=== PATIENT | female | born 1950 | race Caucasian/White ===

== ENCOUNTER 2018-12-22 15:19 | Inpatient (IN) | payer MEDICARE ==
[2018-12-22] MEDS ORDERED: MORPHINE SULFATE 4 MG/ML SYRINGE IVP STA (15:46)
[2018-12-22] MEDS ORDERED: ONDANSETRON 4 MG/2 ML VIAL IVP STA (15:46)
--- NOTE | 2018-12-22 15:52 | ED ---
Extremity Problem HPI - General Chief complaint: Extremity Problem,Nontraumatic Stated complaint: Knee Pain, fever Time Seen by Provider: 12/22/18 15:33 Source: patient, RN notes reviewed Mode of arrival: ambulatory Limitations: no limitations - History of Present Illness Initial comments: 68-year-old female presents emergency Department with chief complaint of right knee pain. Patient states that she has slight injury last week and which she follow-up with orthopedics Dr. Jurado on Friday and had a steroid injection. Patient states that pain worsened Friday night and throughout the week and which she can barely ambulate on her knee or have any pain 3 times. She states it throbs no matter if she is ambulatory are not she states it is extremely exacerbated with ambulation. Patient has developed a fever today. Patient did see Dr. Jurado this morning in which she had aspiration of her knee. This was sent for testing. Patient states that she just generally does not feel well she denies any URI symptoms and nausea vomiting. - Related Data Home Medications Medication Instructions Recorded Confirmed Carvedilol [Coreg] 12.5 mg PO BID 05/31/14 12/22/18 Levothyroxine Sodium [Synthroid] 112 mcg PO DAILY 05/31/14 12/22/18 Lisinopril [Prinivil] 40 mg PO DAILY 05/31/14 12/22/18 clonazePAM [KlonoPIN] 0.25 mg PO HS PRN 05/31/14 12/22/18 Cholecalciferol [Vitamin D3 (25 2,000 unit PO DAILY 06/01/14 12/22/18 Mcg = 1000 Iu)] Fluticasone Propionate [Flonase] 1 spray EA NOSTRIL DAILY PRN 06/01/14 12/22/18 Magnesium Oxide [Mag-Ox] 250 mg PO BID 06/01/14 12/22/18 Ibuprofen [Motrin] 800 mg PO TID PRN 12/22/18 12/22/18 Loratadine [Claritin] 10 mg PO DAILY PRN 12/22/18 12/22/18 Omeprazole [PriLOSEC] 20 mg PO DAILY PRN 12/22/18 12/22/18 amLODIPine [Norvasc] 5 mg PO BID 12/22/18 12/22/18 Previous Rx's Medication Instructions Recorded Aspirin EC [Ecotrin] 325 mg PO DAILY #30 tablet. 06/02/14 Allergies Allergy/AdvReac Type Severity Reaction Status Date / Time No Known Allergies Allergy Verified 12/22/18 16:06 Review of Systems ROS Statement: Those systems with pertinent positive or pertinent negative responses have been documented in the HPI. ROS Other: All systems not noted in ROS Statement are negative. Past Medical History Past Medical History: Hyperlipidemia, Hypertension, Thyroid Disorder History of Any Multi-Drug Resistant Organisms: None Reported Past Surgical History: Hysterectomy, Tonsillectomy, Tubal Ligation Additional Past Surgical History / Comment(s): thryoid Past Anesthesia/Blood Transfusion Reactions: No Reported Reaction Past Psychological History: Anxiety Smoking Status: Former smoker Past Alcohol Use History: Occasional Past Drug Use History: None Reported - Past Family History Father Additional Family Medical History / Comment(s): POCKETS IN THE LUNG, ULCERATIVE COLITIS Mother Family Medical History: AFIB General Exam Limitations: no limitations General appearance: alert, in no apparent distress Head exam: Present: atraumatic, normocephalic, normal inspection Eye exam: Present: normal appearance, PERRL, EOMI. Absent: scleral icterus, conjunctival injection, periorbital swelling ENT exam: Present: normal exam, normal oropharynx, mucous membranes moist Neck exam: Present: normal inspection, full ROM. Absent: tenderness, meningismus, lymphadenopathy Respiratory exam: Present: normal lung sounds bilaterally. Absent: respiratory distress, wheezes, rales, rhonchi, stridor Cardiovascular Exam: Present: regular rate, normal rhythm, normal heart sounds. Absent: systolic murmur, diastolic murmur, rubs, gallop, clicks Extremities exam: Present: other (Right knee very limited range of motion, increased warmth and swelling noted pulses are palpable and equal bilaterally) Skin exam: Present: warm, dry, intact, normal color. Absent: rash Course Vital Signs 12/22/18 12/22/18 12/22/18 15:22 17:47 18:27 Temperature 100.7 F H 100.8 F H Pulse Rate 100 98 Respiratory 18 16 Rate Blood Pressure 129/76 151/86 O2 Sat by Pulse 95 97 Oximetry Medical Decision Making - Medical Decision Making 68-year-old female presented for right knee pain, fever. Patient does have some leukocytosis, most likely evidence of septic joint. I discussed the case with [facility]. Physician Dr. Jurado who admitted the patient, consult to medicine and patient be kept nothing by mouth at midnight. Patient will be started on vancomycin in addition to the Rocephin given. - Lab Data Result diagrams: 12/22/18 16:10 12/22/18 16:10 Lab Results 12/22/18 12/22/18 12/22/18 Range/Units 16:10 16:10 16:10 WBC 24.0 H (3.8-10.6) k/uL RBC 4.86 (3.80-5.40) m/uL Hgb 14.1 (11.4-16.0) gm/dL Hct 41.2 (34.0-46.0) % MCV 84.8 (80.0-100.0) fL MCH 29.0 (25.0-35.0) pg MCHC 34.2 (31.0-37.0) g/dL RDW 13.4 (11.5-15.5) % Plt Count 229 (150-450) k/uL Neutrophils % 91 % Lymphocytes % 2 % Monocytes % 4 % Eosinophils % 1 % Basophils % 1 % Neutrophils # 21.8 H (1.3-7.7) k/uL Lymphocytes # 0.6 L (1.0-4.8) k/uL Monocytes # 1.0 (0-1.0) k/uL Eosinophils # 0.2 (0-0.7) k/uL Basophils # 0.2 (0-0.2) k/uL ESR QNS PT 12.5 H (9.0-12.0) sec INR 1.2 H (<1.2) APTT 25.6 (22.0-30.0) sec Sodium 127 L (137-145) mmol/L Potassium 4.1 (3.5-5.1) mmol/L Chloride 91 L (98-107) mmol/L Carbon Dioxide 25 (22-30) mmol/L Anion Gap 11 mmol/L BUN 13 (7-17) mg/dL Creatinine 0.69 (0.52-1.04) mg/dL Est GFR (CKD-EPI)AfAm >90 (>60 ml/min/1.73 sqM) Est GFR (CKD-EPI)NonAf 89 (>60 ml/min/1.73 sqM) Glucose 118 H (74-99) mg/dL Calcium 8.5 (8.4-10.2) mg/dL Total Bilirubin 3.5 H (0.2-1.3) mg/dL AST 20 (14-36) U/L ALT 31 (9-52) U/L Alkaline Phosphatase 60 (38-126) U/L Total Protein 6.5 (6.3-8.2) g/dL Albumin 4.0 (3.5-5.0) g/dL Disposition Clinical Impression: Septic joint of right knee joint Disposition: ADMITTED IP TO THIS HOSP Condition: Fair Referrals: Thea Lloyd MD [Primary Care Provider] - 1-2 days
[2018-12-22 16:55] LABS: Basophils # (A) 0.2 k/uL (0-0.2); Basophils % (A) 1 %; Eosinophils # (A) 0.2 k/uL (0-0.7); Eosinophils % (A) 1 %; HCT 41.2 % (34.0-46.0); HGB 14.1 gm/dL (11.4-16.0); Lymphocytes # (A) 0.6 k/uL (1.0-4.8); Lymphocytes % (A) 2 %; MCHC 34.2 g/dL (31.0-37.0); MCV 84.8 fL (80.0-100.0); Mean Platelet Volume 6.9; Monocytes % (A) 4 %; Neutrophils # (A) 21.8 k/uL (1.3-7.7); Neutrophils % (A) 91 %; Platelet Count 229 k/uL (150-450); RBC 4.86 m/uL (3.80-5.40); RDW 13.4 % (11.5-15.5)
[2018-12-22 17:06] LABS: INR 1.2 (<1.2); Partial Thromboplastin Time 25.6 sec (22.0-30.0); Prothrombin Time 12.5 sec (9.0-12.0)
--- NOTE | 2018-12-22 17:12 | XR ---
EXAMINATION TYPE: XR knee complete RT DATE OF EXAM: 12/22/2018 COMPARISON: NONE HISTORY: 68-year-old female with pain TECHNIQUE: 3 views FINDINGS: Tricompartmental degenerative spurring at the knee. Extensor mechanism is intact. Underlying small to moderate suprapatellar knee joint effusion. No acute fracture, subluxation, or dislocation seen. IMPRESSION: [id number] tricompartmental osteoarthrosis. [id number] knee joint effusion. If concern f or internal derangement, MRI can be performed. No acute osseous abnormality seen.
[2018-12-22 17:17] LABS: ALT 31 U/L (9-52); AST 20 U/L (14-36); African American GFR (CKD) >90 (>60 ml/min/1.73 sqM); Alkaline Phosphatase 60 U/L (38-126); Anion Gap 11 mmol/L; Blood Urea Nitrogen 13 mg/dL (7-17); Calcium 8.5 mg/dL (8.4-10.2); Carbon Dioxide 25 mmol/L (22-30); Chloride 91 mmol/L (98-107); Glucose 118 mg/dL (74-99); Potassium 4.1 mmol/L (3.5-5.1); Sodium 127 mmol/L (137-145); Total Bilirubin 3.5 mg/dL (0.2-1.3); Total Protein 6.5 g/dL (6.3-8.2)
[2018-12-22 17:25] LABS: Erythrocyte Sedimentation Rate QNS mm/hr (0-20)
[2018-12-22] MEDS ORDERED: HYDROmorphone 1 MG/ML 1 ML SYRINGE IVP STA (17:34)
[2018-12-22] MEDS ORDERED: VANCOMYCIN IV PER PHARMACY 1 EACH MISC MISCELLANE PRN (18:44)
[2018-12-22] MEDS ORDERED: NALOXONE 0.4 MG/ML 1 ML VIAL IV PRN (18:45)
[2018-12-22] MEDS ORDERED: HYDROmorphone 1 MG/ML 1 ML SYRINGE IVP PRN (18:45)
[2018-12-22] MEDS ORDERED: HYDROmorphone 0.5 MG/0.5 ML SYRINGE IVP PRN (18:45)
[2018-12-22] MEDS ORDERED: VANCOMYCIN 1,500 MG in SODIUM CHLORIDE 0.9% 250 ML IVPB STA (18:54)
[2018-12-22 19:26] LABS: C Reactive Protein 224.4 mg/L (<10.0)
[2018-12-22] MEDS ORDERED: PANTOPRAZOLE 40 MG TABLET PO PRN (19:30)
[2018-12-22] MEDS ORDERED: clonazePAM 0.5 MG TAB PO PRN (19:30)
[2018-12-22] MEDS ORDERED: ACETAMINOPHEN TAB 500 MG TAB PO STA (19:31)
--- NOTE | 2018-12-22 19:51 | XR ---
EXAMINATION: XR chest 2V DATE AND TIME: 12/22/2018 7:07 PM CLINICAL INDICATION: PHH; Pain TECHNIQUE: Departmental protocol COMPARISON: None FINDINGS: There are ill-defined upper, mid, and lower lung pulmonary consolidative opacities which si lhouette the pulmonary vasculature to a moderate-marked degree, correlate for multifocal pneumonia. The pleural spaces are negative on the frontal radiograph, but there is evidence of minimal pleural e ffusion posteriorly on the lateral radiograph.. The cardiac silhouette is moderately enlarged. The skeletal structures and soft tissues are negative for acute findings. IMPRESSION: Marked bilateral pulmonary infiltrative process, with scant pleural effusions posteriorly .
[2018-12-22] MEDS ORDERED: DILTIAZEM DRIP BOLUS FROM BAG 1 MG SOLN IV ONE (20:02)
[2018-12-22] MEDS ORDERED: ASPIRIN 81 MG PO STA (20:04)
--- NOTE | 2018-12-22 20:21 | ED ---
Medical Decision Making - Medical Decision Making 68-year-old female has been admitted for septic joint to Dr. Jurado in the meantime patient has developed A. fib with RVR with no history. Patient we started on Cardizem at this time. Patient's fever is treated with acetaminophen. Patient will be given aspirin B held at this time pending surgery in the morning. Patient otherwise is stable. - Lab Data Result diagrams: 12/22/18 16:10 12/22/18 16:10 Lab Results 12/22/18 12/22/18 12/22/18 Range/Units 16:10 16:10 16:10 WBC 24.0 H (3.8-10.6) k/uL RBC 4.86 (3.80-5.40) m/uL Hgb 14.1 (11.4-16.0) gm/dL Hct 41.2 (34.0-46.0) % MCV 84.8 (80.0-100.0) fL MCH 29.0 (25.0-35.0) pg MCHC 34.2 (31.0-37.0) g/dL RDW 13.4 (11.5-15.5) % Plt Count 229 (150-450) k/uL Neutrophils % 91 % Lymphocytes % 2 % Monocytes % 4 % Eosinophils % 1 % Basophils % 1 % Neutrophils # 21.8 H (1.3-7.7) k/uL Lymphocytes # 0.6 L (1.0-4.8) k/uL Monocytes # 1.0 (0-1.0) k/uL Eosinophils # 0.2 (0-0.7) k/uL Basophils # 0.2 (0-0.2) k/uL ESR QNS PT 12.5 H (9.0-12.0) sec INR 1.2 H (<1.2) APTT 25.6 (22.0-30.0) sec Sodium 127 L (137-145) mmol/L Potassium 4.1 (3.5-5.1) mmol/L Chloride 91 L (98-107) mmol/L Carbon Dioxide 25 (22-30) mmol/L Anion Gap 11 mmol/L BUN 13 (7-17) mg/dL Creatinine 0.69 (0.52-1.04) mg/dL Est GFR (CKD-EPI)AfAm >90 (>60 ml/min/1.73 sqM) Est GFR (CKD-EPI)NonAf 89 (>60 ml/min/1.73 sqM) Glucose 118 H (74-99) mg/dL Plasma Lactic Acid Rick (0.7-2.0) mmol/L Calcium 8.5 (8.4-10.2) mg/dL Total Bilirubin 3.5 H (0.2-1.3) mg/dL AST 20 (14-36) U/L ALT 31 (9-52) U/L Alkaline Phosphatase 60 (38-126) U/L C-Reactive Protein 224.4 H (<10.0) mg/L Total Protein 6.5 (6.3-8.2) g/dL Albumin 4.0 (3.5-5.0) g/dL 12/22/18 12/22/18 Range/Units 17:04 17:30 WBC (3.8-10.6) k/uL RBC (3.80-5.40) m/uL Hgb (11.4-16.0) gm/dL Hct (34.0-46.0) % MCV (80.0-100.0) fL MCH (25.0-35.0) pg MCHC (31.0-37.0) g/dL RDW (11.5-15.5) % Plt Count (150-450) k/uL Neutrophils % % Lymphocytes % % Monocytes % % Eosinophils % % Basophils % % Neutrophils # (1.3-7.7) k/uL Lymphocytes # (1.0-4.8) k/uL Monocytes # (0-1.0) k/uL Eosinophils # (0-0.7) k/uL Basophils # (0-0.2) k/uL ESR 2 PT (9.0-12.0) sec INR (<1.2) APTT (22.0-30.0) sec Sodium (137-145) mmol/L Potassium (3.5-5.1) mmol/L Chloride (98-107) mmol/L Carbon Dioxide (22-30) mmol/L Anion Gap mmol/L BUN (7-17) mg/dL Creatinine (0.52-1.04) mg/dL Est GFR (CKD-EPI)AfAm (>60 ml/min/1.73 sqM) Est GFR (CKD-EPI)NonAf (>60 ml/min/1.73 sqM) Glucose (74-99) mg/dL Plasma Lactic Acid Rick 1.4 (0.7-2.0) mmol/L Calcium (8.4-10.2) mg/dL Total Bilirubin (0.2-1.3) mg/dL AST (14-36) U/L ALT (9-52) U/L Alkaline Phosphatase (38-126) U/L C-Reactive Protein (<10.0) mg/L Total Protein (6.3-8.2) g/dL Albumin (3.5-5.0) g/dL Critical Care Time Critical Care Time: Yes Total Critical Care Time: 35 Critical Care Time: Total 35 minutes of critical care time were used to initially evaluated patient, reviewed past medical history, review vitals and order appropriate testing including CBC, CMP, CRP, lactic and blood culture, ESR. Patient is found to have leukocytosis, septic joint based on arthrocentesis performed earlier. Patient's case discussed with orthopedics in which patient starting antibiotics. Patient also has developed A. fib RVR while in emergency department. Patient was placed in Cardizem. Patient was given aspirin. Patient will not be placed on heparin as she is scheduled for foreign the morning. This was discussed case with Dr. Neal who agrees with this plan. Disposition Clinical Impression: Septic joint of right knee joint, Atrial fibrillation with RVR Disposition: ADMITTED IP TO THIS HOSP Condition: Fair
[2018-12-22] MEDS ORDERED: DILTIAZEM 125 MG in SODIUM CHLORIDE 0.9% 100 ML IV SCH (20:45)
[2018-12-22] MEDS: CARVEDILOL 12.5 MG TAB PO SCH (21:32)
[2018-12-22] MEDS: MAGNESIUM OXIDE 400 MG TAB PO SCH (21:32)
[2018-12-22] MEDS: amLODIPine 5 MG TAB PO SCH (21:32)
[2018-12-22 23:49] LABS: Amorphous Sediment,Urine Rare /hpf; Appearance,Urine Clear (Clear); Bacteria,Urine Rare /hpf; Bilirubin,Urine Negative (Negative); Blood,Urine Small (Negative); Calcium Oxalate Crystals,Urine Occasional /hpf; Color,Urine Yellow; Glucose,Urine (UA) Negative (Negative); Hyaline Casts,Urine 8 /lpf (0-2); Ketones,Urine 2+ (Negative); Leukocyte Esterase,Urine Small (Negative); Mucus,Urine Occasional /hpf; Nitrite,Urine Negative (Negative); Protein,Urine 2+ (Negative); RBC,Urine 5 /hpf (0-5); Specific Gravity,Urine 1.025 (1.001-1.035); Squamous Epithelial Cell,Urine 3 /hpf (0-4); Urobilinogen,Urine <2.0 mg/dL (<2.0)
[2018-12-23] MEDS: MORPHINE SULFATE 4 MG/ML SYRINGE IV PRN ×3 (06:22→19:56)
[2018-12-23] MEDS: LEVOTHYROXINE 112 MCG TAB PO SCH (06:22)
[2018-12-23] MEDS: CARVEDILOL 12.5 MG TAB PO SCH ×2 (06:22→17:01)
[2018-12-23 06:36] LABS: HCT 37.1 % (34.0-46.0); HGB 12.6 gm/dL (11.4-16.0); MCV 85.3 fL (80.0-100.0); Mean Platelet Volume 6.9; Platelet Count 195 k/uL (150-450); RBC 4.35 m/uL (3.80-5.40); RDW 13.6 % (11.5-15.5); WBC 19.1 k/uL (3.8-10.6)
[2018-12-23 06:57] LABS: Potassium 4.4 mmol/L (3.5-5.1)
[2018-12-23] MEDS: VANCOMYCIN 1,500 MG in SODIUM CHLORIDE 0.9% 250 ML IVPB SCH ×2 (07:04→19:02)
[2018-12-23] MEDS: ACETAMINOPHEN TAB 325 MG TAB PO PRN ×2 (08:07→22:24)
[2018-12-23] MEDS: MAGNESIUM OXIDE 400 MG TAB PO SCH ×2 (08:07→21:18)
[2018-12-23] MEDS ORDERED: LISINOPRIL 20 MG TAB PO SCH (09:00)
--- NOTE | 2018-12-23 09:34 | P.CRDCN ---
History of Present Illness Consult date: 12/23/18 Requesting physician: Trav Jurado Consult reason: atrial fibrillation Chief complaint: Right knee swelling History of present illness: This is a pleasant 68-year-old female with history of hypertension, hyperlipidemia, prior thyroid removal for which she takes Synthroid, nonsmoker, rare EtOH, who states that she was getting into bed few nights ago, and felt something pull in her right knee. Subsequent to that she developed pain in that knee, she went to see Dr. Jurado in his office, he gave her a steroid injection. The knee became quite swollen, and warm to the touch, and the pain continued to worsen, to the point where the patient states she could hardly walk. She went back to see Dr. Jurado who joseph some fluid from that knee, which was bloody according to the patient, she was then referred to come to the hospital for admission. EKG on presentation here showed atrial fibrillation, patient denies any prior history of atrial fibrillation, she denies having any palpitations, dizziness, shortness of breath. She does state that she had TIA in 2004. The knee x-ray on arrival here showed mild to moderate tricompartmental osteoarthritis. Small to moderate knee joint effusion. Chest x-ray shows marked bilateral pulmonary infiltrative process. Blood pressure 128/50, heart rate in the 90s, temperature 102.5 this morning. Blood cultures show gram- positive cocci in clusters. White blood cell count 24 on admission, 19 this morning, hemoglobin 12.6, platelet count 195. Sodium 126, potassium 4.4, BUN 16 and creatinine 0.9. C-reactive protein 224, total bilirubin 3.5, positive UTI. At the time of my examination this morning, patient feels well, she continues to have pain in her right knee, denies any dizziness or lightheadedness, no shortness of breath, no palpitations. She is currently on IV Cardizem, no heparin has been initiated. Past Medical History Past Medical History: Hyperlipidemia, Hypertension, Thyroid Disorder History of Any Multi-Drug Resistant Organisms: None Reported Past Surgical History: Hysterectomy, Tonsillectomy, Tubal Ligation Additional Past Surgical History / Comment(s): thryoid Past Anesthesia/Blood Transfusion Reactions: No Reported Reaction Past Psychological History: Anxiety Smoking Status: Former smoker Past Alcohol Use History: Occasional Past Drug Use History: None Reported - Past Family History Father Additional Family Medical History / Comment(s): POCKETS IN THE LUNG, ULCERATIVE COLITIS Mother Family Medical History: AFIB Medications and Allergies Home Medications Medication Instructions Recorded Confirmed Type Carvedilol [Coreg] 12.5 mg PO BID 05/31/14 12/22/18 History Levothyroxine Sodium [Synthroid] 112 mcg PO DAILY 05/31/14 12/22/18 History Lisinopril [Prinivil] 40 mg PO DAILY 05/31/14 12/22/18 History clonazePAM [KlonoPIN] 0.25 mg PO HS PRN 05/31/14 12/22/18 History Cholecalciferol [Vitamin D3 (25 2,000 unit PO DAILY 06/01/14 12/22/18 History Mcg = 1000 Iu)] Fluticasone Propionate [Flonase] 1 spray EA NOSTRIL DAILY PRN 06/01/14 12/22/18 History Magnesium Oxide [Mag-Ox] 250 mg PO BID 06/01/14 12/22/18 History Aspirin EC [Ecotrin] 325 mg PO DAILY #30 tablet. 06/02/14 12/22/18 Rx Ibuprofen [Motrin] 800 mg PO TID PRN 12/22/18 12/22/18 History Loratadine [Claritin] 10 mg PO DAILY PRN 12/22/18 12/22/18 History Omeprazole [PriLOSEC] 20 mg PO DAILY PRN 12/22/18 12/22/18 History amLODIPine [Norvasc] 5 mg PO BID 12/22/18 12/22/18 History Allergies Allergy/AdvReac Type Severity Reaction Status Date / Time No Known Allergies Allergy Verified 12/22/18 16:06 Physical Exam Vitals: Vital Signs Temp Pulse Pulse Resp BP BP Pulse Ox 12/23/18 08:00 102.5 F H 91 20 129/59 96 12/23/18 03:47 100.5 F H 76 16 125/79 95 12/23/18 03:13 75 12/22/18 23:29 98 F 83 16 145/72 94 L 12/22/18 21:20 100.0 F H 85 18 109/68 90 L 12/22/18 19:26 102 F H 130 H 18 161/85 92 L 12/22/18 18:27 100.8 F H 12/22/18 17:47 98 16 151/86 97 09/03/19 15:22 100.7 F H 100 18 129/76 95 Intake and Output 12/22/18 12/23/18 12/23/18 22:59 06:59 14:59 Intake Total 300 0 Output Total 300 Balance 0 0 Intake: Oral 300 0 Output: Urine 300 Other: Voiding Method Bedside Commode Weight 86.183 kg 85.8 kg PHYSICAL EXAMINATION: GENERAL: 68-year-old female in no acute distress at the time of my examination HEENT: Head is atraumatic, normocephalic. Pupils equal, round. Sclera anicteric. Conjunctiva are clear. Mucous membranes of the mouth are moist. Neck is supple. There is no elevated jugular venous pressure. No carotid bruit is heard. HEART EXAMINATION: S1 and S2 irregularly irregular CHEST EXAMINATION: Lungs are clear to auscultation and precussion. No chest wall tenderness is noted on palpation or with deep breathing. ABDOMEN: Soft, nontender. Bowel sounds are heard. No organomegaly noted. EXTREMITIES: 2+ peripheral pulses with no evidence of peripheral edema and no calf tenderness noted. There is swelling of the right knee noted as well as warmness of that knee NEUROLOGIC patient is awake, alert and oriented 3 . . Results 12/23/18 06:09 12/23/18 06:09 Cardiac Enzymes 12/22/18 Range/Units 16:10 AST 20 (14-36) U/L Coagulation 12/22/18 Range/Units 16:10 PT 12.5 H (9.0-12.0) sec APTT 25.6 (22.0-30.0) sec CBC 12/22/18 12/23/18 Range/Units 16:10 06:09 WBC 24.0 H 19.1 H (3.8-10.6) k/uL RBC 4.86 4.35 (3.80-5.40) m/uL Hgb 14.1 12.6 (11.4-16.0) gm/dL Hct 41.2 37.1 (34.0-46.0) % Plt Count 229 195 (150-450) k/uL Comprehensive Metabolic Panel 12/22/18 12/23/18 Range/Units 16:10 06:09 Sodium 127 L 126 L (137-145) mmol/L Potassium 4.1 4.4 (3.5-5.1) mmol/L Chloride 91 L 91 L (98-107) mmol/L Carbon Dioxide 25 28 (22-30) mmol/L BUN 13 16 (7-17) mg/dL Creatinine 0.69 0.94 (0.52-1.04) mg/dL Glucose 118 H 114 H (74-99) mg/dL Calcium 8.5 8.0 L (8.4-10.2) mg/dL AST 20 (14-36) U/L ALT 31 (9-52) U/L Alkaline Phosphatase 60 (38-126) U/L Total Protein 6.5 (6.3-8.2) g/dL Albumin 4.0 (3.5-5.0) g/dL Current Medications Generic Name Dose Route Start Last Admin Trade Name Freq PRN Reason Stop Dose Admin Acetaminophen 650 mg 12/22/18 18:45 12/23/18 08:07 Tylenol Tab PO 650 mg Q6HR PRN Administration Mild Pain or Fever > 100.5 Amlodipine Besylate 5 mg 12/22/18 21:00 12/22/18 21:32 Norvasc PO 5 mg BID MADINA Administration Carvedilol 12.5 mg 12/22/18 19:45 12/23/18 06:22 Coreg PO 12.5 mg BID-W/MEALS MADINA Administration Clonazepam 0.25 mg 12/22/18 19:30 Klonopin PO HS PRN sleep Hydromorphone HCl 0.5 mg 12/22/18 18:45 Dilaudid IVP Q3HR PRN Moderate Pain Hydromorphone HCl 1 mg 12/22/18 18:45 Dilaudid IVP Q3HR PRN Severe Pain Ceftriaxone Sodium 1 gm/ 50 mls @ 100 mls/hr 12/23/18 06:00 12/23/18 06:22 Sodium Chloride IVPB 100 mls/hr Q12H MADINA Administration Vancomycin HCl 1,500 mg/ 250 mls @ 125 mls/hr 12/23/18 06:00 12/23/18 07:04 Sodium Chloride IVPB 125 mls/hr Q12H MADINA Administration Diltiazem HCl 125 mg/ Sodium 125 mls @ 5 mls/hr 12/22/18 20:45 12/22/18 20:34 Chloride IV 5 mg/hr .Q24H MADINA 5 mls/hr Administration 5 MG/HR Levothyroxine Sodium 112 mcg 12/23/18 06:30 12/23/18 06:22 Synthroid PO 112 mcg DAILY@0630 MADINA Administration Lisinopril 40 mg 12/23/18 09:00 12/23/18 08:07 Zestril PO 40 mg DAILY MADINA Administration Magnesium Oxide 400 mg 12/22/18 21:00 12/23/18 08:07 Mag-Ox PO 400 mg BID MADINA Administration Morphine Sulfate 4 mg 12/22/18 18:45 12/23/18 06:22 Morphine Sulfate (Inj) IV 4 mg Q4HR PRN Administration Severe Pain Naloxone HCl 0.2 mg 12/22/18 18:45 Narcan IV Q2M PRN Opioid Reversal Pantoprazole Sodium 40 mg 12/22/18 19:30 Protonix PO DAILY PRN GI Upset Intake and Output 12/22/18 12/23/18 12/23/18 22:59 06:59 14:59 Intake Total 300 0 Output Total 300 Balance 0 0 Intake: Oral 300 0 Output: Urine 300 Other: Voiding Method Bedside Commode Weight 86.183 kg 85.8 kg 12/23/18 06:09 12/23/18 06:09 EKG Interpretations (text) EKG shows atrial fibrillation with moderately rapid ventricular response Assessment and Plan Plan: Assessment and plan #1 right knee pain and swelling with associated fever . Elevated white blood cell count, temperature this morning 102.5, blood cultures positive for gram- positive cocci in clusters #2 hypertension #3 atrial fibrillation, appears to be of new onset for the patient #4 hyperlipidemia #5 history of thyroidectomy, on Synthroid #6 TIA in 2015. Plan We will obtain an echocardiogram with Doppler study as well as a TSH level. Patient has been educated regarding the importance of anticoagulation for stroke prevention. She is currently not on IV heparin or any anticoagulation. The patient mentioned a plan for possible arthroscopy of the right knee, no orders have been initiated in that regard, we will speak with orthopedics regarding their plan. DNP note has been reviewed, I agree with a documented findings and plan of care. Patient was seen and examined.
--- NOTE | 2018-12-23 09:40 | P.HPOR ---
History of Present Illness H&P Date: 12/23/18 Chief Complaint: Right knee pain Patient was admitted through the ED yesterday 12/22/18 after having complaints of increased knee pain as well as was found to have new onset afib. Elda presented to our office for evaluation of her right knee pain yesterday 12/22/18. She was seen on 12/18/18, and on Friday she developed increased pain, swelling, catching and locking. She was unable to bear weight yesterday. She has had also complaints of fever. An aspiration was performed by Dr. Jurado and sent for analysis. Review of Systems All systems: negative Constitutional: Denies anorexia, Denies weight loss Eyes: denies blurred vision, denies pain Ears, nose, mouth and throat: Denies headache, Denies sore throat Cardiovascular: Denies chest pain, Denies shortness of breath Respiratory: Denies cough Gastrointestinal: Denies abdominal pain, Denies diarrhea, Denies nausea, Denies vomiting Genitourinary: Denies dysuria, Denies hematuria Musculoskeletal: Denies myalgias Integumentary: Denies pruritus, Denies rash Neurological: Denies numbness, Denies weakness Psychiatric: Denies anxiety, Denies depression Endocrine: Denies fatigue, Denies weight change Past Medical History Past Medical History: Hyperlipidemia, Hypertension, Thyroid Disorder History of Any Multi-Drug Resistant Organisms: None Reported Past Surgical History: Hysterectomy, Tonsillectomy, Tubal Ligation Additional Past Surgical History / Comment(s): thryoid Past Anesthesia/Blood Transfusion Reactions: No Reported Reaction Past Psychological History: Anxiety Smoking Status: Former smoker Past Alcohol Use History: Occasional Past Drug Use History: None Reported - Past Family History Father Additional Family Medical History / Comment(s): POCKETS IN THE LUNG, ULCERATIVE COLITIS Mother Family Medical History: AFIB Medications and Allergies Home Medications Medication Instructions Recorded Confirmed Type Carvedilol [Coreg] 12.5 mg PO BID 05/31/14 12/22/18 History Levothyroxine Sodium [Synthroid] 112 mcg PO DAILY 05/31/14 12/22/18 History Lisinopril [Prinivil] 40 mg PO DAILY 05/31/14 12/22/18 History clonazePAM [KlonoPIN] 0.25 mg PO HS PRN 05/31/14 12/22/18 History Cholecalciferol [Vitamin D3 (25 2,000 unit PO DAILY 06/01/14 12/22/18 History Mcg = 1000 Iu)] Fluticasone Propionate [Flonase] 1 spray EA NOSTRIL DAILY PRN 06/01/14 12/22/18 History Magnesium Oxide [Mag-Ox] 250 mg PO BID 06/01/14 12/22/18 History Aspirin EC [Ecotrin] 325 mg PO DAILY #30 tablet. 06/02/14 12/22/18 Rx Ibuprofen [Motrin] 800 mg PO TID PRN 12/22/18 12/22/18 History Loratadine [Claritin] 10 mg PO DAILY PRN 12/22/18 12/22/18 History Omeprazole [PriLOSEC] 20 mg PO DAILY PRN 12/22/18 12/22/18 History amLODIPine [Norvasc] 5 mg PO BID 12/22/18 12/22/18 History Allergies Allergy/AdvReac Type Severity Reaction Status Date / Time No Known Allergies Allergy Verified 12/22/18 16:06 Physical Examination Constitutional: Patient is adequately groomed with no evidence of malnutrition. Skin: There are no rashes, ulcerations or lesions in the regions examined. Mental Status: Patient is oriented to time, place and person. Mood and affect are appropriate. Respiratory: No labored effort. No accessory muscle use. HEENT: Normal cephalic atraumatic. Extraocular movements are intact. Patellar Tracking: Normal Effusion: Moderate Extension: Full Pain with Forced Extension: No Lucia: Stable with firm endpoint MCL: Stable LCL: Stable PCL: Stable with firm endpoint Joint Line Tenderness: Medial Flexion: 120 degrees Pain with Forced Flexion: yes Dilia Test: positive Neurovascular status: Intact sensation at the lateral, medial and plantar first dorsal web spaces. There is 2+ posterior tibial pulse with brisk capillary refill in all digits. Results - Labs Labs: Abnormal Lab Results - Last 24 Hours (Table) 12/22/18 12/22/18 12/22/18 Range/Units 16:10 16:10 16:10 WBC 24.0 H (3.8-10.6) k/uL Neutrophils # 21.8 H (1.3-7.7) k/uL Lymphocytes # 0.6 L (1.0-4.8) k/uL PT 12.5 H (9.0-12.0) sec INR 1.2 H (<1.2) Sodium 127 L (137-145) mmol/L Chloride 91 L (98-107) mmol/L Glucose 118 H (74-99) mg/dL Calcium (8.4-10.2) mg/dL Total Bilirubin 3.5 H (0.2-1.3) mg/dL C-Reactive Protein 224.4 H (<10.0) mg/L Urine Protein (Negative) Urine Ketones (Negative) Urine Blood (Negative) Ur Leukocyte Esterase (Negative) Urine WBC (0-5) /hpf Calcium Oxalate Crystal (None) /hpf Amorphous Sediment (None) /hpf Urine Bacteria (None) /hpf Hyaline Casts (0-2) /lpf Urine Mucus (None) /hpf 12/22/18 12/23/18 12/23/18 Range/Units 23:15 06:09 06:09 WBC 19.1 H (3.8-10.6) k/uL Neutrophils # (1.3-7.7) k/uL Lymphocytes # (1.0-4.8) k/uL PT (9.0-12.0) sec INR (<1.2) Sodium 126 L (137-145) mmol/L Chloride 91 L (98-107) mmol/L Glucose 114 H (74-99) mg/dL Calcium 8.0 L (8.4-10.2) mg/dL Total Bilirubin (0.2-1.3) mg/dL C-Reactive Protein (<10.0) mg/L Urine Protein 2+ H (Negative) Urine Ketones 2+ H (Negative) Urine Blood Small H (Negative) Ur Leukocyte Esterase Small H (Negative) Urine WBC 8 H (0-5) /hpf Calcium Oxalate Crystal Occasional H (None) /hpf Amorphous Sediment Rare H (None) /hpf Urine Bacteria Rare H (None) /hpf Hyaline Casts 8 H (0-2) /lpf Urine Mucus Occasional H (None) /hpf Microbiology - Last 24 Hours (Table) 12/22/18 16:10 Blood Culture - Final Blood H & H 12/22/18 12/23/18 Range/Units 16:10 06:09 Hgb 14.1 12.6 (11.4-16.0) gm/dL Hct 41.2 37.1 (34.0-46.0) % Coagulation 12/22/18 Range/Units 16:10 INR 1.2 H (<1.2) Result Diagrams: 12/23/18 06:09 12/23/18 06:09 - Diagnostic results Knee x-ray: report reviewed, image reviewed Assessment and Plan Assessment: Possible septic knee, meniscus tear, DJD right knee Plan: Dr. Jurado has recommended proceeding with arthroscopic I and D of the right knee and possible menisectomy if she is cleared by cardiology and internal medicine. She has been NPO. Procedure and consent has been ordered. Continue pain management and IV antibiotics. Time with Patient: Less than 30
[2018-12-23] MEDS ORDERED: HEPARIN SODIUM,PORCINE 5,000 UNIT/ML 1 ML VIAL IV PRN (09:59)
[2018-12-23] MEDS ORDERED: HEPARIN SODIUM,PORCINE 5,000 UNIT/ML 1 ML VIAL IV ONE (09:59)
[2018-12-23] MEDS: HEPARIN SOD,PORK IN 0.45% NACL 25,000 UNIT in 0.45% NACL 1 250ML.BAG IV SCH (10:44)
--- NOTE | 2018-12-23 11:00 | P.CONS ---
History of Present Illness - Reason for Consult Consult date: 12/23/18 Medical management Requesting physician: Trav Jurado - Chief Complaint Right knee pain - History of Present Illness This is a 68-year-old female patient of Dr. Lloyd. Patient presents with complaints of increased right knee pain and elevated temperature. Patient repo rts that on Friday she had a steroid injection to right knee with Dr. Jurado. Patient reports on Friday she started to develop increased pain and swelling to right knee along with having fevers. Patient presented back to Dr. Jurado's office and aspiration of knee was completed and sent for analysis. Patient then presented to ER with complaints of increased pain yesterday. Patient's white blood cell count on arrival found to be 24 lactic acid 1.4 elevated temperature. Patient started on vancomycin and Rocephin. Patient does have a past medical history of hyperlipidemia and hypertension hypothyroidism and anxiety. throughtout the night patient went into A. fib RVR. Leela drip started cardiology services consulted. Dr. Gaines has been consulted for infectious disease. Per patient plans for possible scope today. At this time patient denies any chest pain or shortness of breath. Patient denies nausea vomiting or diarrhea. Patient denies any urinary burning or frequency Review of Systems please refer to HPI otherwise unremarkable Past Medical History Past Medical History: Hyperlipidemia, Hypertension, Thyroid Disorder History of Any Multi-Drug Resistant Organisms: None Reported Past Surgical History: Hysterectomy, Tonsillectomy, Tubal Ligation Additional Past Surgical History / Comment(s): thryoid Past Anesthesia/Blood Transfusion Reactions: No Reported Reaction Past Psychological History: Anxiety Smoking Status: Former smoker Past Alcohol Use History: Occasional Past Drug Use History: None Reported - Past Family History Father Additional Family Medical History / Comment(s): POCKETS IN THE LUNG, ULCERATIVE COLITIS Mother Family Medical History: AFIB Medications and Allergies Home Medications Medication Instructions Recorded Confirmed Type Carvedilol [Coreg] 12.5 mg PO BID 05/31/14 12/22/18 History Levothyroxine Sodium [Synthroid] 112 mcg PO DAILY 05/31/14 12/22/18 History Lisinopril [Prinivil] 40 mg PO DAILY 05/31/14 12/22/18 History clonazePAM [KlonoPIN] 0.25 mg PO HS PRN 05/31/14 12/22/18 History Cholecalciferol [Vitamin D3 (25 2,000 unit PO DAILY 06/01/14 12/22/18 History Mcg = 1000 Iu)] Fluticasone Propionate [Flonase] 1 spray EA NOSTRIL DAILY PRN 06/01/14 12/22/18 History Magnesium Oxide [Mag-Ox] 250 mg PO BID 06/01/14 12/22/18 History Aspirin EC [Ecotrin] 325 mg PO DAILY #30 tablet. 06/02/14 12/22/18 Rx Ibuprofen [Motrin] 800 mg PO TID PRN 12/22/18 12/22/18 History Loratadine [Claritin] 10 mg PO DAILY PRN 12/22/18 12/22/18 History Omeprazole [PriLOSEC] 20 mg PO DAILY PRN 12/22/18 12/22/18 History amLODIPine [Norvasc] 5 mg PO BID 12/22/18 12/22/18 History Allergies Allergy/AdvReac Type Severity Reaction Status Date / Time No Known Allergies Allergy Verified 12/22/18 16:06 Physical Exam Vitals: Vital Signs Temp Pulse Pulse Resp BP BP Pulse Ox 12/23/18 08:00 102.5 F H 91 20 129/59 96 12/23/18 03:47 100.5 F H 76 16 125/79 95 12/23/18 03:13 75 12/22/18 23:29 98 F 83 16 145/72 94 L 12/22/18 21:20 100.0 F H 85 18 109/68 90 L 12/22/18 19:26 102 F H 130 H 18 161/85 92 L 12/22/18 18:27 100.8 F H 12/22/18 17:47 98 16 151/86 97 12/22/18 15:22 100.7 F H 100 18 129/76 95 Intake and Output 12/22/18 12/23/18 12/23/18 22:59 06:59 14:59 Intake Total 300 0 Output Total 300 250 Balance 0 -250 Intake: Oral 300 0 Output: Urine 300 250 Other: Voiding Method Bedside Commode Weight 86.183 kg 85.8 kg Head normocephalic Neck supple Lungs clear to auscultation bilaterally no wheezing or crackles Heart irregular heart rate Abdomen is soft nontender nondistended positive bowel sounds no hepatosplenomegaly Extremities no edema. Increased ringing edema Neuro alert and orientated to 3 Results CBC & Chem 7: 12/23/18 06:09 12/23/18 06:09 Labs: Abnormal Lab Results - Last 24 Hours (Table) 12/22/18 12/22/18 12/22/18 Range/Units 16:10 16:10 16:10 WBC 24.0 H (3.8-10.6) k/uL Neutrophils # 21.8 H (1.3-7.7) k/uL Lymphocytes # 0.6 L (1.0-4.8) k/uL PT 12.5 H (9.0-12.0) sec INR 1.2 H (<1.2) Sodium 127 L (137-145) mmol/L Chloride 91 L (98-107) mmol/L Glucose 118 H (74-99) mg/dL Calcium (8.4-10.2) mg/dL Total Bilirubin 3.5 H (0.2-1.3) mg/dL C-Reactive Protein 224.4 H (<10.0) mg/L Urine Protein (Negative) Urine Ketones (Negative) Urine Blood (Negative) Ur Leukocyte Esterase (Negative) Urine WBC (0-5) /hpf Calcium Oxalate Crystal (None) /hpf Amorphous Sediment (None) /hpf Urine Bacteria (None) /hpf Hyaline Casts (0-2) /lpf Urine Mucus (None) /hpf 12/22/18 12/23/18 12/23/18 Range/Units 23:15 06:09 06:09 WBC 19.1 H (3.8-10.6) k/uL Neutrophils # (1.3-7.7) k/uL Lymphocytes # (1.0-4.8) k/uL PT (9.0-12.0) sec INR (<1.2) Sodium 126 L (137-145) mmol/L Chloride 91 L (98-107) mmol/L Glucose 114 H (74-99) mg/dL Calcium 8.0 L (8.4-10.2) mg/dL Total Bilirubin (0.2-1.3) mg/dL C-Reactive Protein (<10.0) mg/L Urine Protein 2+ H (Negative) Urine Ketones 2+ H (Negative) Urine Blood Small H (Negative) Ur Leukocyte Esterase Small H (Negative) Urine WBC 8 H (0-5) /hpf Calcium Oxalate Crystal Occasional H (None) /hpf Amorphous Sediment Rare H (None) /hpf Urine Bacteria Rare H (None) /hpf Hyaline Casts 8 H (0-2) /lpf Urine Mucus Occasional H (None) /hpf Microbiology - Last 24 Hours (Table) 12/22/18 16:10 Blood Culture - Final Blood Assessment and Plan Assessment: 1. Fever and increased pain to right knee due to septic right knee joint. White blood cell count 24. Patient did have aspiration of fluid in the office and was sent for analysis. Infectious disease consulted. Patient maintained on vancomycin and Rocephin 2. New-onset atrial fibrillation with rapid ventricular response. Cardiology services following. 2-D echo has been ordered. Cardizem drip ordered for rate control. Heparin drip ordered per cardiology 3. Hyponatremia. Sodium 126. Normal saline at 50 has been ordered. We'll continue to monitor 4. History of essential hypertension 5. History of Hyperlipidemia 6. History of hypothyroidism. Synthroid resumed TSH level has been ordered 7. History of anxiety 8. Urinary tract infection. urine culture has been ordered. Infectious disease following maintained on Rocephin DVT prophylaxis heparin drip. GI prophylaxis Protonix Thank you for this consultation we will continue to follow patient closely throughout stay Time with Patient: Greater than 30 (I performed an examination of the patient and discussed their management with the Nurse Practitioner. I have reviewed the Nurse Practitioner's notes and agree with the documented findings and plan of care. Greater than 60% of the total time spent in counseling and coordination of care)
[2018-12-23] MEDS: amLODIPine 5 MG TAB PO SCH (11:57)
[2018-12-23] MEDS: SODIUM CHLORIDE 0.9% 1,000 ML IV SCH (11:58)
--- NOTE | 2018-12-23 16:11 | P.CONS ---
History of Present Illness - Reason for Consult Consult date: 12/23/18 right knee septic arthritis and bacteremia Requesting physician: Tala Huber - Chief Complaint right knee pain since 12/17/2018 - History of Present Illness patient is a 68-year-old female started having a problem with the right knee pain last patient did not recall any history of any trauma patient says she tried to bend her knee and subsequently he noticed having pain in her knee area slightly the pain to be throbbing a drop in nature with the nick n continued to get worse patient was seen by Dr. Jurado in the outpatient setting on 12/18/2018 the patient did have x-rays in the office with evidence of spur she did receive a steroid injection,no fluid analysis was done patient mentioning some improvement that day and the next day however started after which her having the pain in her knee area pain and becoming more severe as the day progresses and by Friday the patient still was unable to be of any weight on her right knee area with the pain to be throbbing sharp almost 10 out of 10 and no radiation the patient started having a fever of 102F patient subsequently was reevaluated by Dr. Jurado the outpatient setting on 12/22/2018 ,patient had did have right knee aspirate was slightly bloody fluid was advised to take the sample to the hospital for analysis as the patient was not feeling well she presented herself to the ER, on arrival to the area the patient was febrile with temperature 100.7 to 102F, patient did have elevated white count of 24,000 she was also noticed to be in A. fib with RVR did have elevated CRP the patient be started on Rocephin and vancomycin and infectious disease was consulted today for further determination regarding antibiotic therapy Review of Systems CONSTITUTIONAL: Positive for weakness. Fever EYES: No complaint. ENT:No complaint. RESPIRATORY: No complaint. CARDIOVASCULAR: No complaint. GENITOURINARY: No complaint. GASTROINTESTINAL: No complaint. MUSCULOSKELETAL: as per history of present illness INTEGUMENTARY: No complaint. PSYCHOLOGICAL: No complaint. ENDOCRINE: No complaint. NEUROLOGIC: No complaint. Past Medical History Past Medical History: Hyperlipidemia, Hypertension, Thyroid Disorder History of Any Multi-Drug Resistant Organisms: None Reported Past Surgical History: Hysterectomy, Tonsillectomy, Tubal Ligation Additional Past Surgical History / Comment(s): thryoid Past Anesthesia/Blood Transfusion Reactions: No Reported Reaction Past Psychological History: Anxiety Smoking Status: Former smoker Past Alcohol Use History: Occasional Past Drug Use History: None Reported - Past Family History Father Additional Family Medical History / Comment(s): POCKETS IN THE LUNG, ULCERATIVE COLITIS Mother Family Medical History: AFIB Medications and Allergies Home Medications Medication Instructions Recorded Confirmed Type Carvedilol [Coreg] 12.5 mg PO BID 05/31/14 12/22/18 History Levothyroxine Sodium [Synthroid] 112 mcg PO DAILY 05/31/14 12/22/18 History Lisinopril [Prinivil] 40 mg PO DAILY 05/31/14 12/22/18 History clonazePAM [KlonoPIN] 0.25 mg PO HS PRN 05/31/14 12/22/18 History Cholecalciferol [Vitamin D3 (25 2,000 unit PO DAILY 06/01/14 12/22/18 History Mcg = 1000 Iu)] Fluticasone Propionate [Flonase] 1 spray EA NOSTRIL DAILY PRN 06/01/14 12/22/18 History Magnesium Oxide [Mag-Ox] 250 mg PO BID 06/01/14 12/22/18 History Aspirin EC [Ecotrin] 325 mg PO DAILY #30 tablet. 06/02/14 12/22/18 Rx Ibuprofen [Motrin] 800 mg PO TID PRN 12/22/18 12/22/18 History Loratadine [Claritin] 10 mg PO DAILY PRN 12/22/18 12/22/18 History Omeprazole [PriLOSEC] 20 mg PO DAILY PRN 12/22/18 12/22/18 History amLODIPine [Norvasc] 5 mg PO BID 12/22/18 12/22/18 History Allergies Allergy/AdvReac Type Severity Reaction Status Date / Time No Known Allergies Allergy Verified 12/22/18 16:06 Physical Exam Vitals: Vital Signs Temp Pulse Pulse Resp BP BP Pulse Ox 12/23/18 11:13 99.4 F 84 20 92/55 98 12/23/18 08:00 102.5 F H 91 20 129/59 96 12/23/18 03:47 100.5 F H 76 16 125/79 95 12/23/18 03:13 75 12/22/18 23:29 98 F 83 16 145/72 94 L 12/22/18 21:20 100.0 F H 85 18 109/68 90 L 12/22/18 19:26 102 F H 130 H 18 161/85 92 L 12/22/18 18:27 100.8 F H 12/22/18 17:47 98 16 151/86 97 12/22/18 15:22 100.7 F H 100 18 129/76 95 Intake and Output 12/22/18 12/23/18 12/23/18 22:59 06:59 14:59 Intake Total 300 0 Output Total 300 250 Balance 0 -250 Intake: Oral 300 0 Output: Urine 300 250 Other: Voiding Method Bedside Commode Weight 86.183 kg 85.8 kg GENERAL DESCRIPTION: elderly female lying in bed, no distress. No tachypnea or accessory muscle of respiration use. HEENT: Shows Pallor , no scleral icterus. Oral mucous membrane is dry. No pharyngeal erythema or thrush NECK: Trachea central, no thyromegaly. LUNGS: Unlabored breathing. Clear to auscultation anteriorly. No wheeze or crackle. HEART: S1, S2, regular rate and rhythm. No loud murmur ABDOMEN: Soft, no tenderness , guarding or rigidity, no organomegaly EXTREMITIES:right knee is currently swollen and warm to touch and tender SKIN: No rash, no masses palpable. NEUROLOGICAL: The patient is awake, alert, oriented x3, mood and affect normal. Results CBC & Chem 7: 12/23/18 06:09 12/23/18 06:09 Labs: Abnormal Lab Results - Last 24 Hours (Table) 12/22/18 12/22/18 12/22/18 Range/Units 16:10 16:10 16:10 WBC 24.0 H (3.8-10.6) k/uL Neutrophils # 21.8 H (1.3-7.7) k/uL Lymphocytes # 0.6 L (1.0-4.8) k/uL PT 12.5 H (9.0-12.0) sec INR 1.2 H (<1.2) Sodium 127 L (137-145) mmol/L Chloride 91 L (98-107) mmol/L Glucose 118 H (74-99) mg/dL Calcium (8.4-10.2) mg/dL Total Bilirubin 3.5 H (0.2-1.3) mg/dL C-Reactive Protein 224.4 H (<10.0) mg/L TSH (0.465-4.680) mIU/L Urine Protein (Negative) Urine Ketones (Negative) Urine Blood (Negative) Ur Leukocyte Esterase (Negative) Urine WBC (0-5) /hpf Calcium Oxalate Crystal (None) /hpf Amorphous Sediment (None) /hpf Urine Bacteria (None) /hpf Hyaline Casts (0-2) /lpf Urine Mucus (None) /hpf 12/22/18 12/23/18 12/23/18 Range/Units 23:15 06:09 06:09 WBC 19.1 H (3.8-10.6) k/uL Neutrophils # (1.3-7.7) k/uL Lymphocytes # (1.0-4.8) k/uL PT (9.0-12.0) sec INR (<1.2) Sodium 126 L (137-145) mmol/L Chloride 91 L (98-107) mmol/L Glucose 114 H (74-99) mg/dL Calcium 8.0 L (8.4-10.2) mg/dL Total Bilirubin (0.2-1.3) mg/dL C-Reactive Protein (<10.0) mg/L TSH (0.465-4.680) mIU/L Urine Protein 2+ H (Negative) Urine Ketones 2+ H (Negative) Urine Blood Small H (Negative) Ur Leukocyte Esterase Small H (Negative) Urine WBC 8 H (0-5) /hpf Calcium Oxalate Crystal Occasional H (None) /hpf Amorphous Sediment Rare H (None) /hpf Urine Bacteria Rare H (None) /hpf Hyaline Casts 8 H (0-2) /lpf Urine Mucus Occasional H (None) /hpf 12/23/18 Range/Units 06:09 WBC (3.8-10.6) k/uL Neutrophils # (1.3-7.7) k/uL Lymphocytes # (1.0-4.8) k/uL PT (9.0-12.0) sec INR (<1.2) Sodium (137-145) mmol/L Chloride (98-107) mmol/L Glucose (74-99) mg/dL Calcium (8.4-10.2) mg/dL Total Bilirubin (0.2-1.3) mg/dL C-Reactive Protein (<10.0) mg/L TSH 0.188 L (0.465-4.680) mIU/L Urine Protein (Negative) Urine Ketones (Negative) Urine Blood (Negative) Ur Leukocyte Esterase (Negative) Urine WBC (0-5) /hpf Calcium Oxalate Crystal (None) /hpf Amorphous Sediment (None) /hpf Urine Bacteria (None) /hpf Hyaline Casts (0-2) /lpf Urine Mucus (None) /hpf Microbiology - Last 24 Hours (Table) 12/22/18 16:10 Blood Culture - Final Blood Assessment and Plan Assessment: 1-patient presented to hospital with sepsis this patient who did have a fever and elevated white count with significant pain to the right knee area likely concern for right septic arthritis now with evidence of Staphylococcus bacteremia 2-staphylococcus aureus bacteremia secondary to the right knee septic arthritis (1) Staphylococcus aureus bacteremia with sepsis Current Visit: Yes Status: Acute Code(s): A41.01 - SEPSIS DUE TO METHICILLIN SUSCEPTIBLE STAPHYLOCOCCUS AUREUS SNOMED Code(s): 696799173 (2) Sepsis Current Visit: Yes Status: Acute Code(s): A41.9 - SEPSIS, UNSPECIFIED ORGANISM SNOMED Code(s): 15812747 (3) Septic joint of right knee joint Current Visit: Yes Status: Acute Code(s): M00.9 - PYOGENIC ARTHRITIS, UNSPECIFIED SNOMED Code(s): 564992457 Plan: 1-blood cultures 1 stat to document clearance of bacteremia 2-Vancomycin pharmacy to dose target trough of 15 while watching his kidney function and Vanco trough closely 3-switch Rocephin to cefazolin 2 g every 8 hours 4-patient will benefit from knee washout in view of septic arthritis and staphylococcal bacteremia We will follow on clinical condition and cultures to further adjust medication if needed Thank you for this consultation will follow this patient with you Time with Patient: Greater than 30
[2018-12-23] MEDS: DOCUSATE 100 MG CAP PO SCH (21:18)
[2018-12-24 06:13] LABS: Basophils % (A) 0 %; Eosinophils # (A) 0.2 k/uL (0-0.7); Eosinophils % (A) 1 %; HGB 10.7 gm/dL (11.4-16.0); Lymphocytes # (A) 0.4 k/uL (1.0-4.8); Lymphocytes % (A) 3 %; MCHC 31.4 g/dL (31.0-37.0); MCV 86.1 fL (80.0-100.0); Monocytes # (A) 0.6 k/uL (0-1.0); Monocytes % (A) 4 %; Neutrophils # (A) 11.5 k/uL (1.3-7.7); Neutrophils % (A) 89 %; Platelet Count 177 k/uL (150-450); RBC 3.95 m/uL (3.80-5.40); RDW 13.7 % (11.5-15.5); WBC 12.9 k/uL (3.8-10.6)
[2018-12-24] MEDS: PANTOPRAZOLE 40 MG TABLET PO SCH (06:23)
[2018-12-24] MEDS: CARVEDILOL 12.5 MG TAB PO SCH ×2 (06:23→18:16)
[2018-12-24] MEDS: VANCOMYCIN 1,500 MG in SODIUM CHLORIDE 0.9% 250 ML IVPB SCH (06:23)
[2018-12-24] MEDS: LEVOTHYROXINE 112 MCG TAB PO SCH (06:23)
[2018-12-24] MEDS: SODIUM CHLORIDE 0.9% 1,000 ML IV SCH ×2 (06:28→19:56)
[2018-12-24 06:39] LABS: Albumin 2.7 g/dL (3.5-5.0); Calcium 7.1 mg/dL (8.4-10.2); Potassium 4.2 mmol/L (3.5-5.1); Total Bilirubin 0.8 mg/dL (0.2-1.3); Total Protein 4.8 g/dL (6.3-8.2)
[2018-12-24] MEDS: MORPHINE SULFATE 4 MG/ML SYRINGE IV PRN ×3 (08:33→19:59)
[2018-12-24] MEDS: DOCUSATE 100 MG CAP PO SCH (08:43)
[2018-12-24] MEDS: MAGNESIUM OXIDE 400 MG TAB PO SCH (08:44)
--- NOTE | 2018-12-24 11:48 | P.PN ---
Subjective Progress Note Date: 12/24/18 This is a 68-year-old female patient of Dr. Lloyd. Patient presents with complaints of increased right knee pain and elevated temperature. Patient reports that on Friday she had a steroid injection to right knee with Dr. Jurado. Patient reports on Friday she started to develop increased pain and swe lling to right knee along with having fevers. Patient presented back to Dr. Jurado's office and aspiration of knee was completed and sent for analysis. Patient then presented to ER with complaints of increased pain yesterday. Patient's white blood cell count on arrival found to be 24 lactic acid 1.4 elevated temperature. Patient started on vancomycin and Rocephin. Patient does have a past medical history of hyperlipidemia and hypertension hypothyroidism and anxiety. throughtout the night patient went into A. fib RVR. Cardizem drip started cardiology services consulted. Dr. Gaines has been consulted for infectious disease. Per patient plans for possible scope today. At this time patient denies any chest pain or shortness of breath. Patient denies nausea vomiting or diarrhea. Patient denies any urinary burning or frequency 12/24/2018 patient is alert and oriented 3. Blood culture currently growing presumptive staph aureus. Antibiotics adjusted per infectious disease. Cr eatinine increasing to 1.52 and bun 24. Lisinopril has been held. Patient maintained on normal saline at 50. The patient remains on heparin drip for anticoagulation per cardiology. Colace added for constipation. At this time patient denies chest pain or shortness breath. Patient denies nausea vomiting or diarrhea. Patient denies any urinary burning or frequency Objective - Vital Signs Vital signs: Vital Signs Temp 97.8 F 12/24/18 07:57 Pulse 72 12/24/18 09:28 Resp 16 12/24/18 07:57 BP 134/78 12/24/18 07:57 Pulse Ox 97 12/24/18 07:57 Intake & Output 12/23/18 12/24/18 12/24/18 18:59 06:59 18:59 Intake Total 1194.98 139.556 240 Output Total 250 250 450 Balance 944.98 -110.444 -210 Weight 89 kg Intake: Intake, IV Titration 474.98 139.556 Amount Diltiazem 125 mg In 40 Sodium Chloride 0.9% 100 ml @ 5 MG/HR 5 mls/hr IV .Q24H [facility] Rx#:[id number] Heparin Sod,Pork in 0.45% 34.98 139.556 NaCl 25,000 unit In 0.45 % NaCl 1 250ml.bag @ 11. 66 UNITS/KG/HR 10.004 mls /hr IV .Q24H [facility] Rx#: [id number] Sodium Chloride 0.9% 1, 400 000 ml @ 50 mls/hr IV . Q20H [facility] Rx#:[id number] Oral 720 240 Output: Urine 250 250 450 Other: Voiding Method Bedside Commode # Voids 1 1 - Exam Head normocephalic Neck supple Lungs clear to auscultation bilaterally no wheezing or crackles Heart irregular heart rate Abdomen is soft nontender nondistended positive bowel sounds no hepatosplenomegaly Extremities no edema. Increased ringing edema Neuro alert and orientated to 3 - Labs CBC & Chem 7: 12/24/18 05:46 12/24/18 05:46 Labs: Abnormal Lab Results - Last 24 Hours (Table) 12/23/18 12/23/18 12/23/18 Range/Units 06:09 16:47 16:47 WBC (3.8-10.6) k/uL Hgb (11.4-16.0) gm/dL Neutrophils # (1.3-7.7) k/uL Lymphocytes # (1.0-4.8) k/uL ESR 24 H (0-20) mm/hr APTT (22.0-30.0) sec Sodium (137-145) mmol/L Chloride (98-107) mmol/L BUN (7-17) mg/dL Creatinine (0.52-1.04) mg/dL Calcium (8.4-10.2) mg/dL C-Reactive Protein 497.6 H (<10.0) mg/L Total Protein (6.3-8.2) g/dL Albumin (3.5-5.0) g/dL TSH 0.188 L (0.465-4.680) mIU/L 12/24/18 12/24/18 12/24/18 Range/Units 05:46 05:46 05:46 WBC 12.9 H (3.8-10.6) k/uL Hgb 10.7 L (11.4-16.0) gm/dL Neutrophils # 11.5 H (1.3-7.7) k/uL Lymphocytes # 0.4 L (1.0-4.8) k/uL ESR (0-20) mm/hr APTT 57.0 H (22.0-30.0) sec Sodium 127 L (137-145) mmol/L Chloride 92 L (98-107) mmol/L BUN 24 H (7-17) mg/dL Creatinine 1.52 H (0.52-1.04) mg/dL Calcium 7.1 L (8.4-10.2) mg/dL C-Reactive Protein (<10.0) mg/L Total Protein 4.8 L (6.3-8.2) g/dL Albumin 2.7 L (3.5-5.0) g/dL TSH (0.465-4.680) mIU/L Microbiology - Last 24 Hours (Table) 12/23/18 16:47 Blood Culture Gram Stain - Preliminary Blood 12/23/18 16:47 Blood Culture - Final Blood 12/22/18 16:10 Blood Culture Gram Stain - Preliminary Blood Blood Culture - Preliminary Presumptive Staph aureus Assessment and Plan Assessment: 1. Fever and increased pain to right knee due to septic right knee joint. White blood cell count 24. Patient did have aspiration of fluid in the office and was sent for analysis. Infectious disease consulted. Blood culture growing presumptive staph aureus. Patient maintained on capsule and vancomycin per ID 2. New-onset atrial fibrillation with rapid ventricular response. Cardiology services following. 2-D echo has been ordered. Cardizem drip ordered for rate control. Heparin drip ordered per cardiology 3. Hyponatremia. Sodium 126. Normal saline at 50 has been ordered. We'll continue to monitor 4. History of essential hypertension 5. History of Hyperlipidemia 6. History of hypothyroidism. Synthroid resumed TSH level has been ordered 7. History of anxiety 8. Urinary tract infection. urine culture has been ordered. Infectious disease following maintained on Rocephin 9. Acute kidney injury. Creatinine creasing 1.52. Lisinopril held. Patient maintained on normal saline at 50 DVT prophylaxis heparin drip. GI prophylaxis Protonix Thank you for this consultation we will continue to follow patient closely throughout stay I performed an examination of the patient and discussed their management with the Nurse Practitioner. I have reviewed the Nurse Practitioner's notes and agree with the documented findings and plan of care
--- NOTE | 2018-12-24 14:51 | P.PN ---
Subjective Progress Note Date: 12/24/18 Principal diagnosis: Right knee septic arthritis, knee pain Patient is seen at bedside today. She is being followed and treated for possible septic arthritis of right knee. She also has new onset atrial fibrillation. She is being followed by cardiology and infectious disease and currently receiving Heparin and IV antibiotics. She has continued right knee pain today. No new comp laints. She denies numbness, tingling, calf pain, fever, chills, chest pain or shortness of breath. Objective - Vital Signs Vital signs: Vital Signs Temp 99.1 F 12/24/18 12:31 Pulse 87 12/24/18 12:31 Resp 20 12/24/18 12:31 BP 135/75 12/24/18 12:31 Pulse Ox 97 12/24/18 07:57 Intake & Output 12/23/18 12/24/18 12/24/18 18:59 06:59 18:59 Intake Total 1194.98 139.556 240 Output Total 250 250 450 Balance 944.98 -110.444 -210 Weight 89 kg Intake: Intake, IV Titration 474.98 139.556 Amount Diltiazem 125 mg In 40 Sodium Chloride 0.9% 100 ml @ 5 MG/HR 5 mls/hr IV .Q24H [facility] Rx#:[id number] Heparin Sod,Pork in 0.45% 34.98 139.556 NaCl 25,000 unit In 0.45 % NaCl 1 250ml.bag @ 11. 66 UNITS/KG/HR 10.004 mls /hr IV .Q24H [facility] Rx#: [id number] Sodium Chloride 0.9% 1, 400 000 ml @ 50 mls/hr IV . Q20H [facility] Rx#:[id number] Oral 720 240 Output: Urine 250 250 450 Other: Voiding Method Bedside Commode # Voids 1 1 - Exam Inspection of the right knee shows no erythema. There is mild effusion. It is not overly hot to touch. She pain with minimal range of motion of the right knee. The calf is soft and nontender. Neurovascular status is intact with motor and sensation grossly. 2+ DP pulse present and less than 2 sec cap refill. - Constitutional General appearance: Present: no acute distress - Labs CBC & Chem 7: 12/24/18 05:46 12/24/18 05:46 Labs: Abnormal Lab Results - Last 24 Hours (Table) 12/23/18 12/23/18 12/24/18 Range/Units 16:47 16:47 05:46 WBC 12.9 H (3.8-10.6) k/uL Hgb 10.7 L (11.4-16.0) gm/dL Neutrophils # 11.5 H (1.3-7.7) k/uL Lymphocytes # 0.4 L (1.0-4.8) k/uL ESR 24 H (0-20) mm/hr APTT (22.0-30.0) sec Sodium (137-145) mmol/L Chloride (98-107) mmol/L BUN (7-17) mg/dL Creatinine (0.52-1.04) mg/dL Calcium (8.4-10.2) mg/dL C-Reactive Protein 497.6 H (<10.0) mg/L Total Protein (6.3-8.2) g/dL Albumin (3.5-5.0) g/dL 12/24/18 12/24/18 Range/Units 05:46 05:46 WBC (3.8-10.6) k/uL Hgb (11.4-16.0) gm/dL Neutrophils # (1.3-7.7) k/uL Lymphocytes # (1.0-4.8) k/uL ESR (0-20) mm/hr APTT 57.0 H (22.0-30.0) sec Sodium 127 L (137-145) mmol/L Chloride 92 L (98-107) mmol/L BUN 24 H (7-17) mg/dL Creatinine 1.52 H (0.52-1.04) mg/dL Calcium 7.1 L (8.4-10.2) mg/dL C-Reactive Protein (<10.0) mg/L Total Protein 4.8 L (6.3-8.2) g/dL Albumin 2.7 L (3.5-5.0) g/dL Microbiology - Last 24 Hours (Table) 12/22/18 16:10 Blood Culture Gram Stain - Preliminary Blood Blood Culture - Preliminary Presumptive Staph aureus 12/23/18 10:26 Urine Culture - Final Urine,Clean Catch 12/23/18 16:47 Blood Culture Gram Stain - Preliminary Blood 12/23/18 16:47 Blood Culture - Final Blood Assessment and Plan Assessment: Possible septic knee, meniscus tear, DJD right knee Plan: Dr. Jurado has recommended proceeding with arthroscopic I and D of the right knee and possible menisectomy 12/25/18, morning. Would request Heparin be held 12 hours preop if possible. She is NPO after midnight. Procedure and consent has been ordered. Continue pain management and IV antibiotics. Time with Patient: Less than 30
--- NOTE | 2018-12-24 15:39 | P.PN ---
Subjective Progress Note Date: 12/24/18 This is a pleasant 68-year-old female with history of hypertension, hyperlipidemia, prior thyroid removal for which she takes Synthroid, nonsmoker, rare EtOH, who states that she was getting into bed few nights ago, and felt something pull in her right knee. Subsequent to that she developed pain in that knee, she went to see Dr. Jurado in his office, he gave her a steroid injection. The knee became quite swollen, and warm to the touch, and the pain continued to worsen, to the point where the patient states she could hardly walk. She went back to see Dr. Jurado who joseph some fluid from that knee, which was bloody according to the patient, she was then referred to come to the hospital for admission. EKG on presentation here showed atrial fibrillation, patient denies any prior history of atrial fibrillation, she denies having any palpitations, dizziness, shortness of breath. She does state that she had TIA in 2004. The knee x-ray on arrival here showed mild to moderate tricompartmental osteoarthritis. Small to moderate knee joint effusion. Chest x-ray shows marked bilateral pulmonary infiltrative process. Blood pressure 128/50, heart rate in the 90s, temperature 102.5 this morning. Blood cultures show gram- positive cocci in clusters. White blood cell count 24 on admission, 19 this morning, hemoglobin 12.6, platelet count 195. Sodium 126, potassium 4.4, BUN 16 and creatinine 0.9. C-reactive protein 224, total bilirubin 3.5, positive UTI. At the time of my examination this morning, patient feels well, she continues to have pain in her right knee, denies any dizziness or lightheadedness, no shortness of breath, no palpitations. She is currently on IV Cardizem, no heparin has been initiated. 12/24/2018 Patient seen and examined this morning, hemodynamically stable. Continues to be in atrial fibrillation this morning. Echocardiogram with Doppler study remains pending. From our perspective, patient may proceed with surgery tomorrow, we will recommend to discontinue the heparin 4 hours before. Objective - Vital Signs Vital signs: Vital Signs Temp 99.1 F 12/24/18 12:31 Pulse 87 12/24/18 12:31 Resp 20 12/24/18 12:31 BP 135/75 12/24/18 12:31 Pulse Ox 97 12/24/18 07:57 Intake & Output 12/23/18 12/24/18 12/24/18 18:59 06:59 18:59 Intake Total 1194.98 139.556 358 Output Total 250 250 450 Balance 944.98 -110.444 -92 Weight 89 kg Intake: Intake, IV Titration 474.98 139.556 Amount Diltiazem 125 mg In 40 Sodium Chloride 0.9% 100 ml @ 5 MG/HR 5 mls/hr IV .Q24H [facility] Rx#:[id number] Heparin Sod,Pork in 0.45% 34.98 139.556 NaCl 25,000 unit In 0.45 % NaCl 1 250ml.bag @ 11. 66 UNITS/KG/HR 10.004 mls /hr IV .Q24H [facility] Rx#: [id number] Sodium Chloride 0.9% 1, 400 000 ml @ 50 mls/hr IV . Q20H [facility] Rx#:[id number] Oral 720 358 Output: Urine 250 250 450 Other: Voiding Method Bedside Commode # Voids 1 1 - Exam PHYSICAL EXAMINATION: GENERAL: 68-year-old female in no acute distress at the time of my examination HEENT: Head is atraumatic, normocephalic. Pupils equal, round. Sclera anicteric. Conjunctiva are clear. Mucous membranes of the mouth are moist. Neck is supple. There is no elevated jugular venous pressure. No carotid bruit is heard. HEART EXAMINATION: S1 and S2 irregularly irregular CHEST EXAMINATION: Lungs are clear to auscultation and precussion. No chest wall tenderness is noted on palpation or with deep breathing. ABDOMEN: Soft, nontender. Bowel sounds are heard. No organomegaly noted. EXTREMITIES: 2+ peripheral pulses with no evidence of peripheral edema and no calf tenderness noted. There is swelling of the right knee noted as well as warmness of that knee NEUROLOGIC patient is awake, alert and oriented 3 . - Labs CBC & Chem 7: 12/24/18 05:46 12/24/18 05:46 Labs: Abnormal Lab Results - Last 24 Hours (Table) 12/23/18 12/23/18 12/24/18 Range/Units 16:47 16:47 05:46 WBC 12.9 H (3.8-10.6) k/uL Hgb 10.7 L (11.4-16.0) gm/dL Neutrophils # 11.5 H (1.3-7.7) k/uL Lymphocytes # 0.4 L (1.0-4.8) k/uL ESR 24 H (0-20) mm/hr APTT (22.0-30.0) sec Sodium (137-145) mmol/L Chloride (98-107) mmol/L BUN (7-17) mg/dL Creatinine (0.52-1.04) mg/dL Calcium (8.4-10.2) mg/dL C-Reactive Protein 497.6 H (<10.0) mg/L Total Protein (6.3-8.2) g/dL Albumin (3.5-5.0) g/dL 12/24/18 12/24/18 Range/Units 05:46 05:46 WBC (3.8-10.6) k/uL Hgb (11.4-16.0) gm/dL Neutrophils # (1.3-7.7) k/uL Lymphocytes # (1.0-4.8) k/uL ESR (0-20) mm/hr APTT 57.0 H (22.0-30.0) sec Sodium 127 L (137-145) mmol/L Chloride 92 L (98-107) mmol/L BUN 24 H (7-17) mg/dL Creatinine 1.52 H (0.52-1.04) mg/dL Calcium 7.1 L (8.4-10.2) mg/dL C-Reactive Protein (<10.0) mg/L Total Protein 4.8 L (6.3-8.2) g/dL Albumin 2.7 L (3.5-5.0) g/dL Microbiology - Last 24 Hours (Table) 12/23/18 16:47 Blood Culture Gram Stain - Preliminary Blood 12/22/18 16:10 Blood Culture Gram Stain - Final Blood Blood Culture - Final Staphylococcus aureus 12/23/18 10:26 Urine Culture - Final Urine,Clean Catch 12/23/18 16:47 Blood Culture - Final Blood Assessment and Plan Plan: Assessment and plan #1 right knee pain and swelling with associated fever . Elevated white blood cell count, temperature this morning 102.5, blood cultures positive for gram- positive cocci in clusters #2 hypertension #3 atrial fibrillation, appears to be of new onset for the patient #4 hyperlipidemia #5 history of thyroidectomy, on Synthroid #6 TIA in 2015. Plan We will review the echocardiogram with Doppler study. Patient may proceed with arthroscopic I&D of the right knee with possible meniscectomy tomorrow. Heparin may be held 4 hours before the procedure from our perspective. We will continue to follow. DNP note has been reviewed, I agree with a documented findings and plan of care. Patient was seen and examined.
[2018-12-24] MEDS: ACETAMINOPHEN TAB 325 MG TAB PO PRN (18:16)
[2018-12-24] MEDS: HEPARIN SOD,PORK IN 0.45% NACL 25,000 UNIT in 0.45% NACL 1 250ML.BAG IV SCH ×2 (18:20→19:53)
[2018-12-24 20:10] LABS: Albumin 2.9 g/dL (3.5-5.0); Calcium 7.3 mg/dL (8.4-10.2); Potassium 4.6 mmol/L (3.5-5.1); Total Bilirubin 0.9 mg/dL (0.2-1.3); Total Protein 5.2 g/dL (6.3-8.2)
--- NOTE | 2018-12-24 21:27 | PN ---
PROGRESS NOTE DATE OF SERVICE: 12/24/2018. REASON FOR FOLLOWUP: Sepsis with right knee septic arthritis. INTERVAL HISTORY: The patient is currently afebrile. The patient is breathing comfortably. The patient's pain to the right knee is currently controlled with pain medication. The patient denies having any chest pain. No shortness of breath or cough. No abdominal pain. No diarrhea. PHYSICAL EXAMINATION: Blood pressure is 135/75 with a pulse of 87, temperature 99.1. She is 97% on 2 L nasal cannula. General description is an elderly female lying in bed in no distress. Respiratory system: Unlabored breathing. Clear to auscultation anteriorly. Heart S1, S2. Regular rate and rhythm. Abdomen soft. No tenderness. Right knee with minimal swelling. No open wound or any drainage. LABS: Hemoglobin is 10.7, white count 12.9 with a BUN of 24, creatinine 1.52. Blood culture finalized with MSSA. DIAGNOSTIC IMPRESSION AND PLAN: Patient with MSSA bacteremia secondary to right knee septic arthritis. The patient at this time to continue cefazolin 2 g q.8 hours. Blood culture will be repeated to document clearance of bacteremia. Discontinue vancomycin. Patient will need a PICC line for outpatient IV antibiotic therapy and may benefit from any wash out. Will discuss further with surgery. Continue supportive care. MMODL / IJN: [id number] /
[2018-12-25] MEDS: ACETAMINOPHEN TAB 325 MG TAB PO PRN ×2 (03:33→20:37)
[2018-12-25] MEDS ORDERED: VANCOMYCIN TROUGH DUE 1 EACH MISC MISCELLANE ONE (05:00)
[2018-12-25] MEDS ORDERED: VANCOMYCIN 1,500 MG in SODIUM CHLORIDE 0.9% 250 ML IVPB SCH (06:00)
[2018-12-25 06:47] LABS: Basophils % (A) 0 %; Eosinophils # (A) 0.2 k/uL (0-0.7); Eosinophils % (A) 2 %; HCT 32.3 % (34.0-46.0); HGB 10.7 gm/dL (11.4-16.0); Lymphocytes # (A) 0.5 k/uL (1.0-4.8); Lymphocytes % (A) 4 %; MCH 28.3 pg (25.0-35.0); MCV 85.7 fL (80.0-100.0); Mean Platelet Volume 6.9; Monocytes # (A) 0.7 k/uL (0-1.0); Monocytes % (A) 5 %; Neutrophils # (A) 10.5 k/uL (1.3-7.7); Neutrophils % (A) 88 %; Platelet Count 190 k/uL (150-450); RBC 3.77 m/uL (3.80-5.40); RDW 13.7 % (11.5-15.5)
[2018-12-25 06:56] LABS: Albumin 2.5 g/dL (3.5-5.0); Potassium 4.1 mmol/L (3.5-5.1); Total Bilirubin 0.8 mg/dL (0.2-1.3); Total Protein 4.6 g/dL (6.3-8.2)
[2018-12-25] MEDS: DOCUSATE 100 MG CAP PO SCH ×3 (07:01→20:37)
[2018-12-25] MEDS: MAGNESIUM OXIDE 400 MG TAB PO SCH ×3 (07:02→20:37)
[2018-12-25] MEDS: POLYETHYLENE GLYCOL 3350 17 GM POWD.PACK PO SCH ×2 (07:02→20:37)
[2018-12-25] MEDS: CARVEDILOL 12.5 MG TAB PO SCH ×2 (07:05→16:17)
[2018-12-25] MEDS: PANTOPRAZOLE 40 MG TABLET PO SCH (07:05)
[2018-12-25] MEDS: LEVOTHYROXINE 100 MCG TAB PO SCH (07:05)
--- NOTE | 2018-12-25 10:40 | P.PN ---
Subjective Progress Note Date: 12/25/18 This is a 68-year-old female patient of Dr. Lloyd. Patient presents with complaints of increased right knee pain and elevated temperature. Patient reports that on Friday she had a steroid injection to right knee with Dr. Jurado. Patient reports on Friday she started to develop increased pain and swe lling to right knee along with having fevers. Patient presented back to Dr. Jurado's office and aspiration of knee was completed and sent for analysis. Patient then presented to ER with complaints of increased pain yesterday. Patient's white blood cell count on arrival found to be 24 lactic acid 1.4 elevated temperature. Patient started on vancomycin and Rocephin. Patient does have a past medical history of hyperlipidemia and hypertension hypothyroidism and anxiety. throughtout the night patient went into A. fib RVR. Cardidavid drip started cardiology services consulted. Dr. Gaines has been consulted for infectious disease. Per patient plans for possible scope today. At this time patient denies any chest pain or shortness of breath. Patient denies nausea vomiting or diarrhea. Patient denies any urinary burning or frequency 12/24/2018 patient is alert and oriented 3. Blood culture currently growing presumptive staph aureus. Antibiotics adjusted per infectious disease. Cr eatinine increasing to 1.52 and bun 24. Lisinopril has been held. Patient maintained on normal saline at 50. The patient remains on heparin drip for anticoagulation per cardiology. Colace added for constipation. At this time patient denies chest pain or shortness breath. Patient denies nausea vomiting or diarrhea. Patient denies any urinary burning or frequency On 12/25/2018 patient is alert and oriented 3. Patient undergoing scope with washout to right knee today per orthopedic services heparin currently per cardiology recommendation. Creatinine improving to 1.00. At this time patient denies any chest pain or shortness breath. Patient is complaining of some nausea Zofran has been ordered. Patient denies any urinary burning or frequency Objective - Vital Signs Vital signs: Vital Signs Temp 99.5 F 12/25/18 08:00 Pulse 102 H 12/25/18 08:00 Resp 16 12/25/18 08:00 BP 152/72 12/25/18 08:00 Pulse Ox 95 12/25/18 08:00 Intake & Output 12/24/18 12/25/18 12/25/18 18:59 06:59 18:59 Intake Total 468.444 279.417 0 Output Total 1050 500 Balance -581.556 279.417 -500 Weight 90.5 kg Intake: Intake, IV Titration 110.444 19.417 Amount Heparin Sod,Pork in 0.45% 110.444 19.417 NaCl 25,000 unit In 0.45 % NaCl 1 250ml.bag @ 11. 66 UNITS/KG/HR 10.004 mls /hr IV .Q24H [facility] Rx#: [id number] Oral 358 260 0 Output: Urine 1050 500 Other: Voiding Method Bedside Commode # Voids 1 1 # Bowel Movements 1 - Exam Head normocephalic Neck supple Lungs clear to auscultation bilaterally no wheezing or crackles Heart irregular heart rate Abdomen is soft nontender nondistended positive bowel sounds no hepatosplenomegaly Extremities no edema. Increased ringing edema Neuro alert and orientated to 3 - Labs CBC & Chem 7: 12/25/18 06:00 12/25/18 06:00 Labs: Abnormal Lab Results - Last 24 Hours (Table) 12/24/18 12/25/18 12/25/18 Range/Units 18:19 06:00 06:00 WBC 12.0 H (3.8-10.6) k/uL RBC 3.77 L (3.80-5.40) m/uL Hgb 10.7 L (11.4-16.0) gm/dL Hct 32.3 L (34.0-46.0) % Neutrophils # 10.5 H (1.3-7.7) k/uL Lymphocytes # 0.5 L (1.0-4.8) k/uL Sodium 125 L 126 L (137-145) mmol/L Chloride 92 L 95 L (98-107) mmol/L BUN 23 H 20 H (7-17) mg/dL Creatinine 1.19 H (0.52-1.04) mg/dL Glucose 103 H 107 H (74-99) mg/dL Calcium 7.3 L 7.0 L (8.4-10.2) mg/dL Total Protein 5.2 L 4.6 L (6.3-8.2) g/dL Albumin 2.9 L 2.5 L (3.5-5.0) g/dL Microbiology - Last 24 Hours (Table) 12/23/18 16:47 Blood Culture Gram Stain - Preliminary Blood Blood Culture - Preliminary Presumptive Staph aureus 12/22/18 16:10 Blood Culture Gram Stain - Final Blood Blood Culture - Final Staphylococcus aureus 12/23/18 10:26 Urine Culture - Final Urine,Clean Catch 12/23/18 16:47 Blood Culture - Final Blood Assessment and Plan Assessment: 1. Fever and increased pain to right knee due to septic right knee joint. Wh ite blood cell count 24. Patient did have aspiration of fluid in the office and was sent for analysis. Infectious disease consulted. Blood culture growing presumptive staph aureus. Patient maintained on kefzol. Per orthopedic services plans for scope and washout today of right knee. Patient will need PICC line with IV antibiotics on discharge 2. New-onset atrial fibrillation with rapid ventricular response. Cardiology services following. 2-D echo has been ordered. Heparin drip ordered per cardiology 3. Hyponatremia. Sodium 126. Normal saline at 100 has been ordered. We'll continue to monitor 4. History of essential hypertension 5. History of Hyperlipidemia 6. History of hypothyroidism. Synthroid resumed TSH level has been ordered 7. History of anxiety 8. Urinary tract infection. urine culture has been ordered. Infectious disease following maintained on Rocephin 9. Acute kidney injury. Creatinine creasing 1.52. Lisinopril held. Patient maintained on normal saline at 100. Creatinine improving to 1.00 and bun 20 DVT prophylaxis heparin drip. GI prophylaxis Protonix Thank you for this consultation we will continue to follow patient closely throughout stay I performed an examination of the patient and discussed their management with the Nurse Practitioner. I have reviewed the Nurse Practitioner's notes and agree with the documented findings and plan of care
[2018-12-25] MEDS: ONDANSETRON 4 MG/2 ML VIAL IVP PRN (11:00)
[2018-12-25] MEDS ORDERED: IV FLUID CONTINUATION 1,000 ML IV ONE (12:35)
[2018-12-25] MEDS ORDERED: MIDAZOLAM 2 MG/2 ML VIAL ONE (13:09)
[2018-12-25] MEDS ORDERED: PHENYLEPHRINE-0.9% NACL SYG 1 MG/10 ML SYRINGE ONE (13:09)
[2018-12-25] MEDS ORDERED: PROPOFOL 10 MG/ML 20 ML VIAL IV ONE (13:09)
[2018-12-25] MEDS ORDERED: LIDOCAINE 1% INJ 10MG/ML (20 ML MDV) ONE (13:09)
[2018-12-25] MEDS ORDERED: SUCCINYLCHOLINE CHLORIDE 100 MG/5 ML SYR IV ONE (13:09)
[2018-12-25] MEDS ORDERED: fentaNYL (PF) 50 MCG/ML 2 ML AMP ONE (13:09)
[2018-12-25] MEDS ORDERED: BUPIVACAIN-EPI 0.25%-1:200,000 30 ML VIAL SQ ONE ×2 (13:41)
[2018-12-25] MEDS ORDERED: LACTATED RINGERS 1,000 ML IV ONE (14:04)
[2018-12-25] MEDS ORDERED: HYDROcodone/APAP 7.5-325MG 1 EACH TAB PO PRN (15:01)
[2018-12-25] MEDS ORDERED: DIAZEPAM 5 MG TAB PO PRN (15:01)
[2018-12-25] MEDS: SODIUM CHLORIDE 0.9% 1,000 ML IV SCH (16:11)
--- NOTE | 2018-12-25 18:33 | PN ---
PROGRESS NOTE DATE OF SERVICE: 12/25/2018. REASON FOR FOLLOWUP: MSSA bacteremia secondary to right knee septic arthritis. INTERVAL HISTORY: The patient is currently afebrile. The patient is scheduled for a right knee washout by Orthopedics this afternoon. The patient denies having any chest pain, shortness of breath or cough. She did mention some improvement in the pain to the right knee area. No nausea, no vomiting. No abdominal pain. No diarrhea. PHYSICAL EXAMINATION: Blood pressure is 162/72 with a pulse of 100, temperature 98. She is 91% on 4 L nasal cannula. General description is an elderly female lying in bed in no distress. RESPIRATORY SYSTEM: Unlabored breathing. Clear to auscultation anteriorly. HEART: S1, S2. Irregular rhythm. ABDOMEN: Soft. No tenderness. Right knee with minimal swelling; no redness; slightly warm. LABS: Hemoglobin is 10.7, white count 12,000. BUN of 20, creatinine 1.0. Blood cultures from 12/24/2018 so far negative. DIAGNOSTIC IMPRESSION AND PLAN: Patient with methicillin-susceptible Staphylococcus aeruginosa bacteremia secondary to right knee septic arthritis. The patient is scheduled for knee washout today per Orthopedics. She will continue with cefazolin 2 grams q.8 hours. We will await for the blood cultures to be negative before placing a PICC line for outpatient IV antibiotic therapy. Continue with supportive care. MMODL / JORGEN: [id number] /
--- NOTE | 2018-12-26 02:27 | PN ---
PROGRESS NOTE This patient is admitted with a septic arthritis. Patient has evidence of atrial fibrillation. Patient underwent incision and drainage for the right knee infection. The patient remains stable. The patient remains in atrial fibrillation with a controlled rate. The patient heparin has been discontinued. We will recommend to start the patient on Eliquis 5 mg b.i.d. from tomorrow. KIRSTEN / JELENA: [id number] /
[2018-12-26] MEDS: SODIUM CHLORIDE 0.9% 1,000 ML IV SCH (03:13)
[2018-12-26] MEDS: LEVOTHYROXINE 100 MCG TAB PO SCH (06:26)
[2018-12-26] MEDS: CARVEDILOL 12.5 MG TAB PO SCH ×2 (06:26→16:32)
[2018-12-26] MEDS: PANTOPRAZOLE 40 MG TABLET PO SCH (06:26)
[2018-12-26 06:42] LABS: Basophils # (A) 0.1 k/uL (0-0.2); Basophils % (A) 1 %; Eosinophils % (A) 0 %; HCT 36.1 % (34.0-46.0); HGB 11.7 gm/dL (11.4-16.0); Lymphocytes # (A) 0.5 k/uL (1.0-4.8); Lymphocytes % (A) 4 %; MCH 28.7 pg (25.0-35.0); MCHC 32.4 g/dL (31.0-37.0); MCV 88.4 fL (80.0-100.0); Mean Platelet Volume 6.8; Monocytes # (A) 0.4 k/uL (0-1.0); Monocytes % (A) 2 %; Neutrophils # (A) 13.1 k/uL (1.3-7.7); Neutrophils % (A) 93 %; Platelet Count 227 k/uL (150-450); RBC 4.08 m/uL (3.80-5.40); RDW 15.3 % (11.5-15.5); WBC 14.2 k/uL (3.8-10.6)
[2018-12-26 06:50] LABS: Albumin 2.8 g/dL (3.5-5.0); Calcium 7.1 mg/dL (8.4-10.2); Magnesium 2.6 mg/dL (1.6-2.3); Potassium 4.7 mmol/L (3.5-5.1); Total Bilirubin 0.9 mg/dL (0.2-1.3); Total Protein 5.2 g/dL (6.3-8.2)
--- NOTE | 2018-12-26 08:14 | OP ---
OPERATIVE REPORT DATE OF PROCEDURE: 12/25/2018. PREOPERATIVE DIAGNOSIS: Right knee septic arthritis. POSTOPERATIVE DIAGNOSES: 1. Probable septic arthritis, right knee. 2. 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 3. Right knee posterior horn lateral meniscus tear. PROCEDURE PERFORMED: 1. Right knee arthroscopic irrigation, debridement. 2. Right knee partial synovectomy 3 compartment partial synovectomy. 3. Right knee arthroscopic partial lateral meniscectomy. SURGEON: Trav Jurado M.D. ANESTHESIA: General endotracheal. ESTIMATED BLOOD LOSS: Minimal. TOURNIQUET: None. DRAINS: None. COMPLICATIONS: None apparent. DISPOSITION: Postanesthesia care unit. INDICATIONS: Elda is a very pleasant 68-year-old female who presented to my office with right knee pain 3 days ago. I did do an aspiration in the office at that time. It was a bloody tap. It was sent for analysis. She did develop fevers and chills later. She was sent to the emergency department and she was planned to be admitted to my service. While in the emergency department, it was noted that she had developed new onset atrial fibrillation with changes on her EKG. She was then subsequently admitted to the cardiology service. They have been treating her new onset atrial fibrillation and she has been anticoagulated for the last 3 days. She has finally been cleared for surgery. She did have blood cultures which were drawn in the emergency department which were positive for Staph aureus. She has been treated with appropriate antibiotics per the Infectious Disease team. She has finally been cleared for procedure by Cardiology. Plan to proceed with irrigation and debridement of her right knee. The risks of the procedure were discussed with her in detail. These risks include, but are not limited to risk of infection, nerve damage, bleeding, pain, and a small risk of deep vein thrombosis which could lead to fatal pulmonary embolism. She understood the risks and wished to proceed with surgical procedure. Examination under anesthesia: Range of motion: Right mild, left full. Effusion: Right mild, left none. Lucia's: Right normal with good end point. Left normal with good end point. Pivot shift: Right grade 0, left grade 0. Posterior drawer: Right with good end point. Left normal with good end point. Varus laxity right none, left none. Valgus laxity: Right none, left none. External rotation: Right normal. Left normal. ARTHROSCOPIC FINDINGS: Suprapatellar pouch: She had significant synovitis in the suprapatellar pouch. Minimal purulence or exudate. Medial gutter, significant synovitis, lateral gutter, significant tenosynovitis. Patella: She had diffuse grade 2-3 changes of the chondral surface of the patella. Trochlea: She had areas of grade 4 change on the central aspect of the trochlea. Patellar tracking was normal. Medial femoral condyle: She had very minimal grade 1 change in the medial femoral condyle. Medial tibial plateau: She had grade 2 change of the medial tibial plateau. The medial meniscus was normal. Lateral femoral condyle: She had areas of grade 4 change on the weightbearing surface of the lateral femoral condyle. Lateral tibial plateau: She had areas of grade 3 and 4 change in the central aspect of the lateral tibial plateau. Lateral meniscus: She had a complex degenerative tear of the posterior horn of the middle body of the lateral meniscus. Anterior cruciate ligaments normal. Posterior cruciate ligament normal. Infrapatellar notch: She had significant synovitis in both the anterior medial and anterior lateral compartments of the knee. DESCRIPTION OF THE PROCEDURE: Patient identified in the preoperative holding area. Surgical sites marked by both the patient and myself. She was on preoperative antibiotics on the floor, so we did not give any specific preoperative antibiotic. Surgical site was marked by both the patient and myself. She was then transferred to the operative suite. She was placed supine on the operative table. General anesthetic was then administered and dosed per the anesthesia without apparent complication. Examination under anesthesia was then performed of the right knee. Findings noted above. Tourniquet was then placed high on the right upper thigh well-padded in preparation for surgery. The tourniquet was not inflated throughout the entire procedure. The patient's right lower extremity was then prepped and draped in usual sterile fashion. Standard surgical pause undertaken to ensure that we were operating on the correct site and that appropriate preoperative antibiotics were given. All staff in room were in agreement and we proceeded. I then proceeded to attempt to tap the right knee. I got very minimal amount of fluid from the right knee tapped. We did send 2 separate cultures. However, the fluid that I did get again it was a bloody tap. There was not a significant amount of purulence in the knee at all. I then proceeded to make an inferolateral portal. This was made with an 11 blade scalpel. The 30 degree arthroscope was then introduced into the suprapatellar pouch. The pump pressure was set to 60 mmHg and maintained at that level throughout the entire case. Next utilizing an 18-gauge spinal needle, topically localized placement, the inferomedial portal was made under direct visualization. A standard diagnostic arthroscopy of the knee was then performed. Findings noted as above. Of note, there was not significant purulence noted about the knee. Certainly there was not a large effusion with very minimal purulent material. There was significant synovitis noted about the knee, however. I did do a partial synovectomy of the suprapatellar area of the medial and lateral gutters and the anteromedial and anterolateral aspect of the knee with a synovial shaver. I then proceeded to the inferolateral compartment. She did have a degenerative tear of the posterior horn and middle body lateral meniscus. This was deemed irreparable. The meniscus tear was debrided with a combination of biters and a shaver back to stable tissue. Approximately 50% of the posterior horn and middle body lateral meniscus remained intact after debridement. The anterior and posterior root attachments were carefully inspected and found to be intact. Attention was drawn to the medial compartment. There was no evidence of a meniscus tear at all in the medial compartment of the knee. Again, there was very minimal, if any purulent material noted within the knee. A 3 compartment synovectomy was done and debridement of a mild amount of what may have been purulent material in the suprapatellar pouch was done with the synovial shaver. I, in total ran 9 L of saline solution with Ancef added to it through the knee during the irrigation part of the procedure. At this point in time no further work was deemed necessary. The knee was thoroughly irrigated and drained with an outflow cannula. The arthroscope equipment was removed from the knee. The arthroscopic portals were then closed with 3-0 nylon interrupted suture. Sterile compressive dressing was then applied. All sponge and needle counts were deemed correct prior to closure. The patient tolerated procedure without apparent complication. The tourniquet was not inflated throughout the entire procedure. She was transferred to recovery room in stable condition. MMODL / IJN: [id number] /
[2018-12-26] MEDS: HYDROcodone/APAP 7.5-325MG 1 EACH TAB PO PRN (08:52)
[2018-12-26] MEDS: MAGNESIUM OXIDE 400 MG TAB PO SCH ×2 (08:52→19:57)
[2018-12-26] MEDS: DOCUSATE 100 MG CAP PO SCH ×2 (08:52→19:57)
--- NOTE | 2018-12-26 08:59 | XR ---
EXAMINATION TYPE: XR chest 1V portable DATE OF EXAM: 12/26/2018 COMPARISON: 12/22/2018 INDICATION: CHF TECHNIQUE: Single frontal view of the chest is obtained. FINDINGS: The heart size is borderline in size. The pulmonary vasculature is normal. There is mild patchy increased lung markings bilaterally. IMPRESSION: 1. Patchy infiltrates greater at the lung bases could be some resolving pulmonary edema. Continued fo llow-up is recommended.
--- NOTE | 2018-12-26 09:47 | P.NPCON ---
History of Present Illness - Reason for Consult hyponatremia - History of Present Illness Reason for consultation: Hyponatremia and acute kidney injury History of present illness: Patient is a 68-year-old female seen in renal consultation for hyponatremia and acute kidney injury. Creatinine was 1.5-1 admission and is down to 0.94 today. Sodium level has also as low as 125 yesterday and is up to 131 today. Patient states oral intake is gradually improving. She denies any vomiting or diarrhea. She denies taking any diuretics. She was taking Motrin 800 about 3 times daily for pain in her knee. Patient states she had a cortisone shot in her right knee about a week ago. Subsequently she developed swelling and underwent aspiration. However due to worsening pain she came to the hospital. She underwent right knee arthroscopic irrigation and a bride meant with partial lateral meniscectomy and partial synovectomy on December 25. Hemodynamically she stable. Currently maintained on normal saline at 70 mL an hour. No edema. Good urine output. No hematuria or dysuria. No prior history of kidney disease. Blood pressure this morning was well controlled. Vital signs are stable. General: The patient appeared well nourished and normally developed. HEENT: Head exam is unremarkable. Neck is without jugular venous distension. LUNGS: Lungs are clear to auscultation and percussion. Breath sounds decreased. HEART: Rate and Rhythm are regular. First and second heart sounds normal. No murmurs, rubs or gallops. ABDOMEN: Abdominal exam reveals normal bowel sounds. Non-tender and non-diste nded. No evidence of peritonitis. EXTREMITITES: No clubbing, cyanosis, or edema. Past Medical History Past Medical History: Hyperlipidemia, Hypertension, Thyroid Disorder History of Any Multi-Drug Resistant Organisms: None Reported Past Surgical History: Hysterectomy, Tonsillectomy, Tubal Ligation Additional Past Surgical History / Comment(s): thryoid Past Anesthesia/Blood Transfusion Reactions: No Reported Reaction Past Psychological History: Anxiety Smoking Status: Former smoker Past Alcohol Use History: Occasional Past Drug Use History: None Reported - Past Family History Father Additional Family Medical History / Comment(s): POCKETS IN THE LUNG, ULCERATIVE COLITIS Mother Family Medical History: AFIB Medications and Allergies Home Medications Medication Instructions Recorded Confirmed Type Carvedilol [Coreg] 12.5 mg PO BID 05/31/14 12/22/18 History Levothyroxine Sodium [Synthroid] 112 mcg PO DAILY 05/31/14 12/22/18 History Lisinopril [Prinivil] 40 mg PO DAILY 05/31/14 12/22/18 History clonazePAM [KlonoPIN] 0.25 mg PO HS PRN 05/31/14 12/22/18 History Cholecalciferol [Vitamin D3 (25 2,000 unit PO DAILY 06/01/14 12/22/18 History Mcg = 1000 Iu)] Fluticasone Propionate [Flonase] 1 spray EA NOSTRIL DAILY PRN 06/01/14 12/22/18 History Magnesium Oxide [Mag-Ox] 250 mg PO BID 06/01/14 12/22/18 History Aspirin EC [Ecotrin] 325 mg PO DAILY #30 tablet. 06/02/14 12/22/18 Rx Ibuprofen [Motrin] 800 mg PO TID PRN 12/22/18 12/22/18 History Loratadine [Claritin] 10 mg PO DAILY PRN 12/22/18 12/22/18 History Omeprazole [PriLOSEC] 20 mg PO DAILY PRN 12/22/18 12/22/18 History amLODIPine [Norvasc] 5 mg PO BID 12/22/18 12/22/18 History Allergies Allergy/AdvReac Type Severity Reaction Status Date / Time No Known Allergies Allergy Verified 12/22/18 16:06 Physical Exam Vitals: Vital Signs Temp Pulse Pulse Resp BP Pulse Ox 12/26/18 08:00 98.3 F 98 17 130/76 92 L 12/26/18 04:00 98.8 F 79 18 184/78 92 L 12/26/18 00:00 85 15 171/93 93 L 12/25/18 20:30 95 16 134/73 93 L 12/25/18 18:11 115 H 156/79 93 L 12/25/18 16:00 106 H 166/78 12/25/18 15:55 91 168/79 12/25/18 15:25 96 162/72 91 L 12/25/18 15:10 100 162/72 88 L 12/25/18 14:46 96 16 163/72 93 L 12/25/18 14:30 79 16 165/76 93 L 12/25/18 14:19 97.7 F 89 14 136/69 93 L 12/25/18 12:36 98.4 F 18 147/63 92 L 12/25/18 10:55 98.8 F 85 20 134/71 92 L Intake and Output 12/25/18 12/26/18 12/26/18 22:59 06:59 14:59 Intake Total 170 200 240 Output Total 1500 Balance 170 -1300 240 Intake: Intake, IV Titration 50 Amount ceFAZolin 2 gm In Sodium 50 Chloride 0.9% 50 ml @ 100 mls/hr IVPB Q8HR [facility] Rx# :[id number] Oral 120 200 240 Output: Urine 1500 Other: Voiding Method Bedside Commode Bedside Commode # Voids 3 Weight 96 kg Results - Lab Results Most recent lab results Calcium 7.1 mg/dL (8.4-10.2) L 12/26/18 06:13 Magnesium 2.6 mg/dL (1.6-2.3) H 12/26/18 06:13 12/26/18 06:13 12/26/18 06:13 Assessment and Plan Plan: Assessment: 1. Acute kidney injury mostly prerenal secondary to nonsteroidals. Improved. Creatinine was 1.52 on admission and is 0.94 today. 2. Right septic knee arthritis status post irrigation and bright Mente on December 25. 3. Hypervolemic hyponatremia improved with IV hydration. 4. Metabolic acidosis secondary to acute kidney injury and IV fluids. 5. Benign hypertension. Plan: Hep-Lock IV fluids. 1200 mL fluid restriction. Encouraged oral intake, particularly solute. Resume amlodipine. Repeat electrolytes in the morning. Thank you for the consultation. I will continue to follow the patient with you during her hospital stay.
--- NOTE | 2018-12-26 10:32 | P.PN ---
Subjective Progress Note Date: 12/26/18 Principal diagnosis: Status post right knee arthroscopic I&D This is a 68 year-old female post right knee arthroscopic I&D. This is post-op day 1. The patient was evaluated at the bedside today. The patient denies nausea, vomiting, abdominal pain, shortness of breath, and chest pain this morning. She states her pain is controlled at this time. The patient has not been up with physical therapy yet this morning. Objective - Vital Signs Vital signs: Vital Signs Temp 98.3 F 12/26/18 08:00 Pulse 98 12/26/18 08:00 Resp 17 12/26/18 08:00 BP 130/76 12/26/18 08:00 Pulse Ox 92 L 12/26/18 08:00 Intake & Output 12/25/18 12/26/18 12/26/18 18:59 06:59 18:59 Intake Total 725 320 240 Output Total 505 1500 Balance 220 -1180 240 Weight 96 kg Intake: IV 675 Intake, IV Titration 50 Amount ceFAZolin 2 gm In Sodium 50 Chloride 0.9% 50 ml @ 100 mls/hr IVPB Q8HR [facility] Rx# :[id number] Oral 0 320 240 Output: Urine 500 1500 Estimated Blood Loss 5 Other: Voiding Method Bedside Commode # Voids 3 - Exam The patient does not appear in acute distress. Alert and orientated x3. Dressing is clean dry and intact. Incisions appear fine with no erythema or active drainage. Calf is soft and nontender. Good foot and ankle motion without difficulty. Sensation and circulatory status is intact. - Labs CBC & Chem 7: 12/26/18 06:13 12/26/18 06:13 Labs: Abnormal Lab Results - Last 24 Hours (Table) 12/26/18 12/26/18 Range/Units 06:13 06:13 WBC 14.2 H (3.8-10.6) k/uL Neutrophils # 13.1 H (1.3-7.7) k/uL Lymphocytes # 0.5 L (1.0-4.8) k/uL Sodium 131 L (137-145) mmol/L Carbon Dioxide 21 L (22-30) mmol/L BUN 20 H (7-17) mg/dL Glucose 139 H (74-99) mg/dL Calcium 7.1 L (8.4-10.2) mg/dL Magnesium 2.6 H (1.6-2.3) mg/dL Total Protein 5.2 L (6.3-8.2) g/dL Albumin 2.8 L (3.5-5.0) g/dL Microbiology - Last 24 Hours (Table) 12/25/18 14:02 Gram Stain - Preliminary Knee - Right Wound Culture - Preliminary 12/25/18 14:02 Gram Stain - Preliminary Knee - Right Wound Culture - Preliminary 12/23/18 16:47 Blood Culture Gram Stain - Final Blood Blood Culture - Final Staphylococcus aureus 12/25/18 14:02 Anaerobic Culture - Preliminary Knee - Right 12/25/18 14:02 Anaerobic Culture - Preliminary Knee - Right 12/24/18 11:53 Blood Culture - Preliminary Blood No Growth after 24 hours Assessment and Plan (1) Status post incision and drainage Current Visit: Yes Status: Acute Code(s): Z98.890 - OTHER SPECIFIED POSTPROCEDURAL STATES SNOMED Code(s): 581327462 (2) Atrial fibrillation with RVR Current Visit: Yes Status: Acute Code(s): I48.91 - UNSPECIFIED ATRIAL FIBRILLATION SNOMED Code(s): 867528328033639 (3) Septic joint of right knee joint Current Visit: Yes Status: Acute Code(s): M00.9 - PYOGENIC ARTHRITIS, UNSPECIFIED SNOMED Code(s): 648987610 Plan: 1. Continue pain control 2. Anticoagulation per cardiology 3. Start physical therapy and ambulation 4. Anticipate discharge home after antibiotic therapy has been determined.
[2018-12-26] MEDS: amLODIPine 5 MG TAB PO SCH ×2 (12:34→19:57)
[2018-12-26] MEDS: APIXABAN 5 MG TAB PO SCH ×2 (12:34→19:57)
[2018-12-26] MEDS: FUROSEMIDE 10 MG/ML 2 ML VIAL IV SCH ×2 (12:35→19:56)
--- NOTE | 2018-12-26 12:58 | P.PN ---
Subjective Progress Note Date: 12/26/18 This is a pleasant 68-year-old female with history of hypertension, hyperlipidemia, prior thyroid removal for which she takes Synthroid, nonsmoker, rare EtOH, who states that she was getting into bed few nights ago, and felt something pull in her right knee. Subsequent to that she developed pain in that knee, she went to see Dr. Jurado in his office, he gave her a steroid injection. The knee became quite swollen, and warm to the touch, and the pain continued to worsen, to the point where the patient states she could hardly walk. She went back to see Dr. Jurado who joseph some fluid from that knee, which was bloody according to the patient, she was then referred to come to the hospital for admission. EKG on presentation here showed atrial fibrillation, patient denies any prior history of atrial fibrillation, she denies having any palpitations, dizziness, shortness of breath. She does state that she had TIA in 2004. The knee x-ray on arrival here showed mild to moderate tricompartmental osteoarthritis. Small to moderate knee joint effusion. Chest x-ray shows marked bilateral pulmonary infiltrative process. Blood pressure 128/50, heart rate in the 90s, temperature 102.5 this morning. Blood cultures show gram- positive cocci in clusters. White blood cell count 24 on admission, 19 this morning, hemoglobin 12.6, platelet count 195. Sodium 126, potassium 4.4, BUN 16 and creatinine 0.9. C-reactive protein 224, total bilirubin 3.5, positive UTI. At the time of my examination this morning, patient feels well, she continues to have pain in her right knee, denies any dizziness or lightheadedness, no shortness of breath, no palpitations. She is currently on IV Cardizem, no heparin has been initiated. 12/24/2018 Patient seen and examined this morning, hemodynamically stable. Continues to be in atrial fibrillation this morning. Echocardiogram with Doppler study remains pending. From our perspective, patient may proceed with surgery tomorrow, we will recommend to discontinue the heparin 4 hours before. 12/26/2018 Patient seen and examined this morning, overall she feels well, she is experiencing much less pain in her knee today. She underwent arthroscopic irrigation and partial laterall meniscectomy yesterday. Repeat chest x-ray shows patchy infiltrates greater at the lung bases which could be some resolving pulmonary edema. According to the patient, she denies any shortness of breath but states that when she walks to the bathroom she does get mildly short of breath at that time. We will start her on a small dose of Lasix 20 mg IV twice a day and Cipro she responds to this within the next 24 hours. Hemodynamically she stable. Blood pressure 130/70 with a heart rate in the 70s this morning, 92% on room air. White blood cell count 14.2, hemoglobin 11.7, platelet count 227. Sodium 131, potassium 4.7, BUN 20 and creatinine 0.9. Objective - Vital Signs Vital signs: Vital Signs Temp 98.3 F 12/26/18 08:00 Pulse 98 12/26/18 08:00 Resp 17 12/26/18 08:00 BP 130/76 12/26/18 08:00 Pulse Ox 92 L 12/26/18 08:00 Intake & Output 12/25/18 12/26/18 12/26/18 18:59 06:59 18:59 Intake Total 725 320 240 Output Total 505 1500 Balance 220 -1180 240 Weight 96 kg Intake: IV 675 Intake, IV Titration 50 Amount ceFAZolin 2 gm In Sodium 50 Chloride 0.9% 50 ml @ 100 mls/hr IVPB Q8HR [facility] Rx# :[id number] Oral 0 320 240 Output: Urine 500 1500 Estimated Blood Loss 5 Other: Voiding Method Bedside Commode # Voids 3 1 - Exam PHYSICAL EXAMINATION: GENERAL: 68-year-old female in no acute distress at the time of my e xamination HEENT: Head is atraumatic, normocephalic. Pupils equal, round. Sclera anicteric. Conjunctiva are clear. Mucous membranes of the mouth are moist. Neck is supple. There is no elevated jugular venous pressure. No carotid bruit is heard. HEART EXAMINATION: S1 and S2 irregularly irregular CHEST EXAMINATION: Lungs are clear with mild diminished air entry to the bases . No chest wall tenderness is noted on palpation or with deep breathing. ABDOMEN: Soft, nontender. Bowel sounds are heard. No organomegaly noted. EXTREMITIES: 2+ peripheral pulses with trace evidence of peripheral edema and no calf tenderness noted. There is swelling of the right knee noted as well as warmness of that knee NEUROLOGIC patient is awake, alert and oriented 3 . - Labs CBC & Chem 7: 12/26/18 06:13 12/26/18 06:13 Labs: Abnormal Lab Results - Last 24 Hours (Table) 12/26/18 12/26/18 Range/Units 06:13 06:13 WBC 14.2 H (3.8-10.6) k/uL Neutrophils # 13.1 H (1.3-7.7) k/uL Lymphocytes # 0.5 L (1.0-4.8) k/uL Sodium 131 L (137-145) mmol/L Carbon Dioxide 21 L (22-30) mmol/L BUN 20 H (7-17) mg/dL Glucose 139 H (74-99) mg/dL Calcium 7.1 L (8.4-10.2) mg/dL Magnesium 2.6 H (1.6-2.3) mg/dL Total Protein 5.2 L (6.3-8.2) g/dL Albumin 2.8 L (3.5-5.0) g/dL Microbiology - Last 24 Hours (Table) 12/25/18 14:02 Gram Stain - Preliminary Knee - Right Wound Culture - Preliminary Presumptive Staph aureus 12/25/18 14:02 Gram Stain - Preliminary Knee - Right Wound Culture - Preliminary Presumptive Staph aureus 12/23/18 16:47 Blood Culture Gram Stain - Final Blood Blood Culture - Final Staphylococcus aureus 12/25/18 14:02 Anaerobic Culture - Preliminary Knee - Right 12/25/18 14:02 Anaerobic Culture - Preliminary Knee - Right 12/24/18 11:53 Blood Culture - Preliminary Blood No Growth after 24 hours Assessment and Plan Plan: Assessment and plan #1 right knee pain and swelling with associated fever . Elevated white blood cell count, temperature this morning 102.5, blood cultures positive for gram- positive cocci in clusters #2 hypertension #3 atrial fibrillation, appears to be of new onset for the patient #4 hyperlipidemia #5 history of thyroidectomy, on Synthroid #6 TIA in 2015. Plan Echocardiogram with Doppler study was reviewed which revealed a normal left ventricular systolic function. We will start the patient on a small dose of IV Lasix, 20 mg twice a day, weight to see how she responds to that. We will repeat a chest x-ray again on Friday. Patient will also be initiated on Eliquis 5 mg one tablet by mouth twice a day. DNP note has been reviewed, I agree with a documented findings and plan of care. Patient was seen and examined.
--- NOTE | 2018-12-26 13:13 | P.PN ---
Subjective Progress Note Date: 12/26/18 This is a 68-year-old female patient of Dr. Lloyd. Patient presents with complaints of increased right knee pain and elevated temperature. Patient reports that on Friday she had a steroid injection to right knee with Dr. Jurado. Patient reports on Friday she started to develop increased pain and swelling to right knee along with having fevers. Patient presented back to Dr. Jurado's office and aspiration of knee was completed and sent for analysis. Patient then presented to ER with complaints of increased pain yesterday. Patient's white blood cell count on arrival found to be 24 lactic acid 1.4 elevated temperature. Patient started on vancomycin and Rocephin. Patient does have a past medical history of hyperlipidemia and hypertension hypothyroidism and anxiety. throughtout the night patient went into A. fib RVR. Leela drip started cardiology services consulted. Dr. Gaines has been consulted for infectious disease. Per patient plans for possible scope today. At this time patient denies any chest pain or shortness of breath. Patient denies nausea vomiting or diarrhea. Patient denies any urinary burning or frequency 12/24/2018 patient is alert and oriented 3. Blood culture currently growing presumptive staph aureus. Antibiotics adjusted per infectious disease. Cre atinine increasing to 1.52 and bun 24. Lisinopril has been held. Patient maintained on normal saline at 50. The patient remains on heparin drip for anticoagulation per cardiology. Colace added for constipation. At this time patient denies chest pain or shortness breath. Patient denies nausea vomiting or diarrhea. Patient denies any urinary burning or frequency On 12/25/2018 patient is alert and oriented 3. Patient undergoing scope with washout to right knee today per orthopedic services heparin currently per cardiology recommendation. Creatinine improving to 1.00. At this time patient denies any chest pain or shortness breath. Patient is complaining of some nausea Zofran has been ordered. Patient denies any urinary burning or frequency On 12/26/2018 patient was seen and examined on the medical floor she is alert and oriented 3 in no apparent distress she is complaining of some pain in her knee otherwise she denies any complaints there is no fever or chills no headache or dizziness no chest pain no shortness of breath no cough no nausea or vomiting no abdominal pain no diarrhea and no urinary symptoms Objective - Vital Signs Vital signs: Vital Signs Temp 98.3 F 12/26/18 08:00 Pulse 98 12/26/18 08:00 Resp 17 12/26/18 08:00 BP 130/76 12/26/18 08:00 Pulse Ox 92 L 12/26/18 08:00 Intake & Output 12/25/18 12/26/18 12/26/18 18:59 06:59 18:59 Intake Total 725 320 240 Output Total 505 1500 Balance 220 -1180 240 Weight 96 kg Intake: IV 675 Intake, IV Titration 50 Amount ceFAZolin 2 gm In Sodium 50 Chloride 0.9% 50 ml @ 100 mls/hr IVPB Q8HR [facility] Rx# :[id number] Oral 0 320 240 Output: Urine 500 1500 Estimated Blood Loss 5 Other: Voiding Method Bedside Commode # Voids 3 1 - Exam In general patient is alert and oriented 3 in no apparent distress Head normocephalic and atraumatic Neck supple no JVD no goiter Lungs clear to auscultation bilaterally no wheezing or crackles Heart irregular heart rate Abdomen is soft nontender nondistended positive bowel sounds no hepatosplenomegaly Extremities no edema. Increased ringing edema Neuro alert and orientated to 3 - Labs CBC & Chem 7: 12/26/18 06:13 12/26/18 06:13 Labs: Abnormal Lab Results - Last 24 Hours (Table) 12/26/18 12/26/18 Range/Units 06:13 06:13 WBC 14.2 H (3.8-10.6) k/uL Neutrophils # 13.1 H (1.3-7.7) k/uL Lymphocytes # 0.5 L (1.0-4.8) k/uL Sodium 131 L (137-145) mmol/L Carbon Dioxide 21 L (22-30) mmol/L BUN 20 H (7-17) mg/dL Glucose 139 H (74-99) mg/dL Calcium 7.1 L (8.4-10.2) mg/dL Magnesium 2.6 H (1.6-2.3) mg/dL Total Protein 5.2 L (6.3-8.2) g/dL Albumin 2.8 L (3.5-5.0) g/dL Microbiology - Last 24 Hours (Table) 12/25/18 14:02 Gram Stain - Preliminary Knee - Right Wound Culture - Preliminary Presumptive Staph aureus 12/25/18 14:02 Gram Stain - Preliminary Knee - Right Wound Culture - Preliminary Presumptive Staph aureus 12/23/18 16:47 Blood Culture Gram Stain - Final Blood Blood Culture - Final Staphylococcus aureus 12/25/18 14:02 Anaerobic Culture - Preliminary Knee - Right 12/25/18 14:02 Anaerobic Culture - Preliminary Knee - Right 12/24/18 11:53 Blood Culture - Preliminary Blood No Growth after 24 hours Assessment and Plan Plan: 1. Fever and increased pain to right knee due to septic right knee joint. White blood cell count 24. Patient did have aspiration of fluid in the office and was sent for analysis. Infectious disease consulted. Blood culture growing presumptive staph aureus. Patient maintained on kefzol. Per orthopedic services plans for scope and washout today of right knee. Patient will need PICC line with IV antibiotics on discharge 2. New-onset atrial fibrillation with rapid ventricular response. Cardiology services following. 2-D echo has been ordered. Heparin drip ordered per cardiology 3. Hyponatremia. Sodium 126. Normal saline at 100 has been ordered. We'll continue to monitor 4. History of essential hypertension 5. History of Hyperlipidemia 6. History of hypothyroidism. Synthroid resumed TSH level has been ordered 7. History of anxiety 8. Urinary tract infection. urine culture has been ordered. Infectious disease following maintained on Rocephin 9. Acute kidney injury. Creatinine creasing 1.52. Lisinopril held. Patient maintained on normal saline at 100. Creatinine improving to 1.00 and bun 20 DVT prophylaxis heparin drip. GI prophylaxis Protonix Thank you for this consultation we will continue to follow patient closely throughout stay
[2018-12-26] MEDS: CALCIUM CARB-VIT D 500MG-200UN 1 EACH TAB PO SCH (16:32)
[2018-12-26] MEDS: ACETAMINOPHEN TAB 325 MG TAB PO PRN ×2 (16:46→23:54)
[2018-12-26] MEDS: POLYETHYLENE GLYCOL 3350 17 GM POWD.PACK PO SCH (19:56)
[2018-12-27] MEDS: PANTOPRAZOLE 40 MG TABLET PO SCH (06:19)
[2018-12-27] MEDS: CARVEDILOL 12.5 MG TAB PO SCH ×2 (06:20→17:00)
[2018-12-27] MEDS: CALCIUM CARB-VIT D 500MG-200UN 1 EACH TAB PO SCH ×2 (06:20→17:01)
[2018-12-27] MEDS: ACETAMINOPHEN TAB 325 MG TAB PO PRN ×3 (06:20→23:54)
[2018-12-27] MEDS: LEVOTHYROXINE 100 MCG TAB PO SCH (06:20)
[2018-12-27 06:35] LABS: Albumin 2.7 g/dL (3.5-5.0); Calcium 7.7 mg/dL (8.4-10.2); Magnesium 2.7 mg/dL (1.6-2.3); Potassium 4.2 mmol/L (3.5-5.1); Total Bilirubin 0.9 mg/dL (0.2-1.3)
[2018-12-27] MEDS: HYDROcodone/APAP 7.5-325MG 1 EACH TAB PO PRN (09:37)
[2018-12-27] MEDS: APIXABAN 5 MG TAB PO SCH ×2 (09:37→20:45)
[2018-12-27] MEDS: amLODIPine 5 MG TAB PO SCH ×2 (09:37→20:45)
[2018-12-27] MEDS: FUROSEMIDE 10 MG/ML 2 ML VIAL IV SCH ×2 (09:37→20:44)
[2018-12-27] MEDS: DOCUSATE 100 MG CAP PO SCH ×2 (09:40→20:44)
[2018-12-27] MEDS: MAGNESIUM OXIDE 400 MG TAB PO SCH ×2 (09:40→20:28)
--- NOTE | 2018-12-27 10:22 | P.PN ---
Subjective Progress Note Date: 12/27/18 Principal diagnosis: Status post right knee arthroscopic I&D This is a 68 year-old female post right knee arthroscopic I&D. This is post-op day 2. The patient was evaluated at the bedside today. The patient denies nausea, vomiting, abdominal pain, shortness of breath, and chest pain this morning. She states her pain is controlled at this time. The patient has been up with physical therapy. Objective - Vital Signs Vital signs: Vital Signs Temp 98.5 F 12/27/18 08:35 Pulse 87 12/27/18 08:35 Resp 18 12/27/18 08:35 BP 174/87 12/27/18 08:35 Pulse Ox 93 L 12/27/18 08:35 Intake & Output 12/26/18 12/27/18 12/27/18 18:59 06:59 18:59 Intake Total 360 300 Output Total 600 600 Balance -240 -300 Weight 94.5 kg Intake: Oral 360 300 Output: Urine 600 600 Other: Voiding Method Bedside Commode # Voids 1 # Bowel Movements 1 - Exam The patient does not appear in acute distress. Alert and orientated x3. Dressing is clean dry and intact. Incisions appear fine with no erythema or active drainage. Calf is soft and nontender. Good foot and ankle motion without difficulty. Sensation and circulatory status is intact. - Labs CBC & Chem 7: 12/26/18 06:13 12/27/18 05:57 Labs: Abnormal Lab Results - Last 24 Hours (Table) 12/27/18 Range/Units 05:57 Sodium 132 L (137-145) mmol/L Chloride 97 L (98-107) mmol/L BUN 23 H (7-17) mg/dL Glucose 127 H (74-99) mg/dL Calcium 7.7 L (8.4-10.2) mg/dL Magnesium 2.7 H (1.6-2.3) mg/dL Total Protein 5.0 L (6.3-8.2) g/dL Albumin 2.7 L (3.5-5.0) g/dL Microbiology - Last 24 Hours (Table) 12/26/18 06:13 Blood Culture - Preliminary Blood No Growth after 24 hours 12/24/18 11:53 Blood Culture - Preliminary Blood No Growth after 48 hours 12/25/18 14:02 Gram Stain - Preliminary Knee - Right Wound Culture - Preliminary Presumptive Staph aureus 12/25/18 14:02 Gram Stain - Preliminary Knee - Right Wound Culture - Preliminary Presumptive Staph aureus Assessment and Plan (1) Status post incision and drainage Current Visit: Yes Status: Acute Code(s): Z98.890 - OTHER SPECIFIED POSTPROCEDURAL STATES SNOMED Code(s): 436896409 (2) Atrial fibrillation with RVR Current Visit: Yes Status: Acute Code(s): I48.91 - UNSPECIFIED ATRIAL FIBRILLATION SNOMED Code(s): 430176289519634 (3) Septic joint of right knee joint Current Visit: Yes Status: Acute Code(s): M00.9 - PYOGENIC ARTHRITIS, UNSPECIFIED SNOMED Code(s): 469690317 Plan: 1. Continue pain control 2. Anticoagulation per cardiology 3. Continue physical therapy and ambulation 4. Anticipate discharge home after antibiotic therapy has been determined.
--- NOTE | 2018-12-27 10:30 | P.PN ---
Subjective Patient is seen in follow-up for hyponatremia. Sodium level continues to improve. 132 today. Oral intake is gradually improving. She is on fluid res triction. No vomiting or diarrhea. Lasix was also started yesterday. Vital signs are stable. General: The patient appeared well nourished and normally developed. HEENT: Head exam is unremarkable. Neck is without jugular venous distension. LUNGS: Lungs are clear to auscultation and percussion. Breath sounds decreased. HEART: Rate and Rhythm are regular. First and second heart sounds normal. No m urmurs, rubs or gallops. ABDOMEN: Abdominal exam reveals normal bowel sounds. Non-tender and non-di stended. No evidence of peritonitis. EXTREMITITES: Trace edema. Objective - Vital Signs Vital signs: Vital Signs Temp 98.5 F 12/27/18 08:35 Pulse 87 12/27/18 08:35 Resp 18 12/27/18 08:35 BP 174/87 12/27/18 08:35 Pulse Ox 93 L 12/27/18 08:35 Intake & Output 12/26/18 12/27/18 12/27/18 18:59 06:59 18:59 Intake Total 360 300 Output Total 600 600 Balance -240 -300 Weight 94.5 kg Intake: Oral 360 300 Output: Urine 600 600 Other: Voiding Method Bedside Commode # Voids 1 # Bowel Movements 1 - Labs CBC & Chem 7: 12/26/18 06:13 12/27/18 05:57 Labs: Abnormal Lab Results - Last 24 Hours (Table) 12/27/18 Range/Units 05:57 Sodium 132 L (137-145) mmol/L Chloride 97 L (98-107) mmol/L BUN 23 H (7-17) mg/dL Glucose 127 H (74-99) mg/dL Calcium 7.7 L (8.4-10.2) mg/dL Magnesium 2.7 H (1.6-2.3) mg/dL Total Protein 5.0 L (6.3-8.2) g/dL Albumin 2.7 L (3.5-5.0) g/dL Microbiology - Last 24 Hours (Table) 12/26/18 06:13 Blood Culture - Preliminary Blood No Growth after 24 hours 12/24/18 11:53 Blood Culture - Preliminary Blood No Growth after 48 hours 12/25/18 14:02 Gram Stain - Preliminary Knee - Right Wound Culture - Preliminary Presumptive Staph aureus 12/25/18 14:02 Gram Stain - Preliminary Knee - Right Wound Culture - Preliminary Presumptive Staph aureus Assessment and Plan Plan: Assessment: 1. Acute kidney injury mostly prerenal secondary to nonsteroidals. Improved. Creatinine was 1.52 on admission and is 1.0 today. 2. Right septic knee arthritis status post irrigation and debridement on December 25. 3. Hypovolemic hyponatremia initially improved with IV hydration. Now off IVFs. Appears euvolemic. 4. Metabolic acidosis secondary to acute kidney injury and IV fluids. Resolved. 5. Benign hypertension. BP on higher side. Plan: Remains off IVFs. 1200 mL fluid restriction. Encouraged oral intake, particularly solute. Add ensure. Follow up urine studies. Continue low dose lasix. Check TSH, uric acid. Resume lisinopril.
[2018-12-27 10:49] LABS: HCT 34.5 % (34.0-46.0); HGB 11.3 gm/dL (11.4-16.0); MCH 28.4 pg (25.0-35.0); MCHC 32.6 g/dL (31.0-37.0); MCV 86.9 fL (80.0-100.0); Mean Platelet Volume 7.8; Platelet Count 285 k/uL (150-450); RBC 3.97 m/uL (3.80-5.40); RDW 14.1 % (11.5-15.5); WBC 17.6 k/uL (3.8-10.6)
[2018-12-27] MEDS: LISINOPRIL 20 MG TAB PO SCH (11:29)
[2018-12-27 13:32] LABS: Band Neutrophils % 1 %; Lymphocytes # (M) 1.41 k/uL (1.0-4.8); Monocytes # (M) 1.06 k/uL (0-1.0); Myelocytes # (M) 0.35 k/uL (0); Myelocytes % 2 %; Neutrophils % (M) 85 %; Nucleated Red Blood Cells 0 /100 WBC (0-0); Total Cells Counted 200
--- NOTE | 2018-12-27 13:38 | P.PN ---
Subjective Progress Note Date: 12/27/18 This is a pleasant 68-year-old female with history of hypertension, hyperlipidemia, prior thyroid removal for which she takes Synthroid, nonsmoker, rare EtOH, who states that she was getting into bed few nights ago, and felt something pull in her right knee. Subsequent to that she developed pain in that knee, she went to see Dr. Jurado in his office, he gave her a steroid injection. The knee became quite swollen, and warm to the touch, and the pain continued to worsen, to the point where the patient states she could hardly walk. She went back to see Dr. Jurado who joseph some fluid from that knee, which was bloody according to the patient, she was then referred to come to the hospital for admission. EKG on presentation here showed atrial fibrillation, patient denies any prior history of atrial fibrillation, she denies having any palpitations, dizziness, shortness of breath. She does state that she had TIA in 2004. The knee x-ray on arrival here showed mild to moderate tricompartmental osteoarthritis. Small to moderate knee joint effusion. Chest x-ray shows marked bilateral pulmonary infiltrative process. Blood pressure 128/50, heart rate in the 90s, temperature 102.5 this morning. Blood cultures show gram- positive cocci in clusters. White blood cell count 24 on admission, 19 this morning, hemoglobin 12.6, platelet count 195. Sodium 126, potassium 4.4, BUN 16 and creatinine 0.9. C-reactive protein 224, total bilirubin 3.5, positive UTI. At the time of my examination this morning, patient feels well, she continues to have pain in her right knee, denies any dizziness or lightheadedness, no shortness of breath, no palpitations. She is currently on IV Cardizem, no heparin has been initiated. 12/24/2018 Patient seen and examined this morning, hemodynamically stable. Continues to be in atrial fibrillation this morning. Echocardiogram with Doppler study remains pending. From our perspective, patient may proceed with surgery tomorrow, we will recommend to discontinue the heparin 4 hours before. 12/26/2018 Patient seen and examined this morning, overall she feels well, she is experiencing much less pain in her knee today. She underwent arthroscopic irrigation and partial laterall meniscectomy yesterday. Repeat chest x-ray shows patchy infiltrates greater at the lung bases which could be some resolving pulmonary edema. According to the patient, she denies any shortness of breath but states that when she walks to the bathroom she does get mildly short of breath at that time. We will start her on a small dose of Lasix 20 mg IV twice a day and Cipro she responds to this within the next 24 hours. Hemodynamically she stable. Blood pressure 130/70 with a heart rate in the 70s this morning, 92% on room air. White blood cell count 14.2, hemoglobin 11.7, platelet count 227. Sodium 131, potassium 4.7, BUN 20 and creatinine 0.9. 12/27/2018 Patient was seen and examined today she does state that she has a hacking cough but feels that overall her breathing is starting to improve especially when she walks to the bathroom. She did not sleep well last night. Continues to be in atrial fibrillation with a controlled ventricular response. Blood pressure remains elevated, lisinopril dose was increased today. Objective - Vital Signs Vital signs: Vital Signs Temp 98.5 F 12/27/18 08:35 Pulse 87 12/27/18 08:35 Resp 18 12/27/18 08:35 BP 174/87 12/27/18 08:35 Pulse Ox 93 L 12/27/18 08:35 Intake & Output 12/26/18 12/27/18 12/27/18 18:59 06:59 18:59 Intake Total 360 300 240 Output Total 600 600 900 Balance -240 -300 -660 Weight 94.5 kg Intake: Oral 360 300 240 Output: Urine 600 600 900 Other: Voiding Method Bedside Commode # Voids 1 1 # Bowel Movements 1 - Exam PHYSICAL EXAMINATION: GENERAL: 68-year-old female in no acute distress at the time of my examination HEENT: Head is atraumatic, normocephalic. Pupils equal, round. Sclera anicte amador. Conjunctiva are clear. Mucous membranes of the mouth are moist. Neck is supple. There is no elevated jugular venous pressure. No carotid bruit is heard. HEART EXAMINATION: S1 and S2 irregularly irregular CHEST EXAMINATION: Lungs are clear with mild diminished air entry to the bases . No chest wall tenderness is noted on palpation or with deep breathing. ABDOMEN: Soft, nontender. Bowel sounds are heard. No organomegaly noted. EXTREMITIES: 2+ peripheral pulses with trace evidence of peripheral edema and no calf tenderness noted. There is swelling of the right knee noted as well as warmness of that knee NEUROLOGIC patient is awake, alert and oriented 3 . - Labs CBC & Chem 7: 12/27/18 05:57 12/27/18 05:57 Labs: Abnormal Lab Results - Last 24 Hours (Table) 12/27/18 12/27/18 Range/Units 05:57 05:57 WBC 17.6 H (3.8-10.6) k/uL Hgb 11.3 L (11.4-16.0) gm/dL Neutrophils # (Manual) 15.10 H (1.3-7.7) k/uL Monocytes # (Manual) 1.06 H (0-1.0) k/uL Myelocytes # (Manual) 0.35 H (0) k/uL Sodium 132 L (137-145) mmol/L Chloride 97 L (98-107) mmol/L BUN 23 H (7-17) mg/dL Glucose 127 H (74-99) mg/dL Calcium 7.7 L (8.4-10.2) mg/dL Magnesium 2.7 H (1.6-2.3) mg/dL Total Protein 5.0 L (6.3-8.2) g/dL Albumin 2.7 L (3.5-5.0) g/dL Microbiology - Last 24 Hours (Table) 12/26/18 06:13 Blood Culture - Preliminary Blood No Growth after 24 hours 12/24/18 11:53 Blood Culture - Preliminary Blood No Growth after 48 hours 12/25/18 14:02 Gram Stain - Preliminary Knee - Right Wound Culture - Preliminary Presumptive Staph aureus 12/25/18 14:02 Gram Stain - Preliminary Knee - Right Wound Culture - Preliminary Presumptive Staph aureus Assessment and Plan Plan: Assessment and plan #1 right knee pain and swelling with associated fever . Elevated white blood cell count, temperature this morning 102.5, blood cultures positive for gram- positive cocci in clusters #2 hypertension #3 atrial fibrillation, appears to be of new onset for the patient #4 hyperlipidemia #5 history of thyroidectomy, on Synthroid #6 TIA in 2015. Plan We will continue the current dose of IV Lasix, lisinopril has also been increased to assist with better blood pressure management. We'll repeat her chest x-ray in the morning. If the patient persists to be in atrial fibrillation, when she is cleared of this recurrent infection process, we may consider an outpatient cardioversion down the road. DNP note has been reviewed, I agree with a documented findings and plan of care. Patient was seen and examined.
--- NOTE | 2018-12-27 14:32 | P.PN ---
Subjective Progress Note Date: 12/27/18 This is a 68-year-old female patient of Dr. Lloyd. Patient presents with complaints of increased right knee pain and elevated temperature. Patient reports that on Friday she had a steroid injection to right knee with Dr. Jurado. Patient reports on Friday she started to develop increased pain and swelling to right knee along with having fevers. Patient presented back to Dr. Jurado's office and aspiration of knee was completed and sent for analysis. Patient then presented to ER with complaints of increased pain yesterday. Patient's white blood cell count on arrival found to be 24 lactic acid 1.4 elevated temperature. Patient started on vancomycin and Rocephin. Patient does have a past medical history of hyperlipidemia and hypertension hypothyroidism and anxiety. throughtout the night patient went into A. fib RVR. Leela drip started cardiology services consulted. Dr. Gaines has been consulted for infectious disease. Per patient plans for possible scope today. At this time patient denies any chest pain or shortness of breath. Patient denies nausea vomiting or diarrhea. Patient denies any urinary burning or frequency 12/24/2018 patient is alert and oriented 3. Blood culture currently growing presumptive staph aureus. Antibiotics adjusted per infectious disease. Cre atinine increasing to 1.52 and bun 24. Lisinopril has been held. Patient maintained on normal saline at 50. The patient remains on heparin drip for anticoagulation per cardiology. Colace added for constipation. At this time patient denies chest pain or shortness breath. Patient denies nausea vomiting or diarrhea. Patient denies any urinary burning or frequency On 12/25/2018 patient is alert and oriented 3. Patient undergoing scope with washout to right knee today per orthopedic services heparin currently per cardiology recommendation. Creatinine improving to 1.00. At this time patient denies any chest pain or shortness breath. Patient is complaining of some nausea Zofran has been ordered. Patient denies any urinary burning or frequency On 12/26/2018 patient was seen and examined on the medical floor she is alert and oriented 3 in no apparent distress she is complaining of some pain in her knee otherwise she denies any complaints there is no fever or chills no headache or dizziness no chest pain no shortness of breath no cough no nausea or vomiting no abdominal pain no diarrhea and no urinary symptoms. On 12/27/2018 patient was seen and examined on the medical floor she is alert and oriented 3 in no apparent distress she is complaining of pain in the right knee and swelling in the right lower extremity otherwise she denies any complaints there is no fever or chills no headache or dizziness no chest pain no shortness of breath no cough no nausea or vomiting no abdominal pain no diarrhea no burning with urination no frequency or urgency and no hematuria Objective - Vital Signs Vital signs: Vital Signs Temp 98.5 F 12/27/18 08:35 Pulse 87 12/27/18 08:35 Resp 18 12/27/18 08:35 BP 174/87 12/27/18 08:35 Pulse Ox 93 L 12/27/18 08:35 Intake & Output 12/26/18 12/27/18 12/27/18 18:59 06:59 18:59 Intake Total 360 300 240 Output Total 600 600 900 Balance -240 -300 -660 Weight 94.5 kg Intake: Oral 360 300 240 Output: Urine 600 600 900 Other: Voiding Method Bedside Commode # Voids 1 1 # Bowel Movements 1 - Exam In general patient is alert and oriented 3 in no apparent distress Head normocephalic and atraumatic Neck supple no JVD no goiter Lungs clear to auscultation bilaterally no wheezing or crackles Heart irregular heart rate Abdomen is soft nontender nondistended positive bowel sounds no hepatosplenomegaly Extremities no edema. Increased ringing edema Neuro alert and orientated to 3 - Labs CBC & Chem 7: 12/27/18 05:57 12/27/18 05:57 Labs: Abnormal Lab Results - Last 24 Hours (Table) 12/27/18 12/27/18 Range/Units 05:57 05:57 WBC 17.6 H (3.8-10.6) k/uL Hgb 11.3 L (11.4-16.0) gm/dL Neutrophils # (Manual) 15.10 H (1.3-7.7) k/uL Monocytes # (Manual) 1.06 H (0-1.0) k/uL Myelocytes # (Manual) 0.35 H (0) k/uL Sodium 132 L (137-145) mmol/L Chloride 97 L (98-107) mmol/L BUN 23 H (7-17) mg/dL Glucose 127 H (74-99) mg/dL Calcium 7.7 L (8.4-10.2) mg/dL Magnesium 2.7 H (1.6-2.3) mg/dL Total Protein 5.0 L (6.3-8.2) g/dL Albumin 2.7 L (3.5-5.0) g/dL Microbiology - Last 24 Hours (Table) 12/24/18 11:53 Blood Culture - Preliminary Blood No Growth after 72 hours 12/25/18 14:02 Gram Stain - Final Knee - Right Wound Culture - Final Staphylococcus aureus 12/25/18 14:02 Gram Stain - Final Knee - Right Wound Culture - Final Staphylococcus aureus 12/26/18 06:13 Blood Culture - Preliminary Blood No Growth after 24 hours Assessment and Plan Plan: 1. Fever and increased pain to right knee due to septic right knee joint. White blood cell count 24. Patient did have aspiration of fluid in the office and was sent for analysis. Infectious disease consulted. Blood culture growing presumptive staph aureus. Patient maintained on kefzol. Per orthopedic services plans for scope and washout today of right knee. Patient will need PICC line with IV antibiotics on discharge 2. New-onset atrial fibrillation with rapid ventricular response. Cardiology services following. 2-D echo has been ordered. 3. Hyponatremia. Sodium 126. Normal saline at 100 has been ordered. We'll continue to monitor 4. History of essential hypertension 5. History of Hyperlipidemia 6. History of hypothyroidism. Synthroid resumed TSH level has been ordered 7. History of anxiety 8. Urinary tract infection. urine culture has been ordered. Infectious disease following maintained on Rocephin 9. Acute kidney injury. Creatinine creasing 1.52. Lisinopril held. Patient maintained on normal saline at 100. Creatinine improving to 1.00 and bun 20 DVT prophylaxis heparin drip. GI prophylaxis Protonix Thank you for this consultation we will continue to follow patient closely throughout stay
[2018-12-27] MEDS: POLYETHYLENE GLYCOL 3350 17 GM POWD.PACK PO SCH (20:45)
[2018-12-27] MEDS ORDERED: METOPROLOL TARTRATE 25 MG TAB PO STA (22:11)
--- NOTE | 2018-12-28 01:27 | PN ---
PROGRESS NOTE DATE OF SERVICE: 12/27/2018. REASON FOR FOLLOWUP: Right knee septic arthritis with MSSA bacteremia. INTERVAL HISTORY: The patient is currently afebrile. Patient has been breathing comfortably. The right knee pain has improved. The patient denies having any chest pain, shortness of breath or cough. No abdominal pain. No diarrhea. PHYSICAL EXAMINATION: Blood pressure is 196/92 with a pulse of 87, temperature 98.9. She is 93% on room air. General description is an elderly female up in the chair in no distress. Respiratory system: Unlabored breathing. Clear to auscultation anteriorly. Heart S1, S2. Regular rate and rhythm. Abdomen soft. No tenderness. Right knee is currently dressed up. No obvious drainage on the dressing. LABS: BUN of 23, creatinine is 1.0. White count slightly elevated to 76,000 today. DIAGNOSTIC IMPRESSION AND PLAN: Patient with MSSA bacteremia secondary to right knee septic arthritis status post right knee washout. The patient at this time currently covered on cefazolin 2 g. She will be able to get a PICC line once blood culture negative for 72 hours, white count to monitor closely. Continue supportive care. MMODL / IJN: [id number] /
[2018-12-28] MEDS: CARVEDILOL 12.5 MG TAB PO SCH ×2 (06:10→16:32)
[2018-12-28] MEDS: LEVOTHYROXINE 100 MCG TAB PO SCH (06:10)
[2018-12-28] MEDS: PANTOPRAZOLE 40 MG TABLET PO SCH (06:11)
[2018-12-28] MEDS: CALCIUM CARB-VIT D 500MG-200UN 1 EACH TAB PO SCH ×2 (06:11→16:32)
[2018-12-28 06:42] LABS: HCT 33.2 % (34.0-46.0); HGB 11.4 gm/dL (11.4-16.0); MCH 29.1 pg (25.0-35.0); MCHC 34.3 g/dL (31.0-37.0); MCV 84.9 fL (80.0-100.0); Mean Platelet Volume 6.6; Platelet Count 329 k/uL (150-450); RBC 3.91 m/uL (3.80-5.40); WBC 18.5 k/uL (3.8-10.6)
[2018-12-28 07:14] LABS: Albumin 2.5 g/dL (3.5-5.0); Calcium 7.5 mg/dL (8.4-10.2); Potassium 3.8 mmol/L (3.5-5.1); Total Bilirubin 1.1 mg/dL (0.2-1.3); Total Protein 4.7 g/dL (6.3-8.2); Uric Acid 3.9 mg/dL (3.7-7.4)
[2018-12-28 07:49] LABS: Band Neutrophils % 2 %; Eosinophils # (M) 0.19 k/uL (0-0.7); Lymphocytes # (M) 1.85 k/uL (1.0-4.8); Metamyelocytes # (M) 0.37 k/uL (0); Metamyelocytes % 2 %; Monocytes # (M) 0.74 k/uL (0-1.0); Myelocytes % 7 %; Neutrophils % (M) 75 %; Nucleated Red Blood Cells 0 /100 WBC (0-0); Total Cells Counted 200
[2018-12-28] MEDS: LISINOPRIL 20 MG TAB PO SCH (09:24)
[2018-12-28] MEDS: METOPROLOL TARTRATE 25 MG TAB PO SCH ×2 (09:24→20:24)
[2018-12-28] MEDS: APIXABAN 5 MG TAB PO SCH ×2 (09:24→21:37)
[2018-12-28] MEDS: DOCUSATE 100 MG CAP PO SCH ×2 (09:24→20:23)
[2018-12-28] MEDS: amLODIPine 5 MG TAB PO SCH ×2 (09:24→20:23)
[2018-12-28] MEDS: FUROSEMIDE 10 MG/ML 2 ML VIAL IV SCH ×2 (09:24→20:24)
[2018-12-28] MEDS: MAGNESIUM OXIDE 400 MG TAB PO SCH ×2 (09:29→20:23)
--- NOTE | 2018-12-28 09:39 | XR ---
EXAMINATION TYPE: XR chest 2V DATE OF EXAM: 12/28/2018 COMPARISON: 12/26/2018 TECHNIQUE: PA and lateral views submitted. HISTORY: Shortness of breath FINDINGS: Bilateral consolidation and pleural effusion with patchy perihilar and interstitial infiltrates are s imilar to the prior exam. Heart size stable. Arthropathy of the shoulders. No pneumothorax. Hypertrop hic and degenerative change of the spine. Underlying COPD in the differential diagnosis. IMPRESSION: 1. Diffuse pleural-parenchymal changes correlate for CHF versus diffuse pneumonia.
--- NOTE | 2018-12-28 09:59 | P.PN ---
Subjective Progress Note Date: 12/28/18 Principal diagnosis: Right knee septic arthritis, knee pain Patient is seen at bedside today. She is POD #3 from I and D of right knee. Her knee pain is improved. She has been ambulating. She is being followed by cardiology and infectious disease and currently receiving Heparin and IV antibiotics.. No new complaints. She denies numbness, tingling, calf pain, fever, chills, chest pain or shortness of breath. Objective - Vital Signs Vital signs: Vital Signs Temp 98.8 F 12/28/18 00:23 Pulse 89 12/28/18 04:05 Resp 18 12/28/18 04:05 BP 166/57 12/28/18 00:23 Pulse Ox 94 L 12/28/18 00:23 Intake & Output 12/27/18 12/28/18 12/28/18 18:59 06:59 18:59 Intake Total 480 480 Output Total 900 1400 Balance -420 -920 Weight 90.9 kg Intake: Oral 480 480 Output: Urine 900 1400 Other: Voiding Method Bedside Commode # Voids 1 - Exam Inspection of the right knee shows no erythema. Surgical wounds are benign. There is trace/mild effusion. It is not overly hot to touch. She has mild pain with active flexion and extension/range of motion of the right knee. The calf is soft and nontender. Neurovascular status is intact with motor and sensation grossly. 2+ DP pulse present and less than 2 sec cap refill. - Constitutional General appearance: Present: no acute distress - Labs CBC & Chem 7: 12/28/18 06:02 12/28/18 05:59 Labs: Abnormal Lab Results - Last 24 Hours (Table) 12/27/18 12/28/18 12/28/18 Range/Units 05:57 05:59 06:02 WBC 17.6 H 18.5 H (3.8-10.6) k/uL Hgb 11.3 L (11.4-16.0) gm/dL Hct 33.2 L (34.0-46.0) % Neutrophils # (Manual) 15.10 H 14.20 H (1.3-7.7) k/uL Monocytes # (Manual) 1.06 H (0-1.0) k/uL Metamyelocytes # (Man) 0.37 H (0) k/uL Myelocytes # (Manual) 0.35 H 1.30 H (0) k/uL Sodium 133 L (137-145) mmol/L Chloride 95 L (98-107) mmol/L BUN 20 H (7-17) mg/dL Calcium 7.5 L (8.4-10.2) mg/dL Total Protein 4.7 L (6.3-8.2) g/dL Albumin 2.5 L (3.5-5.0) g/dL Microbiology - Last 24 Hours (Table) 12/26/18 06:13 Blood Culture - Preliminary Blood No Growth after 48 hours 12/25/18 14:02 Anaerobic Culture - Preliminary Knee - Right 12/25/18 14:02 Anaerobic Culture - Preliminary Knee - Right 12/24/18 11:53 Blood Culture - Preliminary Blood No Growth after 72 hours 12/25/18 14:02 Gram Stain - Final Knee - Right Wound Culture - Final Staphylococcus aureus 12/25/18 14:02 Gram Stain - Final Knee - Right Wound Culture - Final Staphylococcus aureus Assessment and Plan Assessment: Possible septic knee, meniscus tear, DJD right knee Plan: She is receiving IV ancef for MSSA. She is awaiting PICC line placement once blood cultures have been negative for 72 hours. She is to continue with pain management and PT. She may discharged to home when OK with infectious disease, cardiology and IM. Time with Patient: Less than 30
--- NOTE | 2018-12-28 10:16 | P.PN ---
Subjective Progress Note Date: 12/28/18 This is a 68-year-old female patient of Dr. Lloyd. Patient presents with complaints of increased right knee pain and elevated temperature. Patient reports that on Friday she had a steroid injection to right knee with Dr. Jurado. Patient reports on Friday she started to develop increased pain and swe lling to right knee along with having fevers. Patient presented back to Dr. Jurado's office and aspiration of knee was completed and sent for analysis. Patient then presented to ER with complaints of increased pain yesterday. Patient's white blood cell count on arrival found to be 24 lactic acid 1.4 elevated temperature. Patient started on vancomycin and Rocephin. Patient does have a past medical history of hyperlipidemia and hypertension hypothyroidism and anxiety. throughtout the night patient went into A. fib RVR. Cardimarkm drip started cardiology services consulted. Dr. Gaines has been consulted for infectious disease. Per patient plans for possible scope today. At this time patient denies any chest pain or shortness of breath. Patient denies nausea vomiting or diarrhea. Patient denies any urinary burning or frequency 12/24/2018 patient is alert and oriented 3. Blood culture currently growing presumptive staph aureus. Antibiotics adjusted per infectious disease. Cr eatinine increasing to 1.52 and bun 24. Lisinopril has been held. Patient maintained on normal saline at 50. The patient remains on heparin drip for anticoagulation per cardiology. Colace added for constipation. At this time patient denies chest pain or shortness breath. Patient denies nausea vomiting or diarrhea. Patient denies any urinary burning or frequency On 12/25/2018 patient is alert and oriented 3. Patient undergoing scope with washout to right knee today per orthopedic services heparin currently per cardiology recommendation. Creatinine improving to 1.00. At this time patient denies any chest pain or shortness breath. Patient is complaining of some nausea Zofran has been ordered. Patient denies any urinary burning or frequency On 12/26/2018 patient was seen and examined on the medical floor she is alert and oriented 3 in no apparent distress she is complaining of some pain in her knee otherwise she denies any complaints there is no fever or chills no headache or dizziness no chest pain no shortness of breath no cough no nausea or vomiting no abdominal pain no diarrhea and no urinary symptoms. On 12/27/2018 patient was seen and examined on the medical floor she is alert and oriented 3 in no apparent distress she is complaining of pain in the right knee and swelling in the right lower extremity otherwise she denies any complaints there is no fever or chills no headache or dizziness no chest pain no shortness of breath no cough no nausea or vomiting no abdominal pain no diarrhea no burning with urination no frequency or urgency and no hematuria 12/28/2018 patient is alert and going 3. Patient having increased cough chest x-ray have been ordered. She remains on IV Lasix. Patient denies any chest pain. Patient denies nausea vomiting or diarrhea. Patient denies any urinary burning or frequency. She remains on IV Ancef per infectious disease Objective - Vital Signs Vital signs: Vital Signs Temp 98.8 F 12/28/18 00:23 Pulse 89 12/28/18 04:05 Resp 18 12/28/18 04:05 BP 166/57 12/28/18 00:23 Pulse Ox 94 L 12/28/18 00:23 Intake & Output 12/27/18 12/28/18 12/28/18 18:59 06:59 18:59 Intake Total 480 480 Output Total 900 1400 Balance -420 -920 Weight 90.9 kg Intake: Oral 480 480 Output: Urine 900 1400 Other: Voiding Method Bedside Commode # Voids 1 - Exam Head normocephalic Neck supple Lungs clear to auscultation bilaterally no wheezing or crackles Heart irregular heart rate Abdomen is soft nontender nondistended positive bowel sounds no hepatosplenomegaly Extremities no edema. Increased ringing edema Neuro alert and orientated to 3 - Labs CBC & Chem 7: 12/28/18 06:02 12/28/18 05:59 Labs: Abnormal Lab Results - Last 24 Hours (Table) 12/27/18 12/28/18 12/28/18 Range/Units 05:57 05:59 06:02 WBC 17.6 H 18.5 H (3.8-10.6) k/uL Hgb 11.3 L (11.4-16.0) gm/dL Hct 33.2 L (34.0-46.0) % Neutrophils # (Manual) 15.10 H 14.20 H (1.3-7.7) k/uL Monocytes # (Manual) 1.06 H (0-1.0) k/uL Metamyelocytes # (Man) 0.37 H (0) k/uL Myelocytes # (Manual) 0.35 H 1.30 H (0) k/uL Sodium 133 L (137-145) mmol/L Chloride 95 L (98-107) mmol/L BUN 20 H (7-17) mg/dL Calcium 7.5 L (8.4-10.2) mg/dL Total Protein 4.7 L (6.3-8.2) g/dL Albumin 2.5 L (3.5-5.0) g/dL Microbiology - Last 24 Hours (Table) 12/26/18 06:13 Blood Culture - Preliminary Blood No Growth after 48 hours 12/25/18 14:02 Anaerobic Culture - Preliminary Knee - Right 12/25/18 14:02 Anaerobic Culture - Preliminary Knee - Right 12/24/18 11:53 Blood Culture - Preliminary Blood No Growth after 72 hours 12/25/18 14:02 Gram Stain - Final Knee - Right Wound Culture - Final Staphylococcus aureus 12/25/18 14:02 Gram Stain - Final Knee - Right Wound Culture - Final Staphylococcus aureus Assessment and Plan Assessment: 1. Fever and increased pain to right knee due to septic right knee joint. White blood cell count 24. Patient did have aspiration of fluid in the office and was sent for analysis. Infectious disease consulted. Blood culture growing presumptive staph aureus. Patient maintained on kefzol. Postop day 3 status post I&D of right knee. Patient will need PICC line with IV antibiotics on discharge 2. New-onset atrial fibrillation with rapid ventricular response. Patient maintained on eliquis for anticoagulation and Lopressor for rate control 3. Hyponatremia. Sodium 126. Neurology services are following. Sodium improving to 133. Okay to continue with low-dose Lasix remains on 1200 mL fluid restriction 4. History of essential hypertension. Lisinopril has been added. Norvasc added per cardiology 5. History of Hyperlipidemia 6. History of hypothyroidism. TSH level 0.188. Synthroid decreased to 100 7. History of anxiety 8. Urinary tract infection. urine culture has been ordered. Infectious disease following maintained on Rocephin 9. Acute kidney injury. Creatinine creasing 1.52. Lisinopril held. Patient maintained on normal saline at 100. Creatinine improving to 1.00 and bun 20 10. Increased shortness of breath. maintained on IV Lasix. Showing diffuse pleuroparenchymal changes correlate for CHF versus diffuse pneumonia DVT prophylaxis eliquis. GI prophylaxis Protonix I performed an examination of the patient and discussed their management with the Nurse Practitioner. I have reviewed the Nurse Practitioner's notes and agree with the documented findings and plan of care
[2018-12-28 12:28] VITALS: BMI 30.4
--- NOTE | 2018-12-28 13:23 | P.PN ---
Subjective Progress Note Date: 12/28/18 This is a pleasant 68-year-old female with history of hypertension, hyperlipidemia, prior thyroid removal for which she takes Synthroid, nonsmoker, rare EtOH, who states that she was getting into bed few nights ago, and felt something pull in her right knee. Subsequent to that she developed pain in that knee, she went to see Dr. Jurado in his office, he gave her a steroid injection. The knee became quite swollen, and warm to the touch, and the pain continued to worsen, to the point where the patient states she could hardly walk. She went back to see Dr. Jurado who joseph some fluid from that knee, which was bloody according to the patient, she was then referred to come to the hospital for admission. EKG on presentation here showed atrial fibrillation, patient denies any prior history of atrial fibrillation, she denies having any palpitations, dizziness, shortness of breath. She does state that she had TIA in 2004. The knee x-ray on arrival here showed mild to moderate tricompartmental osteoarthritis. Small to moderate knee joint effusion. Chest x-ray shows marked bilateral pulmonary infiltrative process. Blood pressure 128/50, heart rate in the 90s, temperature 102.5 this morning. Blood cultures show gram- positive cocci in clusters. White blood cell count 24 on admission, 19 this morning, hemoglobin 12.6, platelet count 195. Sodium 126, potassium 4.4, BUN 16 and creatinine 0.9. C-reactive protein 224, total bilirubin 3.5, positive UTI. At the time of my examination this morning, patient feels well, she continues to have pain in her right knee, denies any dizziness or lightheadedness, no shortness of breath, no palpitations. She is currently on IV Cardizem, no heparin has been initiated. 12/24/2018 Patient seen and examined this morning, hemodynamically stable. Continues to be in atrial fibrillation this morning. Echocardiogram with Doppler study remains pending. From our perspective, patient may proceed with surgery tomorrow, we will recommend to discontinue the heparin 4 hours before. 12/26/2018 Patient seen and examined this morning, overall she feels well, she is experiencing much less pain in her knee today. She underwent arthroscopic irrigation and partial laterall meniscectomy yesterday. Repeat chest x-ray shows patchy infiltrates greater at the lung bases which could be some resolving pulmonary edema. According to the patient, she denies any shortness of breath but states that when she walks to the bathroom she does get mildly short of breath at that time. We will start her on a small dose of Lasix 20 mg IV twice a day and Cipro she responds to this within the next 24 hours. Hemodynamically she stable. Blood pressure 130/70 with a heart rate in the 70s this morning, 92% on room air. White blood cell count 14.2, hemoglobin 11.7, platelet count 227. Sodium 131, potassium 4.7, BUN 20 and creatinine 0.9. 12/27/2018 Patient was seen and examined today she does state that she has a hacking cough but feels that overall her breathing is starting to improve especially when she walks to the bathroom. She did not sleep well last night. Continues to be in atrial fibrillation with a controlled ventricular response. Blood pressure remains elevated, lisinopril dose was increased today. 12/28/2018 Patient was seen and examined this morning, chest x-ray film was reviewed which did show some improvement, we will continue with current dose of Lasix. The patient also continues to be in atrial fibrillation, heart rate under adequate control. Blood pressure 134/60 with a heart rate in the 80s. Blood cell count 18.5, hemoglobin 11.4, platelet count 329. Sodium 133, potassium 3.8, BUN 20 and creatinine 0.9. Objective - Vital Signs Vital signs: Vital Signs Temp 98.6 F 12/28/18 08:00 Pulse 88 12/28/18 08:00 Resp 18 12/28/18 08:00 BP 134/65 12/28/18 08:00 Pulse Ox 92 L 12/28/18 08:00 Intake & Output 12/27/18 12/28/18 12/28/18 18:59 06:59 18:59 Intake Total 480 480 Output Total 900 1400 Balance -420 -920 Weight 90.9 kg 90.9 kg Intake: Oral 480 480 Output: Urine 900 1400 Other: Voiding Method Bedside Commode Bedside Commode # Voids 1 - Exam PHYSICAL EXAMINATION: GENERAL: 68-year-old female in no acute distress at the time of my examination HEENT: Head is atraumatic, normocephalic. Pupils equal, round. Sclera anicteric. Conjunctiva are clear. Mucous membranes of the mouth are moist. Neck is supple. There is no elevated jugular venous pressure. No carotid bruit is heard. HEART EXAMINATION: S1 and S2 irregularly irregular CHEST EXAMINATION: Lungs are clear with mild diminished air entry to the bases . No chest wall tenderness is noted on palpation or with deep breathing. ABDOMEN: Soft, nontender. Bowel sounds are heard. No organomegaly noted. EXTREMITIES: 2+ peripheral pulses with trace evidence of peripheral edema and no calf tenderness noted. There is swelling of the right knee noted as well as warmness of that knee NEUROLOGIC patient is awake, alert and oriented 3 . - Labs CBC & Chem 7: 12/28/18 06:02 12/28/18 05:59 Labs: Abnormal Lab Results - Last 24 Hours (Table) 12/27/18 12/28/18 12/28/18 Range/Units 05:57 05:59 06:02 WBC 18.5 H (3.8-10.6) k/uL Hct 33.2 L (34.0-46.0) % Neutrophils # (Manual) 15.10 H 14.20 H (1.3-7.7) k/uL Monocytes # (Manual) 1.06 H (0-1.0) k/uL Metamyelocytes # (Man) 0.37 H (0) k/uL Myelocytes # (Manual) 0.35 H 1.30 H (0) k/uL Sodium 133 L (137-145) mmol/L Chloride 95 L (98-107) mmol/L BUN 20 H (7-17) mg/dL Calcium 7.5 L (8.4-10.2) mg/dL Total Protein 4.7 L (6.3-8.2) g/dL Albumin 2.5 L (3.5-5.0) g/dL Microbiology - Last 24 Hours (Table) 12/26/18 06:13 Blood Culture - Preliminary Blood No Growth after 48 hours 12/25/18 14:02 Anaerobic Culture - Preliminary Knee - Right 12/25/18 14:02 Anaerobic Culture - Preliminary Knee - Right 12/24/18 11:53 Blood Culture - Preliminary Blood No Growth after 72 hours 12/25/18 14:02 Gram Stain - Final Knee - Right Wound Culture - Final Staphylococcus aureus 12/25/18 14:02 Gram Stain - Final Knee - Right Wound Culture - Final Staphylococcus aureus Assessment and Plan Plan: Assessment and plan #1 right knee pain and swelling with associated fever . Elevated white blood cell count, temperature this morning 102.5, blood cultures positive for gram- positive cocci in clusters #2 hypertension #3 atrial fibrillation, appears to be of new onset for the patient #4 hyperlipidemia #5 history of thyroidectomy, on Synthroid #6 TIA in 2015. Plan We will continue the current dose of IV Lasix, continue to monitor intake and o utput along with daily weights and daily lytes BUN and creatinine. DNP note has been reviewed, I agree with a documented findings and plan of care. Patient was seen and examined.
[2018-12-28] MEDS: HYDROcodone/APAP 7.5-325MG 1 EACH TAB PO PRN (16:32)
--- NOTE | 2018-12-28 16:33 | CDI ---
Documentation Clarification Form Date: 12/28/2018 4:02:25 PM From: Phoebe Esquivel RN, CCDS Admit Date: 12/22/2018 6:56:00 PM Patient Name: Elda You Visit Number: [id number] Discharge Date: ATTENTION: The Clinical Documentation Specialists (CDI) and [facility] Coding Staff appreciate your assistance in clarifying documentation. Please respond to the clarification below the line at the bottom and electronically sign. The CDI & [facility] Coding staff will review the response and follow-up if needed. Please note: Queries are made part of the Legal Health Record. If you have any questions, please contact the author of this message via ITS. Dr. Trav Jurado The patient presented with complaints of increased knee pain and elevated temperature. History/Risk Factors: Hypertension, Thyroid disorder, Hyperlipidemia Clinical Indicators: 68-year-old female with pain and swelling to right knee. She developed pain after a steroid injection WBC 24.0, 19.1 Lactic acid: 1.4 Blood cultures: Staphlococcus Aureus C-Reactive protein 224.4, 497.6 Right Knee Gram Stain culture: Staphlococcus aureus Vitals signs on admission: 129/76 100 18; Temp on admission: 100.7, 100.8 , 102.0 Treatment: ID Consult: (Dr. Gaines) 12/23/18 Patient presented to hospital with sepsis; Staphylococcus aureus bacteremia with sepsis secondary to right knee septic arthritis Antibiotics: Kefzol IV Vancomycin IV (PTD) now dc IV Fluid Pain control ([place] PO, Dilaudid IVP ) Monitor CBC, Vital signs In your professional opinion, please clarify if these findings signify one of the following conditions, Staphylococcus aureus bacteremia with sepsis secondary to right knee septic arthritis present on admission Septic joint of right knee joint without Sepsis Other, please specify Unable to determine SIRS Criteria (2 or more of the following may indicate SIRS): -Temperature < 96.8F (36C) or > 101.0F (38.3C) -Heart Rate > 90 bpm -Respiratory Rate > 20 breaths/min or PaCO2 < 32 mmHg -White Blood Cell Count > 12,000 or < 4,000 cells/mm3 or > 10% bands -Lactate >2.0 mmol/L (>4.0 is equivalent to septic shock) (Last Revision: July 2017) MTDD
--- NOTE | 2018-12-28 16:50 | CDI ---
Documentation Clarification Form Date: 12/28/2018 4:36:53 PM From: Phoebe Esquivel RN, CCDS Admit Date: 12/22/2018 6:56:00 PM Patient Name: Elda You Visit Number: [id number] Discharge Date: ATTENTION: The Clinical Documentation Specialists (CDI) and [facility] Coding Staff appreciate your assistance in clarifying documentation. Please respond to the clarification below the line at the bottom and electronically sign. The CDI & [facility] Coding staff will review the response and follow-up if needed. Please note: Queries are made part of the Legal Health Record. If you have any questions, please contact the author of this message via ITS. Dr. Hari Early Atrial Fibrillation is documented in the ED evaluation, H/P and your consult and subsequent progress notes and further clarification is needed. History/Risk Factors: Hypertension, Thyroid disorder, Hyperlipidemia Clinical Indicators: 68-year-old female who present with complaints of pain, swelling to her right. In ER she found to have an elevated heart rate. Her EKG showing atrial fibrillation with rapid ventricular response, rate of 130 bpm. She had no prior history of atrial fibrillation per progress notes. 12/28/18 Cardiology progress notes has patient continues to be in atrial fibrillation heart rate under adequate control. Blood pressure 134/60 with a heart rate in the 80's Treatment: Cardizem drip (now DC) ASA PO Eliquis PO Monitor PT/INR, PT In your professional opinion, can you please clarify the type of Atrial Fibrillation, if known? Chronic/Permanent Paroxysmal Persistent Other, please specify Unable to determine (Last Revision: July 2017) MTDD
--- NOTE | 2018-12-28 17:23 | P.CNPUL ---
History of Present Illness Consult date: 12/28/18 Requesting physician: Tala Huber Reason for consult: abnormal CXR/CT Chief complaint: Right knee swelling History of present illness: This is a 68-year-old female with history of hypertension, dyslipidemia, hypothyroidism, nonsmoker, patient was admitted on 01/18/2019 with right knee pain, and she was diagnosed as having a septic right knee joint. A few days prior to her presentation, patient received cortisone injection in the right knee for symptoms of osteoarthritis. Patient developed significant swelling and warm sensation in the right knee, and significant pain 2 days after her cor tisone injection. She went back to see Dr. Jurado and this time she underwent arthrocentesis. Fluid was noted to be bloody and she was advised to go to the hospital for admission. Upon admission the patient was noted to be in atrial fibrillation with RVR without any significant symptoms. And her chest x-ray showed bilateral interstitial infiltrates/edema. BNP level was elevated. Patient was treated for her septic knee joint with antibiotics, her blood cultures and joint fluid cultures came back positive for gram-positive cocci in clusters, it was mostly MSSA. Patient was seen by infectious disease on consultation, and she is receiving now ceftezole for her septic knee joint and for her gram-positive bacteremia. Chest x-ray on admission showed bilateral pulmonary infiltrates/interstitial edema, hence the patient was treated with diuretics, and over the last few days she has been noticing significant clinical improvement. Chest x-ray is also showing some improvement but not back to baseline. Considering her abnormal chest x-ray showing pulmonary congestion, I was asked to see the patient on consultation. Patient denies any cough, no wheezing, denies any hemoptysis, denies any chest pain. Presently he remains on Lasix at 40 mg IV push every 12 hours ordered by cardiology. No echocardiogram has been done since admission. Review of Systems CONSTITUTIONAL: Positive for weakness. Fever EYES: No complaint. ENT:No complaint. RESPIRATORY: No complaint. CARDIOVASCULAR: No complaint. GENITOURINARY: No complaint. GASTROINTESTINAL: No complaint. MUSCULOSKELETAL: as per history of present illness INTEGUMENTARY: No complaint. PSYCHOLOGICAL: No complaint. ENDOCRINE: No complaint. NEUROLOGIC: No complaint. Past Medical History Past Medical History: Hyperlipidemia, Hypertension, Thyroid Disorder History of Any Multi-Drug Resistant Organisms: None Reported Past Surgical History: Hysterectomy, Tonsillectomy, Tubal Ligation Additional Past Surgical History / Comment(s): thryoid Past Anesthesia/Blood Transfusion Reactions: No Reported Reaction Past Psychological History: Anxiety Smoking Status: Former smoker Past Alcohol Use History: Occasional Past Drug Use History: None Reported - Past Family History Father Additional Family Medical History / Comment(s): POCKETS IN THE LUNG, ULCERATIVE COLITIS Mother Family Medical History: AFIB Medications and Allergies Home Medications Medication Instructions Recorded Confirmed Type Carvedilol [Coreg] 12.5 mg PO BID 05/31/14 12/22/18 History Levothyroxine Sodium [Synthroid] 112 mcg PO DAILY 05/31/14 12/22/18 History Lisinopril [Prinivil] 40 mg PO DAILY 05/31/14 12/22/18 History clonazePAM [KlonoPIN] 0.25 mg PO HS PRN 05/31/14 12/22/18 History Cholecalciferol [Vitamin D3 (25 2,000 unit PO DAILY 06/01/14 12/22/18 History Mcg = 1000 Iu)] Fluticasone Propionate [Flonase] 1 spray EA NOSTRIL DAILY PRN 06/01/14 12/22/18 History Magnesium Oxide [Mag-Ox] 250 mg PO BID 06/01/14 12/22/18 History Aspirin EC [Ecotrin] 325 mg PO DAILY #30 tablet. 06/02/14 12/22/18 Rx Ibuprofen [Motrin] 800 mg PO TID PRN 12/22/18 12/22/18 History Loratadine [Claritin] 10 mg PO DAILY PRN 12/22/18 12/22/18 History Omeprazole [PriLOSEC] 20 mg PO DAILY PRN 12/22/18 12/22/18 History amLODIPine [Norvasc] 5 mg PO BID 12/22/18 12/22/18 History Allergies Allergy/AdvReac Type Severity Reaction Status Date / Time No Known Allergies Allergy Verified 12/22/18 16:06 Physical Exam Vitals: Vital Signs Temp Pulse Resp BP Pulse Ox 12/28/18 12:00 98.0 F 102 H 16 163/79 95 12/28/18 08:00 98.6 F 88 16 134/65 92 L 12/28/18 04:05 89 18 12/28/18 00:23 98.8 F 89 16 166/57 94 L 12/27/18 20:35 98.9 F 87 17 196/92 93 L Intake and Output 12/28/18 12/28/18 12/28/18 06:59 14:59 22:59 Intake Total 240 600 Output Total 1400 800 Balance -1160 -200 Intake: Oral 240 600 Output: Urine 1400 800 Other: Voiding Method Bedside Commode Bedside Commode # Voids 0 2 # Bowel Movements 1 Weight 90.9 kg 90.9 kg Physical Exam: Revealed 68-year-old female in no distress, very pleasant, on room air. Head: Atraumatic, normocephalic. HEENT:[Neck is supple.] [No neck masses.] [No thyromegaly.] [No JVD.] Chest: [Clear throughout, minimal crackles at the bases, no rhonchi and no wheezes. Symmetrical chest expansion noted chest wall tenderness. Cardiac Exam: Irregular irregular rhythm. [Normal S1 and S2, no S3 gallop, no murmur.] Abdomen: [Soft, nontender, no megaly, no rebound, no guarding, normal bowel so unds.] Extremities: [No clubbing, trace of bipedal edema, no cyanosis.] Right knee joint is wrapped with Gurdeep wrap in sterile dressing. Seems to be tender on palpation. And swollen Neurological Exam: [No focal neurologic deficit.] Alert and oriented 3. Psychiatric: Normal mood affect and normal mental status examination. Skin: No rashes. Lymphatics: No lymphadenopathy. Results - Laboratory Findings CBC and BMP: 12/28/18 06:02 12/28/18 05:59 PT/INR, D-dimer PT 12.5 sec (9.0-12.0) H 12/22/18 16:10 INR 1.2 (<1.2) H 12/22/18 16:10 Abnormal lab findings: Abnormal Labs 12/22/18 12/22/18 12/22/18 16:10 16:10 16:10 WBC 24.0 H RBC Hgb Hct Neutrophils # 21.8 H Neutrophils # (Manual) Lymphocytes # 0.6 L Monocytes # (Manual) Metamyelocytes # (Man) Myelocytes # (Manual) ESR PT 12.5 H INR 1.2 H APTT Sodium 127 L Chloride 91 L Carbon Dioxide BUN Creatinine Glucose 118 H Calcium Magnesium Total Bilirubin 3.5 H C-Reactive Protein 224.4 H Total Protein Albumin TSH Urine Protein Urine Ketones Urine Blood Ur Leukocyte Esterase Urine WBC Calcium Oxalate Crystal Amorphous Sediment Urine Bacteria Hyaline Casts Urine Mucus 12/22/18 12/23/18 12/23/18 23:15 06:09 06:09 WBC 19.1 H RBC Hgb Hct Neutrophils # Neutrophils # (Manual) Lymphocytes # Monocytes # (Manual) Metamyelocytes # (Man) Myelocytes # (Manual) ESR PT INR APTT Sodium 126 L Chloride 91 L Carbon Dioxide BUN Creatinine Glucose 114 H Calcium 8.0 L Magnesium Total Bilirubin C-Reactive Protein Total Protein Albumin TSH Urine Protein 2+ H Urine Ketones 2+ H Urine Blood Small H Ur Leukocyte Esterase Small H Urine WBC 8 H Calcium Oxalate Crystal Occasional H Amorphous Sediment Rare H Urine Bacteria Rare H Hyaline Casts 8 H Urine Mucus Occasional H 12/23/18 12/23/18 12/23/18 06:09 16:47 16:47 WBC RBC Hgb Hct Neutrophils # Neutrophils # (Manual) Lymphocytes # Monocytes # (Manual) Metamyelocytes # (Man) Myelocytes # (Manual) ESR 24 H PT INR APTT Sodium Chloride Carbon Dioxide BUN Creatinine Glucose Calcium Magnesium Total Bilirubin C-Reactive Protein 497.6 H Total Protein Albumin TSH 0.188 L Urine Protein Urine Ketones Urine Blood Ur Leukocyte Esterase Urine WBC Calcium Oxalate Crystal Amorphous Sediment Urine Bacteria Hyaline Casts Urine Mucus 12/24/18 12/24/18 12/24/18 05:46 05:46 05:46 WBC 12.9 H RBC Hgb 10.7 L Hct Neutrophils # 11.5 H Neutrophils # (Manual) Lymphocytes # 0.4 L Monocytes # (Manual) Metamyelocytes # (Man) Myelocytes # (Manual) ESR PT INR APTT 57.0 H Sodium 127 L Chloride 92 L Carbon Dioxide BUN 24 H Creatinine 1.52 H Glucose Calcium 7.1 L Magnesium Total Bilirubin C-Reactive Protein Total Protein 4.8 L Albumin 2.7 L TSH Urine Protein Urine Ketones Urine Blood Ur Leukocyte Esterase Urine WBC Calcium Oxalate Crystal Amorphous Sediment Urine Bacteria Hyaline Casts Urine Mucus 12/24/18 12/25/18 12/25/18 18:19 06:00 06:00 WBC 12.0 H RBC 3.77 L Hgb 10.7 L Hct 32.3 L Neutrophils # 10.5 H Neutrophils # (Manual) Lymphocytes # 0.5 L Monocytes # (Manual) Metamyelocytes # (Man) Myelocytes # (Manual) ESR PT INR APTT Sodium 125 L 126 L Chloride 92 L 95 L Carbon Dioxide BUN 23 H 20 H Creatinine 1.19 H Glucose 103 H 107 H Calcium 7.3 L 7.0 L Magnesium Total Bilirubin C-Reactive Protein Total Protein 5.2 L 4.6 L Albumin 2.9 L 2.5 L TSH Urine Protein Urine Ketones Urine Blood Ur Leukocyte Esterase Urine WBC Calcium Oxalate Crystal Amorphous Sediment Urine Bacteria Hyaline Casts Urine Mucus 12/26/18 12/26/18 12/27/18 06:13 06:13 05:57 WBC 14.2 H RBC Hgb Hct Neutrophils # 13.1 H Neutrophils # (Manual) Lymphocytes # 0.5 L Monocytes # (Manual) Metamyelocytes # (Man) Myelocytes # (Manual) ESR PT INR APTT Sodium 131 L 132 L Chloride 97 L Carbon Dioxide 21 L BUN 20 H 23 H Creatinine Glucose 139 H 127 H Calcium 7.1 L 7.7 L Magnesium 2.6 H 2.7 H Total Bilirubin C-Reactive Protein Total Protein 5.2 L 5.0 L Albumin 2.8 L 2.7 L TSH Urine Protein Urine Ketones Urine Blood Ur Leukocyte Esterase Urine WBC Calcium Oxalate Crystal Amorphous Sediment Urine Bacteria Hyaline Casts Urine Mucus 12/27/18 12/28/18 12/28/18 05:57 05:59 06:02 WBC 17.6 H 18.5 H RBC Hgb 11.3 L Hct 33.2 L Neutrophils # Neutrophils # (Manual) 15.10 H 14.20 H Lymphocytes # Monocytes # (Manual) 1.06 H Metamyelocytes # (Man) 0.37 H Myelocytes # (Manual) 0.35 H 1.30 H ESR PT INR APTT Sodium 133 L Chloride 95 L Carbon Dioxide BUN 20 H Creatinine Glucose Calcium 7.5 L Magnesium Total Bilirubin C-Reactive Protein Total Protein 4.7 L Albumin 2.5 L TSH Urine Protein Urine Ketones Urine Blood Ur Leukocyte Esterase Urine WBC Calcium Oxalate Crystal Amorphous Sediment Urine Bacteria Hyaline Casts Urine Mucus - Diagnostic Findings Chest x-ray: image reviewed (As noted in HPI, strongly suspicious for cardiogenic versus noncardiogenic pulmonary edema.) Assessment and Plan Assessment: Impression: 1 septic right knee joint with gram-positive bacteremia secondary to MSSA. And sepsis 2 atrial fibrillation with RVR, it is not clear whether this is acute paroxysmal or chronic. Patient was noted to be in atrial fibrillation with RVR upon presentation to the ER, and she remains in atrial fibrillation but rate seems to be well-controlled. Cardiology is addressing the issue of her atrial fibrillation again it is not clear whether this is an acute chronic or paroxysmal. Most likely new onset. 3 hypertension 4 MSSA bacteremia , from infected right knee joint. 5 acute cardiogenic versus noncardiogenic pulmonary edema, this is yet to be determined based on response to Lasix, it is most likely related to the ongoing atrial fibrillation with RVR. Although the possibility of noncardiogenic pulmonary edema is in the differential considering the patient presented with infected knee joint and gram-positive bacteremia. Recommendation: I fully agree with the present treatment plan including her present course of antibiotics, diuretics, antiarrhythmic medications for her atrial fibrillation with RVR, patient will likely require anticoagulation therapy however that will be decided upon by cardiology on the case. Will repeat the chest x-ray in a.m., and we'll continue to follow. Time with Patient: Greater than 30
[2018-12-28] MEDS: POLYETHYLENE GLYCOL 3350 17 GM POWD.PACK PO SCH (20:25)
--- NOTE | 2018-12-28 23:16 | PN ---
PROGRESS NOTE DATE OF SERVICE: 12/28/2018. REASON FOR FOLLOWUP: Right knee septic arthritis with MSSA bacteremia. INTERVAL HISTORY: The patient is currently afebrile. The patient has been breathing comfortably. Denies having any chest pain, shortness of breath or cough. No nausea, no vomiting. No abdominal pain or any worsening pain to the right knee area. PHYSICAL EXAMINATION: Blood pressure 135/63, pulse of 84, temperature 98.8. She is 95% on room air. General description is an elderly female, lying in bed in no distress. Respiratory system: Unlabored breathing. Clear to auscultation anteriorly. Heart S1, S2. Regular rate and rhythm. Abdomen soft, no tenderness. Right knee currently dressed up. No obvious drainage on the dressing. LABS: Hemoglobin 11.4, white count 8.5. BUN of 20, creatinine 0.93. DIAGNOSTIC IMPRESSION AND PLAN: Patient with right knee septic arthritis with MSSA with secondary MSSA bacteremia. Blood cultures has been negative. Patient should be able to get a PICC line for outpatient IV antibiotic therapy as the patient has to . Antibiotic was switched over to daptomycin 6 mg/kg for a total of 6 weeks. Continue supportive care. MMODL / IJN: [id number] /
[2018-12-29] MEDS: CALCIUM CARB-VIT D 500MG-200UN 1 EACH TAB PO SCH ×2 (06:12→17:41)
[2018-12-29] MEDS: LEVOTHYROXINE 100 MCG TAB PO SCH (06:12)
[2018-12-29] MEDS: PANTOPRAZOLE 40 MG TABLET PO SCH (06:12)
[2018-12-29] MEDS: CARVEDILOL 12.5 MG TAB PO SCH ×2 (06:12→17:41)
[2018-12-29 06:40] LABS: MCH 28.3 pg (25.0-35.0); MCHC 33.3 g/dL (31.0-37.0); MCV 85.2 fL (80.0-100.0); Mean Platelet Volume 6.9; Platelet Count 385 k/uL (150-450); RBC 3.88 m/uL (3.80-5.40); RDW 14.9 % (11.5-15.5); WBC 21.2 k/uL (3.8-10.6)
[2018-12-29 06:41] LABS: Albumin 2.5 g/dL (3.5-5.0); Calcium 7.5 mg/dL (8.4-10.2); Potassium 3.6 mmol/L (3.5-5.1); Total Protein 4.7 g/dL (6.3-8.2)
[2018-12-29 06:53] LABS: C Reactive Protein 190.9 mg/L (<10.0)
[2018-12-29] MEDS: LISINOPRIL 20 MG TAB PO SCH (07:56)
[2018-12-29] MEDS: METOPROLOL TARTRATE 25 MG TAB PO SCH ×2 (07:56→20:29)
[2018-12-29] MEDS: amLODIPine 5 MG TAB PO SCH ×2 (07:57→20:29)
[2018-12-29] MEDS: DOCUSATE 100 MG CAP PO SCH ×2 (07:57→20:29)
[2018-12-29] MEDS: FUROSEMIDE 10 MG/ML 2 ML VIAL IV SCH ×2 (07:57→20:29)
[2018-12-29] MEDS: MAGNESIUM OXIDE 400 MG TAB PO SCH ×2 (08:05→20:29)
[2018-12-29 08:33] LABS: Erythrocyte Sedimentation Rate 33 mm/hr (0-20)
[2018-12-29 10:34] LABS: Band Neutrophils % 3 %; Eosinophils # (M) 0.21 k/uL (0-0.7); Lymphocytes # (M) 2.54 k/uL (1.0-4.8); Metamyelocytes # (M) 0.85 k/uL (0); Metamyelocytes % 4 %; Monocytes # (M) 0.64 k/uL (0-1.0); Myelocytes # (M) 0.64 k/uL (0); Myelocytes % 3 %; Neutrophils % (M) 75 %; Nucleated Red Blood Cells 0 /100 WBC (0-0); Total Cells Counted 200
--- NOTE | 2018-12-29 10:45 | P.PN ---
Subjective Progress Note Date: 12/29/18 Principal diagnosis: Right knee septic arthritis, knee pain Patient is seen at bedside today. She is POD #4 from I and D of right knee. Her knee pain is improved. She has been ambulating. She is being followed by cardiology and infectious disease and currently receiving Heparin and IV antibiotics. She is pending PICC placement. No new complaints. She denies numbness, tingling, calf pain, fever, chills, chest pain or shortness of breath. Objective - Vital Signs Vital signs: Vital Signs Temp 98.7 F 12/29/18 08:06 Pulse 88 12/29/18 08:06 Resp 18 12/29/18 08:06 BP 135/58 12/29/18 08:06 Pulse Ox 95 12/29/18 08:06 Intake & Output 12/28/18 12/29/18 12/29/18 18:59 06:59 18:59 Intake Total 840 240 Output Total 800 1750 Balance 40 -1750 240 Weight 90.9 kg 89.4 kg Intake: Oral 840 240 Output: Urine 800 1750 Other: Voiding Method Bedside Commode Bedside Commode Bedside Commode # Voids 2 1 # Bowel Movements 1 1 - Exam Inspection of the right knee shows no erythema. Surgical wounds are benign. Sutures in place. There is trace mild effusion and peripheral edema bilaterally.. It is not overly hot to touch. She has mild pain with active flexion and extension/range of motion of the right knee. The calf is soft and nontender. Neurovascular status is intact with motor and sensation grossly. 2+ DP pulse present and less than 2 sec cap refill. - Constitutional General appearance: Present: no acute distress - Labs CBC & Chem 7: 12/29/18 05:36 12/29/18 05:36 Labs: Abnormal Lab Results - Last 24 Hours (Table) 12/29/18 12/29/18 Range/Units 05:36 05:36 WBC 21.2 H (3.8-10.6) k/uL Hgb 11.0 L (11.4-16.0) gm/dL Hct 33.0 L (34.0-46.0) % Neutrophils # (Manual) 16.50 H (1.3-7.7) k/uL Metamyelocytes # (Man) 0.85 H (0) k/uL Myelocytes # (Manual) 0.64 H (0) k/uL ESR 33 H (0-20) mm/hr Sodium 130 L (137-145) mmol/L Chloride 91 L (98-107) mmol/L Carbon Dioxide 33 H (22-30) mmol/L BUN 18 H (7-17) mg/dL Glucose 101 H (74-99) mg/dL Calcium 7.5 L (8.4-10.2) mg/dL C-Reactive Protein 190.9 H (<10.0) mg/L Total Protein 4.7 L (6.3-8.2) g/dL Albumin 2.5 L (3.5-5.0) g/dL Microbiology - Last 24 Hours (Table) 12/26/18 06:13 Blood Culture - Preliminary Blood No Growth after 72 hours 12/24/18 11:53 Blood Culture - Preliminary Blood No Growth after 96 hours Assessment and Plan Assessment: Possible septic knee, meniscus tear, DJD right knee Plan: She is receiving IV ancef for MSSA. She is awaiting PICC line placement. She is to continue with pain management and PT. Will request ECF placement and may transfer after PICC and when ok with infectious disease, cardiology and IM. Time with Patient: Less than 30
--- NOTE | 2018-12-29 11:10 | P.PN ---
Subjective Progress Note Date: 12/29/18 This is a 68-year-old female patient of Dr. Lloyd. Patient presents with complaints of increased right knee pain and elevated temperature. Patient reports that on Friday she had a steroid injection to right knee with Dr. Jurado. Patient reports on Friday she started to develop increased pain and swe lling to right knee along with having fevers. Patient presented back to Dr. Jurado's office and aspiration of knee was completed and sent for analysis. Patient then presented to ER with complaints of increased pain yesterday. Patient's white blood cell count on arrival found to be 24 lactic acid 1.4 elevated temperature. Patient started on vancomycin and Rocephin. Patient does have a past medical history of hyperlipidemia and hypertension hypothyroidism and anxiety. throughtout the night patient went into A. fib RVR. Cardimarkm drip started cardiology services consulted. Dr. Gaines has been consulted for infectious disease. Per patient plans for possible scope today. At this time patient denies any chest pain or shortness of breath. Patient denies nausea vomiting or diarrhea. Patient denies any urinary burning or frequency 12/24/2018 patient is alert and oriented 3. Blood culture currently growing presumptive staph aureus. Antibiotics adjusted per infectious disease. Cr eatinine increasing to 1.52 and bun 24. Lisinopril has been held. Patient maintained on normal saline at 50. The patient remains on heparin drip for anticoagulation per cardiology. Colace added for constipation. At this time patient denies chest pain or shortness breath. Patient denies nausea vomiting or diarrhea. Patient denies any urinary burning or frequency On 12/25/2018 patient is alert and oriented 3. Patient undergoing scope with washout to right knee today per orthopedic services heparin currently per cardiology recommendation. Creatinine improving to 1.00. At this time patient denies any chest pain or shortness breath. Patient is complaining of some nausea Zofran has been ordered. Patient denies any urinary burning or frequency On 12/26/2018 patient was seen and examined on the medical floor she is alert and oriented 3 in no apparent distress she is complaining of some pain in her knee otherwise she denies any complaints there is no fever or chills no headache or dizziness no chest pain no shortness of breath no cough no nausea or vomiting no abdominal pain no diarrhea and no urinary symptoms. On 12/27/2018 patient was seen and examined on the medical floor she is alert and oriented 3 in no apparent distress she is complaining of pain in the right knee and swelling in the right lower extremity otherwise she denies any complaints there is no fever or chills no headache or dizziness no chest pain no shortness of breath no cough no nausea or vomiting no abdominal pain no diarrhea no burning with urination no frequency or urgency and no hematuria 12/28/2018 patient is alert and going 3. Patient having increased cough chest x-ray have been ordered. She remains on IV Lasix. Patient denies any chest pain. Patient denies nausea vomiting or diarrhea. Patient denies any urinary burning or frequency. She remains on IV Ancef per infectious disease On 12/29/2018 patient's alert and oriented 3. Patient was evaluated by pulmonary services remains on IV Lasix. Patient feels slightly improved from yesterday. At that time patient reports shortness of breath and cough have improved. Patient remains on room air. Patient denies chest pain or shortness breath. Patient denies nausea vomiting or diarrhea. Patient denies any urinary burning or frequency Objective - Vital Signs Vital signs: Vital Signs Temp 98.7 F 12/29/18 08:06 Pulse 88 12/29/18 08:06 Resp 18 12/29/18 08:06 BP 135/58 12/29/18 08:06 Pulse Ox 95 12/29/18 08:06 Intake & Output 12/28/18 12/29/18 12/29/18 18:59 06:59 18:59 Intake Total 840 240 Output Total 800 1750 Balance 40 -1750 240 Weight 90.9 kg 89.4 kg Intake: Oral 840 240 Output: Urine 800 1750 Other: Voiding Method Bedside Commode Bedside Commode Bedside Commode # Voids 2 1 # Bowel Movements 1 1 - Exam Head normocephalic Neck supple Lungs clear to auscultation bilaterally no wheezing or crackles Heart irregular heart rate Abdomen is soft nontender nondistended positive bowel sounds no hepatosplenomegaly Extremities no edema. Increased ringing edema Neuro alert and orientated to 3 - Labs CBC & Chem 7: 12/29/18 05:36 12/29/18 05:36 Labs: Abnormal Lab Results - Last 24 Hours (Table) 12/29/18 12/29/18 Range/Units 05:36 05:36 WBC 21.2 H (3.8-10.6) k/uL Hgb 11.0 L (11.4-16.0) gm/dL Hct 33.0 L (34.0-46.0) % Neutrophils # (Manual) 16.50 H (1.3-7.7) k/uL Metamyelocytes # (Man) 0.85 H (0) k/uL Myelocytes # (Manual) 0.64 H (0) k/uL ESR 33 H (0-20) mm/hr Sodium 130 L (137-145) mmol/L Chloride 91 L (98-107) mmol/L Carbon Dioxide 33 H (22-30) mmol/L BUN 18 H (7-17) mg/dL Glucose 101 H (74-99) mg/dL Calcium 7.5 L (8.4-10.2) mg/dL C-Reactive Protein 190.9 H (<10.0) mg/L Total Protein 4.7 L (6.3-8.2) g/dL Albumin 2.5 L (3.5-5.0) g/dL Microbiology - Last 24 Hours (Table) 12/26/18 06:13 Blood Culture - Preliminary Blood No Growth after 72 hours 12/24/18 11:53 Blood Culture - Preliminary Blood No Growth after 96 hours Assessment and Plan Assessment: 1. Fever and increased pain to right knee due to septic right knee joint. White blood cell count 24. Patient did have aspiration of fluid in the office and was sent for analysis. Infectious disease consulted. Blood culture growing presumptive staph aureus. Patient maintained on kefzol. Postop day 3 status post I&D of right knee. Patient will need PICC line with IV antibiotics on discharge. Per ID recommending daptomycin upon discharge 2. New-onset atrial fibrillation with rapid ventricular response. Patient maintained on eliquis for anticoagulation and Lopressor for rate control. Eliquis currently on hold for PICC line placement 3. Hyponatremia. Sodium 126. Neurology services are following. Sodium improving to 133. Okay to continue with low-dose Lasix remains on 1200 mL fluid restriction 4. History of essential hypertension. Lisinopril has been added. Norvasc added per cardiology 5. History of Hyperlipidemia 6. History of hypothyroidism. TSH level 0.188. Synthroid decreased to 100 7. History of anxiety 8. Urinary tract infection. urine culture has been ordered. Infectious disease following maintained on Rocephin 9. Acute kidney injury. Creatinine creasing 1.52. Lisinopril held. Patient maintained on normal saline at 100. Creatinine improving to 1.00 and bun 20 10. Increased shortness of breath possibly related to acute cardiogenic versus noncardiogenic pulmonary edema. maintained on IV Lasix. Showing diffuse pleuroparenchymal changes correlate for CHF versus diffuse pneumonia. Pulmonary services are following. Patient remains on IV Lasix discussed case with pulmonary team no signs of pneumonia this time. DVT prophylaxis eliquis. GI prophylaxis Protonix I performed an examination of the patient and discussed their management with the Nurse Practitioner. I have reviewed the Nurse Practitioner's notes and agree with the documented findings and plan of care
--- NOTE | 2018-12-29 12:56 | P.PN ---
Subjective Progress Note Date: 12/29/18 Principal diagnosis: Septic right knee secondary to MSSA, A. fib with RVR, acute pulmonary edema This is a 68-year-old female with history of hypertension, dyslipidemia, hypothyroidism, nonsmoker, patient was admitted on 01/18/2019 with right knee pain, and she was diagnosed as having a septic right knee joint. A few days prior to her presentation, patient received cortisone injection in the right knee for symptoms of osteoarthritis. Patient developed significant swelling and warm sensation in the right knee, and significant pain 2 days after her cortisone injection. She went back to see Dr. Jurado and this time she underwent arthrocentesis. Fluid was noted to be bloody and she was advised to go to the hospital for admission. Upon admission the patient was noted to be in atrial fibrillation with RVR without any significant symptoms. And her chest x- ray showed bilateral interstitial infiltrates/edema. BNP level was elevated. Patient was treated for her septic knee joint with antibiotics, her blood cultures and joint fluid cultures came back positive for gram-positive cocci in clusters, it was mostly MSSA. Patient was seen by infectious disease on consultation, and she is receiving now ceftezole for her septic knee joint and for her gram-positive bacteremia. Chest x-ray on admission showed bilateral pulmonary infiltrates/interstitial edema, hence the patient was treated with diuretics, and over the last few days she has been noticing significant clinical improvement. Chest x-ray is also showing some improvement but not back to baseline. Considering her abnormal chest x-ray showing pulmonary congestion, I was asked to see the patient on consultation. Patient denies any cough, no wheezing, denies any hemoptysis, denies any chest pain. Presently he remains on Lasix at 40 mg IV push every 12 hours ordered by cardiology. No echocardiogram has been done since admission. On 12/29/2018 patient seen in follow-up on selective care unit, she states she is breathing easier, room air pulse ox is 96%, patient is afebrile, hemodynamically stable, no complaints of chest pain, no cough or congestion, patient is on IV diuretics, at 20 mg every 12 hours and she is in -1710 mL fluid balance. Lung sounds are diminished, she still has some lower extremity edema right greater than left. She is on daptomycin, ID service is following, right knee aspirate showed MSSA. No fever or chills. His lab work has been reviewed, and there has been slight uptrend of her white blood cell count up to 21.2 from 18.5 on yesterday's labs, hemoglobin is 11.0, Pedro is 1:30, potassium is 3.6, chloride is 91, CO2 is 33, B1 is 18 and creatinine is 0.79. 2-D echocardiogram has been ordered and is pending at this time. Patient is on fluid restriction of 1200 mL of fluid. Nephrology following. Objective - Vital Signs Vital signs: Vital Signs Temp 98.3 F 12/29/18 11:43 Pulse 95 12/29/18 11:43 Resp 18 12/29/18 11:43 BP 132/72 12/29/18 11:43 Pulse Ox 96 12/29/18 11:43 Intake & Output 12/28/18 12/29/18 12/29/18 18:59 06:59 18:59 Intake Total 840 240 Output Total 800 1750 Balance 40 -1750 240 Weight 90.9 kg 89.4 kg Intake: Oral 840 240 Output: Urine 800 1750 Other: Voiding Method Bedside Commode Bedside Commode Bedside Commode # Voids 2 1 # Bowel Movements 1 1 - Exam GENERAL EXAM: Alert, pleasant, 68-year-old white female, on room air, with a pulse ox of 96%, comfortable in no apparent distress. HEAD: Normocephalic/atraumatic. EYES: Normal reaction of pupils, equal size. Conjunctiva pink, sclera white. NOSE: Clear with pink turbinates. THROAT: No erythema or exudates. NECK: No masses, no JVD, no thyroid enlargement, no adenopathy. CHEST: No chest wall deformity. Symmetrical expansion. LUNGS: Equal air entry with no crackles, wheeze, rhonchi or dullness. CVS: Regular rate and rhythm, normal S1 and S2, no gallops, no murmurs, no rubs ABDOMEN: Soft, nontender. No hepatosplenomegaly, normal bowel sounds, no guarding or rigidity. EXTREMITIES: No clubbing, 1+ lower extremity edema, right greater than left edema, no cyanosis, 2+ pulses and upper and lower extremities. MUSCULOSKELETAL: Muscle strength and tone normal. SPINE: No scoliosis or deformity SKIN: No rashes CENTRAL NERVOUS SYSTEM: Alert and oriented -3. No focal deficits, tone is normal in all 4 extremities. PSYCHIATRIC: Alert and oriented -3. Appropriate affect. Intact judgment and insight. - Labs CBC & Chem 7: 12/29/18 05:36 12/29/18 05:36 Labs: Abnormal Lab Results - Last 24 Hours (Table) 12/29/18 12/29/18 Range/Units 05:36 05:36 WBC 21.2 H (3.8-10.6) k/uL Hgb 11.0 L (11.4-16.0) gm/dL Hct 33.0 L (34.0-46.0) % Neutrophils # (Manual) 16.50 H (1.3-7.7) k/uL Metamyelocytes # (Man) 0.85 H (0) k/uL Myelocytes # (Manual) 0.64 H (0) k/uL ESR 33 H (0-20) mm/hr Sodium 130 L (137-145) mmol/L Chloride 91 L (98-107) mmol/L Carbon Dioxide 33 H (22-30) mmol/L BUN 18 H (7-17) mg/dL Glucose 101 H (74-99) mg/dL Calcium 7.5 L (8.4-10.2) mg/dL C-Reactive Protein 190.9 H (<10.0) mg/L Total Protein 4.7 L (6.3-8.2) g/dL Albumin 2.5 L (3.5-5.0) g/dL Microbiology - Last 24 Hours (Table) 12/26/18 06:13 Blood Culture - Preliminary Blood No Growth after 72 hours 12/24/18 11:53 Blood Culture - Preliminary Blood No Growth after 96 hours Assessment and Plan Plan: Assessment: 1 septic right knee joint with gram-positive bacteremia secondary to MSSA. And sepsis 2 atrial fibrillation with RVR, it is not clear whether this is acute paroxysmal or chronic. Patient was noted to be in atrial fibrillation with RVR upon presentation to the ER, and she remains in atrial fibrillation but rate seems to be well-controlled. Cardiology is addressing the issue of her atrial fibrillation again it is not clear whether this is an acute chronic or paroxysmal. Most likely new onset. 3 hypertension 4 MSSA bacteremia , from infected right knee joint. 5 acute cardiogenic versus noncardiogenic pulmonary edema, this is yet to be determined based on response to Lasix, it is most likely related to the ongoing atrial fibrillation with RVR. Although the possibility of noncardiogenic pulmonary edema is in the differential considering the patient presented with infected knee joint and gram-positive bacteremia. Plan: Continue with IV diuretics, fluid restriction. No acute distress, she states her breathing is improving, we'll obtain follow-up chest x-ray today, she is maintaining negative fluid balance. Remains in A. fib with a controlled rate, will defer to cardiology for anticoagulation orders. I performed a history & physical examination of the patient and discussed their management with my nurse practitioner, Kiesha Vasquez. I reviewed the nurse practitioner's note and agree with the documented findings and plan of care. Lung sounds are positive for diminished breath sounds with bibasilar crackles. The findings and the impression was discussed with the patient. I attest to the documentation by the nurse practitioner. Time with Patient: Less than 30
--- NOTE | 2018-12-29 14:07 | XR ---
EXAMINATION TYPE: XR chest 2V DATE OF EXAM: 12/29/2018 COMPARISON: Chest x-ray 12/28/2018 HISTORY: Shortness of breath TECHNIQUE: Frontal and lateral views of the chest are obtained. FINDINGS: There is blunting the posterior costophrenic angles. Bilateral pleural parenchymal changes show similar appearance. Heart remains enlarged. No evident pneumothorax. IMPRESSION: Findings could be related to congestive heart failure. Additional follow-up recommended. Difficult to exclude underlying lung nodularity. Bilateral pleural effusions.
[2018-12-29] MEDS: DAPTOmycin 500 MG in SODIUM CHLORIDE 0.9% 50 ML IVPB SCH (14:46)
[2018-12-29] MEDS: HYDROcodone/APAP 7.5-325MG 1 EACH TAB PO PRN (14:47)
--- NOTE | 2018-12-29 16:34 | PN ---
PROGRESS NOTE Patient is seen for followup for hyponatremia which is hypervolemic. She is maintained on Lasix, serum sodium staying at about 130 to 133. Patient is maintained on fluid restriction at 1200 mL over 24 hours. Overall she states she is feeling better. Her breathing has improved. On examination, blood pressure this morning 135/58, heart rate 88 per minute. She is afebrile. EXAMINATION OF THE HEART: S1 and S2. EXAMINATION OF LUNGS: Bilateral breath sounds are heard. ABDOMEN: Soft, obese. Examination of lower extremities shows edema 1+ bilaterally. [employer] HEAD exam is grossly intact. Labs show hemoglobin 11.0, sodium 130, potassium 3.6, chloride 91. CO2 is 33, BUN 18, serum creatinine 0.79. ASSESSMENT: 1. Hyponatremia, hypervolemic, maintained on IV Lasix, which we can continue. 2. Acute kidney injury secondary to nonsteroidal anti-inflammatory agents, currently significantly improved. 3. Right septic knee arthritis, status post incision and drainage on December 25. 4. Hypovolemia initially on admission, now resolved. PLAN: Continue gentle diuresis. Maintain fluid restriction. Increase oral protein intake. MMODL / IJN: [id number] /
[2018-12-29] MEDS: HEPARIN SODIUM,PORCINE 5,000 UNIT/ML 1 ML VIAL SQ SCH ×2 (17:41→22:53)
[2018-12-29] MEDS: POLYETHYLENE GLYCOL 3350 17 GM POWD.PACK PO SCH (20:29)
--- NOTE | 2018-12-29 22:40 | PN ---
PROGRESS NOTE This patient is admitted with septic arthritis. Patient's chest x-ray showed evidence of bilateral lung infiltrates. She still has the swelling in the right knee. The patient is afebrile today. Blood pressure is 160/73 mmHg. First and second heart sounds are normal. Lungs are fairly clear to auscultation and percussion except diminished air entry. Patient's chest x-ray still shows probably bilateral pleural effusion. We will recheck the BNP level and continue the IV Lasix at present. MMODL / IJN: [id number] /
--- NOTE | 2018-12-29 23:46 | PN ---
PROGRESS NOTE DATE OF SERVICE: 12/29/2018 REASON FOR FOLLOWUP: MSSA bacteremia and right knee septic arthritis. INTERVAL HISTORY: The patient is currently afebrile. The patient's pain to the right knee area is currently controlled. The patient denies having any chest pain or shortness of breath or cough. No abdominal pain or any diarrhea. PHYSICAL EXAMINATION: Blood pressure 120/69 with a pulse of 87, temperature 99.2. She is 95% on room air. General description is an elderly female up in the chair in no distress. RESPIRATORY SYSTEM: Unlabored breathing with decreased breath sounds at the base. HEART: S1, S2. Regular rate and rhythm. ABDOMEN: Soft. No tenderness. Right leg did have significant swelling. Right knee currently with some swelling. Minimal no redness or any drainage. LABS: Hemoglobin is 11 with white count of 21.2, BUN of 18, creatinine 0.79. Blood culture repeat on 12/26 has been negative. DIAGNOSTIC IMPRESSION AND PLAN: 1. Patient with right knee septic arthritis in this patient did have methicillin- susceptible Staphylococcus aeruginosa bacteremia, likely source the right knee septic arthritis. The patient is currently on cefazolin. However, white count has shown a persistent upward trend with a question of possible right knee hematoma. Patient currently has no other clinical focus of infection, with no diarrhea. No difficulty swallowing or any evidence of pneumonia. We will go ahead and check a UA, switch antibiotic the patient daptomycin. Repeat tomorrow. 2. The patient did have significant swelling of the right lower extremity compared to the left leg. Will obtain lower extremity Doppler. Monitor clinical course closely. Continue with supportive care. MMODL / IJN: [id number] /
[2018-12-30 01:04] LABS: Appearance,Urine Clear (Clear); Bilirubin,Urine Negative (Negative); Blood,Urine Trace (Negative); Color,Urine Light Yellow; Glucose,Urine (UA) Negative (Negative); Ketones,Urine Trace (Negative); Leukocyte Esterase,Urine Trace (Negative); Nitrite,Urine Negative (Negative); PH, Urine 6.5 (5.0-8.0); Protein,Urine Negative (Negative); RBC,Urine 2 /hpf (0-5); Specific Gravity,Urine 1.007 (1.001-1.035); Squamous Epithelial Cell,Urine 2 /hpf (0-4); Urobilinogen,Urine <2.0 mg/dL (<2.0)
[2018-12-30] MEDS: ACETAMINOPHEN TAB 325 MG TAB PO PRN ×2 (04:22→23:13)
[2018-12-30 06:09] LABS: HCT 32.3 % (34.0-46.0); HGB 10.8 gm/dL (11.4-16.0); MCH 28.6 pg (25.0-35.0); MCHC 33.3 g/dL (31.0-37.0); MCV 85.8 fL (80.0-100.0); Mean Platelet Volume 6.8; Platelet Count 420 k/uL (150-450); RBC 3.76 m/uL (3.80-5.40); RDW 15.4 % (11.5-15.5); WBC 18.2 k/uL (3.8-10.6)
[2018-12-30 06:25] LABS: ALT 23 U/L (9-52); AST 35 U/L (14-36); African American GFR (CKD) >90 (>60 ml/min/1.73 sqM); Albumin 2.5 g/dL (3.5-5.0); Alkaline Phosphatase 67 U/L (38-126); Anion Gap 7 mmol/L; Blood Urea Nitrogen 17 mg/dL (7-17); Calcium 7.5 mg/dL (8.4-10.2); Carbon Dioxide 34 mmol/L (22-30); Chloride 90 mmol/L (98-107); Glucose 111 mg/dL (74-99); Potassium 3.4 mmol/L (3.5-5.1); Sodium 131 mmol/L (137-145); Total Bilirubin 1.1 mg/dL (0.2-1.3); Total Protein 4.7 g/dL (6.3-8.2)
[2018-12-30] MEDS: PANTOPRAZOLE 40 MG TABLET PO SCH (06:32)
[2018-12-30] MEDS: CALCIUM CARB-VIT D 500MG-200UN 1 EACH TAB PO SCH ×2 (06:32→17:58)
[2018-12-30] MEDS: CARVEDILOL 12.5 MG TAB PO SCH (06:32)
[2018-12-30] MEDS: LEVOTHYROXINE 100 MCG TAB PO SCH (06:32)
[2018-12-30 06:37] LABS: C Reactive Protein 183.2 mg/L (<10.0)
[2018-12-30 06:38] LABS: Band Neutrophils % 2 %; Eosinophils # (M) 0.18 k/uL (0-0.7); Lymphocytes # (M) 3.09 k/uL (1.0-4.8); Monocytes # (M) 0.55 k/uL (0-1.0); Myelocytes # (M) 0.73 k/uL (0); Myelocytes % 4 %; Neutrophils % (M) 74 %; Nucleated Red Blood Cells 0 /100 WBC (0-0); Total Cells Counted 200
[2018-12-30 07:00] LABS: Erythrocyte Sedimentation Rate 38 mm/hr (0-20)
[2018-12-30] MEDS ORDERED: Potassium Replacement Protocol 1 EACH MISC MISCELLANE PRN (08:32)
--- NOTE | 2018-12-30 08:32 | US ---
EXAMINATION TYPE: US venous doppler duplex LE RT DATE OF EXAM: 12/30/2018 8:15 AM COMPARISON: NONE CLINICAL HISTORY: swelling r/o DVT. Right leg swelling, patient on blood thinners, exam done portable . SIDE PERFORMED: Right TECHNIQUE: The lower extremity deep venous system is examined utilizing real time linear array sonog stefani with graded compression, doppler sonography and color-flow sonography. VESSELS IMAGED: External Iliac Vein (EIV) Common Femoral Vein Deep Femoral Vein Greater Saphenous Vein * Femoral Vein Popliteal Vein Small Saphenous Vein * Proximal Calf Veins (* superficial vessels) Grayscale, color doppler, spectral doppler imaging performed of the deep veins of the right lower ext remity. There is normal flow, compressibility, vascular waveforms. Right Leg: Appears negative for DVT IMPRESSION: No sonographic evidence of deep venous thrombosis within the right lower extremity.
[2018-12-30] MEDS: amLODIPine 5 MG TAB PO SCH ×2 (09:39→20:56)
[2018-12-30] MEDS: LISINOPRIL 20 MG TAB PO SCH (09:39)
[2018-12-30] MEDS: MAGNESIUM OXIDE 400 MG TAB PO SCH ×2 (09:39→20:59)
[2018-12-30] MEDS: DOCUSATE 100 MG CAP PO SCH ×2 (09:39→20:55)
[2018-12-30] MEDS: METOPROLOL TARTRATE 25 MG TAB PO SCH ×2 (09:39→20:56)
[2018-12-30] MEDS: POTASSIUM CHLORIDE ER 20 MEQ TAB.ER PO SCH ×2 (09:39→10:44)
[2018-12-30] MEDS: FUROSEMIDE 10 MG/ML 2 ML VIAL IV SCH ×2 (09:40→20:57)
[2018-12-30] MEDS: HEPARIN SODIUM,PORCINE 5,000 UNIT/ML 1 ML VIAL SQ SCH ×2 (09:40→16:28)
--- NOTE | 2018-12-30 10:54 | P.PN ---
Subjective Progress Note Date: 12/30/18 This is a 68-year-old female patient of Dr. Lloyd. Patient presents with complaints of increased right knee pain and elevated temperature. Patient reports that on Friday she had a steroid injection to right knee with Dr. Jurado. Patient reports on Friday she started to develop increased pain and swe lling to right knee along with having fevers. Patient presented back to Dr. Jurado's office and aspiration of knee was completed and sent for analysis. Patient then presented to ER with complaints of increased pain yesterday. Patient's white blood cell count on arrival found to be 24 lactic acid 1.4 elevated temperature. Patient started on vancomycin and Rocephin. Patient does have a past medical history of hyperlipidemia and hypertension hypothyroidism and anxiety. throughtout the night patient went into A. fib RVR. Cardimarkm drip started cardiology services consulted. Dr. Gaines has been consulted for infectious disease. Per patient plans for possible scope today. At this time patient denies any chest pain or shortness of breath. Patient denies nausea vomiting or diarrhea. Patient denies any urinary burning or frequency 12/24/2018 patient is alert and oriented 3. Blood culture currently growing presumptive staph aureus. Antibiotics adjusted per infectious disease. Cr eatinine increasing to 1.52 and bun 24. Lisinopril has been held. Patient maintained on normal saline at 50. The patient remains on heparin drip for anticoagulation per cardiology. Colace added for constipation. At this time patient denies chest pain or shortness breath. Patient denies nausea vomiting or diarrhea. Patient denies any urinary burning or frequency On 12/25/2018 patient is alert and oriented 3. Patient undergoing scope with washout to right knee today per orthopedic services heparin currently per cardiology recommendation. Creatinine improving to 1.00. At this time patient denies any chest pain or shortness breath. Patient is complaining of some nausea Zofran has been ordered. Patient denies any urinary burning or frequency On 12/26/2018 patient was seen and examined on the medical floor she is alert and oriented 3 in no apparent distress she is complaining of some pain in her knee otherwise she denies any complaints there is no fever or chills no headache or dizziness no chest pain no shortness of breath no cough no nausea or vomiting no abdominal pain no diarrhea and no urinary symptoms. On 12/27/2018 patient was seen and examined on the medical floor she is alert and oriented 3 in no apparent distress she is complaining of pain in the right knee and swelling in the right lower extremity otherwise she denies any complaints there is no fever or chills no headache or dizziness no chest pain no shortness of breath no cough no nausea or vomiting no abdominal pain no diarrhea no burning with urination no frequency or urgency and no hematuria 12/28/2018 patient is alert and going 3. Patient having increased cough chest x-ray have been ordered. She remains on IV Lasix. Patient denies any chest pain. Patient denies nausea vomiting or diarrhea. Patient denies any urinary burning or frequency. She remains on IV Ancef per infectious disease On 12/29/2018 patient's alert and oriented 3. Patient was evaluated by pulmonary services remains on IV Lasix. Patient feels slightly improved from yesterday. At that time patient reports shortness of breath and cough have improved. Patient remains on room air. Patient denies chest pain or shortness breath. Patient denies nausea vomiting or diarrhea. Patient denies any urinary burning or frequency 12/30/2017 patient is alert and oriented 3. Venous Doppler completed showing no evidence for DVT in right lower extremity. Per patient plans for I & D with drain placement today per orthopedic services. At this time patient reports improvement with shortness of breath. Patient maintained on IV Lasix. The blood cell did improve today to 18.2. Patient denies chest pain or shortness of breath. Patient denies nausea vomiting or diarrhea. Patient denies any urinary burning or frequency Objective - Vital Signs Vital signs: Vital Signs Temp 98.9 F 12/30/18 08:00 Pulse 85 12/30/18 08:00 Resp 20 12/30/18 08:00 BP 127/66 12/30/18 08:00 Pulse Ox 93 L 12/30/18 08:00 Intake & Output 12/29/18 12/30/18 12/30/18 18:59 06:59 18:59 Intake Total 810 Output Total 600 2600 Balance 210 -2600 Weight 88 kg Intake: Oral 810 Output: Urine 600 2600 Other: Voiding Method Bedside Commode Bedside Commode # Voids 1 # Bowel Movements 1 - Exam Head normocephalic Neck supple Lungs clear to auscultation bilaterally no wheezing or crackles Heart irregular heart rate Abdomen is soft nontender nondistended positive bowel sounds no hepatosplenomegaly Extremities no edema. +1 right lower extremity edema Neuro alert and orientated to 3 - Labs CBC & Chem 7: 12/30/18 05:34 12/30/18 05:34 Labs: Abnormal Lab Results - Last 24 Hours (Table) 12/30/18 12/30/18 12/30/18 Range/Units 00:43 05:34 05:34 WBC 18.2 H (3.8-10.6) k/uL RBC 3.76 L (3.80-5.40) m/uL Hgb 10.8 L (11.4-16.0) gm/dL Hct 32.3 L (34.0-46.0) % Neutrophils # (Manual) 13.80 H (1.3-7.7) k/uL Myelocytes # (Manual) 0.73 H (0) k/uL ESR 38 H (0-20) mm/hr Sodium 131 L (137-145) mmol/L Potassium 3.4 L (3.5-5.1) mmol/L Chloride 90 L (98-107) mmol/L Carbon Dioxide 34 H (22-30) mmol/L Glucose 111 H (74-99) mg/dL Calcium 7.5 L (8.4-10.2) mg/dL C-Reactive Protein 183.2 H (<10.0) mg/L Total Protein 4.7 L (6.3-8.2) g/dL Albumin 2.5 L (3.5-5.0) g/dL Urine Ketones Trace H (Negative) Urine Blood Trace H (Negative) Ur Leukocyte Esterase Trace H (Negative) Urine WBC 6 H (0-5) /hpf Microbiology - Last 24 Hours (Table) 12/26/18 06:13 Blood Culture - Preliminary Blood No Growth after 96 hours 12/24/18 11:53 Blood Culture - Preliminary Blood No Growth after 120 hours 12/25/18 14:02 Anaerobic Culture - Final Knee - Right 12/25/18 14:02 Anaerobic Culture - Final Knee - Right Assessment and Plan Assessment: 1. Fever and increased pain to right knee due to septic right knee joint. White blood cell count 24. Patient did have aspiration of fluid in the office and was sent for analysis. Infectious disease consulted. Blood culture growing presumptive staph aureus. Patient maintained on kefzol. Postop day 3 status post I&D of right knee. Patient will need PICC line with IV antibiotics on discharge. Per ID recommending daptomycin upon discharge. Plans for IND with drain placement today per orthopedic services 2. New-onset atrial fibrillation with rapid ventricular response. Patient maintained on eliquis for anticoagulation and Lopressor for rate control. Eliquis currently on hold for PICC line placement 3. Hyponatremia. Sodium 126. Nephrology services are following. Sodium improving to 133. Okay to continue with low-dose Lasix remains on 1200 mL fluid restriction 4. History of essential hypertension. Lisinopril has been added. Norvasc added per cardiology 5. History of Hyperlipidemia 6. History of hypothyroidism. TSH level 0.188. Synthroid decreased to 100 7. History of anxiety 8. Urinary tract infection. urine culture has been ordered. Infectious disease following 9. Acute kidney injury. Creatinine creasing 1.52. Lisinopril held. Patient maintained on normal saline at 100. Creatinine improving to 1.00 and bun 20. Resolved fluids DC'd 10. Increased shortness of breath possibly related to acute cardiogenic versus noncardiogenic pulmonary edema. maintained on IV Lasix. Showing diffuse pleuroparenchymal changes correlate for CHF versus diffuse pneumonia. Pulmonary services are following. Patient remains on IV Lasix discussed case with pulmonary team no signs of pneumonia this time. improved. Repeat chest x-ray ordered for a.m. DVT prophylaxis eliquis. GI prophylaxis Protonix I performed an examination of the patient and discussed their management with david montalvo Nurse Practitioner. I have reviewed the Nurse Practitioner's notes and agree with the documented findings and plan of care
--- NOTE | 2018-12-30 11:51 | P.PN ---
Subjective Progress Note Date: 12/30/18 Principal diagnosis: Septic right knee secondary to MSSA, A. fib with RVR, acute pulmonary edema This is a 68-year-old female with history of hypertension, dyslipidemia, hypothyroidism, nonsmoker, patient was admitted on 01/18/2019 with right knee pain, and she was diagnosed as having a septic right knee joint. A few days prior to her presentation, patient received cortisone injection in the right knee for symptoms of osteoarthritis. Patient developed significant swelling and warm sensation in the right knee, and significant pain 2 days after her cortisone injection. She went back to see Dr. Jurado and this time she underwent arthrocentesis. Fluid was noted to be bloody and she was advised to go to the hospital for admission. Upon admission the patient was noted to be in atrial fibrillation with RVR without any significant symptoms. And her chest x- ray showed bilateral interstitial infiltrates/edema. BNP level was elevated. Patient was treated for her septic knee joint with antibiotics, her blood cultures and joint fluid cultures came back positive for gram-positive cocci in clusters, it was mostly MSSA. Patient was seen by infectious disease on consultation, and she is receiving now ceftezole for her septic knee joint and for her gram-positive bacteremia. Chest x-ray on admission showed bilateral pulmonary infiltrates/interstitial edema, hence the patient was treated with diuretics, and over the last few days she has been noticing significant clinical improvement. Chest x-ray is also showing some improvement but not back to baseline. Considering her abnormal chest x-ray showing pulmonary congestion, I was asked to see the patient on consultation. Patient denies any cough, no wheezing, denies any hemoptysis, denies any chest pain. Presently he remains on Lasix at 40 mg IV push every 12 hours ordered by cardiology. No echocardiogram has been done since admission. On 12/29/2018 patient seen in follow-up on selective care unit, she states she is breathing easier, room air pulse ox is 96%, patient is afebrile, hemodynamically stable, no complaints of chest pain, no cough or congestion, patient is on IV diuretics, at 20 mg every 12 hours and she is in -1710 mL fluid balance. Lung sounds are diminished, she still has some lower extremity edema right greater than left. She is on daptomycin, ID service is following, right knee aspirate showed MSSA. No fever or chills. His lab work has been reviewed, and there has been slight uptrend of her white blood cell count up to 21.2 from 18.5 on yesterday's labs, hemoglobin is 11.0, Pedro is 1:30, potassium is 3.6, chloride is 91, CO2 is 33, B1 is 18 and creatinine is 0.79. 2-D echocardiogram has been ordered and is pending at this time. Patient is on fluid restriction of 1200 mL of fluid. Nephrology following. On 12/30/2018 patient seen in follow-up on selective care unit, she is up in the recliner, she states she is feeling fatigued today but she denies any acute distress, room air pulse ox is 93%, she denies any dyspnea, lung sounds are diminished at the bases, her ISS effort is 750-1000 ML. She continues to diurese, currently on Lasix 20 mg every 12 hours, she is in -2390 mL fluid balance over the last 24 hours, venous Doppler of right lower extremity showed n o evidence of DVT. No fever or chills. Vital signs are stable. Orthopedic surgery is planning for IND with drain placement today. She continues on antibiotics. Right knee wound cultures were positive for Staphylococcus aureus. Patient is on daptomycin, ID service is following. Objective - Vital Signs Vital signs: Vital Signs Temp 98.9 F 12/30/18 08:00 Pulse 85 12/30/18 08:00 Resp 20 12/30/18 08:00 BP 127/66 12/30/18 08:00 Pulse Ox 93 L 12/30/18 08:00 Intake & Output 12/29/18 12/30/18 12/30/18 18:59 06:59 18:59 Intake Total 810 Output Total 600 2600 Balance 210 -2600 Weight 88 kg Intake: Oral 810 Output: Urine 600 2600 Other: Voiding Method Bedside Commode Bedside Commode # Voids 1 # Bowel Movements 1 - Exam GENERAL EXAM: Alert, pleasant, 68-year-old white female, on room air, with a pulse ox of 93%, comfortable in no apparent distress. HEAD: Normocephalic/atraumatic. EYES: Normal reaction of pupils, equal size. Conjunctiva pink, sclera white. NOSE: Clear with pink turbinates. THROAT: No erythema or exudates. NECK: No masses, no JVD, no thyroid enlargement, no adenopathy. CHEST: No chest wall deformity. Symmetrical expansion. LUNGS: Equal air entry with no crackles, wheeze, rhonchi or dullness. Diminished breath sounds at the bases CVS: Regular rate and rhythm, normal S1 and S2, no gallops, no murmurs, no rubs ABDOMEN: Soft, nontender. No hepatosplenomegaly, normal bowel sounds, no guarding or rigidity. EXTREMITIES: No clubbing, 1+ lower extremity edema, right greater than left edema, no cyanosis, 2+ pulses and upper and lower extremities. MUSCULOSKELETAL: Muscle strength and tone normal. SPINE: No scoliosis or deformity SKIN: No rashes CENTRAL NERVOUS SYSTEM: Alert and oriented -3. No focal deficits, tone is normal in all 4 extremities. PSYCHIATRIC: Alert and oriented -3. Appropriate affect. Intact judgment and insight. - Labs CBC & Chem 7: 12/30/18 05:34 12/30/18 05:34 Labs: Abnormal Lab Results - Last 24 Hours (Table) 12/30/18 12/30/18 12/30/18 Range/Units 00:43 05:34 05:34 WBC 18.2 H (3.8-10.6) k/uL RBC 3.76 L (3.80-5.40) m/uL Hgb 10.8 L (11.4-16.0) gm/dL Hct 32.3 L (34.0-46.0) % Neutrophils # (Manual) 13.80 H (1.3-7.7) k/uL Myelocytes # (Manual) 0.73 H (0) k/uL ESR 38 H (0-20) mm/hr Sodium 131 L (137-145) mmol/L Potassium 3.4 L (3.5-5.1) mmol/L Chloride 90 L (98-107) mmol/L Carbon Dioxide 34 H (22-30) mmol/L Glucose 111 H (74-99) mg/dL Calcium 7.5 L (8.4-10.2) mg/dL C-Reactive Protein 183.2 H (<10.0) mg/L Total Protein 4.7 L (6.3-8.2) g/dL Albumin 2.5 L (3.5-5.0) g/dL Urine Ketones Trace H (Negative) Urine Blood Trace H (Negative) Ur Leukocyte Esterase Trace H (Negative) Urine WBC 6 H (0-5) /hpf Microbiology - Last 24 Hours (Table) 12/26/18 06:13 Blood Culture - Preliminary Blood No Growth after 96 hours 12/24/18 11:53 Blood Culture - Preliminary Blood No Growth after 120 hours 12/25/18 14:02 Anaerobic Culture - Final Knee - Right 12/25/18 14:02 Anaerobic Culture - Final Knee - Right Assessment and Plan Plan: Assessment: 1 septic right knee joint with gram-positive bacteremia secondary to MSSA. And sepsis 2 atrial fibrillation with RVR, it is not clear whether this is acute paroxysmal or chronic. Patient was noted to be in atrial fibrillation with RVR upon presentation to the ER, and she remains in atrial fibrillation but rate seems to be well-controlled. Cardiology is addressing the issue of her atrial fibrillation again it is not clear whether this is an acute chronic or paroxysmal. Most likely new onset. 3 hypertension 4 MSSA bacteremia , from infected right knee joint. 5 acute cardiogenic versus noncardiogenic pulmonary edema, this is yet to be determined based on response to Lasix, it is most likely related to the ongoing atrial fibrillation with RVR. Although the possibility of noncardiogenic pulmonary edema is in the differential considering the patient presented with infected knee joint and gram-positive bacteremia. Plan: We'll continue with IV Lasix, patient denies any dyspnea, he is maintaining stable oxygenation on room air, no complaints of chest pain, she is in -2400 mL over the last 24 hours, lower extremity edema is improving. ProBNP is trending down. No plans for thoracentesis. Continue medical management. I performed a history & physical examination of the patient and discussed their management with my nurse practitioner, Kiesha Vasquez. I reviewed the nurse practitioner's note and agree with the documented findings and plan of care. Lung sounds are positive for diminished breath sounds with bibasilar crackles. The findings and the impression was discussed with the patient. I attest to the documentation by the nurse practitioner. Time with Patient: Less than 30
--- NOTE | 2018-12-30 12:00 | CDI ---
Documentation Clarification Form Date: 12/28/2018 4:53:00 PM From: Phoebe Esquivel Phone: Admit Date: 12/22/2018 6:56:00 PM Patient Name: Elda You Visit Number: [id number] Discharge Date: ATTENTION: The Clinical Documentation Specialists (CDI) and [facility] Coding Staff appreciate your assistance in clarifying documentation. Please respond to the clarification below the line at the bottom and electronically sign. The CDI & [facility] Coding staff will review the response and follow-up if needed. Please note: Queries are made part of the Legal Health Record. If you have any questions, please contact the author of this message via ITS. Dr. Hari Early CHF is noted for indication of a chest-ray ordered on 12/26/18 with impression: Patchy infiltrates greater at the lung based could be some resolving pulmonary edema History/Risk Factors: hypertension Thyroid disorder, Hyperlipedemia, Septic arthritis Clinical Indicators: 68-year-old female who present with right knee pain swelling. She underwent arthroscopic irrigation and partial lateral meniscectomy. Repeat chest x-ray shows patchy infiltrates greater at the lung bases that could be some resolving pulmonary edema she states that when she walks to the bathroom she does get mildly short of breath at that time. VS/Pulse OX: 130/30 70 17 92 % on room air. BNP: 5140 Echocardiogram Results: Pending Chest X Ray 12/22/18 Marked bilateral pulmonary infiltrative process, with scant pleural effusions posteriorly. Per pulmonary on admission: pulmonary infiltrates/interstitial edema Treatment: Lasix IV 20 mg BID Monitor I/O In your professional opinion, can you please clarify the acuity and type of CHF if known? Systolic Heart Failure: Acute Chronic Acute on Chronic Diastolic Heart Failure: Acute Chronic Acute on Chronic Systolic & Diastolic Heart Failure: Acute Chronic Acute on Chronic Heart Failure Unable to Determine Other, please specify (Last Revision: July 2017) MTDD
[2018-12-30] MEDS: DAPTOmycin 500 MG in SODIUM CHLORIDE 0.9% 50 ML IVPB SCH (13:16)
[2018-12-30] MEDS ORDERED: IV FLUID CONTINUATION 1,000 ML IV ONE (15:41)
[2018-12-30] MEDS ORDERED: fentaNYL (PF) 50 MCG/ML 2 ML AMP ONE (16:35)
[2018-12-30] MEDS ORDERED: MIDAZOLAM 2 MG/2 ML VIAL ONE (16:35)
[2018-12-30] MEDS ORDERED: LIDOCAINE 1% INJ 10MG/ML (20 ML MDV) ONE (16:35)
[2018-12-30] MEDS ORDERED: PROPOFOL 10 MG/ML 20 ML VIAL IV ONE (16:35)
[2018-12-30] MEDS ORDERED: SUCCINYLCHOLINE CHLORIDE 100 MG/5 ML SYR IV ONE (16:35)
[2018-12-30] MEDS ORDERED: BUPIVACAIN-EPI 0.25%-1:200,000 30 ML VIAL INTRAARTIC ONE (16:40)
--- NOTE | 2018-12-30 16:43 | PN ---
PROGRESS NOTE Patient is seen for followup for hyponatremia. Her sodium is staying at about 130 to 133 now. She also had acute kidney injury which has now resolved. On examination today, blood pressure was 144/71, heart rate 85 per minute. Patient is afebrile. EXAMINATION OF THE HEART: S1 and S2. EXAMINATION OF LUNGS: Bilateral breath sounds are heard. ABDOMEN: Soft, non-tender. Examination of lower extremities shows edema 2+ bilaterally. WELDER 2ND SHIFT exam is grossly intact. Labs show sodium of 131, potassium 3.4, BUN 17, serum creatinine 0.77. ASSESSMENT: 1. Acute kidney injury, currently resolved. 2. Hyponatremia. Currently patient is hypervolemic. We will resume loop diuretics. 3. Right septic knee, status post incision and drainage. 4. Volume overload. PLAN: Resume loop diuretics. Repeat labs periodically. MMODL / IJN: [id number] /
[2018-12-30] MEDS ORDERED: ceFAZolin 3,000 MG in SODIUM CHLORIDE 0.9% IRRIGATIO 3,000 ML IRRIGATION ONE (17:14)
[2018-12-30] MEDS ORDERED: LACTATED RINGERS 1,000 ML IV ONE (17:26)
[2018-12-30] MEDS: HYDROmorphone 1 MG/ML 1 ML SYRINGE IVP ONE ×4 (17:44→18:15)
[2018-12-30] MEDS: ONDANSETRON 4 MG/2 ML VIAL IVP PRN (17:54)
--- NOTE | 2018-12-30 18:28 | PN ---
PROGRESS NOTE DATE OF SERVICE: 12/30/2018 REASON FOR FOLLOWUP: Right knee septic arthritis with MSSA with bacteremia. INTERVAL HISTORY: The patient is currently afebrile. The patient has been breathing comfortably. Pain to the right knee is currently controlled. The patient is scheduled for another I&D today. No chest pain, shortness of breath or cough. No abdominal pain or any diarrhea. PHYSICAL EXAMINATION: Blood pressure 144/71 with a pulse of 85, temperature 98.6. She is 93% on room air. General description is a middle-aged female up in the chair in no distress. RESPIRATORY SYSTEM: Unlabored breathing. Clear to auscultation anteriorly. HEART: S1, S2. Regular rate and rhythm. ABDOMEN: Soft. No tenderness. Right knee did have some swelling but no redness. LABS: White count is down to 18.2 today. UA has been negative. Lower extremity Doppler negative for DVT. DIAGNOSTIC IMPRESSION AND PLAN: Patient with right knee septic arthritis with methicillin-susceptible Staphylococcus aeruginosa bacteremia, status post washout. The patient subsequently did have persistent elevated white count. Antibiotic was adjusted yesterday to daptomycin, and she has shown overall improvement in white count, down to 18.2. Will wait for the washout today. If patient does have evidence of significant bloody washout, that may explain some of this elevated white count. Repeat culture will be ordered. Family at the bedside; questions were answered. MMODL / IJN: [id number] /
--- NOTE | 2018-12-30 20:19 | PN ---
PROGRESS NOTE This patient is admitted with septic arthritis. She is feeling better. The patient still has some fluid in the joint and she may undergo drainage of the joint today. Blood pressure is 127/66 mmHg. First and second heart sounds are normal. Lungs are clinically clear to auscultation and percussion. Chest x-ray done yesterday still shows evidence of bilateral pleural effusion. No significant failure was noted. Patient's proBNP level is down to . We will continue the patient on IV Lasix and follow the chest x-ray. MMODL / IJN: [id number] /
[2018-12-30] MEDS: POLYETHYLENE GLYCOL 3350 17 GM POWD.PACK PO SCH (20:57)
[2018-12-31] MEDS: HEPARIN SODIUM,PORCINE 5,000 UNIT/ML 1 ML VIAL SQ SCH ×2 (01:27→10:03)
[2018-12-31] MEDS: PANTOPRAZOLE 40 MG TABLET PO SCH (06:22)
[2018-12-31] MEDS: LEVOTHYROXINE 100 MCG TAB PO SCH (06:22)
[2018-12-31] MEDS: CALCIUM CARB-VIT D 500MG-200UN 1 EACH TAB PO SCH ×2 (06:22→17:58)
[2018-12-31] MEDS: ACETAMINOPHEN TAB 325 MG TAB PO PRN (06:22)
--- NOTE | 2018-12-31 08:12 | XR ---
EXAMINATION TYPE: XR chest 2V DATE OF EXAM: 12/31/2018 COMPARISON: Prior chest x-ray 12/29/2018 HISTORY: Congestive heart failure TECHNIQUE: Frontal and lateral views of the chest are obtained. FINDINGS: Findings are similar to prior exam. Patchy bilateral increased areas of attenuation presen t within the lungs as on prior. Heart is enlarged. There is blunting of the costophrenic angles. No p neumothorax. IMPRESSION: Findings could represent congestive heart failure with areas of edema, correlate to excl ude multifocal pneumonia. Pleural effusions.
[2018-12-31 08:30] LABS: Albumin 2.5 g/dL (3.5-5.0); Calcium 7.4 mg/dL (8.4-10.2); Total Bilirubin 1.2 mg/dL (0.2-1.3); Total Protein 5.1 g/dL (6.3-8.2)
[2018-12-31 08:38] LABS: HCT 33.5 % (34.0-46.0); HGB 10.9 gm/dL (11.4-16.0); MCH 28.2 pg (25.0-35.0); MCHC 32.6 g/dL (31.0-37.0); MCV 86.6 fL (80.0-100.0); Platelet Count 480 k/uL (150-450); RBC 3.87 m/uL (3.80-5.40); RDW 14.8 % (11.5-15.5); WBC 16.6 k/uL (3.8-10.6)
[2018-12-31] MEDS ORDERED: POTASSIUM CHLORIDE ER 20 MEQ TAB.ER PO SCH (09:00)
--- NOTE | 2018-12-31 09:39 | P.PN ---
Subjective Progress Note Date: 12/31/18 Principal diagnosis: Right knee septic arthritis, knee pain Patient is seen at bedside today. She is POD #1 from repeat I and D of right knee. Her knee pain is improved. She is also being followed by cardiology and infectious disease. She is pending PICC placement. She has no new complaints. She denies numbness, tingling, calf pain, fever, chills, chest pain or shortness of breath. Objective - Vital Signs Vital signs: Vital Signs Temp 98.5 F 12/31/18 08:46 Pulse 88 12/31/18 08:46 Resp 18 12/31/18 08:46 BP 135/68 12/31/18 08:46 Pulse Ox 95 12/31/18 08:46 Intake & Output 12/30/18 12/31/18 12/31/18 18:59 06:59 18:59 Intake Total 1351 Output Total 1410 1000 Balance -59 -1000 Intake: IV 1101 Intake, IV Titration 50 Amount DAPTOmycin 500 mg In 50 Sodium Chloride 0.9% 50 ml @ 100 mls/hr IVPB Q24H MADINA Rx#:[id number] Oral 200 Output: Urine 1400 1000 Estimated Blood Loss 10 Other: Voiding Method Bedside Commode Bedside Commode # Voids 5 1 # Bowel Movements 1 - Exam Inspection of the right knee shows no erythema. Surgical wounds are benign. Sutures in place. There is trace effusion and peripheral edema bilaterally. It is not overly hot to touch. She has mild pain with active flexion and extension/range of motion of the right knee. The calf is soft and nontender. Neurovascular status is intact with motor and sensation grossly. 2+ DP pulse present and less than 2 sec cap refill. Drain is removed without complication - Constitutional General appearance: Present: no acute distress - Labs CBC & Chem 7: 12/31/18 06:32 12/31/18 06:32 Labs: Abnormal Lab Results - Last 24 Hours (Table) 12/31/18 12/31/18 Range/Units 06:32 06:32 WBC 16.6 H (3.8-10.6) k/uL Hgb 10.9 L (11.4-16.0) gm/dL Hct 33.5 L (34.0-46.0) % Plt Count 480 H (150-450) k/uL Sodium 133 L (137-145) mmol/L Chloride 93 L (98-107) mmol/L Carbon Dioxide 34 H (22-30) mmol/L Calcium 7.4 L (8.4-10.2) mg/dL AST 43 H (14-36) U/L Total Protein 5.1 L (6.3-8.2) g/dL Albumin 2.5 L (3.5-5.0) g/dL Microbiology - Last 24 Hours (Table) 12/26/18 06:13 Blood Culture - Preliminary Blood No Growth after 120 hours 12/30/18 17:02 Gram Stain - Preliminary Knee - Right Wound Culture - Preliminary 12/30/18 17:02 Anaerobic Culture - Preliminary Knee - Right 12/24/18 11:53 Blood Culture - Final Blood No Growth after 144 hours Assessment and Plan Assessment: Possible septic knee, DJD right knee Plan: Drain was removed. She appears to be trending towards improvement clinically. She is awaiting PICC line placement. She is to continue with pain management and PT. Will request ECF placement and may transfer after PICC and when ok with infectious disease, cardiology and IM. Time with Patient: Less than 30
--- NOTE | 2018-12-31 09:54 | ECHOF ---
Referral Reason:afib MEASUREMENTS -------- HEIGHT: 172.7 cm WEIGHT: 85.7 kg BP: 109/59 RVIDd: 3.3 cm (< 3.3) IVSd: 1.1 cm (0.6 - 1.1) LVIDd: 4.1 cm (3.9 - 5.3) LVPWd: 1.2 cm (0.6 - 1.1) IVSs: 1.3 cm LVIDs: 2.8 cm LVPWs: 1.5 cm LAESV Index (A-L): 32.52 ml/m EPSS: 0.3 cm Ao Diam: 2.4 cm (2.0 - 3.7) LA Diam: 1.7 cm (2.7 - 3.8) RVIDd: 4.5 cm (< 3.3) RAP: 5.00 mmHg RVSP: 24.00 mmHg MV EF SLOPE: 118.56 mm/s (70 - 150) MV EXCURSION: 1.53 cm (> 18.000) FINDINGS -------- Atrial fibrillation. This was a technically adequate study. The left ventricular size is normal. There is mild concentric left ventricular hypertrophy. Overa ll left ventricular systolic function is normal with, an EF between 55 - 60 %. The right ventricle is normal in size. Left atrium is mildly dilated by volume. RA appears enlarged Interatrial and interventricular septum intact. The aortic valve is trileaflet and appears structurally normal. There is no evidence of aortic regu rgitation. There is no evidence of aortic stenosis. [id number] mitral regurgitation is present. Mild tricuspid regurgitation present. There is no evidence of pulmonary hypertension. The right v entricular systolic pressure, as measured by Doppler, is 24.00mmHg. There is no pulmonic regurgitation present. The aortic root size is normal. IVC not well visualized There is no pericardial effusion. CONCLUSIONS -------- 1. Atrial fibrillation. 2. This was a technically adequate study. 3. The left ventricular size is normal. 4. There is mild concentric left ventricular hypertrophy. 5. Overall left ventricular systolic function is normal with, an EF between 55 - 60 %. 6. The right ventricle is normal in size. 7. Left atrium is mildly dilated by volume. 8. RA appears enlarged 9. Interatrial and interventricular septum intact. 10. The aortic valve is trileaflet and appears structurally normal. 11. There is no evidence of aortic regurgitation. 12. There is no evidence of aortic stenosis. 13. [id number] mitral regurgitation is present. 14. Mild tricuspid regurgitation present. 15. There is no evidence of pulmonary hypertension. 16. The right ventricular systolic pressure, as measured by Doppler, is 24.00mmHg. 17. There is no pulmonic regurgitation present. 18. The aortic root size is normal. 19. IVC not well visualized 20. There is no pericardial effusion. SUPPOSITORY MOLDING MACHINE OPERATOR: Nicole Mc RDCS
--- NOTE | 2018-12-31 09:55 | P.PN ---
Subjective Progress Note Date: 12/31/18 This is a 68-year-old female who initially presented to [facility] on December 22 through the emergency center due to right knee pain. She had previously seen Dr. Jurado in the outpatient setting and received cortisone injection in the office. Patient does not recall any specific injury to her right knee. She had increasing pain, decreased range of motion and difficulty ambulating with dragging her right leg and chose to come into the hospital for further evaluation and treatment. She was admitted under the care of Dr. Jurado. After arrival she was found to be in atrial fibrillation new onset and cardiology has been following. Patient is also been seen and followed by Dr. Melendez for acute kidney injury resolved and hyponatremia and patient is currently on fluid restriction. Chest x-ray reveals congestive heart failure with areas of edema correlate to exclude multifocal pneumonia. Pleural effusions. Patient has had lower extremity edema present complaints of shortness of breath. She has occasional cough from sinus drainage. She is on Lasix 40 mg IV every 12 hours. The patient has been followed by Dr. Gaines and treated for MSSA bacteremia with most recent blood cultures on December 24 and December 26 showing no growth. She is scheduled for PICC line placement. Right lower extremity has been negative for DVT. Patient has requested transfer of care to our service. She has undergone 2 I&D[address] Dr[address] Jurado, one on December 25 and 1 on December 30. Cultures obtained during 96 procedure is also positive for MSSA. Regarding antibiotics, patient has been on Kefzol and as of yesterday was transitioned to daptomycin. Patient's discharge plan is to go to [facility]. . Objective - Vital Signs Vital signs: Vital Signs Temp 98.5 F 12/31/18 08:46 Pulse 88 12/31/18 08:46 Resp 18 12/31/18 08:46 BP 135/68 12/31/18 08:46 Pulse Ox 95 12/31/18 08:46 Intake & Output 12/30/18 12/31/18 12/31/18 18:59 06:59 18:59 Intake Total 1351 Output Total 1410 1000 Balance -59 -1000 Intake: IV 1101 Intake, IV Titration 50 Amount DAPTOmycin 500 mg In 50 Sodium Chloride 0.9% 50 ml @ 100 mls/hr IVPB Q24H [facility] Rx#:[id number] Oral 200 Output: Urine 1400 1000 Estimated Blood Loss 10 Other: Voiding Method Bedside Commode Bedside Commode # Voids 5 1 # Bowel Movements 1 - Exam Gen: This is a 68-year-old obese female. She has any new recliner appears to be comfortable and in no acute distress. HEENT: Head is atraumatic, normocephalic. Pupils equal, round. Sclerae is anicteric. Conjunctiva pink. Mucous members of the mouth are moist. Dentition is in good order. NECK: Supple. No JVD. No lymphadenopathy. No thyromegaly. LUNGS: Diminished in the bases but otherwise clear to auscultation. No intercostal retractions. No accessory muscle usage. HEART: Irregular rate and rhythm. No murmur. ABDOMEN: Soft. Bowel sounds are present. No masses. No tenderness. EXTREMITIES: 1+ right pedal edema. Trace edema to the left lower extremity. Large dressing in place to the right knee. A BEATRIZ drain with sanguinous fluid. NEUROLOGICAL: Patient is awake, alert and oriented x3. Cranial nerves 2 through 12 are grossly intact. Social history: The patient lives at home with her . 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 Patient is from [place] originally. The patient was a smoker for 15-20 years and quit in the 1980s. She denies any marijuana use, illicit drug use, alcohol use. There is a new puppy in the home. - Labs CBC & Chem 7: 12/31/18 06:32 12/31/18 06:32 Labs: Abnormal Lab Results - Last 24 Hours (Table) 12/31/18 12/31/18 Range/Units 06:32 06:32 WBC 16.6 H (3.8-10.6) k/uL Hgb 10.9 L (11.4-16.0) gm/dL Hct 33.5 L (34.0-46.0) % Plt Count 480 H (150-450) k/uL Sodium 133 L (137-145) mmol/L Chloride 93 L (98-107) mmol/L Carbon Dioxide 34 H (22-30) mmol/L Calcium 7.4 L (8.4-10.2) mg/dL AST 43 H (14-36) U/L Total Protein 5.1 L (6.3-8.2) g/dL Albumin 2.5 L (3.5-5.0) g/dL Microbiology - Last 24 Hours (Table) 12/26/18 06:13 Blood Culture - Preliminary Blood No Growth after 120 hours 12/30/18 17:02 Gram Stain - Preliminary Knee - Right Wound Culture - Preliminary 12/30/18 17:02 Anaerobic Culture - Preliminary Knee - Right 12/24/18 11:53 Blood Culture - Final Blood No Growth after 144 hours Assessment and Plan Plan: This is a 68-year-old female who presents to the hospital with septic [place] right knee arthroplasty and MSSA bacteremia. She has been on Kefzol and most recently changed to daptomycin. She has had ongoing leukocytosis which was of concern. She shows improvement today down to 16.6. Her course has been complicated by new onset of atrial fibrillation RVR, acute kidney injury, acute kidney injury, hyponatremia, acute pulmonary edema. Bacteremia is now clearing and PICC line has been ordered. At the time of discharge, patient is planning to go to [facility]. Antibiotics will need to be transitioned for the detention. Continue supportive care. Further conditions as patient progre sses. The above dictated assessment and findings were discussed with Dr. Hollis. The impression and plan of care have been directed as dictated. Amanda Meeks nurse practitioner acting as scribe for Dr. Hollis.
[2018-12-31] MEDS: DOCUSATE 100 MG CAP PO SCH ×2 (10:00→20:31)
[2018-12-31] MEDS: MAGNESIUM OXIDE 400 MG TAB PO SCH ×2 (10:00→20:33)
[2018-12-31] MEDS: amLODIPine 5 MG TAB PO SCH ×2 (10:01→20:32)
[2018-12-31] MEDS: FUROSEMIDE 10 MG/ML 2 ML VIAL IV SCH ×2 (10:02→20:31)
[2018-12-31] MEDS: LISINOPRIL 20 MG TAB PO SCH ×2 (10:11→12:41)
[2018-12-31 10:38] LABS: Band Neutrophils % 1 %; Eosinophils # (M) 0.17 k/uL (0-0.7); Lymphocytes # (M) 2.49 k/uL (1.0-4.8); Metamyelocytes # (M) 0.17 k/uL (0); Metamyelocytes % 1 %; Monocytes # (M) 0.66 k/uL (0-1.0); Myelocytes # (M) 0.33 k/uL (0); Myelocytes % 2 %; Neutrophils % (M) 77 %; Nucleated Red Blood Cells 0 /100 WBC (0-0); Total Cells Counted 200
--- NOTE | 2018-12-31 10:43 | P.PN ---
Subjective Progress Note Date: 12/31/18 This is a 68-year-old female patient of Dr. Lloyd. Patient presents with complaints of increased right knee pain and elevated temperature. Patient reports that on Friday she had a steroid injection to right knee with Dr. Jurado. Patient reports on Friday she started to develop increased pain and swe lling to right knee along with having fevers. Patient presented back to Dr. Jurado's office and aspiration of knee was completed and sent for analysis. Patient then presented to ER with complaints of increased pain yesterday. Patient's white blood cell count on arrival found to be 24 lactic acid 1.4 elevated temperature. Patient started on vancomycin and Rocephin. Patient does have a past medical history of hyperlipidemia and hypertension hypothyroidism and anxiety. throughtout the night patient went into A. fib RVR. Cardimarkm drip started cardiology services consulted. Dr. Gaines has been consulted for infectious disease. Per patient plans for possible scope today. At this time patient denies any chest pain or shortness of breath. Patient denies nausea vomiting or diarrhea. Patient denies any urinary burning or frequency 12/24/2018 patient is alert and oriented 3. Blood culture currently growing presumptive staph aureus. Antibiotics adjusted per infectious disease. Cr eatinine increasing to 1.52 and bun 24. Lisinopril has been held. Patient maintained on normal saline at 50. The patient remains on heparin drip for anticoagulation per cardiology. Colace added for constipation. At this time patient denies chest pain or shortness breath. Patient denies nausea vomiting or diarrhea. Patient denies any urinary burning or frequency On 12/25/2018 patient is alert and oriented 3. Patient undergoing scope with washout to right knee today per orthopedic services heparin currently per cardiology recommendation. Creatinine improving to 1.00. At this time patient denies any chest pain or shortness breath. Patient is complaining of some nausea Zofran has been ordered. Patient denies any urinary burning or frequency On 12/26/2018 patient was seen and examined on the medical floor she is alert and oriented 3 in no apparent distress she is complaining of some pain in her knee otherwise she denies any complaints there is no fever or chills no headache or dizziness no chest pain no shortness of breath no cough no nausea or vomiting no abdominal pain no diarrhea and no urinary symptoms. On 12/27/2018 patient was seen and examined on the medical floor she is alert and oriented 3 in no apparent distress she is complaining of pain in the right knee and swelling in the right lower extremity otherwise she denies any complaints there is no fever or chills no headache or dizziness no chest pain no shortness of breath no cough no nausea or vomiting no abdominal pain no diarrhea no burning with urination no frequency or urgency and no hematuria 12/28/2018 patient is alert and going 3. Patient having increased cough chest x-ray have been ordered. She remains on IV Lasix. Patient denies any chest pain. Patient denies nausea vomiting or diarrhea. Patient denies any urinary burning or frequency. She remains on IV Ancef per infectious disease On 12/29/2018 patient's alert and oriented 3. Patient was evaluated by pulmonary services remains on IV Lasix. Patient feels slightly improved from yesterday. At that time patient reports shortness of breath and cough have improved. Patient remains on room air. Patient denies chest pain or shortness breath. Patient denies nausea vomiting or diarrhea. Patient denies any urinary burning or frequency 12/30/2017 patient is alert and oriented 3. Venous Doppler completed showing no evidence for DVT in right lower extremity. Per patient plans for I & D with drain placement today per orthopedic services. At this time patient reports improvement with shortness of breath. Patient maintained on IV Lasix. The blood cell did improve today to 18.2. Patient denies chest pain or shortness of breath. Patient denies nausea vomiting or diarrhea. Patient denies any urinary burning or frequency 12/31/2018 patient's alert and oriented 3. Patient is status post I&D of right knee with accordion drain placement. She is currently postop day 1. Discussed case with cardiology services patient did have episode of V. tach last night he symptomatic. Per cardiology magnesium will be checked beta edgardo increased. White blood cell improving is 16.6. Discussed case with infectious disease plans for PICC line today. Discussed with cardiology that intake regulation has been on hold for procedure PICC line patient will need anticoagulation resumed post PICC line. Discussed with nursing staff is aware that intake relation will need to be addressed with cardiology. At this time patient denies chest pain or shortness of breath. Patient denies nausea vomiting or diarrhea. Patient denies any urinary burning and frequency. Incentive spirometer encouraged Objective - Vital Signs Vital signs: Vital Signs Temp 98.5 F 12/31/18 08:46 Pulse 88 12/31/18 08:46 Resp 18 12/31/18 08:46 BP 135/68 12/31/18 08:46 Pulse Ox 95 12/31/18 08:46 Intake & Output 12/30/18 12/31/18 12/31/18 18:59 06:59 18:59 Intake Total 1351 Output Total 1410 1000 Balance -59 -1000 Weight 88.6 kg Intake: IV 1101 Intake, IV Titration 50 Amount DAPTOmycin 500 mg In 50 Sodium Chloride 0.9% 50 ml @ 100 mls/hr IVPB Q24H [facility] Rx#:[id number] Oral 200 Output: Urine 1400 1000 Estimated Blood Loss 10 Other: Voiding Method Bedside Commode Bedside Commode # Voids 5 1 # Bowel Movements 1 - Exam Head normocephalic Neck supple Lungs clear to auscultation bilaterally no wheezing or crackles Heart irregular heart rate Abdomen is soft nontender nondistended positive bowel sounds no hepatosplenomegaly Extremities no edema. Right leg dressing is clean dry and intact accordion drain in place serosangius drainage noted Neuro alert and orientated to 3 - Labs CBC & Chem 7: 12/31/18 06:32 12/31/18 06:32 Labs: Abnormal Lab Results - Last 24 Hours (Table) 12/31/18 12/31/18 Range/Units 06:32 06:32 WBC 16.6 H (3.8-10.6) k/uL Hgb 10.9 L (11.4-16.0) gm/dL Hct 33.5 L (34.0-46.0) % Plt Count 480 H (150-450) k/uL Sodium 133 L (137-145) mmol/L Chloride 93 L (98-107) mmol/L Carbon Dioxide 34 H (22-30) mmol/L Calcium 7.4 L (8.4-10.2) mg/dL AST 43 H (14-36) U/L Total Protein 5.1 L (6.3-8.2) g/dL Albumin 2.5 L (3.5-5.0) g/dL Microbiology - Last 24 Hours (Table) 12/26/18 06:13 Blood Culture - Preliminary Blood No Growth after 120 hours 12/30/18 17:02 Gram Stain - Preliminary Knee - Right Wound Culture - Preliminary 12/30/18 17:02 Anaerobic Culture - Preliminary Knee - Right 12/24/18 11:53 Blood Culture - Final Blood No Growth after 144 hours Assessment and Plan Assessment: 1. Fever and increased pain to right knee due to septic right knee joint. White blood cell count 24. Patient did have aspiration of fluid in the office an d was sent for analysis. Infectious disease consulted. Blood culture growing presumptive staph aureus. Patient maintained on kefzol. Postop day 3 status post I&D of right knee. Patient will need PICC line with IV antibiotics on discharge. Per ID recommending daptomycin upon discharge. I and D with drain placement postop day 1. 2. New-onset atrial fibrillation with rapid ventricular response. Patient maintained on eliquis for anticoagulation and Lopressor for rate control. Eliquis currently on hold for PICC line placement. Discussed with cardiology and infectious disease plans for PICC line today and then anticoagulation will need to be resumed per cardiology discussed with nursing staff to address this with cardiology upon PICC line placement 3. Hyponatremia. Sodium 126. Nephrology services are following. Sodium improving to 133. Okay to continue with low-dose Lasix remains on 1200 mL fluid restriction 4. History of essential hypertension. Lisinopril has been added. Norvasc added per cardiology 5. History of Hyperlipidemia 6. History of hypothyroidism. TSH level 0.188. Synthroid decreased to 100 7. History of anxiety 8. Urinary tract infection. urine culture has been ordered. Infectious disease following 9. Acute kidney injury. Creatinine creasing 1.52. Lisinopril held. Patient maintained on normal saline at 100. Creatinine improving to 1.00 and bun 20. Resolved fluids DC'd 10. Increased shortness of breath possibly related to acute cardiogenic versus noncardiogenic pulmonary edema. maintained on IV Lasix. Showing diffuse pleuro parenchymal changes correlate for CHF versus diffuse pneumonia. Pulmonary services are following. Patient remains on IV Lasix discussed case with pulmonary team no signs of pneumonia this time. improved. Repeat chest x-ray completed showing findings could represent a CPAP failure with areas edema correlate services following 11. Episode of V. tach. Discussed with cardiology services patient asymptomatic. Magnesium level ordered. metoprolol to be increased per cardiology DVT prophylaxis heparin until PICC line placement and patient will be placed back on anticougalution per cardiology for atrial fibrillation. GI prophylaxis Protonix I performed an examination of the patient and discussed their management with the Nurse Practitioner. I have reviewed the Nurse Practitioner's notes and agree with the documented findings and plan of care
[2018-12-31] MEDS ORDERED: LIDOCAINE 1% INJ 10MG/ML (20 ML MDV) SQ ONE (11:42)
[2018-12-31] MEDS: DAPTOmycin 500 MG in SODIUM CHLORIDE 0.9% 50 ML IVPB SCH (13:01)
--- NOTE | 2018-12-31 15:31 | IR ---
EXAMINATION TYPE: IR cvc insert >=5 years DATE OF EXAM: 12/31/2018 COMPARISON: NONE CLINICAL HISTORY: Infection Needs long-term intravenous access for antibiotics. PROCEDURE: After informed consent, the skin overlying the left basilic vein was localized with ultrasound and no vikki to be compressible and patent. An ultrasound image was obtained and submitted on the patient's c scott. The overlying skin was prepped and draped and Lidocaine was used for local anesthesia. A skin pratik was made with a scalpel. Access was gained to the vein under ultrasound guidance with a 21 gau ge needle and a 0.018 inch wire was advanced. Access site was dilated with Peel-Away sheath and cath eter tailored to the appropriate length and advanced such that the distal tip is at the cavoatrial ju nction. Spot image was obtained verifying placement. Catheter was fixed to the skin and a sterile d ressing was placed following hemostasis. Catheter was aspirated and flushed with saline. Patient wa s discharged in stable condition without complication.Maximal barrier technique is utilized. Ultraso und image is documented on the chart. Ultrasound used with sterile technique. Fluoro time and fluoroscopic images submitted to document procedure: 0.1 minutes fluoroscopy time. 7 intraoperative C-arm images. IMPRESSION: STATUS POST ULTRASOUND AND FLUOROSCOPIC GUIDED PICC LINE PLACEMENT, READY FOR USE. THIS PROCEDURE WAS PERFORMED BY THE UNDERSIGNED.
--- NOTE | 2018-12-31 15:32 | P.PN ---
Subjective Progress Note Date: 12/31/18 Principal diagnosis: Septic right knee secondary to MSSA, A. fib with RVR, acute pulmonary edema This is a 68-year-old female with history of hypertension, dyslipidemia, hypothyroidism, nonsmoker, patient was admitted on 01/18/2019 with right knee pain, and she was diagnosed as having a septic right knee joint. A few days prior to her presentation, patient received cortisone injection in the right knee for symptoms of osteoarthritis. Patient developed significant swelling and warm sensation in the right knee, and significant pain 2 days after her cortisone injection. She went back to see Dr. Jurado and this time she underwent arthrocentesis. Fluid was noted to be bloody and she was advised to go to the hospital for admission. Upon admission the patient was noted to be in atrial fibrillation with RVR without any significant symptoms. And her chest x- ray showed bilateral interstitial infiltrates/edema. BNP level was elevated. Patient was treated for her septic knee joint with antibiotics, her blood cultures and joint fluid cultures came back positive for gram-positive cocci in clusters, it was mostly MSSA. Patient was seen by infectious disease on consultation, and she is receiving now ceftezole for her septic knee joint and for her gram-positive bacteremia. Chest x-ray on admission showed bilateral pulmonary infiltrates/interstitial edema, hence the patient was treated with diuretics, and over the last few days she has been noticing significant clinical improvement. Chest x-ray is also showing some improvement but not back to baseline. Considering her abnormal chest x-ray showing pulmonary congestion, I was asked to see the patient on consultation. Patient denies any cough, no wheezing, denies any hemoptysis, denies any chest pain. Presently he remains on Lasix at 40 mg IV push every 12 hours ordered by cardiology. No echocardiogram has been done since admission. On 12/29/2018 patient seen in follow-up on selective care unit, she states she is breathing easier, room air pulse ox is 96%, patient is afebrile, hemodynamically stable, no complaints of chest pain, no cough or congestion, patient is on IV diuretics, at 20 mg every 12 hours and she is in -1710 mL fluid balance. Lung sounds are diminished, she still has some lower extremity edema right greater than left. She is on daptomycin, ID service is following, right knee aspirate showed MSSA. No fever or chills. His lab work has been reviewed, and there has been slight uptrend of her white blood cell count up to 21.2 from 18.5 on yesterday's labs, hemoglobin is 11.0, Pedro is 1:30, potassium is 3.6, chloride is 91, CO2 is 33, B1 is 18 and creatinine is 0.79. 2-D echocardiogram has been ordered and is pending at this time. Patient is on fluid restriction of 1200 mL of fluid. Nephrology following. On 12/30/2018 patient seen in follow-up on selective care unit, she is up in the recliner, she states she is feeling fatigued today but she denies any acute distress, room air pulse ox is 93%, she denies any dyspnea, lung sounds are diminished at the bases, her IS effort is 750-1000 ML. She continues to diurese, currently on Lasix 20 mg every 12 hours, she is in -2390 mL fluid balance over the last 24 hours, venous Doppler of right lower extremity showed no evidence of DVT. No fever or chills. Vital signs are stable. Orthopedic surgery is planning for IND with drain placement today. She continues on antibiotics. Right knee wound cultures were positive for Staphylococcus aureus. Patient is on daptomycin, ID service is following. On 12/31/2018 patient seen in follow-up on selective care unit, she is calm and comfortable, without any acute complaints, she sits up in the recliner, yesterday she underwent repeat I&D of her right knee. No fever or chills, no complaints of dyspnea, lung sounds reveal diminished breath sounds at the bases, no rales, no rhonchi, incentive spirometry effort is 700-1000 mL today. She is in -1000 mL fluid balance over the last 24 hours, she is maintained on 1200 mL fluid restriction and her serum sodium is improving up to 133 on today's labs. Objective - Vital Signs Vital signs: Vital Signs Temp 98.7 F 12/31/18 12:09 Pulse 88 12/31/18 08:46 Resp 18 12/31/18 12:09 BP 164/88 12/31/18 12:09 Pulse Ox 95 12/31/18 08:46 Intake & Output 12/30/18 12/31/18 12/31/18 18:59 06:59 18:59 Intake Total 1351 Output Total 1410 1700 Balance -59 -1700 Weight 88.6 kg Intake: IV 1101 Intake, IV Titration 50 Amount DAPTOmycin 500 mg In 50 Sodium Chloride 0.9% 50 ml @ 100 mls/hr IVPB Q24H [facility], [facility] Rx#:[id number] Oral 200 Output: Urine 1400 1700 Estimated Blood Loss 10 Other: Voiding Method Bedside Commode Bedside Commode Bedside Commode # Voids 5 1 # Bowel Movements 1 - Exam GENERAL EXAM: Alert, pleasant, 68-year-old white female, on room air, with a pulse ox of 93%, comfortable in no apparent distress. HEAD: Normocephalic/atraumatic. EYES: Normal reaction of pupils, equal size. Conjunctiva pink, sclera white. NOSE: Clear with pink turbinates. THROAT: No erythema or exudates. NECK: No masses, no JVD, no thyroid enlargement, no adenopathy. CHEST: No chest wall deformity. Symmetrical expansion. LUNGS: Equal air entry with no crackles, wheeze, rhonchi or dullness. Diminis hed breath sounds at the bases CVS: Regular rate and rhythm, normal S1 and S2, no gallops, no murmurs, no rubs ABDOMEN: Soft, nontender. No hepatosplenomegaly, normal bowel sounds, no guarding or rigidity. EXTREMITIES: No clubbing, 1+ lower extremity edema, right greater than left edema, no cyanosis, 2+ pulses and upper and lower extremities. MUSCULOSKELETAL: Muscle strength and tone normal. SPINE: No scoliosis or deformity SKIN: No rashes CENTRAL NERVOUS SYSTEM: Alert and oriented -3. No focal deficits, tone is normal in all 4 extremities. PSYCHIATRIC: Alert and oriented -3. Appropriate affect. Intact judgment and insight. - Labs CBC & Chem 7: 12/31/18 06:32 12/31/18 06:32 Labs: Abnormal Lab Results - Last 24 Hours (Table) 12/31/18 12/31/18 Range/Units 06:32 06:32 WBC 16.6 H (3.8-10.6) k/uL Hgb 10.9 L (11.4-16.0) gm/dL Hct 33.5 L (34.0-46.0) % Plt Count 480 H (150-450) k/uL Neutrophils # (Manual) 12.90 H (1.3-7.7) k/uL Metamyelocytes # (Man) 0.17 H (0) k/uL Myelocytes # (Manual) 0.33 H (0) k/uL Sodium 133 L (137-145) mmol/L Chloride 93 L (98-107) mmol/L Carbon Dioxide 34 H (22-30) mmol/L Calcium 7.4 L (8.4-10.2) mg/dL AST 43 H (14-36) U/L Total Protein 5.1 L (6.3-8.2) g/dL Albumin 2.5 L (3.5-5.0) g/dL Microbiology - Last 24 Hours (Table) 12/26/18 06:13 Blood Culture - Preliminary Blood No Growth after 120 hours 12/30/18 17:02 Gram Stain - Preliminary Knee - Right Wound Culture - Preliminary 12/30/18 17:02 Anaerobic Culture - Preliminary Knee - Right 12/24/18 11:53 Blood Culture - Final Blood No Growth after 144 hours Assessment and Plan Plan: Assessment: 1 septic right knee joint with gram-positive bacteremia secondary to MSSA. And sepsis 2 atrial fibrillation with RVR, it is not clear whether this is acute paroxysmal or chronic. Patient was noted to be in atrial fibrillation with RVR upon p resentation to the ER, and she remains in atrial fibrillation but rate seems to be well-controlled. Cardiology is addressing the issue of her atrial fibrillation again it is not clear whether this is an acute chronic or paroxysmal. Most likely new onset. 3 hypertension 4 MSSA bacteremia , from infected right knee joint. 5 acute cardiogenic versus noncardiogenic pulmonary edema, this is yet to be determined based on response to Lasix, it is most likely related to the ongoing atrial fibrillation with RVR. Although the possibility of noncardiogenic pulmonary edema is in the differential considering the patient presented with infected knee joint and gram-positive bacteremia. Plan: Patient's breathing is stable, oxygenation stable on room air. Continue encouraging deep breathing and coughing. She's had no fever or chills, leukocytosis is down trending. Today's repeat chest x-ray shows some nodular appearing infiltrates bilaterally, clinically patient is improving she will need to be seen in the outpatient setting by Dr. Mendoza in 2 weeks for a repeat chest x-ray or for a possible CT chest. But from pulmonary perspective patient is stable for discharge to subacute rehab today on oral diuretics. I performed a history & physical examination of the patient and discussed their management with my nurse practitioner, Kiesha Vasquez. I reviewed the nurse practitioner's note and agree with the documented findings and plan of care. Lung sounds are positive for diminished breath sounds with bibasilar crackles. The findings and the impression was discussed with the patient. I attest to the documentation by the nurse practitioner. Time with Patient: Less than 30
[2018-12-31] MEDS: METOPROLOL TARTRATE 25 MG TAB PO SCH ×3 (16:35→20:32)
[2018-12-31] MEDS: HYDROcodone/APAP 7.5-325MG 1 EACH TAB PO PRN (16:36)
[2018-12-31] MEDS: APIXABAN 5 MG TAB PO SCH (18:20)
[2018-12-31] MEDS: POLYETHYLENE GLYCOL 3350 17 GM POWD.PACK PO SCH (20:30)
--- NOTE | 2018-12-31 20:55 | PN ---
PROGRESS NOTE This patient is admitted with a history suggestive of persistent atrial fibrillation, new onset; exact duration is unclear. The patient has septic arthritis. She also has a history of hypertension. The patient is feeling fairly well. She had drainage from the right knee joint yesterday. The patient remains afebrile. Her blood pressure is 164/88 mmHg. HEART: S1 and S2 normal. Lungs are clear to auscultation and percussion. Patient's chest x-ray still shows a small amount of bilateral pleural effusion and questionable patchy bilateral area of attenuation in the lungs as on prior. The patient's congestive heart failure is improved. Amlodipine 5 mg b.i.d. is added. The patient's Lopressor is increased to control the rate. We will recommend to follow the patient with an outpatient chest x-ray. MMODL / IJN: [id number] /
--- NOTE | 2018-12-31 22:21 | P.PN ---
Progress Note - Text Progress Note Date: 12/31/18 Please see the progress note is dictated by nurse practitioner Maida Amanda Meeks. This pleasant [facility] for many days. She's had difficulty of the septic arthritis of her [place] knee and is now had her second surgical debridement. This is allowing significant improvement of her pain and swelling. Cultures show evidence of MSSA. We'll work with the discharge team so that Ancef 2 g IVPB every 8 hours can be utilized over the next at least 3 weeks for the septic arthritis to the knee and treatment of the bacteremia. Depending on how she is progressing in the outpatient setting may require more protracted course of therapy and this is discussed with the patient and the . IV access is being arranged with evidence of negative blood cultures. Her leukocytosis persists but is somewhat improved.
[2019-01-01] MEDS: CALCIUM CARB-VIT D 500MG-200UN 1 EACH TAB PO SCH (06:17)
[2019-01-01] MEDS: PANTOPRAZOLE 40 MG TABLET PO SCH (06:19)
[2019-01-01] MEDS: LEVOTHYROXINE 100 MCG TAB PO SCH (06:19)
[2019-01-01] MEDS: ACETAMINOPHEN TAB 325 MG TAB PO PRN (06:21)
[2019-01-01 06:29] LABS: ALT 39 U/L (9-52); AST 59 U/L (14-36); African American GFR (CKD) >90 (>60 ml/min/1.73 sqM); Albumin 2.7 g/dL (3.5-5.0); Alkaline Phosphatase 70 U/L (38-126); Anion Gap 8 mmol/L; Blood Urea Nitrogen 12 mg/dL (7-17); Calcium 7.5 mg/dL (8.4-10.2); Carbon Dioxide 32 mmol/L (22-30); Chloride 90 mmol/L (98-107); Glucose 104 mg/dL (74-99); Magnesium 1.8 mg/dL (1.6-2.3); Potassium 3.6 mmol/L (3.5-5.1); Sodium 130 mmol/L (137-145); Total Protein 5.4 g/dL (6.3-8.2)
[2019-01-01] MEDS ORDERED: POTASSIUM CHLORIDE ER 20 MEQ TAB.ER PO SCH (08:00)
[2019-01-01] MEDS: FUROSEMIDE 10 MG/ML 2 ML VIAL IV SCH (08:18)
[2019-01-01] MEDS: MAGNESIUM OXIDE 400 MG TAB PO SCH (08:27)
[2019-01-01] MEDS: LISINOPRIL 20 MG TAB PO SCH (08:27)
[2019-01-01] MEDS: METOPROLOL TARTRATE 25 MG TAB PO SCH (08:27)
[2019-01-01] MEDS: APIXABAN 5 MG TAB PO SCH (08:28)
[2019-01-01] MEDS: amLODIPine 5 MG TAB PO SCH (08:28)
[2019-01-01] MEDS: DOCUSATE 100 MG CAP PO SCH (08:30)
[2019-01-01 09:44] LABS: Basophils # (A) 0.2 k/uL (0-0.2); Basophils % (A) 1 %; Eosinophils # (A) 0.2 k/uL (0-0.7); Eosinophils % (A) 1 %; HCT 34.8 % (34.0-46.0); Lymphocytes # (A) 1.4 k/uL (1.0-4.8); Lymphocytes % (A) 10 %; MCH 27.5 pg (25.0-35.0); MCHC 31.7 g/dL (31.0-37.0); MCV 86.8 fL (80.0-100.0); Mean Platelet Volume 7.3; Monocytes # (A) 0.6 k/uL (0-1.0); Monocytes % (A) 4 %; Neutrophils # (A) 12.4 k/uL (1.3-7.7); Neutrophils % (A) 83 %; Platelet Count 442 k/uL (150-450); RDW 13.9 % (11.5-15.5)
--- NOTE | 2019-01-01 10:08 | P.PN ---
Subjective Progress Note Date: 01/01/19 Principal diagnosis: Right knee septic arthritis, knee pain Patient is seen at bedside today. She is POD #2 from repeat I and D of right knee. Her knee pain continues to improve. She is also being followed by cardiology and infectious disease. She has PICC in place. She has no new complaints. She denies numbness, tingling, calf pain, fever, chills, chest pain or shortness of breath. Objective - Vital Signs Vital signs: Vital Signs Temp 98.6 F 01/01/19 09:58 Pulse 90 01/01/19 09:58 Resp 18 01/01/19 09:58 BP 117/59 01/01/19 09:58 Pulse Ox 98 01/01/19 09:58 Intake & Output 12/31/18 01/01/19 01/01/19 18:59 06:59 18:59 Intake Total 222 480 Output Total 2100 1350 1200 Balance -1878 -1350 -720 Weight 88.6 kg 86.3 kg Intake: Oral 222 480 Output: Urine 2100 1350 1200 Other: Voiding Method Bedside Commode Bedside Commode Bedside Commode - Exam Inspection of the right knee shows no erythema. Surgical wounds are benign. Sutures in place. There is trace effusion and peripheral edema bilaterally which is improved. It is not hot to touch. She has mild pain with active flexion and extension/range of motion of the right knee. The calf is soft and nontender. Neurovascular status is intact with motor and sensation grossly. 2+ DP pulse present and less than 2 sec cap refill. - Constitutional General appearance: Present: no acute distress - Labs CBC & Chem 7: 01/01/19 05:52 01/01/19 05:52 Labs: Abnormal Lab Results - Last 24 Hours (Table) 12/31/18 01/01/19 01/01/19 Range/Units 06:32 05:52 05:52 WBC 16.6 H 15.0 H (3.8-10.6) k/uL Hgb 10.9 L 11.0 L (11.4-16.0) gm/dL Hct 33.5 L (34.0-46.0) % Plt Count 480 H (150-450) k/uL Neutrophils # 12.4 H (1.3-7.7) k/uL Neutrophils # (Manual) 12.90 H (1.3-7.7) k/uL Metamyelocytes # (Man) 0.17 H (0) k/uL Myelocytes # (Manual) 0.33 H (0) k/uL Sodium 130 L (137-145) mmol/L Chloride 90 L (98-107) mmol/L Carbon Dioxide 32 H (22-30) mmol/L Glucose 104 H (74-99) mg/dL Calcium 7.5 L (8.4-10.2) mg/dL AST 59 H (14-36) U/L Total Protein 5.4 L (6.3-8.2) g/dL Albumin 2.7 L (3.5-5.0) g/dL Microbiology - Last 24 Hours (Table) 12/26/18 06:13 Blood Culture - Final Blood No Growth after 144 hours 12/30/18 17:02 Gram Stain - Preliminary Knee - Right Wound Culture - Preliminary Assessment and Plan Assessment: Possible septic knee, DJD right knee, afib Plan: She continues to be trending towards improvement clinically. Her WBC is improved to 15 today. She is to continue with pain management and PT. PICC is in place. She may transfer to ECF when ok with infectious disease, cardiology and IM. Time with Patient: Less than 30
[2019-01-01] MEDS ORDERED: IOPAMIDOL-300 CONTRAST 30 ML VIAL (ORAL USE) PO PRN (11:36)
[2019-01-01 11:45] VITALS: BP 125/65; PULSE 85; RESP 20; TEMP 98.9
--- NOTE | 2019-01-01 11:53 | P.DS ---
Providers Date of admission: 12/22/18 18:56 Expected date of discharge: 01/01/19 Attending physician: Trav Jurado Consults: 12/22/18 18:45 Consult Physician Stat Consulting Provider: Tala Huber Consult Reason/Comments: septic joint, medical management Do you want consulting provider notified?: Yes 12/23/18 05:36 Consult Physician Stat Consulting Provider: Nima Osuna Consult Reason/Comments: new onset afib RVR Do you want consulting provider notified?: Yes 12/25/18 13:34 Consult Physician Routine Consulting Provider: Aura Liu Consult Reason/Comments: Hyponatremia Do you want consulting provider notified?: Yes 12/28/18 10:23 Consult Physician Routine Consulting Provider: Avery Ordaz Consult Reason/Comments: Chest x-ray possible pneumonia Do you want consulting provider notified?: Yes 12/30/18 16:32 Consult Physician Routine Consulting Provider: Ramiro Hollis Consult Reason/Comments: septic right knee joint- pt requested switching service from Dr. Gaines Do you want consulting provider notified?: Yes Primary care physician: Thea Lloyd - Discharge Diagnosis(es) (1) Septic joint of right knee joint Patient was admitted through the ED after having increased knee pain and found to have new onset afib. Patient was taken to the OR on 12/25/2018 to undergo an I and D of right knee for suspected septic arthritis. She had failed conservative measures an outpatient and desired to proceed with elective surgery after given informed consent.. She underwent the above procedure which she tolerated well without complication. She initially improved however her WBC had increased and pain in knee as well over the next few days. She was again taken to OR on 12/30/18 for repeat I and D which she tolerated well without complication. Postoperative hospital course has remained without complication and has continued to improve symptomatically and clinically. PICC line is in place and she is on IV antibiotics. She is on anticoagulation per cardiology. On day of discharge she is afebrile, vital signs stable, labs within acceptable ranges, tolerating by mouth meds and diet, voiding without difficulty, positive flatus, denies abdominal pain or calf pain, pain is controlled on oral pain medication and has no new complaints. Wound is benign, neurovascular status is intact, calf is soft and nontender, abdomen soft and nontender. Review of systems is negative for numbness, tingling, fever, chills, chest pain, shortness of breath, nausea, vomiting, dizziness, headaches, slurred speech or other. Current Visit: Yes Status: Acute Priority: Medium (2) Atrial fibrillation with RVR Current Visit: Yes Status: Acute Priority: Medium Health Concerns: BMP IN [address] LIU, CONTINUE 1200CC/24 HR FLUID RESTRICTION FOR LOW SODIUM Procedures: I and D of right knee x 2 Patient Condition at Discharge: Fair Plan - Discharge Summary Discharge Rx Participant: No New Discharge Prescriptions: New ceFAZolin [Kefzol] 2 gm IVP Q8HR #90 ml No Action clonazePAM [KlonoPIN] 0.25 mg PO HS PRN PRN Reason: sleep Carvedilol [Coreg] 12.5 mg PO BID Lisinopril [Prinivil] 40 mg PO DAILY Levothyroxine Sodium [Synthroid] 112 mcg PO DAILY Fluticasone Propionate [Flonase] 1 spray EA NOSTRIL DAILY PRN PRN Reason: Nasal Congestion Cholecalciferol [Vitamin D3 (25 Mcg = 1000 Iu)] 2,000 unit PO DAILY Magnesium Oxide [Mag-Ox] 250 mg PO BID Aspirin EC [Ecotrin] 325 mg PO DAILY #30 tablet. Loratadine [Claritin] 10 mg PO DAILY PRN PRN Reason: Allergy Symptoms Omeprazole [PriLOSEC] 20 mg PO DAILY PRN PRN Reason: Gi Upset amLODIPine [Norvasc] 5 mg PO BID Ibuprofen [Motrin] 800 mg PO TID PRN PRN Reason: Pain Discharge Medication List Carvedilol [Coreg] 12.5 mg PO BID 05/31/14 [History] Levothyroxine Sodium [Synthroid] 112 mcg PO DAILY 05/31/14 [History] Lisinopril [Prinivil] 40 mg PO DAILY 05/31/14 [History] clonazePAM [KlonoPIN] 0.25 mg PO HS PRN 05/31/14 [History] Cholecalciferol [Vitamin D3 (25 Mcg = 1000 Iu)] 2,000 unit PO DAILY 06/01/14 [History] Fluticasone Propionate [Flonase] 1 spray EA NOSTRIL DAILY PRN 06/01/14 [History] Magnesium Oxide [Mag-Ox] 250 mg PO BID 02/11/15 [History] Aspirin EC [Ecotrin] 325 mg PO DAILY #30 tablet. 06/02/14 [Rx] Ibuprofen [Motrin] 800 mg PO TID PRN 12/22/18 [History] Loratadine [Claritin] 10 mg PO DAILY PRN 12/22/18 [History] Omeprazole [PriLOSEC] 20 mg PO DAILY PRN 12/22/18 [History] amLODIPine [Norvasc] 5 mg PO BID 12/22/18 [History] ceFAZolin [Kefzol] 2 gm IVP Q8HR #90 ml 12/31/18 [Rx] Follow up Appointment(s)/Referral(s): Thea Lloyd MD [Primary Care Provider] - 1-2 days [facility], [NON-STAFF] - [facility], [NON-STAFF] - 1 Week Trav Jurado MD [Family Provider] - 1 Week Ambulatory/Diagnostic Orders: Complete Blood Count w/diff [LAB.AMB] Time Frame: 2 Days, Location: None Selected Comprehensive Metabolic Panel [LAB.AMB] Time Frame: 2 Days, Location: None Selected Patient Instructions/Handouts: A-fib (Atrial Fibrillation) (DC), Sepsis (GEN), Safe Use of Anticoagulants (DC), Complications of Infection (GEN) Activity/Diet/Wound Care/Special Instructions: *Eliquis is not covered by pt insurance. Xarelto is $442.02/month until deductible is met* Keep wounds clean and dry Take meds as directed F/U with Dr. Jurado in office May shower after 24 hrs if no bleeding. Weightbear as tolerated Sutures out at post op day #10 [facility] with IV ABX Activity as tolerated Diet heart healthy 1200 fluid restriction. Ensure shakes with meals Discharge Disposition: TRANSFER TO SNF/ECF
--- NOTE | 2019-01-01 12:23 | P.PN ---
Subjective Progress Note Date: 01/01/19 This is a 68-year-old female patient of Dr. Lloyd. Patient presents with complaints of increased right knee pain and elevated temperature. Patient reports that on Friday she had a steroid injection to right knee with Dr. Jurado. Patient reports on Friday she started to develop increased pain and swe lling to right knee along with having fevers. Patient presented back to Dr. Jurado's office and aspiration of knee was completed and sent for analysis. Patient then presented to ER with complaints of increased pain yesterday. Patient's white blood cell count on arrival found to be 24 lactic acid 1.4 elevated temperature. Patient started on vancomycin and Rocephin. Patient does have a past medical history of hyperlipidemia and hypertension hypothyroidism and anxiety. throughtout the night patient went into A. fib RVR. Cardimarkm drip started cardiology services consulted. Dr. Gaines has been consulted for infectious disease. Per patient plans for possible scope today. At this time patient denies any chest pain or shortness of breath. Patient denies nausea vomiting or diarrhea. Patient denies any urinary burning or frequency 12/24/2018 patient is alert and oriented 3. Blood culture currently growing presumptive staph aureus. Antibiotics adjusted per infectious disease. Cr eatinine increasing to 1.52 and bun 24. Lisinopril has been held. Patient maintained on normal saline at 50. The patient remains on heparin drip for anticoagulation per cardiology. Colace added for constipation. At this time patient denies chest pain or shortness breath. Patient denies nausea vomiting or diarrhea. Patient denies any urinary burning or frequency On 12/25/2018 patient is alert and oriented 3. Patient undergoing scope with washout to right knee today per orthopedic services heparin currently per cardiology recommendation. Creatinine improving to 1.00. At this time patient denies any chest pain or shortness breath. Patient is complaining of some nausea Zofran has been ordered. Patient denies any urinary burning or frequency On 12/26/2018 patient was seen and examined on the medical floor she is alert and oriented 3 in no apparent distress she is complaining of some pain in her knee otherwise she denies any complaints there is no fever or chills no headache or dizziness no chest pain no shortness of breath no cough no nausea or vomiting no abdominal pain no diarrhea and no urinary symptoms. On 12/27/2018 patient was seen and examined on the medical floor she is alert and oriented 3 in no apparent distress she is complaining of pain in the right knee and swelling in the right lower extremity otherwise she denies any complaints there is no fever or chills no headache or dizziness no chest pain no shortness of breath no cough no nausea or vomiting no abdominal pain no diarrhea no burning with urination no frequency or urgency and no hematuria 12/28/2018 patient is alert and going 3. Patient having increased cough chest x-ray have been ordered. She remains on IV Lasix. Patient denies any chest pain. Patient denies nausea vomiting or diarrhea. Patient denies any urinary burning or frequency. She remains on IV Ancef per infectious disease On 12/29/2018 patient's alert and oriented 3. Patient was evaluated by pulmonary services remains on IV Lasix. Patient feels slightly improved from yesterday. At that time patient reports shortness of breath and cough have improved. Patient remains on room air. Patient denies chest pain or shortness breath. Patient denies nausea vomiting or diarrhea. Patient denies any urinary burning or frequency 12/30/2017 patient is alert and oriented 3. Venous Doppler completed showing no evidence for DVT in right lower extremity. Per patient plans for I & D with drain placement today per orthopedic services. At this time patient reports improvement with shortness of breath. Patient maintained on IV Lasix. The blood cell did improve today to 18.2. Patient denies chest pain or shortness of breath. Patient denies nausea vomiting or diarrhea. Patient denies any urinary burning or frequency 12/31/2018 patient's alert and oriented 3. Patient is status post I&D of right knee with accordion drain placement. She is currently postop day 1. Discussed case with cardiology services patient did have episode of V. tach last night he symptomatic. Per cardiology magnesium will be checked beta edgardo increased. White blood cell improving is 16.6. Discussed case with infectious disease plans for PICC line today. Discussed with cardiology that intake regulation has been on hold for procedure PICC line patient will need anticoagulation resumed post PICC line. Discussed with nursing staff is aware that intake relation will need to be addressed with cardiology. At this time patient denies chest pain or shortness of breath. Patient denies nausea vomiting or diarrhea. Patient denies any urinary burning and frequency. Incentive spirometer encouraged On 01/01/2019 patient's alert and oriented 3. White blood cell improving to 15. Discussed case with infectious disease. Patient has been cleared for discharge. Antibiotics arranged patient will be DC'd on Kefzol. Discussed case with cardiology anticoagulation switched to xarelto due to insurance coverage. Also discussed case with pulmonary team okay to transition patient to oral Lasix and discharge. [facility]. At this time patient denies chest pain or shortness of breath. Patient denies nausea vomiting or diarrhea. Patient denies any urinary burning or frequency. Objective - Vital Signs Vital signs: Vital Signs Temp 98.9 F 01/01/19 11:44 Pulse 85 01/01/19 11:44 Resp 20 01/01/19 11:44 BP 125/65 01/01/19 11:44 Pulse Ox 94 L 01/01/19 11:44 Intake & Output 12/31/18 01/01/19 01/01/19 18:59 06:59 18:59 Intake Total 222 480 Output Total 2100 1350 1200 Balance -1878 -1350 -720 Weight 88.6 kg 86.3 kg Intake: Oral 222 480 Output: Urine 2100 1350 1200 Other: Voiding Method Bedside Commode Bedside Commode Bedside Commode # Voids 2 - Exam Head normocephalic Neck supple Lungs clear to auscultation bilaterally no wheezing or crackles Heart irregular heart rate Abdomen is soft nontender nondistended positive bowel sounds no hepatosplenomegaly Extremities no edema. Right leg dressing is clean dry and intact - Labs CBC & Chem 7: 01/01/19 05:52 01/01/19 05:52 Labs: Abnormal Lab Results - Last 24 Hours (Table) 01/01/19 01/01/19 Range/Units 05:52 05:52 WBC 15.0 H (3.8-10.6) k/uL Hgb 11.0 L (11.4-16.0) gm/dL Neutrophils # 12.4 H (1.3-7.7) k/uL Sodium 130 L (137-145) mmol/L Chloride 90 L (98-107) mmol/L Carbon Dioxide 32 H (22-30) mmol/L Glucose 104 H (74-99) mg/dL Calcium 7.5 L (8.4-10.2) mg/dL AST 59 H (14-36) U/L Total Protein 5.4 L (6.3-8.2) g/dL Albumin 2.7 L (3.5-5.0) g/dL Microbiology - Last 24 Hours (Table) 12/26/18 06:13 Blood Culture - Final Blood No Growth after 144 hours 12/30/18 17:02 Gram Stain - Preliminary Knee - Right Wound Culture - Preliminary Assessment and Plan Assessment: 1. Fever and increased pain to right knee due to septic right knee joint. White blood cell count 24. Patient did have aspiration of fluid in the office an d was sent for analysis. Infectious disease consulted. Blood culture growing presumptive staph aureus. Patient maintained on kefzol. Postop day 3 status post I&D of right knee. Patient will need PICC line with IV antibiotics on discharge. Per ID recommending daptomycin upon discharge. I and D with drain placement postop day 2. Discussed case with infectious disease. White blood cell improving to 15. Patient has been cleared for discharge. IV antibiotics arranged per ID 2. New-onset atrial fibrillation with rapid ventricular response. Patient maintained on eliquis for anticoagulation and Lopressor for rate control. Eliquis currently on hold for PICC line placement. Discussed with cardiology and infectious disease plans for PICC line today and then anticoagulation will need to be resumed per cardiology discussed with nursing staff to address this with cardiology upon PICC line placement. Anticoagulation switched to xarelto per cardiology due to insurance coverage 3. Hyponatremia. Sodium 126. Nephrology services are following. Sodium improving to 133. Okay to continue with low-dose Lasix remains on 1200 mL fluid restriction. Repeat CMP ordered in 2 days. Recommend close follow-up upon discharge per PCP. Maintain on fluid restriction diet 4. History of essential hypertension. Lisinopril has been added. Norvasc added per cardiology 5. History of Hyperlipidemia 6. History of hypothyroidism. TSH level 0.188. Synthroid decreased to 100. Recommend follow-up in 6 weeks 7. History of anxiety 8. Urinary tract infection. urine culture has been ordered. Infectious disease following 9. Acute kidney injury. Creatinine creasing 1.52. Lisinopril held. Patient maintained on normal saline at 100. Creatinine improving to 1.00 and bun 20. Resolved fluids DC'd 10. Increased shortness of breath possibly related to acute cardiogenic versus noncardiogenic pulmonary edema. maintained on IV Lasix. Showing diffuse pleuroparenchymal changes correlate for CHF versus diffuse pneumonia. Pulmonary services are following. Patient remains on IV Lasix discussed case with pulmonary team no signs of pneumonia this time. improved. Repeat chest x-ray completed showing findings could represent a CPAP failure with areas edema correlate services following. discussed case with pulmonary team okay for discharge patient has been transitioned to oral Lasix. 11. Episode of V. tach. Discussed with cardiology services patient asymptomatic. Magnesium level ordered. metoprolol to be increased per cardiology. Magnesium 2.0 12. Severe protein malnutrition. Ensures ordered and encouraged DVT prophylaxis xaeralto GI prophylaxis Protonix patient to [facility] I performed an examination of the patient and discussed their management with the Nurse Practitioner. I have reviewed the Nurse Practitioner's notes and agree with the documented findings and plan of care
[2019-01-01] MEDS: HYDROcodone/APAP 7.5-325MG 1 EACH TAB PO PRN (13:07)
--- NOTE | 2019-01-01 13:26 | P.PN ---
Subjective Progress Note Date: 01/01/19 Principal diagnosis: Septic right knee secondary to MSSA, A. fib with RVR, acute pulmonary edema This is a 68-year-old female with history of hypertension, dyslipidemia, hypothyroidism, nonsmoker, patient was admitted on 01/18/2019 with right knee pain, and she was diagnosed as having a septic right knee joint. A few days prior to her presentation, patient received cortisone injection in the right knee for symptoms of osteoarthritis. Patient developed significant swelling and warm sensation in the right knee, and significant pain 2 days after her cortisone injection. She went back to see Dr. Jurado and this time she underwent arthrocentesis. Fluid was noted to be bloody and she was advised to go to the hospital for admission. Upon admission the patient was noted to be in atrial fibrillation with RVR without any significant symptoms. And her chest x- ray showed bilateral interstitial infiltrates/edema. BNP level was elevated. Patient was treated for her septic knee joint with antibiotics, her blood cultures and joint fluid cultures came back positive for gram-positive cocci in clusters, it was mostly MSSA. Patient was seen by infectious disease on consultation, and she is receiving now ceftezole for her septic knee joint and for her gram-positive bacteremia. Chest x-ray on admission showed bilateral pulmonary infiltrates/interstitial edema, hence the patient was treated with diuretics, and over the last few days she has been noticing significant clinical improvement. Chest x-ray is also showing some improvement but not back to baseline. Considering her abnormal chest x-ray showing pulmonary congestion, I was asked to see the patient on consultation. Patient denies any cough, no wheezing, denies any hemoptysis, denies any chest pain. Presently he remains on Lasix at 40 mg IV push every 12 hours ordered by cardiology. No echocardiogram has been done since admission. On 12/29/2018 patient seen in follow-up on selective care unit, she states she is breathing easier, room air pulse ox is 96%, patient is afebrile, hemodynamically stable, no complaints of chest pain, no cough or congestion, patient is on IV diuretics, at 20 mg every 12 hours and she is in -1710 mL fluid balance. Lung sounds are diminished, she still has some lower extremity edema right greater than left. She is on daptomycin, ID service is following, right knee aspirate showed MSSA. No fever or chills. His lab work has been reviewed, and there has been slight uptrend of her white blood cell count up to 21.2 from 18.5 on yesterday's labs, hemoglobin is 11.0, Pedro is 1:30, potassium is 3.6, chloride is 91, CO2 is 33, B1 is 18 and creatinine is 0.79. 2-D echocardiogram has been ordered and is pending at this time. Patient is on fluid restriction of 1200 mL of fluid. Nephrology following. On 12/30/2018 patient seen in follow-up on selective care unit, she is up in the recliner, she states she is feeling fatigued today but she denies any acute distress, room air pulse ox is 93%, she denies any dyspnea, lung sounds are diminished at the bases, her IS effort is 750-1000 ML. She continues to diurese, currently on Lasix 20 mg every 12 hours, she is in -2390 mL fluid balance over the last 24 hours, venous Doppler of right lower extremity showed no evidence of DVT. No fever or chills. Vital signs are stable. Orthopedic surgery is planning for IND with drain placement today. She continues on antibiotics. Right knee wound cultures were positive for Staphylococcus aureus. Patient is on daptomycin, ID service is following. On 12/31/2018 patient seen in follow-up on selective care unit, she is calm and comfortable, without any acute complaints, she sits up in the recliner, yesterday she underwent repeat I&D of her right knee. No fever or chills, no complaints of dyspnea, lung sounds reveal diminished breath sounds at the bases, no rales, no rhonchi, incentive spirometry effort is 700-1000 mL today. She is in -1000 mL fluid balance over the last 24 hours, she is maintained on 1200 mL fluid restriction and her serum sodium is improving up to 133 on today's labs. On 01/01/2019 patient seen in follow-up on selective care unit. She is calm and comfortable, in no acute distress, she is on room air the pulse ox of 94-98%, afebrile, hemodynamically stable, patient has been transitioned to oral Lasix, fluid volume status is improving, she is maintaining negative fluid balance, she is -1.7 kg in the last 24 hours. No acute events overnight, no specific complaints, today's labs have been reviewed, white blood cell count continues to down trend, 15 today, serum sodium is 130, potassium 3.6, chloride is 90, CO2 32, patient remains on water restriction, nephrology is following. Objective - Vital Signs Vital signs: Vital Signs Temp 98.9 F 01/01/19 11:44 Pulse 85 01/01/19 11:44 Resp 20 01/01/19 11:44 BP 125/65 01/01/19 11:44 Pulse Ox 94 L 01/01/19 11:44 Intake & Output 12/31/18 01/01/19 01/01/19 18:59 06:59 18:59 Intake Total 222 480 Output Total 2100 1350 1200 Balance -1878 -1350 -720 Weight 88.6 kg 86.3 kg Intake: Oral 222 480 Output: Urine 2100 1350 1200 Other: Voiding Method Bedside Commode Bedside Commode Bedside Commode # Voids 2 - Exam GENERAL EXAM: Alert, pleasant, 68-year-old white female, on room air, with a pulse ox of 94%, comfortable in no apparent distress. HEAD: Normocephalic/atraumatic. EYES: Normal reaction of pupils, equal size. Conjunctiva pink, sclera white. NOSE: Clear with pink turbinates. THROAT: No erythema or exudates. NECK: No masses, no JVD, no thyroid enlargement, no adenopathy. CHEST: No chest wall deformity. Symmetrical expansion. LUNGS: Equal air entry with no crackles, wheeze, rhonchi or dullness. Diminished breath sounds at the bases CVS: Regular rate and rhythm, normal S1 and S2, no gallops, no murmurs, no rubs ABDOMEN: Soft, nontender. No hepatosplenomegaly, normal bowel sounds, no guarding or rigidity. EXTREMITIES: No clubbing, 1+ lower extremity edema, right greater than left edema, no cyanosis, 2+ pulses and upper and lower extremities. MUSCULOSKELETAL: Muscle strength and tone normal. SPINE: No scoliosis or deformity SKIN: No rashes CENTRAL NERVOUS SYSTEM: Alert and oriented -3. No focal deficits, tone is normal in all 4 extremities. PSYCHIATRIC: Alert and oriented -3. Appropriate affect. Intact judgment and insight. - Labs CBC & Chem 7: 01/01/19 05:52 01/01/19 12:41 Labs: Abnormal Lab Results - Last 24 Hours (Table) 01/01/19 01/01/19 Range/Units 05:52 05:52 WBC 15.0 H (3.8-10.6) k/uL Hgb 11.0 L (11.4-16.0) gm/dL Neutrophils # 12.4 H (1.3-7.7) k/uL Sodium 130 L (137-145) mmol/L Chloride 90 L (98-107) mmol/L Carbon Dioxide 32 H (22-30) mmol/L Glucose 104 H (74-99) mg/dL Calcium 7.5 L (8.4-10.2) mg/dL AST 59 H (14-36) U/L Total Protein 5.4 L (6.3-8.2) g/dL Albumin 2.7 L (3.5-5.0) g/dL Microbiology - Last 24 Hours (Table) 12/26/18 06:13 Blood Culture - Final Blood No Growth after 144 hours 12/30/18 17:02 Gram Stain - Preliminary Knee - Right Wound Culture - Preliminary Assessment and Plan Plan: Assessment: 1 septic right knee joint with gram-positive bacteremia secondary to MSSA. And sepsis 2 atrial fibrillation with RVR, it is not clear whether this is acute paroxysmal or chronic. Patient was noted to be in atrial fibrillation with RVR upon presentation to the ER, and she remains in atrial fibrillation but rate seems to be well-controlled. Cardiology is addressing the issue of her atrial fibrillation again it is not clear whether this is an acute chronic or paroxysmal. Most likely new onset. 3 hypertension 4 MSSA bacteremia , from infected right knee joint. 5 acute cardiogenic versus noncardiogenic pulmonary edema, this is yet to be determined based on response to Lasix, it is most likely related to the ongoing atrial fibrillation with RVR. Although the possibility of noncardiogenic pulmonary edema is in the differential considering the patient presented with infected knee joint and gram-positive bacteremia. Plan: Breathing is stable, no specific complaints, vital signs are stable, fluid volum e status is improving, maintaining negative fluid balance, oxygenation stable on room air, hemodynamics are stable. IV Lasix has been transitioned to oral Lasix, patient is stable for discharge to [facility] today from pulmonary perspective. Follow-up with Dr. Mendoza in the office in 2 weeks I performed a history & physical examination of the patient and discussed their management with my nurse practitioner, Kiesha Vasquez. I reviewed the nurse practitioner's note and agree with the documented findings and plan of care. Lung sounds are positive for diminished breath sounds with bibasilar crackles. The findings and the impression was discussed with the patient. I attest to the documentation by the nurse practitioner. Time with Patient: Less than 30
--- NOTE | 2019-01-01 14:45 | P.PN ---
Subjective Progress Note Date: 01/01/19 This is a pleasant 68-year-old female with history of hypertension, hyperlipidemia, prior thyroid removal for which she takes Synthroid, nonsmoker, rare EtOH, who states that she was getting into bed few nights ago, and felt something pull in her right knee. Subsequent to that she developed pain in that knee, she went to see Dr. Jurado in his office, he gave her a steroid injection. The knee became quite swollen, and warm to the touch, and the pain continued to worsen, to the point where the patient states she could hardly walk. She went back to see Dr. Jurado who joseph some fluid from that knee, which was bloody according to the patient, she was then referred to come to the hospital for admission. EKG on presentation here showed atrial fibrillation, patient denies any prior history of atrial fibrillation, she denies having any palpitations, dizziness, shortness of breath. She does state that she had TIA in 2004. The knee x-ray on arrival here showed mild to moderate tricompartmental osteoarthritis. Small to moderate knee joint effusion. Chest x-ray shows marked bilateral pulmonary infiltrative process. Blood pressure 128/50, heart rate in the 90s, temperature 102.5 this morning. Blood cultures show gram- positive cocci in clusters. White blood cell count 24 on admission, 19 this morning, hemoglobin 12.6, platelet count 195. Sodium 126, potassium 4.4, BUN 16 and creatinine 0.9. C-reactive protein 224, total bilirubin 3.5, positive UTI. At the time of my examination this morning, patient feels well, she continues to have pain in her right knee, denies any dizziness or lightheadedness, no shortness of breath, no palpitations. She is currently on IV Cardizem, no heparin has been initiated. 12/24/2018 Patient seen and examined this morning, hemodynamically stable. Continues to be in atrial fibrillation this morning. Echocardiogram with Doppler study remains pending. From our perspective, patient may proceed with surgery tomorrow, we will recommend to discontinue the heparin 4 hours before. 12/26/2018 Patient seen and examined this morning, overall she feels well, she is experiencing much less pain in her knee today. She underwent arthroscopic irrigation and partial laterall meniscectomy yesterday. Repeat chest x-ray shows patchy infiltrates greater at the lung bases which could be some resolving pulmonary edema. According to the patient, she denies any shortness of breath but states that when she walks to the bathroom she does get mildly short of breath at that time. We will start her on a small dose of Lasix 20 mg IV twice a day and Cipro she responds to this within the next 24 hours. Hemodynamically she stable. Blood pressure 130/70 with a heart rate in the 70s this morning, 92% on room air. White blood cell count 14.2, hemoglobin 11.7, platelet count 227. Sodium 131, potassium 4.7, BUN 20 and creatinine 0.9. 12/27/2018 Patient was seen and examined today she does state that she has a hacking cough but feels that overall her breathing is starting to improve especially when she walks to the bathroom. She did not sleep well last night. Continues to be in atrial fibrillation with a controlled ventricular response. Blood pressure remains elevated, lisinopril dose was increased today. 12/28/2018 Patient was seen and examined this morning, chest x-ray film was reviewed which did show some improvement, we will continue with current dose of Lasix. The patient also continues to be in atrial fibrillation, heart rate under adequate control. Blood pressure 134/60 with a heart rate in the 80s. Blood cell count 18.5, hemoglobin 11.4, platelet count 329. Sodium 133, potassium 3.8, BUN 20 and creatinine 0.9. 01/01/2019 Patient was seen and examined this morning, other than feeling tired she feels overall very well, her IV Lasix has been discontinued and she's been placed on oral diuretics, she is anticipating transferred to rehab today. Objective - Vital Signs Vital signs: Vital Signs Temp 98.9 F 01/01/19 11:44 Pulse 85 01/01/19 11:44 Resp 20 01/01/19 11:44 BP 125/65 01/01/19 11:44 Pulse Ox 94 L 01/01/19 11:44 Intake & Output 12/31/18 01/01/19 01/01/19 18:59 06:59 18:59 Intake Total 222 480 Output Total 2100 1350 1200 Balance -8489 -7254 -720 Weight 88.6 kg 86.3 kg Intake: Oral 222 480 Output: Urine 2100 1350 1200 Other: Voiding Method Bedside Commode Bedside Commode Bedside Commode # Voids 2 - Exam PHYSICAL EXAMINATION: GENERAL: 68-year-old female in no acute distress at the time of my examination HEENT: Head is atraumatic, normocephalic. Pupils equal, round. Sclera anicteric. Conjunctiva are clear. Mucous membranes of the mouth are moist. Neck is supple. There is no elevated jugular venous pressure. No carotid bruit is heard. HEART EXAMINATION: S1 and S2 irregularly irregular CHEST EXAMINATION: Lungs are clear with mild diminished air entry to the bases . No chest wall tenderness is noted on palpation or with deep breathing. ABDOMEN: Soft, nontender. Bowel sounds are heard. No organomegaly noted. EXTREMITIES: 2+ peripheral pulses with trace evidence of peripheral edema and no calf tenderness noted. There is swelling of the right knee noted as well as warmness of that knee NEUROLOGIC patient is awake, alert and oriented 3 . - Labs CBC & Chem 7: 01/01/19 05:52 01/01/19 12:41 Labs: Abnormal Lab Results - Last 24 Hours (Table) 01/01/19 01/01/19 Range/Units 05:52 05:52 WBC 15.0 H (3.8-10.6) k/uL Hgb 11.0 L (11.4-16.0) gm/dL Neutrophils # 12.4 H (1.3-7.7) k/uL Sodium 130 L (137-145) mmol/L Chloride 90 L (98-107) mmol/L Carbon Dioxide 32 H (22-30) mmol/L Glucose 104 H (74-99) mg/dL Calcium 7.5 L (8.4-10.2) mg/dL AST 59 H (14-36) U/L Total Protein 5.4 L (6.3-8.2) g/dL Albumin 2.7 L (3.5-5.0) g/dL Microbiology - Last 24 Hours (Table) 12/26/18 06:13 Blood Culture - Final Blood No Growth after 144 hours 12/30/18 17:02 Gram Stain - Preliminary Knee - Right Wound Culture - Preliminary Assessment and Plan Plan: Assessment and plan #1 right knee pain and swelling with associated fever . Elevated white blood cell count, temperature this morning 102.5, blood cultures positive for gram- positive cocci in clusters #2 hypertension #3 atrial fibrillation, appears to be of new onset for the patient #4 hyperlipidemia #5 history of thyroidectomy, on Synthroid #6 TIA in 2015. Plan IV Lasix has been discontinued and patient has been initiated on oral diuretics. From our perspective she may be able to be transferred to rehab today and we will make her a follow-up appointment in the office post discharge. DNP note has been reviewed, I agree with a documented findings and plan of care. Patient was seen and examined.
[2019-01-01] MEDS ORDERED: FUROSEMIDE 40 MG TAB PO SCH (16:00)
[2019-01-01] MEDS ORDERED: RIVAROXABAN 20 MG TAB PO SCH (17:30)
--- NOTE | 2019-01-02 10:13 | OP ---
OPERATIVE REPORT DATE OF PROCEDURE: 12/30/2018 PREOPERATIVE DIAGNOSIS: Right knee septic arthritis. POSTOPERATIVE DIAGNOSIS: Right knee septic arthritis. PROCEDURE PERFORMED: Right knee arthroscopic irrigation and debridement. SURGEON: Trav Jurado MD. ANESTHESIA: General endotracheal. ESTIMATED BLOOD LOSS: Minimal. TOURNIQUET: None. DRAINS: None. COMPLICATIONS: None apparent. DISPOSITION: Postanesthesia care unit. INDICATIONS: Elda is a very pleasant 68-year-old female well known to me. She previously underwent an arthroscopic irrigation debridement of a septic right knee approximately a week ago. She did quite well for a while on the floor. She had a white count that spiked a couple of days ago. Recommendation per Infectious Disease was for repeat irrigation, debridement. This seemed reasonable given her spike in white count as well as the fact that there was no other identified source of infection other than positive blood cultures noted. I had a long discussion with her with regard to treatment options. At this point, she does wish to proceed operative intervention. Risks were explained to the patient which include, but are not limited to risk of infection, nerve damage, bleeding, pain, and a small risk of deep vein thrombosis which could lead to fatal pulmonary emboli. The patient understands the risks, wished to proceed with surgical procedure. DETAILS OF THE PROCEDURE: Patient identified in preoperative holding area. Surgical site was marked by both the patient and myself. She was then transferred to the operative suite. She was placed supine on the operating room table. General anesthetic was then administered, dosed per the anesthesia without apparent complication. Tourniquet was then placed high on the right upper thigh well-padded in preparation for surgery. The tourniquet was not inflated throughout the entire procedure. The patient's right lower extremity was than prepped draped in usual sterile fashion. Standard surgical pause undertaken to ensure that we were operating on the correct site and that appropriate preoperative antibiotics had been given. All staff in the room were in agreement and we proceeded. The previous inferolateral portal was then utilized. The 30 degree arthroscope was introduced in the suprapatellar pouch. The arthroscopic pump pressure was set to 60 mmHg and maintained at that level throughout the entire case. I also used the previous inferomedial portal as well. Fluid was expressed from the knee, was not purulent. It was serosanguineous. It was more normal appearing joint fluid and there was very minimal effusion at the time that I inserted the arthroscopic instruments. I then proceeded with irrigation. We utilized in total 9 L of sterile saline solution to with Ancef added. I utilized the synovial shaver to debride any hematoma, which was very minimal in the knee. There was not any necrotic tissue noted. There was very little to no fibrinous tissue. Mostly just debridement and evacuation of the hematoma with a synovial shaver. The arthroscope was moved around to the suprapatellar pouch, the medial gutter, the lateral gutter and both the medial and lateral compartments of the knee. In total, I ran 9 L of fluid with Ancef added. The arthroscopic equipment was removed from the knee. I did place a drain through the inferomedial portal. This was hooked up to suction. The portals were then closed with 3-0 nylon interrupted suture. Sterile compressive dressing was then applied. All sponge and needle counts were deemed correct prior to closure. The patient tolerated procedure without apparent complication. The tourniquet was not inflated throughout the entire procedure. She was transferred to the recovery room in stable condition. MMODL / IJN: [id number] /
== END 2019-01-01 14:03 | DRG 485 ==
LOC: EC 15:19 → 4SSUR 18:56 → 3SCARD 20:46
PROVIDERS: ADMIT Orthopaedic Surgery Sports Medicine; ATTEND Orthopaedic Surgery Sports Medicine
PROC: 0SBC4ZZ Excision of Right Knee Joint, Percutaneous Endoscopic Approach (ICD-10-PCS; principal; 2018-12-25 07:30)
PROC: 02HV33Z Insertion of Infusion Device into Superior Vena Cava, Percutaneous Approach (ICD-10-PCS; 2018-12-31)
PROC: 0SBC4ZZ Excision of Right Knee Joint, Percutaneous Endoscopic Approach (ICD-10-PCS; 2019-01-01)
DX: M00.061 Staphylococcal arthritis, right knee (principal); E43 Unspecified severe protein-calorie malnutrition; I50.33 Acute on chronic diastolic (congestive) heart failure; E87.1 Hypo-osmolality and hyponatremia; E87.2 Acidosis; I47.2 Ventricular tachycardia; N17.9 Acute kidney failure, unspecified; N39.0 Urinary tract infection, site not specified; E66.9 Obesity, unspecified; E78.5 Hyperlipidemia, unspecified; Z68.28 Body mass index [BMI] 28.0-28.9, adult; E86.1 Hypovolemia; E89.0 Postprocedural hypothyroidism; F41.9 Anxiety disorder, unspecified; I11.0 Hypertensive heart disease with heart failure; K59.00 Constipation, unspecified; M22.41 Chondromalacia patellae, right knee; M17.11 Unilateral primary osteoarthritis, right knee; M65.9 Synovitis and tenosynovitis, unspecified; S83.281A Other tear of lateral meniscus, current injury, right knee, initial encounter; T39.395A Adverse effect of other nonsteroidal anti-inflammatory drugs [NSAID], initial encounter; Z79.01 Long term (current) use of anticoagulants; Z79.82 Long term (current) use of aspirin; Z79.890 Hormone replacement therapy; Z79.899 Other long term (current) drug therapy; Z86.73 Personal history of transient ischemic attack (TIA), and cerebral infarction without residual deficits; Z87.891 Personal history of nicotine dependence; Z90.710 Acquired absence of both cervix and uterus; I48.0 Paroxysmal atrial fibrillation; B95.61 Methicillin susceptible Staphylococcus aureus infection as the cause of diseases classified elsewhere
CPT/HCPCS: 36415; 36573; 71045; 71046; 80048; 80053; 81001; 83605; 83735; 83880; 83930; 83935; 84132; 84300; 84443; 84550; 85025; 85027; 85610; 85652; 85730; 86140; 87040; 87070; 87075; 87077; 87086; 87186; 87205; 93005; 93306; 96365; 96375; 96376; 99285

== ENCOUNTER → 2019-08-25 | Outpatient (CLI) | payer MEDICARE ==
[2019-08-25 15:38] LABS: African American GFR (CKD) 86.6 (60.0-200.0); BUN/Creat Ratio 16.25 Ratio (12.00-20.00); Calcium 9.1 mg/dL (8.7-10.3); Carbon Dioxide 31.8 mmol/L (21.6-31.8); Chloride 99 mmol/L (96-109); Chol/HDL Ratio 1.92; Cholesterol 150 mg/dL (0-200); Glucose 88 mg/dL (70-110); Non-African American GFR(CKD) 74.7 (60.0-200.0); Potassium 4.8 mmol/L (3.5-5.5); Sodium 139 mmol/L (135-145); Triglycerides <50.0 mg/dL (0.0-149.0)
== END | disposition home or self-care (01) ==
LOC: LABWHC1 08:34
PROVIDERS: ATTEND Physician Assistant
DX: E78.5 Hyperlipidemia, unspecified (principal); I10 Essential (primary) hypertension
CPT/HCPCS: 36415; 80048; 80061

== ENCOUNTER → 2019-10-13 | Outpatient (CLI) | payer MEDICARE ==
--- NOTE | 2019-10-14 11:53 | MM ---
Reason for exam: screening (asymptomatic). Last mammogram was performed 5 years and 5 months ago. Physical Findings: A clinical breast exam by your physician is recommended on an annual basis and results should be correlated with mammographic findings. MG 3D Screening Mammo W/Cad Bilateral CC and MLO view(s) were taken. Prior study comparison: May 06, 2014, mammogram, performed at [facility]. The breast tissue is heterogeneously dense. This may lower the sensitivity of mammography. There are benign appearing vascular calcifications bilaterally. There is chronic nodularity in the left breast, decreased in size. There is no discrete abnormality. ASSESSMENT: Benign, BI-RAD 2 RECOMMENDATION: Routine screening mammogram of both breasts in 1 year.
== END | disposition home or self-care (01) ==
LOC: RADMAMWWP 14:42
PROVIDERS: ATTEND Internal Medicine
DX: Z12.31 Encounter for screening mammogram for malignant neoplasm of breast (principal)
CPT/HCPCS: 77063; 77067

== ENCOUNTER → 2019-12-29 | Outpatient (CLI) | payer MEDICARE ==
[2019-12-29 12:55] LABS: Basophils % (A) 1 %; Eosinophils # (A) 0.1 k/uL (0-0.7); Eosinophils % (A) 2 %; HGB 12.9 gm/dL (11.4-16.0); Lymphocytes # (A) 1.7 k/uL (1.0-4.8); Lymphocytes % (A) 26 %; MCH 28.4 pg (25.0-35.0); MCHC 32.3 g/dL (31.0-37.0); Mean Platelet Volume 6.8; Monocytes # (A) 0.4 k/uL (0-1.0); Monocytes % (A) 5 %; Neutrophils # (A) 4.2 k/uL (1.3-7.7); Neutrophils % (A) 64 %; Platelet Count 262 k/uL (150-450); RBC 4.55 m/uL (3.80-5.40); RDW 13.5 % (11.5-15.5); WBC 6.5 k/uL (3.8-10.6)
[2019-12-29 20:29] LABS: Erythrocyte Sedimentation Rate 6 mm/Hr (0-30)
== END | disposition home or self-care (01) ==
LOC: LABWHC1 11:07
PROVIDERS: ATTEND Orthopaedic Surgery
DX: M25.50 Pain in unspecified joint (principal)
CPT/HCPCS: 36415; 85025; 85652; 86140

== ENCOUNTER → 2020-05-03 | Outpatient (CLI) | payer MEDICARE ==
--- NOTE | 2020-05-04 10:24 | XR ---
EXAMINATION TYPE: XR chest 2V DATE OF EXAM: 05/03/2020 COMPARISON: NONE TECHNIQUE: PA and lateral views submitted. HISTORY: Cough FINDINGS: The lungs are clear and there is no pneumothorax, pleural effusion, or focal pneumonia. 12/31/2018 h eart size normal. No overt failure. Arthropathy shoulders. Hypertrophic and degenerative changes spin e. Hyperinflation suggests COPD. IMPRESSION: 1. No acute process.
== END | disposition home or self-care (01) ==
LOC: RADXRMAIN 15:53
PROVIDERS: ATTEND Internal Medicine
DX: R05 Cough (principal)
CPT/HCPCS: 71046

== ENCOUNTER → 2020-11-09 | Outpatient (CLI) | payer MEDICARE | END | disposition home or self-care (01) | LOC: LABPAT 12:40 | PROVIDERS: ATTEND Orthopaedic Surgery | DX: Z01.812 Encounter for preprocedural laboratory examination (principal) | CPT/HCPCS: 87070 ==

== ENCOUNTER 2020-12-26 10:57 | Day surgery (SDC) | payer MEDICARE ==
[2020-12-18 11:06] VITALS: BMI 27.6
--- NOTE | 2020-12-23 11:39 | HP ---
HISTORY AND PHYSICAL CHIEF COMPLAINT: Right knee pain. HISTORY OF PRESENT ILLNESS: The patient is a 69-year-old female who presents with progressive right knee pain for the past several years, worsening recently. She had a previous injection in 2019, followed by infected right knee for which she underwent irrigation and debridement. She underwent extensive treatment for this. Currently, she is having pain with weightbearing activities in addition to use of stairs and getting up from a seated position. She has been taking medications with only partial temporary relief. PAST MEDICAL HISTORY: Significant for atrial fibrillation, hypertension, hypothyroidism, hyperlipidemia, and arthritis. PAST SURGICAL HISTORY: Significant for arthroscopic irrigation and debridement of the right knee. CURRENT MEDICATIONS: Amlodipine, atorvastatin, flecainide, Lasix, levothyroxine, lisinopril, Xarelto. She denies drug allergies. FAMILY HISTORY: Significant for heart disease, Alzheimer's. SOCIAL HISTORY: Negative for current tobacco or alcohol use. REVIEW OF SYSTEMS: Sixteen-point review of systems otherwise reviewed and is noncontributory. PHYSICAL EXAMINATION: On examination, the patient is approximately 5 foot 7, 185 pounds of endomorphic habitus. HEENT exam is nonfocal. NECK is supple. Passive motion of the right hip with pain motion minus 10 to 100 degrees of flexion. She has a moderate effusion. She is tender about the lateral joint line. Collaterals are stable, Lucia is negative, Dilia's is equivocal. She has genu valgum alignment. Her distal neurovascular exam appears intact in the right lower extremity. Weightbearing notch, lateral and Merchant views of the right hip obtained in the office show severe lateral and patellofemoral narrowing. IMPRESSION: 1. Right knee severe lateral and patellofemoral compartment arthritic osteoarthrosis. 2. History of previous septic right knee. 3. Atrial fibrillation on anticoagulation. RECOMMENDATIONS: I talked to the patient at length regarding her condition along with treatment options. At this point, she is quite symptomatic and limited because of pain despite previous conservative measures. She previously underwent clearance by her infectious disease specialist regarding the right knee. We will plan to proceed with right total knee arthroplasty. Risks and benefits discussed at length in layman's terms. We will reinstitute anticoagulation postoperatively. MMODL / IJN: [id number] /
[~2020-12-26 10:57] MED LIST: ACETAMINOPHEN TAB 500 MG TAB PO PRN; HYDROmorphone 0.5 MG/0.5 ML SYRINGE IVP PRN; MELOXICAM 7.5 MG TAB PO PRN; ONDANSETRON 4 MG/2 ML VIAL IVP ONE; TRANEXAMIC ACID 1,000 MG in SODIUM CHLORIDE 0.9% 100 ML IVPB PRN
[2020-12-26 11:51] LABS: Glucose,Whole Blood 92 mg/dL (75-99)
[2020-12-26] MEDS: LACTATED RINGERS 1,000 ML IV SCH (11:55)
[2020-12-26] MEDS ORDERED: DEXAMETHASONE SOD PHOSPHATE 4 MG/ML 1 ML VIAL IVP ONE (12:01)
[2020-12-26] MEDS ORDERED: MIDAZOLAM 2 MG/2 ML VIAL IVP ONE (12:10)
[2020-12-26] MEDS ORDERED: fentaNYL (PF) 50 MCG/ML 2 ML AMP IVP ONE (12:10)
--- NOTE | 2020-12-26 13:32 | P.ANPRN ---
Procedure Note - Anesthesia - Nerve Block Performed Right Adductor Canal Infusion Time Out Performed: Yes (1208) Date of Procedure: 12/26/20 Procedure Start Time: 12:10 Procedure Stop Time: 12:15 Location of Patient: PreOp Indication: Acute Post-Operative Pain, Requested by Surgeon Specifically requested for management of pain by DrMaida: Killian Agudelo Sedation Type: Sedate with meaningful contact maintained Preparation: Sterile Prep, Sterile Dressing Position: Supine Catheter Depth at Skin (cm): 8 Catheter: Indwelling Needle Types: Pajunk Needle Gauge: 21 Ultrasound used to visualize needle placement: Yes Ultrasound used to observe medication spread: Yes Injectate: 0.5% Ropivacaine (see comment for volume) (15CC + 5CC NACL PF) Blood Aspirated: No Pain Paresthesia on Injection Noted: No Resistance on Injection: Normal Image Stored and Saved: Yes Events: Uneventful and Well Tolerated Right iPack Single Time Out Performed: Yes (1208) Date of Procedure: 12/26/20 Procedure Start Time: 12:11 Procedure Stop Time: 12:16 Location of Patient: PreOp Indication: Acute Post-Operative Pain, Requested by Surgeon Specifically requested for management of pain by DrMaida: Killian Agudelo Sedation Type: Sedate with meaningful contact maintained Preparation: Sterile Prep Position: Supine Catheter: None Needle Types: Pajunk Needle Gauge: 21 Ultrasound used to visualize needle placement: Yes Ultrasound used to observe medication spread: Yes Injectate: 0.5% Ropivacaine (see comment for volume) (15CC + 5CC NACL PF) Blood Aspirated: No Pain Paresthesia on Injection Noted: No Resistance on Injection: Normal Image Stored and Saved: Yes Events: Uneventful and Well Tolerated
[2020-12-26] MEDS ORDERED: ROPIVACAINE 5 MG/ML 30 ML VIAL ONE (14:27)
[2020-12-26] MEDS ORDERED: SODIUM CHLORIDE 0.9% 100 ML BAG ONE (14:27)
[2020-12-26] MEDS ORDERED: MIDAZOLAM 2 MG/2 ML VIAL ONE (14:27)
[2020-12-26] MEDS ORDERED: TRANEXAMIC ACID 1,000 MG/10 ML VIAL ONE (14:27)
[2020-12-26] MEDS ORDERED: PROPOFOL 10 MG/ML 20 ML VIAL IV ONE (14:27)
[2020-12-26] MEDS ORDERED: fentaNYL (PF) 50 MCG/ML 2 ML AMP ONE (14:27)
[2020-12-26] MEDS ORDERED: SODIUM CHLORIDE 0.9% (PF) 10 ML VIAL ONE (14:27)
[2020-12-26] MEDS ORDERED: ceFAZolin 1,000 MG in SODIUM CHLORIDE 0.9% 1,000 ML IRRIGATION ONE (14:56)
[2020-12-26] MEDS ORDERED: ACETAMINOPHEN TAB 325 MG TAB PO PRN ×2 (16:06→17:12)
[2020-12-26] MEDS ORDERED: NALOXONE 0.4 MG/ML 1 ML VIAL IV PRN (16:06)
[2020-12-26] MEDS ORDERED: MAGNESIUM HYDROXIDE 2,400 MG/10 ML CUP PO PRN (16:06)
[2020-12-26] MEDS ORDERED: HYDROmorphone 0.5 MG/0.5 ML SYRINGE IVP PRN (16:06)
[2020-12-26] MEDS ORDERED: HYDROcodone/APAP 5-325MG 1 EACH TAB PO PRN (16:08)
--- NOTE | 2020-12-26 16:28 | P.OP ---
Date of Procedure: 12/26/20 Preoperative Diagnosis: Right knee severe tricompartmental osteoarthrosis Postoperative Diagnosis: Same Procedure(s) Performed: Right total knee arthroplastycementedcruciate retaining Implants: Depuy Attune size 6 neural cemented femoral component, size 5 cemented tibial component, 10 mm articular surface, 35 mm cemented patellar component. This is a cruciate retaining implant. Anesthesia: GETA Surgeon: Killian Agudelo Fisher Crab #1: Uli Mcgovern Estimated Blood Loss (ml): 50 Pathology: other (Bone fragments) Condition: stable Disposition: PACU Indications for Procedure: The patient's 70-year-old female who presents with persistent/progressive right knee pain secondary to osteoporosis despite conservative measures. A discussion of the risks and benefits of operative intervention versus continued conservative measures was made with patient. She opted to proceed with surgery. Operative risks to include infection, neurovascular injury, development of blood clots, possible component loosening/failure need for subsequent procedures was discussed. Informed consent was obtained. Operative Findings: As below Description of Procedure: The patient was brought to the operating room, and after induction of spinal anesthesia the right lower extremity was prepped and draped in a normal fashion. The tourniquet was inflated to 270 mmHg. A longitudinal incision extending 3 finger breaths above the superior pole of the patella extending to the medial aspect the tibial tubercle was then made. The skin and subcutaneous tissues were divided sharply. Electrocautery was used for hemostasis. A medial parapatellar arthrotomy was then performed. The medial soft tissues to include the superficial and deep portions of the medial collateral ligament as well as the medial hamstring tendons were elevated subperiosteally. The proximal medial tibia osteophytes were carefully removed. The patella was everted. The knee was flexed. A portion of the retropatellar fat pad was excised sharply. The anterior cruciate ligament was sacrificed. A starting hole was made in the distal femur 1 cm anterior to the posterior cruciate origin. An intramedullary femoral guide was gently inserted planning on 5 valgus distal cut with 9 mm distal resection. The cutting block was pinned in place. The distal cut was then made. The posterior referencing sizing guide was utilized. 3 of external rotation was built into the system and verified off the trans- epicondylar axis and the posterior condyles. I felt size 6 narrow was most appropriate. The cutting block was pinned in place. The anterior, posterior, and chamfer cuts were then made. The bone fragments were removed. A sulcus cut was then made with the appropriate guide. The trial size 6 femoral component was then placed and was fully seated. There was good anterior to posterior and medial to lateral fit. The distal peg holes were then drilled. The trial component was then removed. Attention was then paid towards preparing the proximal tibia. An extra medullary guide was utilized in line with the tibial shaft and second metatarsal distally. A 7 posterior slope was planned. I planned on 6 mm resection from the medial compartment. The cutting block was pinned in place. The proximal tibial cut was then made. The bone was removed in one fragment. The remnants of the medial and lateral menisci were excised the capsule junction with electrocautery. The tibia sized most appropriately at size 5. The posterior osteophytes off the distal femur were carefully removed with a curved osteotome. The trial tibial and femoral components were placed along with a 10 millimeters articular surface. I was able to obtain full flexion and extension with good stability with varus and valgus stress. After several flexion and extension cycles, the tibial rotation was marked with electrocautery in line with the medial one third of the tibial tubercle. Attention was then paid towards preparing the patella. A patella reamer was utilized taking this down to 14 mm of bone stock. A good flush cut was made. The patella sized most appropriately at 35 millimeters. The peg holes were then drilled. The trial component was placed. The knee was taken through a range of motion. I had good patellofemoral tracking with no hands technique. The trial components were then removed. The tibia was prepared in the appropriate rotation with appropriate drill and keel punch. The flexion and extension gaps were checked and felt to be symmetric. The posterior soft tissues were injected with ropivacaine. The bony surfaces were prepared with pulsatile lavage and dried. The deep tibial component was then cemented in place and was fully seated. Excess cement was removed. The femoral component was cemented in place and was fully seated. Again excess cement was removed. The trial 10 millimeters surface was then inserted in the knee was put in full extension. The patella component was cemented in place. After the cement had sufficiently hardened, the knee was again taken through a range of motion. Again there was good stability in flexion and extension with varus and valgus stress. The trial articular surface was then removed. The final articular surface was placed and was impacted. Care was taken to avoid any soft tissue interposition. Pulsatile lavage was again utilized. The tourniquet was deflated with approximately 60 minutes total tourniquet time. There was minimal drainage therefore a deep drain was not placed. The medial parapatellar arthrotomy was then closed with #2 Ethibond suture. The subcutaneous tissues were reapproximated interrupted 2- 0 Vicryl sutures. The skin was reapproximated with 3-0 subarticular strata fix suture. Skin tape and adhesive was applied. A sterile dressing was applied. The patient was then awoken from sedation and transferred to recovery room in good condition. Blood loss was estimated at 50 milliliters. No complications were incurred. Sponge and needle counts were correct at the end the case. Conrado DUTTA assisted during the major components this case to include exposure, bone resection, and implantation.
[2020-12-26] MEDS: ROPIVACAINE 0.2%-NS ON-Q PUMP 1,090 MG, EMPTY PAIN BALL 1 EACH MISCELLANE PRN ×2 (16:47→17:00)
[2020-12-26] MEDS ORDERED: MEPERIDINE 50 MG/ML SYRINGE IVP ONE (17:00)
--- NOTE | 2020-12-26 17:09 | XR ---
EXAMINATION TYPE: XR knee limited RT DATE OF EXAM: 12/26/2020 CLINICAL HISTORY: Postoperative knee. TECHNIQUE: 2 views of the right knee. COMPARISON: None. FINDINGS: There is demonstration of right knee arthroplasty with patellar resurfacing. There are pos toperative soft tissue emphysema. Alignment is anatomic. No acute fracture or dislocation. No evidenc e of immediate hardware complication. IMPRESSION: Status post right knee arthroplasty.
[2020-12-26] MEDS ORDERED: FUROSEMIDE 20 MG TAB PO PRN (17:12)
[2020-12-26] MEDS ORDERED: FLUTICASONE 50MCG/SPRAY NASAL 16GM EA NOSTRIL PRN (17:12)
[2020-12-26] MEDS ORDERED: PANTOPRAZOLE 40 MG TABLET PO PRN (17:12)
[2020-12-26] MEDS ORDERED: MAG HYDROX/AL HYDROX/SIMETH 30 ML CUP PO PRN (17:12)
[2020-12-26] MEDS ORDERED: clonazePAM 0.5 MG TAB PO PRN (17:12)
[2020-12-26] MEDS: LORATADINE 10 MG TAB PO SCH (18:54)
[2020-12-26] MEDS: ATORVASTATIN 20 MG TAB PO SCH (18:54)
--- NOTE | 2020-12-26 19:24 | P.CONS ---
History of Present Illness - Reason for Consult Consult date: 12/26/20 - History of Present Illness Elda You, is a 70-year-old female well known to my practice who was admitted to [facility] by Dr. Agudelo, and underwent right total knee arthroplasty on 12/26/2020 due to advanced osteoarthritis resulting in severe pain and gait disturbance that was not amenable to conservative management. Patient was admitted to medical floor post surgery, consultation was requested for medical management while hospitalized. Past medical history significant for history of hypertension, history of hyperlipidemia, history of atrial fibrillation history of hypothyroidism, and history of ALLERGIC rhinitis. On review of systems patient is complaining of mild pain in her right lower extremity otherwise she denies any complaints, there is no fever or chills no headache or dizziness no chest pain no shortness of breath no palpitation no cough no nausea or vomiting no abdominal pain no diarrhea no blood in the stools no burning with urination no frequency or urgency and no hematuria, there is no weakness or numbness in any of the extremities no change in vision speech or gait. Past Medical History Past Medical History: Atrial Fibrillation, GERD/Reflux, Hyperlipidemia, Hypertension, Osteoarthritis (OA), Thyroid Disorder Additional Past Medical History / Comment(s): sinus problems/post nasal drip,ocass constipation,,hx sepsis after injection in knee 2018,states "hx of showing hyperinflation of lungs on prior xrays" History of Any Multi-Drug Resistant Organisms: None Reported Past Surgical History: Hysterectomy, Tonsillectomy, Tubal Ligation Additional Past Surgical History / Comment(s): thryoid,steroid injection Nov 2020,rt knee I&D x2 Past Anesthesia/Blood Transfusion Reactions: No Reported Reaction Past Psychological History: Anxiety Smoking Status: Former smoker Past Alcohol Use History: Occasional Additional Past Alcohol Use History / Comment(s): quit smoking 1984,started smoking 1968 Past Drug Use History: None Reported - Past Family History Father Additional Family Medical History / Comment(s): POCKETS IN THE LUNG, ULCERATIVE COLITIS Mother Family Medical History: AFIB Medications and Allergies Home Medications Medication Instructions Recorded Confirmed Type Cholecalciferol [Vitamin D3 (25 2,000 unit PO DAILY 06/01/14 12/18/20 History Mcg = 1000 Iu)] Magnesium Oxide [Mag-Ox] 500 mg PO BID 06/01/14 12/18/20 History Omeprazole [PriLOSEC] 20 mg PO DAILY PRN 12/22/18 12/18/20 History amLODIPine [Norvasc] 5 mg PO BID 12/22/18 12/18/20 History Acetaminophen Tab [Tylenol] 650 mg PO Q6HR PRN tab 01/01/19 12/18/20 Rx Levothyroxine Sodium [Synthroid] 100 mcg PO DAILY@0630 tab 01/01/19 12/18/20 Rx Rivaroxaban [Xarelto] 20 mg PO W/SUPPER tab 01/01/19 12/18/20 Rx Atorvastatin [Lipitor] 20 mg PO DAILY 12/18/20 12/18/20 History Cetirizine HCl [Zyrtec] 10 mg PO DAILY 12/18/20 12/18/20 History Flecainide [Tambocor] 50 mg PO Q12HR 12/18/20 12/18/20 History Fluticasone Propionate [Flonase 1 spray EA NOSTRIL DAILY PRN 12/18/20 12/18/20 History Allergy Relief] Furosemide [Lasix] 20 mg PO DAILY PRN 12/18/20 12/18/20 History L.acidoph,Paracasei, B.lactis 1 each PO DAILY 12/18/20 12/18/20 History [Probiotic] Mag/Aluminum/Sod Bicarb/Alginc 1 tab PO DAILY PRN 12/18/20 12/18/20 History [Gaviscon 80-14.2 mg Tab Chew] Milk Of Magnesia Tablets 1 - 2 tab PO HS PRN 12/18/20 12/18/20 History Montelukast Sodium [Singulair] 10 mg PO HS 12/18/20 12/18/20 History clonazePAM 0.5 mg PO HS PRN 12/18/20 12/18/20 History lisinopriL [Zestril] 40 mg PO QAM 12/18/20 12/18/20 History Allergies Allergy/AdvReac Type Severity Reaction Status Date / Time No Known Allergies Allergy Verified 12/26/20 11:28 Physical Exam Vitals: Vital Signs Temp Pulse Pulse Resp BP Pulse Ox 12/26/20 18:30 66 167/89 98 12/26/20 18:15 68 163/72 97 12/26/20 18:00 64 168/80 97 12/26/20 17:45 98.2 F 61 17 136/80 98 12/26/20 17:19 70 16 148/67 97 12/26/20 17:03 65 16 173/76 97 12/26/20 16:48 53 L 16 160/73 98 12/26/20 16:30 69 16 145/64 96 12/26/20 16:23 97.0 F L 63 16 150/70 97 12/26/20 12:35 60 16 170/74 99 12/26/20 11:26 98.2 F 82 16 174/74 98 Intake and Output 12/26/20 12/26/20 12/26/20 06:59 14:59 22:59 Intake Total 801 50 Output Total 50 Balance 801 0 Intake: IV 801 50 Output: Estimated Blood Loss 50 Other: Weight 84.6 kg 84.6 kg In general patient is alert and oriented x 3 in no distress HEENT head normocephalic and atraumatic Neck is supple no JVD no goiter no lymphadenopathy no carotid bruit Chest examination is clear to auscultation no crackles no wheezing Cardiac exam reveals regular heart sounds S1 and S2 no gallops no murmurs Abdomen is soft nontender no organomegaly with normal bowel sounds Extremity exam reveals no edema no cyanosis or clubbing Neurological examination reveals no gross focal deficits Assessment and Plan Plan: Status post right total knee arthroplasty done today by Dr. Concepcion Underlying history of atrial fibrillation, patient was maintained on Xarelto, will resume when okay with orthopedic surgery Underlying history of hypertension home medications reviewed and reordered Underlying history of hyperlipidemia Underlying history of osteoarthritis Underlying history of hypothyroidism Underlying history of ALLERGIC rhinitis At this time patient was seen and examined on the medical floor she is alert and oriented 3 She denies any complaints at this time Home medications reviewed and reordered Will check labs in a.m. Will follow closely
[2020-12-26 20:01] VITALS: RESP 16
[2020-12-26] MEDS: FLECAINIDE 50 MG TAB PO SCH (20:42)
[2020-12-26] MEDS: MAGNESIUM OXIDE 400 MG TAB PO SCH (20:42)
[2020-12-26] MEDS: amLODIPine 5 MG TAB PO SCH (20:42)
[2020-12-26] MEDS ORDERED: SENNOSIDES-DOCUSATE SODIUM 1 EACH TAB PO SCH (21:00)
[2020-12-26] MEDS ORDERED: MONTELUKAST 10 MG TAB PO SCH (21:00)
[2020-12-26] MEDS: HYDROcodone/APAP 7.5-325MG 1 EACH TAB PO PRN (22:02)
[2020-12-27] MEDS: HYDROcodone/APAP 7.5-325MG 1 EACH TAB PO PRN ×2 (03:03→09:10)
[2020-12-27] MEDS: LACTATED RINGERS 1,000 ML IV SCH (03:04)
[2020-12-27] MEDS ORDERED: LEVOTHYROXINE 100 MCG TAB PO SCH (06:30)
[2020-12-27] MEDS ORDERED: LACTOBACILLUS ACIDOPH & BULGAR 1 EACH PACKET PO SCH (09:00)
[2020-12-27] MEDS ORDERED: CHOLECALCIFEROL 25 MCG (1000 IU) TABLET PO SCH (09:00)
[2020-12-27] MEDS ORDERED: lisinopriL 20 MG TAB PO SCH (09:00)
[2020-12-27] MEDS: amLODIPine 5 MG TAB PO SCH (09:01)
[2020-12-27] MEDS: ATORVASTATIN 20 MG TAB PO SCH (09:02)
[2020-12-27] MEDS: FLECAINIDE 50 MG TAB PO SCH (09:02)
[2020-12-27] MEDS: MAGNESIUM OXIDE 400 MG TAB PO SCH (09:03)
[2020-12-27] MEDS: LORATADINE 10 MG TAB PO SCH (09:03)
[2020-12-27 09:22] LABS: Basophils # (A) 0.01 X 10*3/uL (0.00-0.10); Basophils % (A) 0.1 %; Eosinophils # (A) 0 X 10*3/uL (0.04-0.35); Eosinophils % (A) 0 %; HCT 34.7 % (37.2-46.3); HGB 11.5 g/dL (12.0-15.0); Lymphocytes # (A) 1.02 X 10*3/uL (0.90-5.00); Lymphocytes % (A) 8.5 %; MCH 29.3 pg (27.0-32.0); MCHC 33.1 g/dL (32.0-37.0); MCV 88.5 fL (80.0-97.0); Mean Platelet Volume 9.6 fL (9.5-12.2); Monocytes # (A) 0.69 X 10*3/uL (0.20-1.00); Monocytes % (A) 5.8 %; Neutrophils # (A) 10.17 X 10*3/uL (1.80-7.70); Neutrophils % (A) 85.2 %; Platelet Count 243 X 10*3/uL (140-440); RBC 3.92 X 10*6/uL (4.10-5.20); RDW 13.3 % (11.5-14.5); WBC 11.94 X 10*3/uL (4.50-10.00)
--- NOTE | 2020-12-27 09:33 | P.PN ---
Progress Note - Text Progress Note Date: 12/27/20 (750) Anesthesiology Postop day 1 status post total knee arthroplasty with adductor canal catheter. Patient doing well. VAS 4 out of 10. [Gross strength intact in lower extremity]. [Afebrile]. [Denies alterations in sensorium]. catheter site leaking. Utilizing sterile technique removed dressings tightened hub. redressed the site sterilely with Tegaderms Heart [regular rate] Lungs [nonlabored] Abdomen [nondistended] Assessment: Postop day [1] status post total knee arthroplasty with adductor canal catheter Plan: All questions answered. Maintain catheter [2] more days with patient removal at home. Instructions were given at discharge.[]
--- NOTE | 2020-12-27 10:00 | P.DS ---
Providers Date of admission: 12/26/2020 Expected date of discharge: 12/27/20 Attending physician: Killian Agudelo Consults: 12/26/20 16:06 Consult Physician Routine Consulting Provider: Tala Huber Consult Reason/Comments: medical management Do you want consulting provider notified?: Yes Primary care physician: Tala Huber [facility] Course: Date of admission: 12/26/2020 Date of discharge: 12/27/2020 Admission diagnosis: Right knee osteoarthritis Discharge diagnosis: Same Attending physician: Dr. Agudelo Surgical procedures: Right total knee arthroplasty Brief history: Patient is a 70-year-old female with a history of progressive primary right knee osteoarthritis. At this point patient has failed conservative treatment measures and has opted to proceed with a elective right total knee arthroplasty. Hospital course: Details of patient's surgery can be found in operative report. Patient tolerated the procedure well and was subsequently transported to orthop edic floor. Patient's orthopeidc and medical care was provided daily. Patient had daily laboratory tests performed for evaluation of overall blood counts. Patient had daily physical therapy to include strengthening range of motion as well as education with walker ambulation. Patient was treated with Xarelto for their postoperative DVT prophylaxis during their inpatient stay. Patient was noted to have a relatively uneventful postoperative course. Patient reported satisfactory pain control with oral pain medications by postoperative day 1. Patient showed satisfactory progress with physical therapy. Patient moved steadily through the program and had no difficulty meeting the goals by postoperative day 1. Given patient's otherwise satisfactory course and having met physical therapy goals, plan is to discharge patient home on postoperative day 1. Discharge condition/disposition: Patient will be discharged home in stable condition. Discharge medications: Instructions are given on resumption of patient's normal daily medications per primary care recommendation, in addition patient will be prescribed Carl[place] 7.5 mg/325 mg; to resume Xarelto at home; has stool softener at home when necessary. Discharge instructions: 1. Wound care and infection precautions, keep incision dry and covered while showering, no lotions, creams, moisturizers. No soaking, tubs, pools, hottubs. Do not scrub over the incision. 2. Weight-bear as tolerated with walker / cane until follow-up. 3. Ice and elevate when necessary. Do not exceed 20 minutes per hour with ice pack. 4. Utilize compression sleeve until seen at first follow up appointment. 5. Visiting nursing care. 6. Home physical therapy including home CPM. 7. Pain meds and anticoagulants per prescription. 8. Pain medication has potential to cause constipation. Increase oral fluid and fiber intake. Contact primary care provider if you have not had a bowel movement within 48 hours after discharge 9. No anti-inflammatory medication until discussed at first post operative visit, this including Motrin, Aleve, Mobic, Diclofenac. 10. Follow up in office at 2 weeks postop with Conrado Mcgovern PA-C / Sean Hayes PA-C 11. Follow up with your primary care doctor 7-10 days after discharge. 12. Contact [facility] with any questions, . Assessment: Right knee osteoarthritis Procedures: Right total knee arthroplasty Patient Condition at Discharge: Good Plan - Discharge Summary Discharge Rx Participant: No New Discharge Prescriptions: New HYDROcodone/APAP 7.5-325MG [Carlton 7.5] 1 each PO Q6HR PRN #32 tab PRN Reason: Pain No Action Cholecalciferol [Vitamin D3 (25 Mcg = 1000 Iu)] 2,000 unit PO DAILY Magnesium Oxide [Mag-Ox] 500 mg PO BID Omeprazole [PriLOSEC] 20 mg PO DAILY PRN PRN Reason: Gi Upset amLODIPine [Norvasc] 5 mg PO BID Levothyroxine Sodium [Synthroid] 100 mcg PO DAILY@0630 tab Acetaminophen Tab [Tylenol] 650 mg PO Q6HR PRN tab PRN Reason: Mild Pain Or Fever > 100.5 Rivaroxaban [Xarelto] 20 mg PO W/SUPPER tab Furosemide [Lasix] 20 mg PO DAILY PRN PRN Reason: swelling-prescribed daily Atorvastatin [Lipitor] 20 mg PO DAILY Montelukast Sodium [Singulair] 10 mg PO HS L.acidoph,Paracasei, B.lactis [Probiotic] 1 each PO DAILY Flecainide [Tambocor] 50 mg PO Q12HR Mag/Aluminum/Sod Bicarb/Alginc [Gaviscon 80-14.2 mg Tab Chew] 1 tab PO DAILY PRN PRN Reason: reflux lisinopriL [Zestril] 40 mg PO QAM clonazePAM 0.5 mg PO HS PRN PRN Reason: sleep Cetirizine HCl [Zyrtec] 10 mg PO DAILY Milk Of Magnesia Tablets 1 - 2 tab PO HS PRN PRN Reason: Constipation Fluticasone Propionate [Flonase Allergy Relief] 1 spray EA NOSTRIL DAILY PRN PRN Reason: Congestion Discharge Medication List Cholecalciferol [Vitamin D3 (25 Mcg = 1000 Iu)] 2,000 unit PO DAILY 06/01/14 [History] Magnesium Oxide [Mag-Ox] 500 mg PO BID 06/01/14 [History] Omeprazole [PriLOSEC] 20 mg PO DAILY PRN 12/22/18 [History] amLODIPine [Norvasc] 5 mg PO BID 12/22/18 [History] Acetaminophen Tab [Tylenol] 650 mg PO Q6HR PRN tab 01/01/19 [Rx] Levothyroxine Sodium [Synthroid] 100 mcg PO DAILY@0630 tab 01/01/19 [Rx] Rivaroxaban [Xarelto] 20 mg PO W/SUPPER tab 01/01/19 [Rx] Atorvastatin [Lipitor] 20 mg PO DAILY 12/18/20 [History] Cetirizine HCl [Zyrtec] 10 mg PO DAILY 12/18/20 [History] Flecainide [Tambocor] 50 mg PO Q12HR 12/18/20 [History] Fluticasone Propionate [Flonase Allergy Relief] 1 spray EA NOSTRIL DAILY PRN 12/18/20 [History] Furosemide [Lasix] 20 mg PO DAILY PRN 12/18/20 [History] L.acidoph,Paracasei, B.lactis [Probiotic] 1 each PO DAILY 12/18/20 [History] Mag/Aluminum/Sod Bicarb/Alginc [Gaviscon 80-14.2 mg Tab Chew] 1 tab PO DAILY PRN 12/18/20 [History] Milk Of Magnesia Tablets 1 - 2 tab PO HS PRN 12/18/20 [History] Montelukast Sodium [Singulair] 10 mg PO HS 12/18/20 [History] clonazePAM 0.5 mg PO HS PRN 12/18/20 [History] lisinopriL [Zestril] 40 mg PO QAM 12/18/20 [History] HYDROcodone/APAP 7.5-325MG [Carlton 7.5] 1 each PO Q6HR PRN #32 tab 12/27/20 [Rx] Follow up Appointment(s)/Referral(s): Sean Hayes PAC [PHYSICIAN SOCIAL SCIENCES RESEARCH SCIENTIST] - 01/11/21 9:20 am Tala Huber MD [Primary Care Provider] - 01/05/21 11:00 am Activity/Diet/Wound Care/Special Instructions: Orthopedic Discharge Instructions: 1. Wound care and infection precautions, keep incision dry and covered while showering, no lotions, creams, moisturizers. No soaking, pools, hot tubs. Do not scrub over incision. 2. Weight-bear as tolerated with walker / cane until follow-up. 3. Ice and elevate when necessary. Do not exceed 20 minutes per hour with ice pack. 4. Utilize compression sleeve until seen at first follow up appointment. 5. Pain meds and anticoagulants per prescription. 6. Pain medication has potential to cause constipation. Increase oral fluid and fiber intake. Contact primary care provider if you have not had a bowel movement within 48 hours after discharge. 7. No anti-inflammatory medication until discussed at first post operative visit, this including Motrin, Aleve, Mobic, Diclofenac 8. Follow up in office at 2 weeks postop with Conrado Mcgovern PA-C/Sean Hayes PA-C 9. Follow up with your primary care doctor 7-10 days after discharge. 10. Contact [facility] with any questions, . Keep mesh tape on for next 5 days. While showering, cover mesh tape with Saran wrap. Mesh tape may be removed in 5 days. Discharge Disposition: HOME WITH HOME HEALTH SERVICES
--- NOTE | 2020-12-27 10:29 | P.PN ---
Subjective Progress Note Date: 12/27/20 Principal diagnosis: Right knee osteoarthritis Patient was seen at bedside this morning. Patient was seen resting in chair with legs elevated. Patient says most the pain is located all around the knee. She says there is some numbness and tingling down her knee. Patient says p hysical therapy went well this morning. Patient says she walked into the hallway and up-and-down a couple steps. Patient says she does have a walker and cane at home. patient says she has not had bowel movement yet, however, patient says she has passed gas. patient says she has been using incentive spirometer. patient denies chest pain, fever, shortness breath, nausea, vomiting, change in vision, loss of bowel/bladder control. Objective - Vital Signs Vital signs: Vital Signs Temp 98.3 F 12/27/20 07:32 Pulse 61 12/27/20 07:32 Resp 16 12/27/20 07:32 BP 130/67 12/27/20 07:32 Pulse Ox 94 L 12/27/20 07:32 Intake & Output 12/26/20 12/27/20 12/27/20 18:59 06:59 18:59 Intake Total 851 Output Total 50 Balance 801 Weight 84.6 kg Intake: IV 851 Output: Estimated Blood Loss 50 Other: Voiding Method Toilet # Voids 1 - Exam Right knee: Incision is clean, dry, and intact. The exofin fusion tape is in good condition. There is minimal soft tissue swelling and ecchymosis surrounding the medial and lateral aspects of the incision. Calf is soft, no tenderness with palpation. Plantar flexion, dorsiflexion, EHL, FHL are intact. Sensory exam to light touch throughout the extremity is intact, dorsal pedis pulses 2+. - Labs CBC & Chem 7: 12/27/20 05:35 Labs: Abnormal Lab Results - Last 24 Hours (Table) 12/27/20 Range/Units 05:35 WBC 11.94 H (4.50-10.00) X 10*3/uL RBC 3.92 L (4.10-5.20) X 10*6/uL Hgb 11.5 L (12.0-15.0) g/dL Hct 34.7 L (37.2-46.3) % Immature Gran # 0.05 H (0.00-0.04) X 10*3/uL Neutrophils # 10.17 H (1.80-7.70) X 10*3/uL Eosinophils # 0 L (0.04-0.35) X 10*3/uL Assessment and Plan Assessment: Right knee osteoarthritis Plan: 1. Right knee osteoarthritis - right total knee arthroplasty performed yesterday, 12/26/2020. Patient stable this morning plan for discharge home today. 2. Appreciate medical management 3. Pain management - [place] 7.5 mg/325 mg in hospital. Going home with [place] 7.5 mg/325 mg 4. DVT prophylaxis/GI prophylaxis - Xarelto in hospital. Senna. Resume Xarelto at home. Stool softener as needed at home 5. Encourage incentive spirometer use 6. PT/OT - weightbearing as tolerated with walker for assistance 7. Discharge planning - plan discharge home today Time with Patient: Less than 30
[2020-12-27 11:48] VITALS: BP 143/69; PULSE 66; TEMP 97.5
[2020-12-27] MEDS ORDERED: RIVAROXABAN 20 MG TAB PO SCH (17:30)
== END 2020-12-27 13:32 | disposition home health service (06) ==
LOC: OR 10:57 → 4SSUR 16:25 → OR 12-27 13:32
PROVIDERS: ATTEND Orthopaedic Surgery
DX: M17.11 Unilateral primary osteoarthritis, right knee (principal); I48.91 Unspecified atrial fibrillation; E03.9 Hypothyroidism, unspecified; E78.5 Hyperlipidemia, unspecified; I10 Essential (primary) hypertension; Z79.01 Long term (current) use of anticoagulants; Z79.899 Other long term (current) drug therapy; K21.9 Gastro-esophageal reflux disease without esophagitis; F41.9 Anxiety disorder, unspecified
CPT/HCPCS: 97161; 64999; 64448; 76942; 85025; 73560; 27447; C1713 ×2; C1776; J2250; J1100; J2175; J0690 ×3; J2405; J3010; J2795 ×2; J2704; 88300

== ENCOUNTER 2021-05-01 09:31 | Day surgery (SDC) | payer MEDICARE ==
[2021-04-23 10:24] VITALS: BMI 27.9
[~2021-05-01 09:31] MED LIST changes: -ACETAMINOPHEN TAB 500 MG TAB PO PRN; -HYDROmorphone 0.5 MG/0.5 ML SYRINGE IVP PRN; +LACTATED RINGERS 1,000 ML IV SCH; +LIDOCAINE 1% (10MG/ML) FOR IV START INTRADERMA PRN; -MELOXICAM 7.5 MG TAB PO PRN; -ONDANSETRON 4 MG/2 ML VIAL IVP ONE; -TRANEXAMIC ACID 1,000 MG in SODIUM CHLORIDE 0.9% 100 ML IVPB PRN
[2021-05-01 10:05] VITALS: TEMP 97
[2021-05-01] MEDS ORDERED: LACTATED RINGERS 1,000 ML IV ONE (10:05)
[2021-05-01] MEDS ORDERED: ENALAPRILAT 1.25 MG/ML 1 ML VIAL IVP STA (10:07)
[2021-05-01] MEDS ORDERED: PROPOFOL 10 MG/ML 20 ML VIAL IV ONE (10:56)
--- NOTE | 2021-05-01 11:03 | P.GSHP ---
History of Present Illness H&P Date: 05/01/21 Chief Complaint: Abnormal stool test 70-year-old female here today for colonoscopy. Last colonoscopy 30-40 years ago. No new bowel changes. She does have occasional blood when wiping. Recent abnormal stool test. No family history of colon cancer. Some chronic constipat ion. Past Medical History Past Medical History: Atrial Fibrillation, CVA/TIA, GERD/Reflux, Hyperlipidemia, Hypertension, Thyroid Disorder Additional Past Medical History / Comment(s): seasonal allergies. positive cologuard. 2015 TIA. 2019 sepsis r/t cortisone injection. hemorrhoid History of Any Multi-Drug Resistant Organisms: None Reported Past Surgical History: Hysterectomy, Joint Replacement, Tonsillectomy, Tubal Ligation Additional Past Surgical History / Comment(s): thryoidectomy. rt knee replacement Past Anesthesia/Blood Transfusion Reactions: No Reported Reaction, Motion Sickness Smoking Status: Former smoker - Past Family History Father Additional Family Medical History / Comment(s): POCKETS IN THE LUNG, ULCERATIVE COLITIS Mother Family Medical History: AFIB Medications and Allergies Home Medications Medication Instructions Recorded Confirmed Type Cholecalciferol [Vitamin D3 (25 1,000 unit PO DAILY 06/01/14 04/23/21 History Mcg = 1000 Iu)] Magnesium Oxide [Mag-Ox] 500 mg PO DAILY 06/01/14 04/23/21 History Omeprazole [PriLOSEC] 20 mg PO DAILY PRN 12/22/18 04/23/21 History amLODIPine [Norvasc] 5 mg PO BID 12/22/18 04/23/21 History Acetaminophen Tab [Tylenol] 650 mg PO Q6HR PRN tab 01/01/19 04/23/21 Rx Levothyroxine Sodium [Synthroid] 100 mcg PO DAILY@0630 tab 01/01/19 04/23/21 Rx Rivaroxaban [Xarelto] 20 mg PO W/SUPPER tab 01/01/19 04/23/21 Rx Atorvastatin [Lipitor] 20 mg PO DAILY 12/18/20 04/23/21 History Flecainide [Tambocor] 50 mg PO Q12HR 12/18/20 04/23/21 History Fluticasone Propionate [Flonase 1 spray EA NOSTRIL DAILY PRN 12/18/20 04/23/21 History Allergy Relief] Furosemide [Lasix] 20 mg PO DAILY PRN 12/18/20 04/23/21 History Mag/Aluminum/Sod Bicarb/Alginc 1 tab PO DAILY PRN 12/18/20 04/23/21 History [Gaviscon 80-14.2 mg Tab Chew] Milk Of Magnesia Tablets 1 - 2 tab PO HS PRN 12/18/20 04/23/21 History Montelukast Sodium [Singulair] 10 mg PO HS PRN 12/18/20 04/23/21 History clonazePAM 0.5 mg PO HS PRN 12/18/20 04/23/21 History lisinopriL [Zestril] 40 mg PO QAM 12/18/20 04/23/21 History Loratadine [Claritin] 10 mg PO DAILY 04/23/21 04/23/21 History Allergies Allergy/AdvReac Type Severity Reaction Status Date / Time No Known Allergies Allergy Verified 04/23/21 10:11 Surgical - Exam Vital Signs Temp Pulse Resp BP Pulse Ox 97 F L 79 18 206/91 97 05/01/21 10:04 05/01/21 10:04 05/01/21 10:04 05/01/21 10:04 05/01/21 10:04 Physical exam: General: Well-developed, well-nourished HEENT: Normocephalic, sclerae nonicteric Abdomen: Nontender, nondistended Extremities: No edema Neuro: Alert and oriented Assessment and Plan (1) Abnormal stool test Narrative/Plan: Will proceed with colonoscopy Current Visit: Yes Status: Acute Code(s): R19.5 - OTHER FECAL ABNORMALITIES SNOMED Code(s): 124814474
--- NOTE | 2021-05-01 11:30 | P.PCN ---
Date of Procedure: 05/01/21 Procedure(s) Performed: PREOPERATIVE DIAGNOSIS: Abnormal stool test POSTOPERATIVE DIAGNOSIS: Left-sided diverticulosis with significant tortuosity PROCEDURE: Colonoscopy ANESTHESIA: MAC SURGEON: Wilfred Ojeda M.D. SPECIMENS: None ENDOSCOPIC PROCEDURE: The patient was placed on the endoscopy table in the left decubitus position. The Olympus colonoscope was inserted into the anus and passed under direct visualization to the base of the cecum. The appendiceal orifice was visualized. From that point the scope was slowly withdrawn inspecting all surfaces carefully. There were no neoplastic inflammatory or polypoid lesions throughout the cecum, ascending, transverse, descending, sigmoid and rectum. There was extensive left-sided diverticulosis noted with tortuosity. Digital rectal examination was normal. The patient was taken to the recovery room in stable condition per anesthesia guidelines. RECOMMENDATIONS: Resume diet. Follow colonoscopy in 10 years.
[2021-05-01 11:35] VITALS: PULSE 55
[2021-05-01 12:27] VITALS: BP 116/72; RESP 16
== END 2021-05-01 12:14 | disposition home or self-care (01) ==
LOC: ORWHC2ENDO 09:31
PROVIDERS: ATTEND Surgery
DX: K57.30 Diverticulosis of large intestine without perforation or abscess without bleeding (principal); Q43.8 Other specified congenital malformations of intestine; R19.5 Other fecal abnormalities; I48.91 Unspecified atrial fibrillation; Z86.73 Personal history of transient ischemic attack (TIA), and cerebral infarction without residual deficits; K21.9 Gastro-esophageal reflux disease without esophagitis; E78.5 Hyperlipidemia, unspecified; I10 Essential (primary) hypertension; E89.0 Postprocedural hypothyroidism; J30.2 Other seasonal allergic rhinitis; Z90.710 Acquired absence of both cervix and uterus; F41.9 Anxiety disorder, unspecified; Z98.51 Tubal ligation status; Z96.651 Presence of right artificial knee joint; Z87.891 Personal history of nicotine dependence; Z83.79 Family history of other diseases of the digestive system; Z86.19 Personal history of other infectious and parasitic diseases; Z82.49 Family history of ischemic heart disease and other diseases of the circulatory system; Z79.01 Long term (current) use of anticoagulants; Z79.890 Hormone replacement therapy; Z79.899 Other long term (current) drug therapy
CPT/HCPCS: 45378; J2704

== ENCOUNTER → 2022-10-08 | Outpatient (CLI) | payer MEDICARE ==
--- NOTE | 2022-10-09 20:01 | MM ---
Reason for Exam: Screening (asymptomatic). Last mammogram was performed 3 year(s) and 0 month(s) ago. Patient History: Menarche at age 12. First Full-Term at age 18. Left ovary removed at age 35. Hysterectomy at age 35. Postmenopausal. Patient has history of breast feeding. Risk Values: Linda 5 year model risk: 1.4%. NCI Lifetime model risk: 3.6%. Prior Study Comparison: 05/06/2014 Screening Mammogram, [facility]. 10/13/2019 Bilateral Screening Mammogram, [facility]. Tissue Density: There are scattered fibroglandular densities. Findings: Analyzed By CAD. Benign vascular calcifications on both sides. There is no suspicious group of microcalcifications or new suspicious mass in either breast. Overall Assessment: Benign, BI-RAD 2 Management: Screening Mammogram of both breasts in 1 year. . Patient should continue monthly self-breast exams. A clinical breast exam by your physician is recommended on an annual basis. This exam should not preclude additional follow-up of suspicious palpable abnormalities. Note on Linda scores and lifetime risk: 1. A Linda score greater than 3% is considered moderate risk. If this is the case, consider specialist referral to assess eligibility for a risk reducing agent. 2. If overall lifetime risk for the development of breast cancer is 20% or higher, the patient may qualify for future screening with alternating mammogram and breast MRI. Electronically signed and approved by: Don Cantu M.D. Radiologist
== END | disposition home or self-care (01) ==
LOC: RADMAMWWP 09:44
PROVIDERS: ATTEND Internal Medicine
DX: Z12.31 Encounter for screening mammogram for malignant neoplasm of breast (principal); Z78.0 Asymptomatic menopausal state
CPT/HCPCS: 77063; 77067

== ENCOUNTER → 2022-11-28 | Outpatient (CLI) | payer MEDICARE ==
--- NOTE | 2022-12-05 15:41 | MR ---
EXAMINATION TYPE: MR shoulder LT wo con DATE OF EXAM: 11/28/2022 COMPARISON: Radiograph 11/14/2022 HISTORY: 72-year-old female Left shoulder pain, limited range of motion TECHNIQUE: Multiplanar, multisequence imaging of the left shoulder is performed without contrast. FINDINGS: Nonvisualization of the intracapsular portion of the long head biceps tendon. It may be torn and scar red down in the lower bicipital groove. Heterogeneous signal of the subscapularis tendon. The tendon appears intact. Severe degenerative change AC joint with joint space narrowing, capsular hypertrophy, degenerative leach bchondral marrow signal change, and prominent spurring. Inferior spurring may contribute to subacromi al impingement. There is a full-thickness tear involving the entire supraspinatus tendon and infraspinatus tendon brianna suring 3.5 cm AP. Only the posterior half centimeter of the infraspinatus tendon remains intact and t hat is also thickened with extensive intrasubstance change. Variable. Retraction by up to 4 cm to the level of the AC joint. There is a mild to moderate joint effusion contiguous with the subacromial/subdeltoid bursa. Scattered synovial debris or tiny loose bodies are present within the joint. Mild irregular cartilage loss diffusely throughout the glenohumeral joint. The superior and posterior glenoid labrum are degenerative and blunted. No sizable periapical cyst is seen. There is mild fatty atrophy of the supraspinatus muscle and mild fatty infiltration of the infraspina tus muscle. No Hill-Sachs deformity or os acromiale. Mild patchy red marrow hyperplasia may be seen in the setting of anemia, obesity, smoking, and chroni c disease. IMPRESSION: 1. Large full-thickness tear involving the entire supraspinatus tendon and half of the infraspinatus tendon. The tear measures 3.5 cm AP sparing only the posterior 1/2 cm of the infraspinatus insertion. The remaining posterior fibers of the infraspinatus tendon are severely tendinotic. There is variabl e stump retraction by up to 4.0 cm to the level of the AC joint. 2. Mild atrophy of the supraspinatus muscle and mild fatty infiltration of the infraspinatus muscle. 3. Suspect the long head biceps tendon to be torn and scarred down in the lower bicipital groove. 4. Severe AC joint OA with inferior spurring likely contributing to subacromial impingement. 5. Mild glenohumeral joint OA. Degenerative and blunted posterior and superior labrum.
== END | disposition home or self-care (01) ==
LOC: RADMRIMAIN 15:18
PROVIDERS: ATTEND Orthopaedic Surgery
DX: M19.012 Primary osteoarthritis, left shoulder (principal); M75.122 Complete rotator cuff tear or rupture of left shoulder, not specified as traumatic; M62.512 Muscle wasting and atrophy, not elsewhere classified, left shoulder

== ENCOUNTER 2022-12-04 10:18 | Emergency (ER) | payer MEDICARE ==
[2022-12-04] MEDS ORDERED: MORPHINE SULFATE 4 MG/ML SYRINGE IVP STA (10:39)
[2022-12-04] MEDS ORDERED: SODIUM CHLORIDE 0.9% 500 ML 500 ML IV ONE (10:39)
--- NOTE | 2022-12-04 10:41 | ED ---
General Adult HPI - General Chief complaint: Arrhythmia/Palpitations Stated complaint: Afib-lightheaded Time Seen by Provider: 12/04/22 10:27 Source: patient, RN notes reviewed, old records reviewed Mode of arrival: ambulatory Limitations: no limitations - History of Present Illness Initial comments: 72-year-old female with history of atrial fibrillation presenting for evaluation of palpitations. Patient states his symptoms began this morning. She states that she has been dealing with a left shoulder pain which was worsening over the past several days. She had an outpatient MRI performed and is following with orthopedics. She denies fever. Denies central chest pain. Denies vomiting or diarrhea. She is on flecainide and Xarelto for her atrial fibrillation. - Related Data Home Medications Medication Instructions Recorded Confirmed Cholecalciferol [Vitamin D3 (25 1,000 unit PO DAILY 06/01/14 04/23/21 Mcg = 1000 Iu)] Magnesium Oxide [Mag-Ox] 500 mg PO DAILY 06/01/14 04/23/21 amLODIPine [Norvasc] 5 mg PO BID 12/22/18 04/23/21 Atorvastatin [Lipitor] 20 mg PO DAILY 12/18/20 04/23/21 Flecainide [Tambocor] 50 mg PO Q12HR 12/18/20 04/23/21 clonazePAM 0.5 mg PO HS PRN 12/18/20 04/23/21 Levothyroxine Sodium [Synthroid] 75 mcg PO HS 12/04/22 12/04/22 Rivaroxaban [Xarelto] 20 mg PO HS 12/04/22 12/04/22 lisinopriL 40 mg PO DAILY 12/04/22 12/04/22 Previous Rx's Medication Instructions Recorded HYDROcodone/APAP 5-325MG [[place] 1 tab PO Q6HR PRN #12 tab 12/04/22 5-325] Allergies Allergy/AdvReac Type Severity Reaction Status Date / Time No Known Allergies Allergy Verified 12/04/22 12:05 Review of Systems ROS Statement: Those systems with pertinent positive or pertinent negative responses have been documented in the HPI. ROS Other: All systems not noted in ROS Statement are negative. Past Medical History Past Medical History: Atrial Fibrillation, CVA/TIA, GERD/Reflux, Hyperlipidemia, Hypertension, Thyroid Disorder Additional Past Medical History / Comment(s): seasonal allergies. positive cologuard. 2015 TIA. 2019 sepsis r/t cortisone injection. hemorrhoid History of Any Multi-Drug Resistant Organisms: None Reported Past Surgical History: Hysterectomy, Joint Replacement, Tonsillectomy, Tubal Ligation Additional Past Surgical History / Comment(s): thryoidectomy. rt knee replacement Past Anesthesia/Blood Transfusion Reactions: No Reported Reaction, Motion Sic kness Past Psychological History: Anxiety Smoking Status: Former smoker Past Alcohol Use History: None Reported Past Drug Use History: None Reported - Past Family History Father Additional Family Medical History / Comment(s): POCKETS IN THE LUNG, ULCERATIVE COLITIS Mother Family Medical History: AFIB General Exam Limitations: no limitations General appearance: alert, in no apparent distress Head exam: Present: atraumatic, normocephalic Eye exam: Present: normal appearance, PERRL ENT exam: Present: normal exam Neck exam: Present: normal inspection. Absent: tenderness Respiratory exam: Present: normal lung sounds bilaterally. Absent: respiratory distress Cardiovascular Exam: Present: regular rate, irregular rhythm GI/Abdominal exam: Present: soft. Absent: distended, tenderness Neurological exam: Present: alert, oriented X3, CN II-XII intact. Absent: motor sensory deficit Psychiatric exam: Present: normal affect, normal mood Skin exam: Present: warm, dry, intact. Absent: cyanosis, diaphoretic Course Vital Signs 12/04/22 10:22 Temperature 98.2 F Pulse Rate 103 H Respiratory 20 Rate Blood Pressure 132/79 O2 Sat by Pulse 99 Oximetry Medical Decision Making - Medical Decision Making Was pt. sent in by a medical professional or institution (, PA, INDUSTRIAL NURSE, urgent care, hospital, or longterm...) When possible be specific @ -No Did you speak to anyone other than the patient for history (EMS, parent, family, police, friend...)? What history was obtained from this source @ -No Did you review nursing and triage notes (agree or disagree)? Why? @ -I reviewed and agree with nursing and triage notes Were old charts reviewed (outside hosp., previous admission, EMS record, old EKG, old radiological studies, urgent care reports/EKG's, longterm records)? Report findings @ -No old charts were reviewed Differential Diagnosis (chest pain, altered mental status, abdominal pain women, abdominal pain men, vaginal bleeding, weakness, fever, dyspnea, syncope, headache, dizziness, GI bleed, back pain, seizure, CVA, palpatations, mental health, musculoskeletal)? @ -not applicable EKG interpreted by me (3pts min.). @Atrial fibrillation rate of 97, QRS duration 104, QTC [address] segment elevation X-rays interpreted by me (1pt min.). @ -None done CT interpreted by me (1pt min.). @ -None done U/S interpreted by me (1pt. min.). @ -None done What testing was considered but not performed or refused? (CT, X-rays, U/S, labs)? Why? @ -None What meds were considered but not given or refused? Why? @ -None Did you discuss the management of the patient with other professionals (professionals i.e. , PA, INDUSTRIAL NURSE, lab, RT, psych nurse, web content & social media manager, leisure studies professor, teacher, commanding officer traffic division, patient case coordinator)? Give summary @ -No Was smoking cessation discussed for >3mins.? @ -No Was critical care preformed (if so, how long)? @ -No Were there social determinants of health that impacted care today? How? (Homelessness, low income, unemployed, alcoholism, drug addiction, transportation, low edu. Level, literacy, decrease access to med. care, fdc, rehab)? @ -No Was there de-escalation of care discussed even if they declined (Discuss DNR or withdrawal of care, Hospice)? DNR status @ -No What co-morbidities impacted this encounter? (DM, HTN, Smoking, COPD, CAD, Cancer, CVA, ARF, Chemo, Hep., AIDS, mental health diagnosis, sleep apnea, morbid obesity)? @ A. fib Was patient admitted / discharged? Hospital course, mention meds given and route, prescriptions, significant lab abnormalities, going to OR and other pertinent info. @ 72-year-old female in rate controlled A. fib. No central chest pain. Normal CBC, normal CMP, negative troponin. Patient will be treated for chronic should er pain with [place] awaiting orthopedic recommendations and MRI results. Undiagnosed new problem with uncertain prognosis? @ -No Drug Therapy requiring intensive monitoring for toxicity (Heparin, Nitro, Insulin, Cardizem)? @ -No Were any procedures done? @ -No Diagnosis/symptom? @ A fibrillation, rate controlled Acute, or Chronic, or Acute on Chronic? @ Chronic Uncomplicated (without systemic symptoms) or Complicated (systemic symptoms)? @ -default Side effects of treatment? @ -No Exacerbation, Progression, or Severe Exacerbation? @ -No Poses a threat to life or bodily function? How? (Chest pain, [place], [place], pneumonia, PE, COPD, DKA, ARF, appy, cholecystitis, CVA, Diverticulitis, Homicidal, Suicidal, threat to staff... and all critical care pts) @ -[Risks of arrhythmia - Lab Data Result diagrams: 12/04/22 10:39 12/04/22 10:39 Lab Results 12/04/22 12/04/22 12/04/22 Range/Units 10:39 10:39 10:39 WBC 8.0 (3.8-10.6) k/uL RBC 5.29 (3.80-5.40) m/uL Hgb 15.6 (11.4-16.0) gm/dL Hct 47.0 H (34.0-46.0) % MCV 88.9 (80.0-100.0) fL MCH 29.5 (25.0-35.0) pg MCHC 33.2 (31.0-37.0) g/dL RDW 13.3 (11.5-15.5) % Plt Count 240 (150-450) k/uL MPV 7.2 Neutrophils % 74 % Lymphocytes % 19 % Monocytes % 4 % Eosinophils % 2 % Basophils % 0 % Neutrophils # 5.9 (1.3-7.7) k/uL Lymphocytes # 1.5 (1.0-4.8) k/uL Monocytes # 0.3 (0-1.0) k/uL Eosinophils # 0.1 (0-0.7) k/uL Basophils # 0.0 (0-0.2) k/uL PT 11.7 (9.0-12.0) sec INR 1.1 (<1.2) APTT 25.8 (22.0-30.0) sec Sodium 132 L (137-145) mmol/L Potassium 4.8 (3.5-5.1) mmol/L Chloride 96 L (98-107) mmol/L Carbon Dioxide 27 (22-30) mmol/L Anion Gap 9 mmol/L BUN 9 (7-17) mg/dL Creatinine 0.74 (0.52-1.04) mg/dL Est GFR (CKD-EPI)AfAm >90 (>60 ml/min/1.73 sqM) Est GFR (CKD-EPI)NonAf 81 (>60 ml/min/1.73 sqM) Glucose 125 H (74-99) mg/dL Calcium 9.0 (8.4-10.2) mg/dL Magnesium 2.0 (1.6-2.3) mg/dL Total Bilirubin 1.3 (0.2-1.3) mg/dL AST 32 (14-36) U/L ALT 42 H (4-34) U/L Alkaline Phosphatase 59 (38-126) U/L Troponin I (0.000-0.034) ng/mL Total Protein 6.9 (6.3-8.2) g/dL Albumin 4.5 (3.5-5.0) g/dL 12/04/22 Range/Units 10:39 WBC (3.8-10.6) k/uL RBC (3.80-5.40) m/uL Hgb (11.4-16.0) gm/dL Hct (34.0-46.0) % MCV (80.0-100.0) fL MCH (25.0-35.0) pg MCHC (31.0-37.0) g/dL RDW (11.5-15.5) % Plt Count (150-450) k/uL MPV Neutrophils % % Lymphocytes % % Monocytes % % Eosinophils % % Basophils % % Neutrophils # (1.3-7.7) k/uL Lymphocytes # (1.0-4.8) k/uL Monocytes # (0-1.0) k/uL Eosinophils # (0-0.7) k/uL Basophils # (0-0.2) k/uL PT (9.0-12.0) sec INR (<1.2) APTT (22.0-30.0) sec Sodium (137-145) mmol/L Potassium (3.5-5.1) mmol/L Chloride (98-107) mmol/L Carbon Dioxide (22-30) mmol/L Anion Gap mmol/L BUN (7-17) mg/dL Creatinine (0.52-1.04) mg/dL Est GFR (CKD-EPI)AfAm (>60 ml/min/1.73 sqM) Est GFR (CKD-EPI)NonAf (>60 ml/min/1.73 sqM) Glucose (74-99) mg/dL Calcium (8.4-10.2) mg/dL Magnesium (1.6-2.3) mg/dL Total Bilirubin (0.2-1.3) mg/dL AST (14-36) U/L ALT (4-34) U/L Alkaline Phosphatase (38-126) U/L Troponin I <0.012 (0.000-0.034) ng/mL Total Protein (6.3-8.2) g/dL Albumin (3.5-5.0) g/dL Disposition Clinical Impression: Atrial fibrillation Disposition: HOME SELF-CARE Condition: Good Instructions (If sedation given, give patient instructions): A-fib (Atrial Fibrillation) (ED) Prescriptions: HYDROcodone/APAP 5-325MG [[place] 5-325] 1 tab PO Q6HR PRN #12 tab PRN Reason: Pain Is patient prescribed a controlled substance at d/c from ED?: No Referrals: Tala Huber MD [Primary Care Provider] - 1-2 days Time of Disposition: 12:07
[2022-12-04 11:12] LABS: Basophils % (A) 0 %; Eosinophils # (A) 0.1 k/uL (0-0.7); Eosinophils % (A) 2 %; HGB 15.6 gm/dL (11.4-16.0); Lymphocytes # (A) 1.5 k/uL (1.0-4.8); Lymphocytes % (A) 19 %; MCH 29.5 pg (25.0-35.0); MCHC 33.2 g/dL (31.0-37.0); MCV 88.9 fL (80.0-100.0); Mean Platelet Volume 7.2; Monocytes # (A) 0.3 k/uL (0-1.0); Monocytes % (A) 4 %; Neutrophils # (A) 5.9 k/uL (1.3-7.7); Neutrophils % (A) 74 %; Platelet Count 240 k/uL (150-450); RBC 5.29 m/uL (3.80-5.40); RDW 13.3 % (11.5-15.5)
[2022-12-04 11:19] LABS: INR 1.1 (<1.2); Partial Thromboplastin Time 25.8 sec (22.0-30.0); Prothrombin Time 11.7 sec (9.0-12.0)
[2022-12-04 11:32] LABS: ALT 42 U/L (4-34); AST 32 U/L (14-36); African American GFR (CKD) >90 (>60 ml/min/1.73 sqM); Albumin 4.5 g/dL (3.5-5.0); Alkaline Phosphatase 59 U/L (38-126); Anion Gap 9 mmol/L; Blood Urea Nitrogen 9 mg/dL (7-17); Carbon Dioxide 27 mmol/L (22-30); Chloride 96 mmol/L (98-107); Glucose 125 mg/dL (74-99); Non-African American GFR(CKD) 81 (>60 ml/min/1.73 sqM); Potassium 4.8 mmol/L (3.5-5.1); Sodium 132 mmol/L (137-145); Total Bilirubin 1.3 mg/dL (0.2-1.3); Total Protein 6.9 g/dL (6.3-8.2)
[2022-12-04 14:15] VITALS: BP 124/82; PULSE 66; RESP 16; TEMP 98.4
== END 2022-12-04 12:30 | disposition home or self-care (01) ==
LOC: EC 10:18
DX: I48.91 Unspecified atrial fibrillation (principal); E78.5 Hyperlipidemia, unspecified; I10 Essential (primary) hypertension; K21.9 Gastro-esophageal reflux disease without esophagitis; Z86.73 Personal history of transient ischemic attack (TIA), and cerebral infarction without residual deficits; E07.9 Disorder of thyroid, unspecified; F41.9 Anxiety disorder, unspecified; Z87.891 Personal history of nicotine dependence; Z79.890 Hormone replacement therapy; Z79.899 Other long term (current) drug therapy; Z79.01 Long term (current) use of anticoagulants
CPT/HCPCS: 99285; 96374; 36415; 93005; 80053; 83735; 84484; 85025; 85610; 85730; J2270

== ENCOUNTER 2022-12-04 13:41 | Inpatient (IN) | payer MEDICARE ==
[2022-12-04] MEDS ORDERED: SODIUM CHLORIDE 0.9% 500 ML 500 ML IV ONE (13:57)
[2022-12-04] MEDS: SODIUM CHLORIDE 0.9% 1,000 ML IV SCH (14:08)
[2022-12-04 14:32] LABS: Basophils % (A) 0 %; Eosinophils # (A) 0.1 k/uL (0-0.7); Eosinophils % (A) 2 %; HCT 44.5 % (34.0-46.0); Lymphocytes # (A) 1.4 k/uL (1.0-4.8); Lymphocytes % (A) 14 %; MCH 29.9 pg (25.0-35.0); MCHC 33.7 g/dL (31.0-37.0); MCV 88.8 fL (80.0-100.0); Monocytes # (A) 0.4 k/uL (0-1.0); Monocytes % (A) 4 %; Neutrophils # (A) 7.5 k/uL (1.3-7.7); Neutrophils % (A) 78 %; Platelet Count 217 k/uL (150-450); RBC 5.02 m/uL (3.80-5.40); RDW 13.4 % (11.5-15.5); WBC 9.6 k/uL (3.8-10.6)
--- NOTE | 2022-12-04 14:35 | ED ---
General Adult HPI - General Chief complaint: Weakness Stated complaint: Fall,On Thinner Syncope Time Seen by Provider: 12/04/22 13:51 Source: patient, RN notes reviewed, old records reviewed Mode of arrival: wheelchair Limitations: no limitations - History of Present Illness Initial comments: 72-year-old female returns to the emergency department with near syncopal episode, generalized weakness. Patient had been seen in the emergency department with palpitations was found to be in atrial fibrillation which she does have history of and is currently being treated for. She had left the emergency department and gone to lunch prior to eating lunch she felt quite lightheaded and had a minor fall without injury. . Patient continues to have generalized weakness and fatigue. No chest pain. No fever. No vomiting. - Related Data Home Medications Medication Instructions Recorded Confirmed Cholecalciferol [Vitamin D3 (25 50 mcg PO DAILY 06/01/14 12/04/22 Mcg = 1000 Iu)] Magnesium Oxide [Mag-Ox] 500 mg PO HS 06/01/14 12/04/22 amLODIPine [Norvasc] 5 mg PO BID 12/22/18 12/04/22 Atorvastatin [Lipitor] 20 mg PO HS 12/18/20 12/04/22 Flecainide [Tambocor] 50 mg PO Q12HR 12/18/20 12/04/22 clonazePAM 0.5 mg PO HS 12/18/20 12/04/22 Levothyroxine Sodium [Synthroid] 75 mcg PO HS 12/04/22 12/04/22 Rivaroxaban [Xarelto] 20 mg PO HS 12/04/22 12/04/22 lisinopriL 40 mg PO DAILY 12/04/22 12/04/22 Previous Rx's Medication Instructions Recorded HYDROcodone/APAP 5-325MG [[place] 1 tab PO Q6HR PRN #12 tab 12/04/22 5-325] Allergies Allergy/AdvReac Type Severity Reaction Status Date / Time No Known Allergies Allergy Verified 12/04/22 13:46 Review of Systems ROS Statement: Those systems with pertinent positive or pertinent negative responses have been documented in the HPI. ROS Other: All systems not noted in ROS Statement are negative. Past Medical History Past Medical History: Atrial Fibrillation, CVA/TIA, GERD/Reflux, Hyperlipidemia, Hypertension, Thyroid Disorder Additional Past Medical History / Comment(s): seasonal allergies. positive cologuard. 2015 TIA. 2019 sepsis r/t cortisone injection. hemorrhoid History of Any Multi-Drug Resistant Organisms: None Reported Past Surgical History: Hysterectomy, Joint Replacement, Tonsillectomy, Tubal Ligation Additional Past Surgical History / Comment(s): thryoidectomy. rt knee replacement Past Anesthesia/Blood Transfusion Reactions: No Reported Reaction, Motion Sickness Past Psychological History: Anxiety Smoking Status: Former smoker Past Alcohol Use History: None Reported Past Drug Use History: None Reported - Past Family History Father Additional Family Medical History / Comment(s): POCKETS IN THE LUNG, ULCERATIVE COLITIS Mother Family Medical History: AFIB General Exam Limitations: no limitations General appearance: alert, in no apparent distress Head exam: Present: atraumatic, normocephalic Eye exam: Present: normal appearance, PERRL ENT exam: Present: normal exam Neck exam: Present: normal inspection. Absent: tenderness, meningismus Respiratory exam: Present: normal lung sounds bilaterally. Absent: respiratory distress, wheezes Cardiovascular Exam: Present: regular rate, irregular rhythm GI/Abdominal exam: Present: soft. Absent: distended, tenderness, guarding Extremities exam: Present: normal inspection, normal capillary refill Neurological exam: Present: alert, oriented X3, CN II-XII intact. Absent: motor sensory deficit Psychiatric exam: Present: normal affect, normal mood Skin exam: Present: warm, pallor Course Vital Signs 12/04/22 13:43 Temperature 98.3 F Pulse Rate 51 L Respiratory 20 Rate Blood Pressure 107/60 O2 Sat by Pulse 96 Oximetry Medical Decision Making - Medical Decision Making Was pt. sent in by a medical professional or institution (, PA, SHOEMAKER CUSTOM, urgent care, hospital, or fdc...) When possible be specific @ -No Did you speak to anyone other than the patient for history (EMS, parent, family, police, friend...)? What history was obtained from this source @ -No Did you review nursing and triage notes (agree or disagree)? Why? @ -I reviewed and agree with nursing and triage notes Were old charts reviewed (outside hosp., previous admission, EMS record, old EKG, old radiological studies, urgent care reports/EKG's, fdc records)? Report findings @ -No old charts were reviewed Differential Diagnosis (chest pain, altered mental status, abdominal pain women, abdominal pain men, vaginal bleeding, weakness, fever, dyspnea, syncope, headac he, dizziness, GI bleed, back pain, seizure, CVA, palpatations, mental health, musculoskeletal)? @ -not applicable EKG interpreted by me (3pts min.). @ -EKG: Atrial fibrillation, rate of 88, QRS duration 110, QTC 394, no ST segment elevation X-rays interpreted by me (1pt min.). @ -Chest x-ray pending CT interpreted by me (1pt min.). @ -None done U/S interpreted by me (1pt. min.). @ -[Echo pending What testing was considered but not performed or refused? (CT, X-rays, U/S, labs)? Why? @ -None What meds were considered but not given or refused? Why? @ -None Did you discuss the management of the patient with other professionals ( professionals i.e. , PA, SHOEMAKER CUSTOM, lab, RT, psych nurse, school social worker, stone splitter, teacher, boating safety officer, case management social worker)? Give summary @ -Case discussed with Dr. Huber, will admit Was smoking cessation discussed for >3mins.? @ -No Was critical care preformed (if so, how long)? @ -No Were there social determinants of health that impacted care today? How? (Homelessness, low income, unemployed, alcoholism, drug addiction, transportation, low edu. Level, literacy, decrease access to med. care, prison, rehab)? @ -No Was there de-escalation of care discussed even if they declined (Discuss DNR or withdrawal of care, Hospice)? DNR status @ -No What co-morbidities impacted this encounter? (DM, HTN, Smoking, COPD, CAD, Cancer, CVA, ARF, Chemo, Hep., AIDS, mental health diagnosis, sleep apnea, morbid obesity)? @ -Atrial fibrillation Was patient admitted / discharged? Hospital course, mention meds given and route, prescriptions, significant lab abnormalities, going to OR and other pertinent info. @72-year-old female with near syncopal episode. Patient had been discharged from the emergency department with stable vitals. She called to lunch and had a near syncopal episode. She feels generalized weakness and palpitations. No central chest pain. EKG is atrial fibrillation but is unchanged from earlier today. Repeat laboratory testing, chest x-ray, echocardiogram will be obtained and the patient will be observed overnight with cardiology consultation. Undiagnosed new problem with uncertain prognosis? @ -No Drug Therapy requiring intensive monitoring for toxicity (Heparin, Nitro, Insulin, Cardizem)? @ -No Were any procedures done? @ -No Diagnosis/symptom? @ -Near-syncope Acute, or Chronic, or Acute on Chronic? @ -Acute Uncomplicated (without systemic symptoms) or Complicated (systemic symptoms)? @ -default Side effects of treatment? @ -No Exacerbation, Progression, or Severe Exacerbation? @ -No Poses a threat to life or bodily function? How? (Chest pain, [place], [place], pneumonia, PE, COPD, DKA, ARF, appy, cholecystitis, CVA, Diverticulitis, Homicidal, Suicidal, threat to staff... and all critical care pts) @ -[Yes, arrhythmia, syncope - Lab Data Result diagrams: 12/04/22 14:10 Lab Results 12/04/22 12/04/22 Range/Units 14:10 14:10 WBC 9.6 (3.8-10.6) k/uL RBC 5.02 (3.80-5.40) m/uL Hgb 15.0 (11.4-16.0) gm/dL Hct 44.5 (34.0-46.0) % MCV 88.8 (80.0-100.0) fL MCH 29.9 (25.0-35.0) pg MCHC 33.7 (31.0-37.0) g/dL RDW 13.4 (11.5-15.5) % Plt Count 217 (150-450) k/uL MPV 7.0 Neutrophils % 78 % Lymphocytes % 14 % Monocytes % 4 % Eosinophils % 2 % Basophils % 0 % Neutrophils # 7.5 (1.3-7.7) k/uL Lymphocytes # 1.4 (1.0-4.8) k/uL Monocytes # 0.4 (0-1.0) k/uL Eosinophils # 0.1 (0-0.7) k/uL Basophils # 0.0 (0-0.2) k/uL PT 11.4 (9.0-12.0) sec INR 1.1 (<1.2) APTT 24.1 (22.0-30.0) sec Disposition Clinical Impression: Atrial fibrillation, Syncope Disposition: ADMITTED IP TO THIS HOSP Condition: Stable Is patient prescribed a controlled substance at d/c from ED?: No Referrals: Tala Huber MD [Primary Care Provider] - 1-2 days Time of Disposition: 14:53
--- NOTE | 2022-12-04 14:44 | XR ---
EXAMINATION TYPE: XR chest 2V DATE OF EXAM: 12/04/2022 COMPARISON: NONE TECHNIQUE: PA and lateral views submitted. HISTORY: Weakness FINDINGS: The lungs are clear and there is no pneumothorax, pleural effusion, or focal pneumonia. Heart size normal and no overt failure. Osseous structures demonstrate hypertrophic and degenerative changes of the spine. Hypertrophic arthropathy bilateral AC joints. Diffuse osteopenia. IMPRESSION: 1. No acute process.
[2022-12-04 14:47] LABS: INR 1.1 (<1.2); Partial Thromboplastin Time 24.1 sec (22.0-30.0); Prothrombin Time 11.4 sec (9.0-12.0)
[2022-12-04] MEDS ORDERED: ACETAMINOPHEN TAB 325 MG TAB PO PRN (14:51)
[2022-12-04] MEDS ORDERED: NALOXONE 0.4 MG/ML 1 ML VIAL IV PRN (14:51)
[2022-12-04 15:02] LABS: ALT 42 U/L (4-34); AST 30 U/L (14-36); African American GFR (CKD) 78 (>60 ml/min/1.73 sqM); Albumin 4.3 g/dL (3.5-5.0); Alkaline Phosphatase 70 U/L (38-126); Anion Gap 6 mmol/L; Blood Urea Nitrogen 9 mg/dL (7-17); Calcium 8.7 mg/dL (8.4-10.2); Carbon Dioxide 27 mmol/L (22-30); Chloride 98 mmol/L (98-107); Glucose 144 mg/dL (74-99); Non-African American GFR(CKD) 67 (>60 ml/min/1.73 sqM); Potassium 4.8 mmol/L (3.5-5.1); Sodium 131 mmol/L (137-145); Total Bilirubin 1.3 mg/dL (0.2-1.3); Total Protein 6.7 g/dL (6.3-8.2)
--- NOTE | 2022-12-04 16:54 | CA ---
Transthoracic Echo Report Name: Elda You Age: 72 Gender: F : 1950 Exam Date: 12/04/2022 14:41 Exam Location: [facility] Ht (in): 68 Wt (lb): 189 Ordering Physician: Cisco Gabriel MD Attending/Referring Phys: Communications Coordinator TM Procedure CPT: Indications: Syncope Cardiac Hx: Technical Quality: Fair Contrast 1: Total Dose (mL): Contrast 2: Total Dose (mL): MEASUREMENTS (Male / Female) Normal Values 2D ECHO LV Diastolic Diameter PLAX 3.8 cm 4.2 - 5.9 / 3.9 - 5.3 cm LV Systolic Diameter PLAX 2.4 cm IVS Diastolic Thickness 0.9 cm 0.6 - 1.0 / 0.6 - 0.9 cm LVPW Diastolic Thickness 1.3 cm 0.6 - 1.0 / 0.6 - 0.9 cm LV Relative Wall Thickness 0.6 RV Internal Dim ED PLAX 2.3 cm LVOT Diameter 2.0 cm Aortic Root Diameter 2.7 cm LA Systolic Diameter LX 3.1 cm 3.0 - 4.0 / 2.7 - 3.8 cm LV Diastolic Volume MOD BP 43.7 cm??? 67 - 155 / 56 - 104 cm??? LV Systolic Volume MOD BP 12.2 cm??? - 58 / 19 - 49 cm??? LV Ejection Fraction MOD BP 72.2 % >= 55 % LV Cardiac Index MOD BP 1263.4 cm???/min???m??? LV Diastolic Volume MOD 4C 40.9 cm??? LV Systolic Volume MOD 4C 11.4 cm??? LV Ejection Fraction MOD 4C 72.0 % LV Cardiac Index MOD 4C 1177.8 cm???/min???m??? LV Diastolic Length 4C 6.1 cm LV Systolic Length 4C 5.3 cm LV Diastolic Volume MOD 2C 46.6 cm??? LV Systolic Volume MOD 2C 11.9 cm??? LV Ejection Fraction MOD 2C 74.4 % LV Cardiac Index MOD 2C 1388.7 cm???/min???m??? LV Diastolic Length 2C 6.2 cm LV Systolic Length 2C 4.8 cm LA Volume 46.1 cm??? 18 - 58 / 22 - 52 cm??? DOPPLER AV Peak Velocity 172.7 cm/s AV Peak Gradient 11.9 mmHg LVOT Peak Velocity 76.3 cm/s LVOT Peak Gradient 2.3 mmHg AV Area Cont Eq pk 1.4 cm??? MV Peak Velocity 97.6 cm/s MV Peak Gradient 3.8 mmHg MV Mean Velocity 48.5 cm/s MV Mean Gradient 1.2 mmHg MV Velocity Time Integral 27.2 cm Mitral E Point Velocity 96.2 cm/s Mitral A Point Velocity 27.6 cm/s Mitral E to A Ratio 3.5 MV Deceleration Time 235.1 ms MV E' Velocity 14.4 cm/s Mitral E to MV E' Ratio 6.7 TR Peak Velocity 114.6 cm/s TR Peak Gradient 5.3 mmHg Right Ventricular Systolic Press 10.3 mmHg FINDINGS Left Ventricle Normal LV size and wall thickness. Left ventricular ejection fraction is estimated at 50-55 %. Right Ventricle Normal right ventricular size. Right Atrium Normal right atrial size. Left Atrium Normal left atrial size. LA volume index= 23ml/m2 Mitral Valve Structurally normal mitral valve. Trace MR. Aortic Valve Trileaflet aortic valve. No aortic valve stenosis or regurgitation. Tricuspid Valve Structurally normal tricuspid valve. Pulmonic Valve Pulmonic valve not well visualized. No pulmonic regurgitation. Pericardium Normal pericardium. Aorta Normal size aortic root. CONCLUSIONS Normal LV systolic function Previewed by: Dr. Chucho Rae MD (Electronically Signed) Final Date: 04 December 2022 16:53
--- NOTE | 2022-12-04 17:27 | P.HPIM ---
History of Present Illness H&P Date: 12/04/22 Elda You, is a 72-year-old female who presented to [facility] emergency room with a chief complaint of palpitation and presyncope, patient states that this morning she was having some palpitation and lightheadedness, she decided to come in to emergency room, she was evaluated and was discharged home, at that time she had evidence of atrial fibrillation with controlled ventricular response. Patient and her went to a restaurant on her way home however she was feeling very lightheaded and almost fainted she decided to come back to emergency room, she was reevaluated and admitted to telemetry floor, echocardiogram was ordered and cardiology consultation was requ ested. She was evaluated in the emergency room vital examination on presentation revealed a temperature of 98.3 pulse 51 respiration 20 blood pressure 107/60 pulse ox 96% on room air Laboratory data revealed a white blood count of 9.6 hemoglobin 15.0 platelet count 217 sodium 131 potassium 4.8 chloride 98 CO2 27 BUN 9 creatinine 0.87 Testing in the emergency room revealed chest x-ray done in the emergency room revealed no acute process. Patient was admitted to medical floor for further evaluation and treatment. Past medical history is significant for history of hypertension, history of hyperlipidemia, history of hypothyroidism, history of CVA, history of atrial fibrillation with controlled ventricular response, followed by Dr. Osuna , history of osteoarthritis. On review of systems patient is alert and oriented 3 in no apparent distress, she is still feeling lightheaded otherwise she denies any complaints, there is no fever or chills no headache or dizziness no chest pain no shortness of breath no cough no nausea or vomiting no abdominal pain no diarrhea no blood in the stools no burning with urination no frequency or urgency and no hematuria, there is no weakness or numbness in any of the extremities there is no change in vision speech or gait. Past Medical History Past Medical History: Atrial Fibrillation, CVA/TIA, GERD/Reflux, Hyperlipidemia, Hypertension, Thyroid Disorder Additional Past Medical History / Comment(s): seasonal allergies. positive cologuard. 2015 TIA. 2019 sepsis r/t cortisone injection. hemorrhoid History of Any Multi-Drug Resistant Organisms: None Reported Past Surgical History: Hysterectomy, Joint Replacement, Tonsillectomy, Tubal Ligation Additional Past Surgical History / Comment(s): thryoidectomy. rt knee replacement Past Anesthesia/Blood Transfusion Reactions: No Reported Reaction, Motion Sickness Past Psychological History: Anxiety Smoking Status: Former smoker Past Alcohol Use History: None Reported Past Drug Use History: None Reported - Past Family History Father Additional Family Medical History / Comment(s): POCKETS IN THE LUNG, ULCERATIVE COLITIS Mother Family Medical History: AFIB Medications and Allergies Home Medications Medication Instructions Recorded Confirmed Type Cholecalciferol [Vitamin D3 (25 50 mcg PO DAILY 06/01/14 12/04/22 History Mcg = 1000 Iu)] Magnesium Oxide [Mag-Ox] 500 mg PO HS 06/01/14 12/04/22 History amLODIPine [Norvasc] 5 mg PO BID 12/22/18 12/04/22 History Atorvastatin [Lipitor] 20 mg PO HS 12/18/20 12/04/22 History Flecainide [Tambocor] 50 mg PO Q12HR 12/18/20 12/04/22 History clonazePAM 0.5 mg PO HS 12/18/20 12/04/22 History HYDROcodone/APAP 5-325MG [[place] 1 tab PO Q6HR PRN #12 tab 12/04/22 12/04/22 Rx 5-325] Levothyroxine Sodium [Synthroid] 75 mcg PO HS 12/04/22 12/04/22 History Rivaroxaban [Xarelto] 20 mg PO HS 12/04/22 12/04/22 History lisinopriL 40 mg PO DAILY 12/04/22 12/04/22 History Allergies Allergy/AdvReac Type Severity Reaction Status Date / Time No Known Allergies Allergy Verified 12/04/22 16:17 Physical Exam Vitals: Vital Signs Temp Pulse Resp BP Pulse Ox 12/04/22 13:43 98.3 F 51 L 20 107/60 96 Intake and Output 12/04/22 12/04/22 12/04/22 06:59 14:59 22:59 Other: Weight 85.729 kg In general patient is alert and oriented x 3 in no distress HEENT head normocephalic and atraumatic Neck is supple no JVD no goiter no lymphadenopathy no carotid bruit Chest examination is clear to auscultation no crackles no wheezing Cardiac exam reveals irregular heart sounds S1 and S2 no gallops no murmurs Abdomen is soft nontender no organomegaly with normal bowel sounds Extremity exam reveals no edema no cyanosis or clubbing Neurological examination reveals no gross focal deficits Results CBC & Chem 7: 12/04/22 14:10 12/04/22 14:10 Labs: Abnormal Lab Results - Last 24 Hours (Table) 12/04/22 Range/Units 14:10 Sodium 131 L (137-145) mmol/L Glucose 144 H (74-99) mg/dL ALT 42 H (4-34) U/L Assessment and Plan Plan: Palpitation Presyncope Underlying history of chronic paroxysmal atrial fibrillation Underlying history of hypertension Underlying history of hyperlipidemia Underlying history of hypothyroidism Previous history of CVA Underlying history of osteoarthritis with history of right total knee arthroplasty At this time patient was seen and examined in the emergency room Plan is to admit to telemetry floor Home medications reviewed Cardiology consult requested, echocardiogram ordered Will follow closely
[2022-12-04] MEDS ORDERED: FLECAINIDE 50 MG TAB PO SCH (21:00)
[2022-12-04] MEDS: LEVOTHYROXINE 75 MCG TAB PO SCH (21:22)
[2022-12-04] MEDS: ATORVASTATIN 20 MG TAB PO SCH (21:22)
[2022-12-04] MEDS: MAGNESIUM OXIDE 400 MG TAB PO SCH (21:22)
[2022-12-04] MEDS: amLODIPine 5 MG TAB PO SCH (21:23)
[2022-12-04] MEDS: clonazePAM 0.5 MG TAB PO SCH (23:22)
[2022-12-04 23:40] LABS: Appearance,Urine Clear (Clear); Bilirubin,Urine Negative (Negative); Blood,Urine Negative (Negative); Color,Urine Colorless; Glucose,Urine (UA) Negative (Negative); Ketones,Urine Negative (Negative); Leukocyte Esterase,Urine Negative (Negative); Nitrite,Urine Negative (Negative); Protein,Urine Negative (Negative); Specific Gravity,Urine 1.004 (1.001-1.035); Urobilinogen,Urine <2.0 mg/dL (<2.0)
[2022-12-04] MEDS: RIVAROXABAN 20 MG TAB PO SCH (23:43)
[2022-12-04] MEDS: HYDROcodone/APAP 5-325MG 1 EACH TAB PO PRN (23:43)
[2022-12-05] MEDS: SODIUM CHLORIDE 0.9% 1,000 ML IV SCH ×2 (04:24→21:08)
[2022-12-05] MEDS: lisinopriL 20 MG TAB PO SCH (08:45)
[2022-12-05] MEDS: FLECAINIDE 50 MG TAB PO SCH ×2 (08:46→21:08)
[2022-12-05] MEDS: amLODIPine 5 MG TAB PO SCH ×2 (08:46→21:08)
[2022-12-05] MEDS: CHOLECALCIFEROL 25 MCG (1000 IU) TABLET PO SCH (08:46)
--- NOTE | 2022-12-05 09:56 | P.CRDCN ---
History of Present Illness History of present illness: HISTORY OF PRESENT ILLNESS: This is a 72-year-old with a past medical history significant for paroxysmal atrial fibrillation, TIA, and hypertension. Patient follows in the office with Dr. Osuna. We have been asked to see the patient in consultation for afib and syncope. Patient examined at the bedside. patient states she has been having episodes of atrial fibrillation recently but they have all seem to last longer than 24 hours and she has been fairly asymptomatic. She states yesterday her heart monitor that she has at home states that she was in atrial fibrillation. She states at one time her heart rate was up into the 130s. She reports feeling dizzy and lightheaded. She came to the hospital and was evaluated in the emergency room and discharged home. She states afterwards she went out to eat with her spouse and began to feel very dizzy and was seeing white spots. She states they got up to leave when her knees buckled and she fell which prompted her to come back to the ER. She denies any chest pain or pressure this morning. Denies SOB. Denies dizziness or lightheadedness. Patient remains in atrial fibrillation this morning with controlled ventricular rates. Telemetry reviewed with no significant bradycardia or pauses noted. * EKG reveals atrial fibrillation with controlled ventricular rate * Chest xray negative for acute process. * Laboratory data: W BC 9.6. Hemoglobin 15.0. platelet count 217. Sodium 131. Potassium 4.8. BUN 9. Creatinine 0.86. Lactic acid 1.3. Troponin negative 1. * Current home cardiac medications include Xarelto 20 mg at night, Lipitor 20 mg at night, lisinopril 40 mg daily, amlodipine 5 mg twice a day, and Flecainide 500mg Q12 hours. * Echocardiogram completed revealing ejection fraction 50-55%, trace MR * Patient underwent Lexiscan stress test in March 2019 which was negative for ischemia REVIEW OF SYSTEMS: At the time of my exam: CONSTITUTIONAL: Denies fever or chills. HEENT: Denies blurred vision, vision changes, or eye pain. Denies hemoptysis CARDIOVASCULAR: Denies chest pain. Denies orthopnea. Denies PND. Denies palpitations RESPIRATORY: Denies shortness of breath. GASTROINTESTINAL: Denies abdominal pain. Denies nausea or vomiting. HEMATOLOGIC: Denies bleeding disorders. GENITOURINARY: Denies any blood in urine. SKIN: Denies pruitis. Denies rash. PHYSICAL EXAM: VITAL SIGNS: Reviewed. GENERAL: Well-developed in no acute distress. HEENT: Head is normocephalic. Pupils are equal, round. Sclerae anicteric. Mucous membranes of the mouth are moist. Neck supple. No JVD or thyromegaly LUNGS: Respirations even and unlabored. Lungs essentially clear to auscultation bilaterally. HEART: Irregular rate and rhythm. S1 and S2 heard. ABDOMEN: Soft. Nondistended. Nontender. EXTREMITIES: Normal range of motion. No clubbing or cyanosis. Peripheral pulses intact. No lower extremity edema NEUROLOGIC: Awake and alert. Oriented x 3. ASSESSMENT: Syncope Paroxysmal atrial fibrillation Hypertension Hyperlipidemia History of TIA History of cardioversion PLAN: 2D echo obtained and reviewed Resume home cardiac medications Increase Flecainide to 100mg q12 hours Continue telemetry monitoring Patient will undergo cardioversion tomorrow with Dr. Osuna if she remains in atrial fibrillation Further recommendations pending patient course Nurse practitioner note has been reviewed by physician. Signing provider agrees with the documented findings, assessment, and plan of care. Past Medical History Past Medical History: Atrial Fibrillation, CVA/TIA, GERD/Reflux, Hyperlipidemia, Hypertension, Thyroid Disorder Additional Past Medical History / Comment(s): seasonal allergies. positive cologuard. 2015 TIA. 2019 sepsis r/t cortisone injection. hemorrhoid History of Any Multi-Drug Resistant Organisms: None Reported Past Surgical History: Hysterectomy, Joint Replacement, Tonsillectomy, Tubal Ligation Additional Past Surgical History / Comment(s): thryoidectomy. rt knee replacement Past Anesthesia/Blood Transfusion Reactions: No Reported Reaction, Motion Sickness Past Psychological History: Anxiety Smoking Status: Former smoker Past Alcohol Use History: None Reported Additional Past Alcohol Use History / Comment(s): quit smoking Past Drug Use History: None Reported - Past Family History Father Additional Family Medical History / Comment(s): POCKETS IN THE LUNG, ULCERATIVE COLITIS Mother Family Medical History: AFIB Medications and Allergies Home Medications Medication Instructions Recorded Confirmed Type Cholecalciferol [Vitamin D3 (25 50 mcg PO DAILY 06/01/14 12/04/22 History Mcg = 1000 Iu)] Magnesium Oxide [Mag-Ox] 500 mg PO HS 06/01/14 12/04/22 History amLODIPine [Norvasc] 5 mg PO BID 12/22/18 12/04/22 History Atorvastatin [Lipitor] 20 mg PO HS 12/18/20 12/04/22 History Flecainide [Tambocor] 50 mg PO Q12HR 12/18/20 12/04/22 History clonazePAM 0.5 mg PO HS 12/18/20 12/04/22 History HYDROcodone/APAP 5-325MG [[place] 1 tab PO Q6HR PRN #12 tab 12/04/22 12/04/22 Rx 5-325] Levothyroxine Sodium [Synthroid] 75 mcg PO HS 12/04/22 12/04/22 History Rivaroxaban [Xarelto] 20 mg PO HS 12/04/22 12/04/22 History lisinopriL 40 mg PO DAILY 12/04/22 12/04/22 History Allergies Allergy/AdvReac Type Severity Reaction Status Date / Time No Known Allergies Allergy Verified 12/04/22 16:17 Physical Exam Vitals: Vital Signs Temp Pulse Pulse Resp BP BP Pulse Ox 12/05/22 09:09 97 12/05/22 07:20 64 16 12/05/22 06:55 98.5 F 64 16 122/79 98 12/05/22 01:35 98.6 F 83 17 137/77 97 12/04/22 20:59 98.8 F 105 H 18 187/71 98 12/04/22 20:36 98.1 F 111 H 19 199/82 97 12/04/22 18:39 85 18 146/91 96 12/04/22 16:00 101 H 18 158/85 98 12/04/22 13:43 98.3 F 51 L 20 107/60 96 FiO2 12/05/22 09:09 21 12/05/22 07:20 12/05/22 06:55 12/05/22 01:35 12/04/22 20:59 12/04/22 20:36 12/04/22 18:39 12/04/22 16:00 12/04/22 13:43 Intake and Output 12/04/22 12/05/22 12/05/22 22:59 06:59 14:59 Other: Voiding Method Toilet Toilet # Voids 1 Weight 85.729 kg Results 12/04/22 14:10 12/04/22 14:10 Cardiac Enzymes 12/04/22 12/04/22 Range/Units 14:10 14:10 AST 30 (14-36) U/L Troponin I <0.012 (0.000-0.034) ng/mL Coagulation 12/04/22 Range/Units 14:10 PT 11.4 (9.0-12.0) sec APTT 24.1 (22.0-30.0) sec CBC 12/04/22 Range/Units 14:10 WBC 9.6 (3.8-10.6) k/uL RBC 5.02 (3.80-5.40) m/uL Hgb 15.0 (11.4-16.0) gm/dL Hct 44.5 (34.0-46.0) % Plt Count 217 (150-450) k/uL Comprehensive Metabolic Panel 12/04/22 Range/Units 14:10 Sodium 131 L (137-145) mmol/L Potassium 4.8 (3.5-5.1) mmol/L Chloride 98 (98-107) mmol/L Carbon Dioxide 27 (22-30) mmol/L BUN 9 (7-17) mg/dL Creatinine 0.86 (0.52-1.04) mg/dL Glucose 144 H (74-99) mg/dL Calcium 8.7 (8.4-10.2) mg/dL AST 30 (14-36) U/L ALT 42 H (4-34) U/L Alkaline Phosphatase 70 (38-126) U/L Total Protein 6.7 (6.3-8.2) g/dL Albumin 4.3 (3.5-5.0) g/dL Current Medications Generic Name Dose Route Start Last Admin Trade Name Freq PRN Reason Stop Dose Admin Acetaminophen 650 mg 12/04/22 14:51 Acetaminophen Tab 325 Mg Tab PO Q6HR PRN Mild Pain or Fever > 100.5 Hydrocodone Bitart/Acetaminophen 1 each 12/04/22 17:09 12/04/22 23:43 Hydrocodone/Apap 5-325mg 1 Each Tab PO 1 each Q6HR PRN Administration Pain Amlodipine Besylate 5 mg 12/04/22 21:00 12/05/22 08:46 Amlodipine 5 Mg Tab PO 5 mg BID MADINA Administration Atorvastatin Calcium 20 mg 12/04/22 21:00 12/04/22 21:22 Atorvastatin 20 Mg Tab PO 20 mg HS MADINA Administration Cholecalciferol 50 mcg 12/05/22 09:00 12/05/22 08:46 Cholecalciferol 25 Mcg (1000 Iu) Tablet PO 50 mcg DAILY MADINA Administration Clonazepam 0.5 mg 12/04/22 21:00 12/04/22 23:22 Clonazepam 0.5 Mg Tab PO Not Given HS MADINA Flecainide Acetate 100 mg 12/05/22 09:00 12/05/22 08:46 Flecainide 50 Mg Tab PO 100 mg Q12HR MADINA Administration Sodium Chloride 1,000 mls @ 75 mls/hr 12/04/22 14:00 12/05/22 04:24 Saline 0.9% IV Not Given .[id number] MADINA Levothyroxine Sodium 75 mcg 12/04/22 21:00 12/04/22 21:22 Levothyroxine 75 Mcg Tab PO 75 mcg HS MADINA Administration Lisinopril 40 mg 12/05/22 09:00 12/05/22 08:45 Lisinopril 20 Mg Tab PO 40 mg DAILY MADINA Administration Magnesium Oxide 400 mg 12/04/22 21:00 12/04/22 21:22 Magnesium Oxide 400 Mg Tab PO 400 mg HS MADINA Administration Naloxone HCl 0.2 mg 12/04/22 14:51 Naloxone 0.4 Mg/Ml 1 Ml Vial IV Q2M PRN Opioid Reversal Rivaroxaban 20 mg 12/04/22 21:00 12/04/22 23:43 Rivaroxaban 20 Mg Tab PO 20 mg HS MADINA Administration Protocol Intake and Output 12/04/22 12/05/22 12/05/22 22:59 06:59 14:59 Other: Voiding Method Toilet Toilet # Voids 1 Weight 85.729 kg 12/04/22 14:10 12/04/22 14:10
[2022-12-05 11:13] LABS: ALT 35 U/L (8-44); AST 22 U/L (13-35); Alkaline Phosphatase 63 U/L (41-126); BUN/Creat Ratio 11.43 Ratio (12.00-20.00); Calcium 8.7 mg/dL (8.7-10.3); Carbon Dioxide 26.2 mmol/L (21.6-31.8); Chloride 99 mmol/L (96-109); Globulin 1.6 d/dL (1.6-3.3); Glucose 112 mg/dL (70-110); Potassium 4.6 mmol/L (3.5-5.5); Sodium 134 mmol/L (135-145); Total Bilirubin 1.4 mg/dL (0.3-1.2); Total Protein 5.6 d/dL (6.2-8.2)
[2022-12-05 11:15] LABS: Basophils # (A) 0.03 X 10*3/uL (0.00-0.10); Basophils % (A) 0.4 %; Eosinophils # (A) 0.15 X 10*3/uL (0.04-0.35); Eosinophils % (A) 2.1 %; HCT 42.2 % (37.2-46.3); HGB 13.6 d/dL (12.0-15.0); Lymphocytes % (A) 22.9 %; MCH 28.7 pg (27.0-32.0); MCHC 32.2 d/dL (32.0-37.0); Mean Platelet Volume 9.2 FL (9.5-12.2); Monocytes % (A) 5.7 %; NRBC Per 100 WBC 0 X 10*3/uL (0.00-0.01); Neutrophils # (A) 4.78 X 10*3/uL (1.80-7.70); Neutrophils % (A) 68.6 %; Platelet Count 243 X 10*3/uL (140-440); RBC 4.74 X 10*6/uL (4.10-5.20); RDW 13.4 % (11.5-14.5); WBC 6.98 X 10*3/uL (4.50-10.00)
[2022-12-05] MEDS ORDERED: SODIUM CHLORIDE 0.9% 1,000 ML IV SCH (13:30)
[2022-12-05] MEDS ORDERED: MAGNESIUM HYDROXIDE 2,400 MG/30 ML CUP PO PRN (17:24)
--- NOTE | 2022-12-05 17:27 | P.PN ---
Subjective Progress Note Date: 12/05/22 Elda You, is a 72-year-old female who presented to [facility] emergency room with a chief complaint of palpitation and presyncope, patient states that this morning she was having some palpitation and lightheadedness, she decided to come in to emergency room, she was evaluated and was discharged home, at that time she had evidence of atrial fibrillation with controlled ventricular response. Patient and her went to a restaurant on her way home however she was feeling very lightheaded and almost fainted she decided to come back to emergency room, she was reevaluated and admitted to telemetry floor, echocardiogram was ordered and cardiology consultation was requested. She was evaluated in the emergency room vital examination on presentation revealed a temperature of 98.3 pulse 51 respiration 20 blood pressure 107/60 pulse ox 96% on room air Laboratory data revealed a white blood count of 9.6 hemoglobin 15.0 platelet count 217 sodium 131 potassium 4.8 chloride 98 CO2 27 BUN 9 creatinine 0.87 Testing in the emergency room revealed chest x-ray done in the emergency room revealed no acute process. Patient was admitted to medical floor for further evaluation and treatment. Past medical history is significant for history of hypertension, history of hyperlipidemia, history of hypothyroidism, history of CVA, history of atrial fibrillation with controlled ventricular response, followed by Dr. Osuna , history of osteoarthritis. On review of systems patient is alert and oriented 3 in no apparent distress, she is still feeling lightheaded otherwise she denies any complaints, there is no fever or chills no headache or dizziness no chest pain no shortness of breath no cough no nausea or vomiting no abdominal pain no diarrhea no blood in the stools no burning with urination no frequency or urgency and no hematuria, there is no weakness or numbness in any of the extremities there is no change in vision speech or gait. On 12/05/2022 patient was seen and examined on the medical floor she is alert and oriented 3 in no apparent distress there is no fever or chills no headache or dizziness no chest pain or shortness of breath no cough no nausea or vomiting no abdominal pain no diarrhea and no urinary symptoms. Cardiology input review, dose of Flecainide [Tambocor] was increased, if patient remains in A. fib still tomorrow plan is for cardioversion, will continue to follow closely. Objective - Vital Signs Vital signs: Vital Signs Temp 99.6 F 12/05/22 13:37 Pulse 71 12/05/22 13:37 Resp 16 12/05/22 13:37 BP 117/70 12/05/22 13:37 Pulse Ox 96 12/05/22 13:37 FiO2 21 12/05/22 09:09 Intake & Output 12/04/22 12/05/22 12/05/22 18:59 06:59 18:59 Weight 85.729 kg 85.729 kg Other: Voiding Method Toilet Toilet # Voids 1 - Exam In general patient is alert and oriented x 3 in no distress HEENT head normocephalic and atraumatic Neck is supple no JVD no goiter no lymphadenopathy no carotid bruit Chest examination is clear to auscultation no crackles no wheezing Cardiac exam reveals irregular heart sounds S1 and S2 no gallops no murmurs Abdomen is soft nontender no organomegaly with normal bowel sounds Extremity exam reveals no edema no cyanosis or clubbing Neurological examination reveals no gross focal deficits - Labs CBC & Chem 7: 12/05/22 07:05 12/05/22 07:05 Labs: Abnormal Lab Results - Last 24 Hours (Table) 12/04/22 12/05/22 12/05/22 Range/Units 14:10 07:05 07:05 MPV 9.2 L (9.5-12.2) FL Sodium 134 L (135-145) mmol/L BUN 8.0 L (9.0-27.0) mg/dL BUN/Creatinine Ratio 11.43 L (12.00-20.00) Ratio Glucose 112 H (70-110) mg/dL Total Bilirubin 1.4 H (0.3-1.2) mg/dL Total Protein 5.6 L (6.2-8.2) d/dL TSH 4.750 H (0.465-4.680) mIU/L Assessment and Plan Plan: Palpitation Presyncope Underlying history of chronic paroxysmal atrial fibrillation Underlying history of hypertension Underlying history of hyperlipidemia Underlying history of hypothyroidism Previous history of CVA Underlying history of osteoarthritis with history of right total knee arthroplasty At this time patient was seen and examined in the emergency room Plan is to admit to telemetry floor Home medications reviewed Cardiology consult requested, echocardiogram ordered Will follow closely
[2022-12-05] MEDS: LEVOTHYROXINE 75 MCG TAB PO SCH (21:07)
[2022-12-05] MEDS: ATORVASTATIN 20 MG TAB PO SCH (21:08)
[2022-12-05] MEDS: MAGNESIUM OXIDE 400 MG TAB PO SCH (21:08)
[2022-12-05] MEDS: RIVAROXABAN 20 MG TAB PO SCH (21:08)
[2022-12-05] MEDS: clonazePAM 0.5 MG TAB PO SCH (21:08)
[2022-12-05] MEDS: HYDROcodone/APAP 5-325MG 1 EACH TAB PO PRN (21:09)
[2022-12-06] MEDS: lisinopriL 20 MG TAB PO SCH (09:11)
[2022-12-06] MEDS: amLODIPine 5 MG TAB PO SCH (09:11)
[2022-12-06] MEDS: FLECAINIDE 50 MG TAB PO SCH (09:11)
[2022-12-06] MEDS: SODIUM CHLORIDE 0.9% 1,000 ML IV SCH (09:19)
--- NOTE | 2022-12-06 09:52 | P.PN ---
Subjective HISTORY OF PRESENT ILLNESS: This is a 72-year-old with a past medical history significant for paroxysmal atrial fibrillation, TIA, and hypertension. Patient follows in the office with Dr. Osuna. We have been asked to see the patient in consultation for afib and syncope. Patient examined at the bedside. patient states she has been having episodes of atrial fibrillation recently but they have all seem to last longer than 24 hours and she has been fairly asymptomatic. She states yesterday her heart monitor that she has at home states that she was in atrial fibrillation. She states at one time her heart rate was up into the 130s. She reports feeling dizzy and lightheaded. She came to the hospital and was evaluated in the emergency room and discharged home. She states afterwards she went out to eat with her spouse and began to feel very dizzy and was seeing white spots. She states they got up to leave when her knees buckled and she fell which prompted her to come back to the ER. She denies any chest pain or pressure this morning. Denies SOB. Denies dizziness or lightheadedness. Patient remains in atrial fibrillation this morning with controlled ventricular rates. Telemetry reviewed with no significant bradycardia or pauses noted. * EKG reveals atrial fibrillation with controlled ventricular rate * Chest xray negative for acute process. * Laboratory data: W BC 9.6. Hemoglobin 15.0. platelet count 217. Sodium 131. Potassium 4.8. BUN 9. Creatinine 0.86. Lactic acid 1.3. Troponin negative 1. * Current home cardiac medications include Xarelto 20 mg at night, Lipitor 20 mg at night, lisinopril 40 mg daily, amlodipine 5 mg twice a day, and Flecainide 500mg Q12 hours. * Echocardiogram completed revealing ejection fraction 50-55%, trace MR * Patient underwent Lexiscan stress test in March 2019 which was negative for ischemia 12/06/2022 Patient examined this morning at the bedside. Patient denies chest pain or pressure. She denies shortness of breath. She denies dizziness or lightheadedness. Denies palpitations. Telemetry reveals atrial fibrillation with controlled ventricular rate. PHYSICAL EXAM: VITAL SIGNS: Reviewed. GENERAL: Well-developed in no acute distress. HEENT: Head is normocephalic. Pupils are equal, round. Sclerae anicteric. Mucous membranes of the mouth are moist. Neck supple. No JVD or thyromegaly LUNGS: Respirations even and unlabored. Lungs essentially clear to auscultation bilaterally. HEART: Irregular rate and rhythm. S1 and S2 heard. ABDOMEN: Soft. Nondistended. Nontender. EXTREMITIES: Normal range of motion. No clubbing or cyanosis. Peripheral pulses intact. No lower extremity edema NEUROLOGIC: Awake and alert. Oriented x 3. ASSESSMENT: Syncope Paroxysmal atrial fibrillation Hypertension Hyperlipidemia History of TIA History of cardioversion PLAN: Continue current cardiac medications Continue increased dose of Flecainide to 100mg q12 hours Continue telemetry monitoring Patient to undergo KVNG and cardioversion today Further recommendations pending patient course Nurse practitioner note has been reviewed by physician. Signing provider agrees with the documented findings, assessment, and plan of care. Objective - Vital Signs Vital signs: Vital Signs Temp 98.2 F 12/06/22 07:09 Pulse 88 12/06/22 07:09 Resp 16 12/06/22 07:09 BP 136/80 12/06/22 07:09 Pulse Ox 98 12/06/22 07:09 FiO2 21 12/05/22 09:09 Intake & Output 12/05/22 12/06/22 12/06/22 18:59 06:59 18:59 Other: Voiding Method Toilet # Voids 4 2 # Bowel Movements 0 - Labs CBC & Chem 7: 12/05/22 07:05 12/05/22 07:05 Labs: Abnormal Lab Results - Last 24 Hours (Table) 12/05/22 12/05/22 Range/Units 07:05 07:05 MPV 9.2 L (9.5-12.2) FL Sodium 134 L (135-145) mmol/L BUN 8.0 L (9.0-27.0) mg/dL BUN/Creatinine Ratio 11.43 L (12.00-20.00) Ratio Glucose 112 H (70-110) mg/dL Total Bilirubin 1.4 H (0.3-1.2) mg/dL Total Protein 5.6 L (6.2-8.2) d/dL
--- NOTE | 2022-12-06 09:54 | P.PN ---
Subjective Progress Note Date: 12/06/22 Elda You, is a 72-year-old female who presented to [facility] emergency room with a chief complaint of palpitation and presyncope, patient states that this morning she was having some palpitation and lightheadedness, she decided to come in to emergency room, she was evaluated and was discharged home, at that time she had evidence of atrial fibrillation with controlled ventricular response. Patient and her went to a restaurant on her way home however she was feeling very lightheaded and almost fainted she decided to come back to emergency room, she was reevaluated and admitted to telemetry floor, echocardiogram was ordered and cardiology consultation was requested. She was evaluated in the emergency room vital examination on presentation revealed a temperature of 98.3 pulse 51 respiration 20 blood pressure 107/60 pulse ox 96% on room air Laboratory data revealed a white blood count of 9.6 hemoglobin 15.0 platelet count 217 sodium 131 potassium 4.8 chloride 98 CO2 27 BUN 9 creatinine 0.87 Testing in the emergency room revealed chest x-ray done in the emergency room revealed no acute process. Patient was admitted to medical floor for further evaluation and treatment. Past medical history is significant for history of hypertension, history of hyperlipidemia, history of hypothyroidism, history of CVA, history of atrial fibrillation with controlled ventricular response, followed by Dr. Osuna , history of osteoarthritis. On review of systems patient is alert and oriented 3 in no apparent distress, she is still feeling lightheaded otherwise she denies any complaints, there is no fever or chills no headache or dizziness no chest pain no shortness of breath no cough no nausea or vomiting no abdominal pain no diarrhea no blood in the stools no burning with urination no frequency or urgency and no hematuria, there is no weakness or numbness in any of the extremities there is no change in vision speech or gait. On 12/05/2022 patient was seen and examined on the medical floor she is alert and oriented 3 in no apparent distress there is no fever or chills no headache or dizziness no chest pain or shortness of breath no cough no nausea or vomiting no abdominal pain no diarrhea and no urinary symptoms. Cardiology input review, dose of Flecainide [Tambocor] was increased, if patient remains in A. fib still tomorrow plan is for cardioversion, will continue to follow closely. On 12/06/2022 patient alert and oriented 3. Plans for cardioversion today with Dr. Hi. Heart rate has been controlled but remains in atrial fibrillation. Patient denies chest pain or shortness of breath. Patient denies nausea vomiting or diarrhea. Patient denies any urinary burning or frequency Objective - Vital Signs Vital signs: Vital Signs Temp 98.2 F 12/06/22 07:09 Pulse 88 12/06/22 07:09 Resp 16 12/06/22 07:09 BP 136/80 12/06/22 07:09 Pulse Ox 98 12/06/22 07:09 FiO2 21 12/05/22 09:09 Intake & Output 12/05/22 12/06/22 12/06/22 18:59 06:59 18:59 Other: Voiding Method Toilet # Voids 4 2 # Bowel Movements 0 - Exam In general patient is alert and oriented x 3 in no distress HEENT head normocephalic and atraumatic Neck is supple no JVD no goiter no lymphadenopathy no carotid bruit Chest examination is clear to auscultation no crackles no wheezing Cardiac exam reveals irregular heart sounds S1 and S2 no gallops no murmurs Abdomen is soft nontender no organomegaly with normal bowel sounds Extremity exam reveals no edema no cyanosis or clubbing Neurological examination reveals no gross focal deficits - Labs CBC & Chem 7: 12/05/22 07:05 12/05/22 07:05 Labs: Abnormal Lab Results - Last 24 Hours (Table) 12/05/22 12/05/22 Range/Units 07:05 07:05 MPV 9.2 L (9.5-12.2) FL Sodium 134 L (135-145) mmol/L BUN 8.0 L (9.0-27.0) mg/dL BUN/Creatinine Ratio 11.43 L (12.00-20.00) Ratio Glucose 112 H (70-110) mg/dL Total Bilirubin 1.4 H (0.3-1.2) mg/dL Total Protein 5.6 L (6.2-8.2) d/dL Assessment and Plan Plan: Palpitation Presyncope Underlying history of chronic paroxysmal atrial fibrillation Underlying history of hypertension Underlying history of hyperlipidemia Underlying history of hypothyroidism Previous history of CVA Underlying history of osteoarthritis with history of right total knee arthroplasty At this time patient was seen and examined in the emergency room Plan is to admit to telemetry floor Home medications reviewed Cardiology consult requested, echocardiogram ordered Plans for cardioversion 12/06/2022 Will follow closely
[2022-12-06] MEDS: CHOLECALCIFEROL 25 MCG (1000 IU) TABLET PO SCH (10:02)
[2022-12-06] MEDS ORDERED: IV FLUID CONTINUATION 1,000 ML IV ONE ×2 (12:25)
[2022-12-06] MEDS ORDERED: BENZOCAINE SPRAY 1 CAN TOPICAL ONE (13:06)
[2022-12-06] MEDS ORDERED: METOPROLOL SUCCINATE (ER) 25 MG TAB.ER.24H PO SCH (13:45)
[2022-12-06 15:47] VITALS: RESP 17; TEMP 98
[2022-12-06 15:48] VITALS: BP 163/72
--- NOTE | 2022-12-06 16:34 | P.TEE ---
Date of Procedure: 12/06/22 Description of Procedure(s): Procedure performed: 1. Transesophageal Echocardiogram with color flow doppler, pulsed wave doppler, 2. Bubble Study 3. cardioversion Indications: Atrial fibrillation Consent: I have discussed the risks, benefits and alternative therapies for the above-mentioned procedure. The patient has indicated understanding and acceptance of the risks of the procedure. Signed consent was obtained and was placed in the paper chart. Procedural Steps: Timeout was performed in usual fashion. Patient's heart rate, blood pressure, oxygen saturation and ECG were monitored. Sedation was administered by anesthesia, please refer to their documentation. After sedation was achieved, KVNG probe was advanced without difficulty and without any immediate complications to the esophagus. KVNG study was performed with color flow doppler, pulsed wave doppler and continuous wave doppler. Agitated saline bubbles were injected to assess for any intra-atrial shunt. The probe was then removed. Pacer pads were placed on the patient's chest and back. Synchronized cardioversion was performed using 150J. Cardioversion was successful in 1st attempt. Patient tolerated the procedure well. Patient was transferred to the post procedure area in stable and satisfactory condition. Complications: none FINDINGS Left Atrium : Normal Left atrial size. No evidence of mass or thrombus seen Left Atrial Appendage: No evidence of thrombus or mass seen in KIMBERLE[place] Inter atrial septum: [Intact inter-atrial septum with no right to left shunt on bubble study. No evidence of atrial septal defect or patent foramen ovale] Left Ventricle: [Normal global LV size and systolic function] Right Atrium: [Normal overall RV size] Right Ventricle: [Normal global RV size and systolic function] Aortic Valve: [Structurally normal Trileaflet, no significant calcification. No significant stenosis or regurgitation on color doppler assessment. ] Mitral Valve: [Struturally normal. No evidence of prolapse. No evidence of stenosis or regurgitation on doppler assessment] Pulmonic Valve: [Not well visualized.] Tricuspid Valve: [Structurally normal. ] Ascending aorta, Aortic root and Aortic arch: [Mild intimal thickening. No evidence of large atheroma or bulky calcification] Desceding aorta: [Mild intimal thickening. No evidence of large atheroma or bulky calcification] CONCLUSION: 1. Normal LV size anf global LV systolic function 2. No significant valve disease 3. No evidence of thrombus in KIMBERLEE or LA. 4. Successful cardioversion 150 J, 1 attempt
[2022-12-06 16:47] VITALS: PULSE 65
== END 2022-12-06 17:33 | disposition home or self-care (01) | DRG 310 ==
LOC: EC 13:41 → 6NMEDSUR 14:51 → 4SSUR 19:42 → OBSVTOIN 12-06 13:04 → 3SCARD 12-06 14:05
PROVIDERS: ADMIT Internal Medicine; ATTEND Internal Medicine
PROC: 5A2204Z Restoration of Cardiac Rhythm, Single (ICD-10-PCS; 2022-12-06)
PROC: 4A02XM4 Measurement of Cardiac Total Activity, External Approach (ICD-10-PCS; 2022-12-06)
PROC: 3E033HZ Introduction of Radioactive Substance into Peripheral Vein, Percutaneous Approach (ICD-10-PCS; 2022-12-06)
PROC: B246ZZ4 Ultrasonography of Right and Left Heart, Transesophageal (ICD-10-PCS; principal; 2022-12-06 07:30)
DX: I48.0 Paroxysmal atrial fibrillation (principal); R55 Syncope and collapse; Z79.01 Long term (current) use of anticoagulants; I10 Essential (primary) hypertension; E78.5 Hyperlipidemia, unspecified; Z86.73 Personal history of transient ischemic attack (TIA), and cerebral infarction without residual deficits; Z79.890 Hormone replacement therapy; J30.2 Other seasonal allergic rhinitis; E03.9 Hypothyroidism, unspecified; F41.9 Anxiety disorder, unspecified; Z90.710 Acquired absence of both cervix and uterus; Z96.651 Presence of right artificial knee joint; Z79.899 Other long term (current) drug therapy; Z98.51 Tubal ligation status
CPT/HCPCS: 36415; 71046; 80053; 81003; 83605; 83735; 84443; 84484; 85025; 85610; 85730; 92960; 93005; 93306; 93312; 93320; 93325; 94760; 96360; 96361; 99285

== ENCOUNTER → 2023-06-11 | Outpatient (CLI) | payer MEDICARE ==
[2023-06-11 21:40] LABS: Alternaria alternata IgE <0.10 kU/L; Aspergillus fumagatus IgE <0.10 kU/L; Birch IgE <0.10 kU/L; Cat Epith & Dander IgE <0.10 kU/L; Cladosporian herbarum IgE <0.10 kU/L; Dermato. farinae IgE <0.10 kU/L; Dog Dander IgE <0.10 kU/L; Elm IgE <0.10 kU/L; Oak IgE <0.10 kU/L; Ragweed,Common IgE <0.10 kU/L
[2023-06-12 14:48] LABS: Bermuda Grass IgE <0.10 kU/L (<0.10); Pecan IgE <0.10 kU/L (<0.10); Pecan IgE Class CLASS 0
[2023-06-12 14:49] LABS: House Dust (H-S) IgE <0.10 kU/L (<0.10); House Dust (H-S) IgE Class CLASS 0; Meadow Fescue IgE <0.10 kU/L (<0.10); Meadow Fescue IgE Class CLASS 0; Meadow Grs (KY blue) IgE <0.10 kU/L (<0.10); Meadow Grs (KY blue) IgE Class CLASS 0; Penicillium notatum IgE Class CLASS 0; Timothy Grass IgE <0.10 kU/L (<0.10); Timothy Grass IgE Class CLASS 0
[2023-06-12 14:50] LABS: Beech IgE <0.10 kU/L (<0.10); Beech IgE Class CLASS 0; Cottonwood IgE <0.10 kU/L (<0.10); Goldenrod IgE <0.10 kU/L (<0.10); Goldenrod IgE Class CLASS 0; Lamb's Quarter IgE <0.10 kU/L (<0.10); Lamb's Quarter IgE Class CLASS 0; Sycamore(Mpl.Lf) IgE <0.10 kU/L (<0.10); Sycamore(Mpl.Lf) IgE Class CLASS 0; Willow Tree IgE <0.10 kU/L (<0.10); Willow Tree IgE Class CLASS 0
[2023-06-12 14:51] LABS: English Plantain IgE Class CLASS 0; Ragweed, Giant IgE <0.10 kU/L (<0.10); Ragweed, Giant IgE Class CLASS 0; Sheep Sorrel IgE <0.10 kU/L (<0.10); Sheep Sorrel IgE Class CLASS 0
== END | disposition home or self-care (01) ==
LOC: LABWHC1 11:54
PROVIDERS: ATTEND Internal Medicine
DX: J31.0 Chronic rhinitis (principal)
CPT/HCPCS: 36415; 82785; 86003

== ENCOUNTER → 2023-07-22 | Outpatient (CLI) | payer MEDICARE ==
--- NOTE | 2023-07-22 13:29 | CT ---
EXAMINATION TYPE: CT sinus wo con DATE OF EXAM: 07/22/2023 COMPARISON: None HISTORY: CHRONIC MAXILLARY SINUSITIS CT DLP: 583.70 mGycm CONTRAST: 0 mL of Isovue 300 The paranasal sinuses are examined in the axial plane at 2 mm thick sections. Reconstructed images i n the coronal plane were obtained. There is dental amalgam scatter artifact Very minimal mucosal thickening is within the inferior left maxillary sinus. There is partial septati on of the anterior left maxillary sinus which is opacified The ethmoid air cells are clear. The sph enoid sinuses are clear. The frontal sinuses are clear. The septum is evaluated. No significant deviation. Bilateral brian bullosa are present The ostiomeatal units are patent. Mastoid air cells within the field of view are clear. IMPRESSION: 1. Mild mucosal thickening within the left maxillary sinus.
== END | disposition home or self-care (01) ==
LOC: RADCTMAIN 13:07
PROVIDERS: ATTEND Otolaryngology
DX: J34.89 Other specified disorders of nose and nasal sinuses (principal); J32.0 Chronic maxillary sinusitis
CPT/HCPCS: 70486